=== PATIENT | male | born 1935 | race Caucasian/White ===

== ENCOUNTER → 2016-09-09 | Outpatient (CLI) | payer MEDICARE, BC ==
[~2016-09-09] MED LIST: ASPI325T PO; ATOR40TA16 PO; ATOR40TA49 PO; BICA50TA PO; BUTATAB6 PO; CALC500T21 PO; CALC500T43 PO; IPRA0.02 NEB; IRBE150T49 PO; LABE200T2 PO; METO25 PO; METO25TA3 PO; OMEG5CAP PO; PRED20 PO; SYMB160A INH; TAMS0.4C4 PO; VITA100064 PO; VITATAB25 PO; WALKER ROLLING
[2016-09-09 12:20] LABS: AUTOMATED NEUTROPHIL # 4.4 TH/MM3 (1.8-7.7); BASOPHIL # 0.1 TH/MM3 (0-0.2); EOSINOPHIL # 0.2 TH/MM3 (0-0.4); EOSINOPHIL % 3.3 % (0.0-4.0); HEMATOCRIT 41.4 % (39.0-51.0); HEMO FLAGS DIFF FINAL; LYMPH % 24.9 % (9.0-44.0); LYMPHOCYTE # 1.8 TH/MM3 (1.0-4.8); MEAN CELL VOLUME 88.3 FL (80.0-100.0); MEAN CORPUSCULAR HEMOGLOBIN 29.5 PG (27.0-34.0); MEAN CORPUSCULAR HGB CONC 33.4 % (32.0-36.0); MONO % 8.3 % (0.0-8.0); NEUT % 62.5 % (16.0-70.0); PLATELET COUNT 172 TH/MM3 (150-450); RED BLOOD COUNT 4.68 MIL/MM3 (4.50-5.90); RED CELL DISTRIBUTION WIDTH 13.6 % (11.6-17.2)
[2016-09-09 12:42] LABS: ALT (GPT) 22 U/L (12-78); ANION GAP 8 MEQ/L (5-15); AST (GOT) 11 U/L (15-37); BICARBONATE 29.6 MEQ/L (21.0-32.0); BLOOD UREA NITROGEN 21 MG/DL (7-18); CHLORIDE 110 MEQ/L (98-107); GLOMERULAR FILTRATION RATE 50 ML/MIN (>89); GLUCOSE,FASTING 130 MG/DL (74-99); SODIUM (NA) 148 MEQ/L (136-145)
[2016-09-09 12:47] LABS: MICRO ALBUMIN RANDOM URINE RAW 18.2 MG/L (0.0-30.0)
[2016-09-09 12:52] LABS: ALKALINE PHOSPHATASE 84 U/L (45-117); HDL CHOLESTEROL 68.4 MG/DL (40.0-60.0); LDL CHOLESTEROL 62 MG/DL (0-99); TOTAL BILIRUBIN ADULT 0.3 MG/DL (0.2-1.0)
[2016-09-09 15:54] LABS: HEMOGLOBIN A1a 0.8 %; HEMOGLOBIN Ao 83.9 %; HEMOGLOBIN LA1C 2.2 %; HEMOGLOBIN P3 4.2 %
== END ==
LOC: PLAB 08:30
PROVIDERS: ATTEND Family Medicine
DX: E78.5 Hyperlipidemia, unspecified (principal); E11.21 Type 2 diabetes mellitus with diabetic nephropathy; R53.83 Other fatigue
CPT/HCPCS: 36415; 80053; 80061; 82043; 83036; 84443; 85025

== ENCOUNTER 2016-11-21 02:05 | Inpatient (IN) | payer MEDICARE, BC ==
[2016-11-21] VITALS (10 sets, daily range): BP systolic 117–201; BP diastolic 80–116; PULSE 62–104; RESP 17–24; TEMP 97–100; O2SAT 97–100
[~2016-11-21] VITALS: Ht 182.9 cm; Wt 82.9 kg
[~2016-11-21 02:05] MED LIST changes: -ATOR40TA16 PO; -BICA50TA PO; -BUTATAB6 PO; -CALC500T43 PO; -LABE200T2 PO; -METO25TA3 PO; -PRED20 PO; -SYMB160A INH; -VITA100064 PO
[2016-11-21] MEDS ORDERED: SODIUM CHLOR 0.9% 1000 ML INJ 1,000 ML IV SCH (02:14)
[2016-11-21] MEDS ORDERED: RESP: ALBUTEROL 2.5 MG/IPRATROPIUM 0.5 MG NEB (SCH) NEB ONE ×2 (02:15→05:45)
[2016-11-21] MEDS ORDERED: LEVOFLOXACIN 750 MG PREMIX INJ 150 ML IV ONE (02:15)
[2016-11-21] MEDS ORDERED: SODIUM CHLORIDE 0.9% FLUSH 5 ML FLUSH IV FLUSH PRN (02:15)
[2016-11-21] MEDS ORDERED: TAMS0.4C4 PO (02:26)
[2016-11-21] MEDS ORDERED: CALC500T43 PO (02:26)
[2016-11-21] MEDS ORDERED: IRBE150T49 PO (02:26)
[2016-11-21] MEDS ORDERED: IPRA0.02 NEB (02:26)
[2016-11-21] MEDS ORDERED: METO25TA3 PO (02:26)
[2016-11-21] MEDS ORDERED: VITA100064 PO (02:26)
[2016-11-21] MEDS ORDERED: ATOR40TA16 PO (02:26)
[2016-11-21] MEDS ORDERED: ASPI325T PO (02:26)
--- NOTE | 2016-11-21 02:59 | RADHPO ---
EXAM DATE/TIME: 11/21/2016 02:39 [facility] COMPARISON: CT BRAIN W/O CONTRAST, January 05, 2016, 8:55. INDICATIONS : Altered mental status. RADIATION DOSE: 65.76 CTDIvol (mGy) MEDICAL HISTORY : Cerebrovascular disease. Hypertension. Carcinoma, prostate. SURGICAL HISTORY : None. ENCOUNTER: Initial ACUITY: 1 day PAIN SCALE: 0/10 LOCATION: cranial TECHNIQUE: Multiple contiguous axial images were obtained of the head. Using automated exposure control and adj ustment of the mA and/or kV according to patient size, radiation dose was kept as low as reasonably a chievable to obtain optimal diagnostic quality images. FINDINGS: There is marked central and cortical atrophy with dilatation of ventricular and sulcal spaces. There is no parenchymal hemorrhage, acute infarction or mass lesion identified. There are no extra-axial fluid collections appreciated. The posterior fossa is unremarkable with midline fourth ventricle. T he portion of the orbits and paranasal sinuses visualized are unremarkable. CONCLUSION: No acute disease. Jeremías Aguirre MD on November 21, 2016 at 2:57 Board Certified Radiologist. This report was verified electronically.
[2016-11-21 03:12] LABS: AUTOMATED NEUTROPHIL # 7.4 TH/MM3 (1.8-7.7); BASOPHIL # 0.1 TH/MM3 (0-0.2); BASOPHIL % 0.6 % (0.0-2.0); EOSINOPHIL # 0.1 TH/MM3 (0-0.4); EOSINOPHIL % 1.1 % (0.0-4.0); HEMO FLAGS DIFF FINAL; LYMPH % 12.7 % (9.0-44.0); LYMPHOCYTE # 1.2 TH/MM3 (1.0-4.8); MEAN CELL VOLUME 87.1 FL (80.0-100.0); MEAN CORPUSCULAR HEMOGLOBIN 28.9 PG (27.0-34.0); MEAN CORPUSCULAR HGB CONC 33.1 % (32.0-36.0); MONO % 4.9 % (0.0-8.0); NEUT % 80.7 % (16.0-70.0); PLATELET COUNT 181 TH/MM3 (150-450); RED BLOOD COUNT 4.83 MIL/MM3 (4.50-5.90); WHITE BLOOD COUNT 9.3 TH/MM3 (4.0-11.0)
--- NOTE | 2016-11-21 03:14 | RADHPO ---
EXAM DATE/TIME: 11/21/2016 03:02 [facility] COMPARISON: CHEST SINGLE AP, March 26, 2016, 11:12. INDICATIONS : Syncope. MEDICAL HISTORY : Chronic obstructive pulmonary disease. Cerebrovascular disease. Hypertension. Carcinoma, prosta te SURGICAL HISTORY : None. ENCOUNTER: Initial ACUITY: 1 day PAIN SCORE: 0/10 LOCATION: Bilateral chest FINDINGS: A single view of the chest demonstrates the lungs to be symmetrically aerated without evidence of mas s, infiltrate or effusion. The cardiomediastinal contours are unremarkable. Osseous structures are intact. CONCLUSION: Normal examination. Jeremías Aguirre MD on November 21, 2016 at 3:13 Board Certified Radiologist. This report was verified electronically.
[2016-11-21 03:20] LABS: CHLORIDE 104 MEQ/L (98-107); POTASSIUM 4.8 MEQ/L (3.5-5.1); SODIUM (NA) 140 MEQ/L (136-145)
[2016-11-21 03:23] LABS: ANION GAP 6 MEQ/L (5-15); BICARBONATE 29.8 MEQ/L (21.0-32.0); BLOOD UREA NITROGEN 23 MG/DL (7-18)
[2016-11-21 03:24] LABS: APTT (PATIENT) 24.9 SEC (24.3-30.1); PROTHROMBIN TIME - PATIENT 10.7 SEC (9.8-11.6)
[2016-11-21 03:27] LABS: GLOMERULAR FILTRATION RATE 39 ML/MIN (>89)
[2016-11-21 03:30] LABS: CREATINE KINASE 106 U/L (39-308)
[2016-11-21 04:23] LABS: GLUCOSE,URINE NEG (NEG); KETONE, URINE TRACE mg/dL (NEG); NITRITE,URINE NEG (NEG); PH, URINE 5.5 (5.0-8.5)
[2016-11-21 04:28] LABS: BLOOD, URINE MOD (NEG); URINE COLOR YELLOW (YELLW/STRAW)
[2016-11-21 04:29] LABS: COMMENT (UR) CATH-CULT NOT IND; CULTURE IF INDICATED CATH CULTURE NOT IND; SQUAMOUS EPITHELIAL CELL URINE 0-5 /hpf (0-5); WBC, URINE 0-2 /hpf (0-5)
--- NOTE | 2016-11-21 05:43 | PD ---
HPI Chief Complaint: Altered Mental Status Time Seen by Provider: 02:14 Travel History International Travel<30 days: No Contact w/Intl Traveler<30days: No Traveled to known affect area: No History of Present Illness HPI 81-year-old male presents to the emergency department by EMS transport after identified to have change in mentation while at home with his reportedly symptoms seem to have begun sometime around midnight. Patient had no obvious facial droop and slurred speech or unilateral weakness or ataxia of gait reportedly per EMS patient was identified by EMS to have a temperature 100.7F. According to EMS did not report recent febrile illness. Patient here denies having any pain or weakness. Patient does admit to cough. No report of shortness of breath. No report of vomiting or diarrhea or abdominal pain. does not present with the patient. According to EMS patient has had previous TIA or CVA without residua. Patient reportedly does have memory disturbance and history of hypertension dyslipidemia COPD per EMS report. However per EMS report no known history of atrial fibrillation. Also no report per EMS provided by of recent injury or fall. Patient denies any injury. [facility] Past Medical History Narrative Medical Kidney stones tonsillectomy CVA hypertension dyslipidemia COPD prostate cancer; daily alcohol use; nursing notes reviewed Hx Anticoagulant Therapy: Yes Asthma: Yes (COPD) Cancer: Yes (PROSTATE 2003) Cardiovascular Problems: Yes High Cholesterol: Yes COPD: Yes Cerebrovascular Accident: Yes Diminished Hearing: Yes (TINNITIS) Hypertension: Yes Kidney Stones: Yes Neurologic: Yes Respiratory: Yes Immunizations Current: Yes Tetanus Vaccination: < 5 Years Influenza Vaccination: Yes Past Surgical History Tonsillectomy: Yes ( A CHILD) Other Surgery: Yes (Tonsillectomy as child) Social History Alcohol Use: Yes (1 mixed drink daily ) Tobacco Use: No (Quit) Substance Use: No Allergies-Medications (Allergen,Severity, Reaction): Coded Allergies: No Known Allergies (Verified , 11/21/16) Reported Meds & Prescriptions Reported Meds & Active Scripts Active Reported Tamsulosin (Tamsulosin HCl) 0.4 Mg Cap 0.4 Mg PO HS Metoprolol Tartrate 25 Mg Tab 12.5 Mg PO DAILY Avapro (Irbesartan) 150 Mg Tab 150 Mg PO DAILY Ipratropium Neb (Ipratropium [place]) 0.5 Mg/2.5 Ml Amp 0.5 Mg NEB Q4HR NEB PRN Vitamin D (Cholecalciferol) 1,000 Unit Tab 1,000 Units PO DAILY Calcium/Vitamin D (Calcium Carbonate-Vitamin D) 500-200 Mg-Unit Tab 1 Tab PO BID Atorvastatin (Atorvastatin Calcium) 40 Mg Tab 40 Mg PO HS Aspirin 325 Mg Tab 325 Mg PO DAILY Review of Systems ROS Limitations: Poor Historian, Other: (EMS and ) Except as stated in HPI: all other systems reviewed are Neg Physical Exam Narrative GENERAL: Well-developed well-nourished male in no acute distress mild respiratory distress SKIN: Warm and dry. HEAD: Atraumatic. Normocephalic. EYES: Pupils equal and round. No scleral icterus. No injection or drainage. ENT: No nasal bleeding or discharge. Mucous membranes pink and moist. NECK: Trachea midline. No JVD. CARDIOVASCULAR: Intermittently increased Regular rate and rhythm. RESPIRATORY: No accessory muscle use. Clear to auscultation. Breath sounds equal bilaterally. GASTROINTESTINAL: Abdomen soft, non-tender, nondistended. Hepatic and splenic margins not palpable. MUSCULOSKELETAL: Extremities without clubbing, cyanosis, or edema. No obvious deformities. NEUROLOGICAL: Awake and alert. No obvious cranial nerve deficits. Motor grossly within normal limits. Five out of 5 muscle strength in the arms and legs. No pronator drift. No limb ataxia. Sensory exam intact. Normal speech. PSYCHIATRIC: Appropriate mood and affect; insight and judgment normal. Data Data Last Documented VS Vital Signs Date Time Temp Pulse Resp B/P Pulse Ox O2 Delivery O2 Flow Rate FiO2 11/21/16 04:45 99.9 101 18 167/99 99 Nasal Cannula 2 Orders Electrocardiogram (11/21/16 02:14) Ammonia (11/21/16 02:14) Basic Metabolic Panel (Bmp) (11/21/16 02:14) Complete Blood Count With Diff (11/21/16 02:14) Creatine Kinase (Cpk) (11/21/16 02:14) Prothrombin Time / Inr (Pt) (11/21/16 02:14) Act Partial Throm Time (Ptt) (11/21/16 02:14) Troponin I (11/21/16 02:14) Thyroid Stimulating Hormone (11/21/16 02:14) Urinalysis - C+S If Indicated (11/21/16 02:14) Lactic Acid Sepsis Protocol (11/21/16 02:14) Blood Culture (11/21/16 02:14) Chest, Single Ap (11/21/16 02:14) Ct Brain W/O Iv Contrast(Rout) (11/21/16 02:14) Blood Glucose (11/21/16 02:14) Ecg Monitoring (11/21/16 02:14) Iv Access Insert/Monitor (11/21/16 02:14) Oximetry (11/21/16 02:14) Levofloxacin 750 Mg Premix Inj (Levaquin (11/21/16 02:15) Sodium Chloride 0.9% Flush (Ns Flush) (11/21/16 02:15) Sodium Chlor 0.9% 1000 Ml Inj (Ns 1000 M (11/21/16 02:14) Albuterol-Ipratropium Neb (Duoneb Neb) (11/21/16 02:15) Diltiazem Inj (Cardizem Inj) (11/21/16 05:45) Acetaminophen (Tylenol) (11/21/16 05:45) Albuterol-Ipratropium Neb (Duoneb Neb) (11/21/16 05:45) Levofloxacin 750 Mg Premix Inj (Levaquin (11/22/16 06:00) Methylprednisolone So Succ Inj (Solumedr (11/21/16 06:00) Budeson-Formot 160-4.5 Mg Inh (Symbicort (11/21/16 09:00) Admit To Inpatient (11/21/16 ) Vital Signs (Adult) Q4H (11/21/16 05:48) Activity Oob With Assistance (11/21/16 05:48) Music Minister / Telemetry .CONTINUOUS (11/21/16 05:48) Intake + Output CECILY.QSHIFT (11/21/16 05:48) Diet Heart Healthy (11/21/16 Breakfast) Sodium Chlor 0.9% 1000 Ml Inj (Ns 1000 M (11/21/16 05:48) Sodium Chloride 0.9% Flush (Ns Flush) (11/21/16 06:00) Sodium Chloride 0.9% Flush (Ns Flush) (11/21/16 09:00) Ondansetron Inj (Zofran Inj) (11/21/16 06:00) Comprehensive Metabolic Panel (11/22/16 06:00) Complete Blood Count With Diff (11/22/16 06:00) Scd Bilateral/Knee High CECILY.BID (11/21/16 05:48) Yogesh Bilateral/Knee High CECILY.QSHIFT (11/21/16 05:48) Acetaminophen (Tylenol) (11/21/16 06:00) Acetamin-Hydrocod 325-5 Mg (Dameron 5-325 (11/21/16 06:00) Morphine Inj (Morphine Inj) (11/21/16 06:00) Docusate Sodium-Senna (Xiomara-Colace) (11/21/16 09:00) Magnesium Hydroxide Liq (Milk Of Magnesi (11/21/16 06:00) Sennosides (Senokot) (11/21/16 06:00) Bisacodyl Supp (Dulcolax Supp) (11/21/16 06:00) Lactulose Liq (Lactulose Liq) (11/21/16 06:00) Inpatient Certification (11/21/16 ) Echo 2d Comp With Doppler (11/21/16 ) Mri Brain W/O Contrast (11/21/16 ) Us Carotid Arteries Comp Bilat (11/21/16 ) Aspirin (Aspirin) (11/21/16 09:00) Atorvastatin (Lipitor) (11/21/16 21:00) Ipratropium Neb (Atrovent Neb) (11/21/16 06:00) Metoprolol Tartrate (Lopressor) (11/21/16 09:00) Tamsulosin (Flomax) (11/21/16 21:00) Admit Order (Ed Use Only) (11/21/16 ) ^ Saline Lock (11/21/16 05:53) Resp Oxygen Nikko C Titrat 1-4 L (11/21/16 ) Notify Dr: Other (11/21/16 05:53) Sodium Chloride 0.9% Flush (Ns Flush) (11/21/16 09:00) Sodium Chloride 0.9% Flush (Ns Flush) (11/21/16 06:00) Labs Laboratory Tests Test 11/21/16 11/21/16 02:55 04:15 White Blood Count 9.3 TH/MM3 Red Blood Count 4.83 MIL/MM3 Hemoglobin 13.9 GM/DL Hematocrit 42.0 % Mean Corpuscular Volume 87.1 FL Mean Corpuscular Hemoglobin 28.9 PG Mean Corpuscular Hemoglobin 33.1 % Concent Red Cell Distribution Width 13.0 % Platelet Count 181 TH/MM3 Mean Platelet Volume 6.8 FL Neutrophils (%) (Auto) 80.7 % Lymphocytes (%) (Auto) 12.7 % Monocytes (%) (Auto) 4.9 % Eosinophils (%) (Auto) 1.1 % Basophils (%) (Auto) 0.6 % Neutrophils # (Auto) 7.4 TH/MM3 Lymphocytes # (Auto) 1.2 TH/MM3 Monocytes # (Auto) 0.5 TH/MM3 Eosinophils # (Auto) 0.1 TH/MM3 Basophils # (Auto) 0.1 TH/MM3 CBC Comment DIFF FINAL Differential Comment Prothrombin Time 10.7 SEC Prothromb Time International 1.0 RATIO Ratio Activated Partial 24.9 SEC Thromboplast Time Sodium Level 140 MEQ/L Potassium Level 4.8 MEQ/L Chloride Level 104 MEQ/L Carbon Dioxide Level 29.8 MEQ/L Anion Gap 6 MEQ/L Blood Urea Nitrogen 23 MG/DL Creatinine 1.70 MG/DL Estimat Glomerular Filtration 39 ML/MIN Rate Random Glucose 197 MG/DL Lactic Acid Level 1.9 mmol/L Calcium Level 8.7 MG/DL Ammonia 13 MCMOL/L Total Creatine Kinase 106 U/L Troponin I LESS THAN 0.02 NG/ML Thyroid Stimulating Hormone 1.230 uIU/ML 3rd Gen Urine Color YELLOW Urine Turbidity CLEAR Urine pH 5.5 Urine Specific [place] 1.025 Urine Protein TRACE mg/dL Urine Glucose (UA) NEG mg/dL Urine Ketones TRACE mg/dL Urine Occult Blood MOD Urine Nitrite NEG Urine Bilirubin NEG Urine Leukocyte Esterase NEG Urine RBC 25-49 /hpf Urine WBC 0-2 /hpf Urine Squamous Epithelial 0-5 /hpf Cells Urine Bacteria NONE /hpf Microscopic Urinalysis Comment CATH-CULT NOT IND MDM Medical Decision Making Medical Screen Exam Complete: Yes Emergency Medical Condition: Yes Medical Record Reviewed: Yes Differential Diagnosis Altered mental status, febrile illness, sepsis, pneumonia, exacerbation COPD, TIA, CVA, ACS Narrative Course Patient placed on environmental monitoring technician IV access obtained patient intermittently with sinus tachycardia and then sinus rhythm occasional paroxysmal atrial tachycardia; specimens collected and sent for resulting; blood cultures obtained patient presumptively administered IV antibiotic per EMS temperature 100.7F and upon arrival 100F. CT brain noncontrast ordered EKG ordered Patient resting comfortably voicing no complaints DuoNeb updraft administered has arrived and reports that patient had been doing fairly well this evening and after finishing watching TV around midnight started noticing that he was having some confusion. Had not been talking to him during the evening while they were watching TV so as not exactly sure when the confusion began but feels that it may have been some time near that time. did not check his temperature as he had not recently been ill. No problems with his ambulation or no apparent weakness or facial droop or slurred speech just intermittent confusion. Patient improved at this time but still has some confusion. Patient here complains of shortness of breath. Additional DuoNeb updraft administered. Patient with intermittent episodes of atrial tachycardia possible intermittent paroxysmal atrial fibrillation. For rate control patient given one time dose of Cardizem 10 mg IV. Also administered DuoNeb updraft 1 and acetaminophen 650 mg times one dose. Labs resulted and found to be in normal range along with normal cardiac enzymes. CT brain noncontrast reveals no acute abnormality. Atrial fibrillation is improved at this time from time of presentation. Sepsis Criteria SIRS Criteria (2 or more): Heart rate over 90 Physician Communication Physician Communication call placed to [facility] Diagnosis Primary Impression: Febrile illness Additional Impressions: COPD (chronic obstructive pulmonary disease) Qualified Code: J44.9 - Chronic obstructive pulmonary disease, unspecified COPD type Paroxysmal atrial tachycardia TIA (transient ischemic attack) Qualified Code: G45.9 - Transient cerebral ischemia, unspecified type Admitting Information Admitting Physician Requests: Admit Chana Callahan MD November 21, 2016 05:43
[2016-11-21] MEDS ORDERED: DILTIAZEM HCL 25 MG/5 ML VIAL IV ONE (05:45)
[2016-11-21] MEDS ORDERED: ACETAMINOPHEN 325 MG TAB PO ONE (05:45)
[2016-11-21] MEDS ORDERED: BISACODYL 10 MG SUPP RECTAL PRN (06:00)
[2016-11-21] MEDS ORDERED: LACTULOSE SYRUP 20 GM/30 ML CUP PO PRN (06:00)
[2016-11-21] MEDS ORDERED: SODIUM CHLORIDE 0.9% FLUSH 10 ML FLUSH IVF PRN (06:00)
[2016-11-21] MEDS ORDERED: ONDANSETRON HCL 4 MG/2 ML VIAL IVP PRN (06:00)
[2016-11-21] MEDS ORDERED: methylPREDNISolone SOD SUCC 40 MG/1 ML VIAL IV PUSH SCH (06:00)
[2016-11-21] MEDS ORDERED: RESP: IPRATROPIUM 0.5 MG/2.5 ML NEB NEB PRN (06:00)
[2016-11-21] MEDS ORDERED: MAGNESIUM HYDROXIDE SUSP 30 ML CUP PO PRN (06:00)
[2016-11-21] MEDS ORDERED: MORPHINE SULFATE 4 MG/ML INJ IV PRN (06:00)
[2016-11-21] MEDS ORDERED: ACETAMINOPHEN/HYDROcodone 325 MG/5 MG TAB PO PRN (06:00)
[2016-11-21] MEDS ORDERED: SODIUM CHLORIDE 0.9% FLUSH 10 ML FLUSH IV FLUSH PRN (06:00)
[2016-11-21] MEDS ORDERED: SENNOSIDES 8.6 MG TAB PO PRN (06:00)
[2016-11-21] MEDS ORDERED: ACETAMINOPHEN 325 MG TAB PO PRN (06:00)
[2016-11-21] MEDS: SODIUM CHLOR 0.9% 1000 ML INJ 1,000 ML IV SCH ×2 (06:13→15:48)
[2016-11-21] MEDS: SODIUM CHLORIDE 0.9% FLUSH 10 ML FLUSH IV FLUSH SCH ×2 (09:00→21:06)
[2016-11-21] MEDS ORDERED: METOPROLOL TARTRATE 25 MG TAB PO SCH (09:00)
[2016-11-21] MEDS: DOCUSATE SODIUM 50 MG/SENNA 8.6 MG TAB PO SCH ×2 (09:00→21:05)
[2016-11-21] MEDS: BUDESONIDE-FORMOTEROL 160/4.5 MCG INHALER INH SCH ×2 (09:00→21:00)
[2016-11-21] MEDS ORDERED: IRBESARTAN 150 MG PO SCH (09:00)
[2016-11-21] MEDS ORDERED: SODIUM CHLORIDE 0.9% FLUSH 10 ML FLUSH IV FLUSH SCH (09:00)
[2016-11-21] MEDS: ASPIRIN 325 MG TAB PO SCH (09:42)
[2016-11-21] MEDS ORDERED: ACETAMIN 325 MG/BUTALBITAL 50 MG/CAFFEINE 40 MG TAB PO ONE (10:15)
--- NOTE | 2016-11-21 10:17 | HHI.HP ---
HPI Service [facility] Primary Care Physician Lorraine Saba MD Admission Diagnosis febrile illness/sirs; possible TIA; copd Diagnoses: Chief Complaint: Shortness of breath Travel History International Travel<30 Days: No Contact w/Intl Traveler <30 Da: No Traveled to Known Affected Are: No History of Present Illness The patient is an 81-year-old male with past medical history of COPD, TIA and hypertension who is presenting to the hospital with shortness of breath and confusion. The patient says that he has COPD and is not on home oxygen. He says his breathing is bothering him quite a bit. He says he feels like he struggles to breathe but whenever he's checked on the monitors he's always saturating well. He says that he does cough every once in a while. He does endorse a headache at the back of his head that seems to get worse with coughing. He says that yesterday his got worried about him because he was slurring his speech and acting a little confused. The patient said he had the same presentation last year when he was diagnosed with a TIA. He currently does not have any symptoms of slurring speech or confusion. He denies any weakness in his upper or lower extremities. He denies any sensation of numbness or tingling. He denies any fevers. He says he has been taking aspirin every day. He says generally his blood pressure is well controlled at home. He says he remains active and goes swimming regularly. He currently has a bit of a headache at the back of his head but it is not that bothersome. He says he is on a nebulizer at home for his COPD. He does follow with a prism inspector. Review of Systems Except as stated in HPI: all other systems reviewed are Neg Past Family Social History Past Medical History COPD TIA Prostate cancer status post radiation and now on injections Hypertension Hyperlipidemia Allergies: Coded Allergies: No Known Allergies (Verified , 11/21/16) Active Ordered Medications Current Medications Medications (Trade) Dose Ordered Sig/Arnulfo Route Start Time Stop Time Status Last Admin (Levaquin 750 Mg Premix Inj) 150 ml @ 100 mls/hr Q24H IV 11/22/16 06:00 (SoluMEDROL INJ) 40 mg Q6HR IV PUSH 11/21/16 06:00 11/21/16 06:17 Budesonide/ Formoterol Fumarate 2 puff 2 puff Q12HR INH 11/21/16 09:00 (NS 1000 ml Inj) 1,000 ml @ 100 mls/hr Q10H IV 11/21/16 05:48 11/21/16 06:13 (NS Flush) 2 ml UNSCH PRN IV FLUSH 11/21/16 06:00 (NS Flush) 2 ml BID IV FLUSH 11/21/16 09:00 11/21/16 09:00 (Zofran Inj) 4 mg Q6H PRN IVP 11/21/16 06:00 (Tylenol) 650 mg Q6H PRN PO 11/21/16 06:00 ([place] 5-325 Mg) 1 tab Q4H PRN PO 11/21/16 06:00 (Morphine Inj) 2 mg Q3H PRN IV 11/21/16 06:00 (Xiomara-Colace) 1 tab BID PO 11/21/16 09:00 (Milk Of Magnesia Liq) 30 ml Q12H PRN PO 11/21/16 06:00 (Senokot) 17.2 mg Q12H PRN PO 11/21/16 06:00 (Dulcolax Supp) 10 mg DAILY PRN RECTAL 11/21/16 06:00 (Lactulose Liq) 30 ml DAILY PRN PO 11/21/16 06:00 (Aspirin) 325 mg DAILY PO 11/21/16 09:00 11/21/16 09:42 (Lipitor) 40 mg HS PO 11/21/16 21:00 (Lopressor) 12.5 mg DAILY PO 11/21/16 09:00 11/21/16 09:41 (Flomax) 0.4 mg HS PO 11/21/16 21:00 Non-Formulary Medication 150 mg DAILY PO 11/21/16 09:00 UNV Family History Lung cancer Social History The patient quit smoking 20 years ago. He will drink one glass of wine or one cocktail every day or every other day. Physical Exam Vital Signs Vital Signs Date Time Temp Pulse Resp B/P Pulse Ox O2 Delivery O2 Flow Rate FiO2 11/21/16 08:30 97.0 89 24 156/84 99 11/21/16 07:58 100 17 161/92 97 Nasal Cannula 2 11/21/16 04:45 99.9 101 18 167/99 99 Nasal Cannula 2 11/21/16 04:05 95 18 196/94 100 Nasal Cannula 2 11/21/16 02:27 97 Nasal Cannula 2.00 11/21/16 02:10 104 18 100 Nasal Cannula 2 11/21/16 02:10 100.0 104 18 117/94 100 11/21/16 02:10 18 100 Nasal Cannula 2 Physical Exam GENERAL: This is a well-nourished, well-developed patient, in no apparent distress. SKIN: No rashes, ecchymoses or lesions. Cool and dry. HEAD: Atraumatic. Normocephalic. No temporal or scalp tenderness. EYES: Pupils equal round and reactive. Extraocular motions intact. No scleral icterus. No injection or drainage. ENT: Nose without bleeding, purulent drainage or septal hematoma. Throat without erythema, tonsillar hypertrophy or exudate. Uvula midline. Airway patent. NECK: Trachea midline. No JVD or lymphadenopathy. Supple, nontender, no meningeal signs. CARDIOVASCULAR: Regular rate and rhythm without murmurs, gallops, or rubs. RESPIRATORY: Clear to auscultation. Decreased air movement. GASTROINTESTINAL: Abdomen soft, non-tender, nondistended. No hepato-splenomegaly , or palpable masses. No guarding. MUSCULOSKELETAL: Extremities without clubbing, cyanosis, or edema. No joint tenderness, effusion, or edema noted. No calf tenderness. Negative Homans sign bilaterally. NEUROLOGICAL: Awake and alert. Cranial nerves II through XII intact. Motor and sensory grossly within normal limits. Five out of 5 muscle strength in all muscle groups. Normal speech. PSYCH: Slightly flattened affect. Laboratory Laboratory Tests Test 11/21/16 11/21/16 02:55 04:15 White Blood Count 9.3 Red Blood Count 4.83 Hemoglobin 13.9 Hematocrit 42.0 Mean Corpuscular Volume 87.1 Mean Corpuscular Hemoglobin 28.9 Mean Corpuscular Hemoglobin 33.1 Concent Red Cell Distribution Width 13.0 Platelet Count 181 Mean Platelet Volume 6.8 Neutrophils (%) (Auto) 80.7 Lymphocytes (%) (Auto) 12.7 Monocytes (%) (Auto) 4.9 Eosinophils (%) (Auto) 1.1 Basophils (%) (Auto) 0.6 Neutrophils # (Auto) 7.4 Lymphocytes # (Auto) 1.2 Monocytes # (Auto) 0.5 Eosinophils # (Auto) 0.1 Basophils # (Auto) 0.1 CBC Comment DIFF FINAL Differential Comment Prothrombin Time 10.7 Prothromb Time International 1.0 Ratio Activated Partial 24.9 Thromboplast Time Sodium Level 140 Potassium Level 4.8 Chloride Level 104 Carbon Dioxide Level 29.8 Anion Gap 6 Blood Urea Nitrogen 23 Creatinine 1.70 Estimat Glomerular Filtration 39 Rate Random Glucose 197 Lactic Acid Level 1.9 Calcium Level 8.7 Ammonia 13 Total Creatine Kinase 106 Troponin I LESS THAN 0.02 Thyroid Stimulating Hormone 1.230 3rd Gen Urine Color YELLOW Urine Turbidity CLEAR Urine pH 5.5 Urine Specific [place] 1.025 Urine Protein TRACE Urine Glucose (UA) NEG Urine Ketones TRACE Urine Occult Blood MOD Urine Nitrite NEG Urine Bilirubin NEG Urine Leukocyte Esterase NEG Urine RBC 25-49 Urine WBC 0-2 Urine Squamous Epithelial 0-5 Cells Urine Bacteria NONE Microscopic Urinalysis Comment CATH-CULT NOT IND Date/Time Procedure Status Source Growth 11/21/16 03:00 Aerobic Blood Culture Received Blood Peripheral Pending 11/21/16 03:00 Anaerobic Blood Culture Received Blood Peripheral Pending Result Diagram: 11/21/1625411/21/16254 Imaging Last Impressions Head CT 11/21/16213 Signed Impressions: Service Date/Time: Monday, November 21, 2016 02:39 - CONCLUSION: No acute disease. Jeremías Aguirre MD Chest X-Ray 11/21/16213 Signed Impressions: Service Date/Time: Monday, November 21, 2016 03:02 - CONCLUSION: Normal examination. Jeremías Aguirre MD Assessment and Plan Assessment and Plan Confusion/ Headache/ History of TIA The patient had an episode of confusion and slurred speech that has cleared up. He had a similar presentation in 2016 which was thought to be secondary to a TIA. He received a full neurologic workup at that time. His symptoms may be secondary to uncontrolled hypertension versus migraine as he still has a mild headache at this time. CT of the head was unremarkable. - Blood pressure control. - Fioricet as needed for headache. - Physical therapy evaluation. - Neuro checks. - Check a lipid profile. Continue statin. COPD The patient says his breathing has been poor lately. He is saturating well on 2 L of nasal cannula. Chest x-ray unremarkable. - Continue Solu-Medrol for now. - Standing and as needed duo nebs. - Oxygen as needed. - Incentive spirometry. - Encourage ambulation. Accelerated hypertension Blood pressure fluctuates. High blood pressure may be contributing to his confusion. - d/c valsartan and metoprolol. Labetalol 200 mg BID started. Add amlodipine if needed. - Vasotec as needed. Chronic renal failure Creatinine elevation similar to values from last year. Unsure of actual baseline. - Hold ARB. - IVFs. - follow BMP. Hyperglycemia Possibly secondary to steroids. No reported history of diabetes. - Check a hemoglobin A1c. Prostate cancer Followed by Dr. Madden. - Continue monthly injections as an outpatient. PPx: Lovenox Code Status Full Discussed Condition With Patient Physician Certification 2 Midnight Certification Type: Admission for Inpatient Services Order for Inpatient Services The services are ordered in accordance with Medicare regulations or non- Medicare payer requirements, as applicable. In the case of services not specified as inpatient-only, they are appropriately provided as inpatient services in accordance with the 2-midnight benchmark. Estimated LOS (days): 2 days is the estimated time the patient will need to remain in the hospital, assuming treatment plan goals are met and no additional complications. Post-Hospital Plan: Home Siva Strickland DO November 21, 2016 10:17
[2016-11-21] MEDS ORDERED: ENOXAPARIN SODIUM 30 MG/0.3 ML SYRINGE SQ SCH (10:30)
[2016-11-21] MEDS ORDERED: ENALAPRILAT 1.25 MG/ML VIAL IV PUSH PRN (11:00)
[2016-11-21] MEDS: LABETALOL HCL 200 MG TAB PO SCH ×2 (11:34→21:05)
[2016-11-21 11:47] LABS: HDL CHOLESTEROL 62.3 MG/DL (40.0-60.0); LDL CHOLESTEROL 129 MG/DL (0-99)
[2016-11-21] MEDS ORDERED: RESP: ALBUTEROL 2.5 MG/IPRATROPIUM 0.5 MG NEB (PRN) NEB (12:00)
[2016-11-21] MEDS: methylPREDNISolone SOD SUCC 40 MG/1 ML VIAL IV PUSH SCH ×2 (14:41→21:05)
[2016-11-21] MEDS: RESP: ALBUTEROL 2.5 MG/IPRATROPIUM 0.5 MG NEB (SCH) NEB ×2 (15:09→20:47)
--- NOTE | 2016-11-21 15:46 | EKG ---
Date Performed: 11/21/2016 Time Performed: 02:18:00 PTAGE: 81 years EKG: Patient has Sinus rhythm with a rate of around 90 with runs of supraventricular tachycardia. Generally six or seven beats wit h a rate of around 145, these self-terminate. Low limb lead voltage Since PREVIOUS TRACING 03/26/2016, the runs of supraventricular tachycardia are new. PREVIOUS TRACIN03/26/2016 10.26 DOCTOR: Edy Díaz Interpretating Date/Time 11/21/2016 15:45:41
--- NOTE | 2016-11-21 16:27 | EC ---
Study Study Date:11/21/2016 STUDY CONCLUSIONS SUMMARY - Left ventricle: The cavity size was normal. Wall thickness was normal. Systolic function was normal. The estimated ejection fraction was in the range of 50% to 55%. Regional wall motion abnormalities cannot be excluded. Doppler parameters are consistent with abnormal left ventricular relaxation (grade 1 diastolic dysfunction). - Mitral valve: Mildly calcified annulus. If LV function is below 40, please consider prescribing an ACEI or ARB or document rationale for non-use. PROCEDURE DATA STUDY STATUS: Elective. Procedure: Transthoracic echocardiography. Image quality was poor. Scanning was performed from the parasternal, apical, and subcostal acoustic windows. Study completion: The patient tolerated the procedure well. Transthoracic echocardiography. M-mode, complete 2D, complete spectral Doppler, and color Doppler. Patient status: Inpatient. CARDIAC ANATOMY LEFT VENTRICLE: Not well visualized. The cavity size was normal. Wall thickness was normal. Systolic function was normal. The estimated ejection fraction was in the range of 50% to 55%. Regional wall motion abnormalities cannot be excluded. Doppler parameters are consistent with abnormal left ventricular relaxation (grade 1 diastolic dysfunction). AORTIC VALVE: Poorly visualized. Mildly thickened, mildly calcified leaflets. Doppler: Transvalvular velocity was within the normal range. There was no stenosis. No regurgitation. AORTA: Aortic root: The aortic root was normal in size. MITRAL VALVE: Poorly visualized. Mildly calcified annulus. Doppler: Transvalvular velocity was within the normal range. There was no evidence for stenosis. No regurgitation. LEFT ATRIUM: The atrium was normal in size. RIGHT VENTRICLE: Not well visualized. The cavity size was normal. Wall thickness was normal. PULMONIC VALVE: Poorly visualized. TRICUSPID VALVE: Poorly visualized. Doppler: Transvalvular velocity was within the normal range. Trace regurgitation. PULMONARY ARTERY: The main pulmonary artery was normal-sized. Systolic pressure was within the normal range. RIGHT ATRIUM: Poorly visualized. The atrium was normal in size. PERICARDIUM: A prominent pericardial fat pad was present. There was no pericardial effusion. SYSTEMIC VEINS: Inferior vena cava: The vessel was normal in size. BASIC MEASUREMENTS ADULT Normal Left ventricle LV internal dimension, ED, chordal level, 43.7 mm 43-52 PLAX LV internal dimension, ES, chordal level, 34.2 mm 23-38 PLAX Fractional shortening, chordal level, PLAX *22 % >29 LV posterior wall thickness, ED 6.3 mm IVS/LVPW ratio, ED *1.31 <1.3 Ventricular septum Septal thickness, ED 8.26 mm Left atrium Anterior-posterior dimension 34 mm Right ventricle RV internal dimension, ED, PLAX 21.3 mm 19-38 DOPPLER MEASUREMENTS ADULT Normal Main pulmonary artery Pressure, S 29 mm Hg =30 Mitral valve Peak E-wave velocity 46.9 cm/s Peak A-wave velocity 53.6 cm/s Peak E/A ratio 0.9 Tricuspid valve Regurgitant peak velocity 247 cm/s Peak RV-RA gradient, S 24 mm Hg Maximal regurgitant velocity 247 cm/s Systemic veins Estimated CVP 5 mm Hg Right ventricle RV pressure, S 29 mm Hg <30 LEGEND: Mean values are shown as u=mean value. Asterisk (*) meyer values outside specified normal range. Prepared and signed by Juan José Parra [id number]
[2016-11-21] MEDS ORDERED: ACETAMIN 325 MG/BUTALBITAL 50 MG/CAFFEINE 40 MG TAB PO PRN (17:00)
--- NOTE | 2016-11-21 20:29 | RADHPO ---
EXAM DATE/TIME: 11/21/2016 19:46 [place] COMPARISON: US CAROTID ARTERIES, January 05, 2016, 22:23. INDICATIONS : Transischemic attack. MEDICAL HISTORY : Hypertension. Carcinoma, prostate. Hypercholesterolemia. Chronic obstructive pu lmonary disease. Cerebrovascular accident. Asthma. Tinnitis. Renal calculi. Anticoagulant therapy. SURGICAL HISTORY : Tonsillectomy. ENCOUNTER: Subsequent ACUITY: 1 day PAIN SCORE: 0/10 LOCATION: Bilateral neck PEAK SYSTOLIC VELOCITIES (cm/sec): ICA/CCA RATIO: Right: 0.5 Left: 0.9 ICA: Right: 58 Left: 64 CCA: Right: 118 Left: 68 ECA: Right: 83 Left: 75 VERTEBRAL: Right: 45 antegrade Left: 46 antegrade Elevated flow velocities and ICA/CCA ratios have been found to correlate with increased degrees of vessel stenosis, calculated as percentage of diameter relative to a normal segment of distal ICA/CCA FINDINGS: RIGHT CAROTID: There is no evidence for a hemodynamically significant carotid stenosis. Minimal int imal hyperplasia is present with scattered calcific plaque. LEFT CAROTID: There is no evidence for a hemodynamically significant carotid stenosis. Minimal inti mal hyperplasia is present with scattered calcific plaque. VERTEBRAL ARTERIES: Flow is antegrade in both vertebral arteries. MISCELLANEOUS: There are no ancillary masses or adenopathy. CONCLUSION: Negative examination for a hemodynamically significant carotid stenosis. Alonzo Hernández MD FACR Board Certified Radiologist. This report was verified electronically.
[2016-11-21] MEDS: ATORVASTATIN 40 MG TAB PO SCH (21:05)
[2016-11-21] MEDS: TAMSULOSIN HCL 0.4 MG CAP PO SCH (21:06)
[2016-11-22] VITALS (8 sets, daily range): BP systolic 130–143; BP diastolic 64–86; PULSE 64–83; RESP 18–22; TEMP 96.9–97.9; O2SAT 95–99
[2016-11-22] MEDS: SODIUM CHLOR 0.9% 1000 ML INJ 1,000 ML IV SCH ×2 (01:48→11:48)
[2016-11-22] MEDS: methylPREDNISolone SOD SUCC 40 MG/1 ML VIAL IV PUSH SCH ×2 (05:16→12:58)
[2016-11-22 07:39] LABS: CHLORIDE 105 MEQ/L (98-107); POTASSIUM 4.3 MEQ/L (3.5-5.1); SODIUM (NA) 141 MEQ/L (136-145)
[2016-11-22 07:45] LABS: AUTOMATED NEUTROPHIL # 7.8 TH/MM3 (1.8-7.7); BASOPHIL % 0.1 % (0.0-2.0); EOSINOPHIL % 0.2 % (0.0-4.0); HEMATOCRIT 41.5 % (39.0-51.0); HEMO FLAGS DIFF FINAL; LYMPH % 11.4 % (9.0-44.0); MEAN CELL VOLUME 88.1 FL (80.0-100.0); MEAN CORPUSCULAR HEMOGLOBIN 29.3 PG (27.0-34.0); MEAN CORPUSCULAR HGB CONC 33.3 % (32.0-36.0); MONO % 4.8 % (0.0-8.0); NEUT % 83.5 % (16.0-70.0); PLATELET COUNT 185 TH/MM3 (150-450); RED BLOOD COUNT 4.71 MIL/MM3 (4.50-5.90); RED CELL DISTRIBUTION WIDTH 13.4 % (11.6-17.2); WHITE BLOOD COUNT 9.2 TH/MM3 (4.0-11.0)
[2016-11-22 07:47] LABS: ANION GAP 11 MEQ/L (5-15); BICARBONATE 24.9 MEQ/L (21.0-32.0); BLOOD UREA NITROGEN 25 MG/DL (7-18)
[2016-11-22] MEDS: RESP: ALBUTEROL 2.5 MG/IPRATROPIUM 0.5 MG NEB (SCH) NEB ×3 (07:49→20:37)
[2016-11-22 07:50] LABS: ALT (GPT) 20 U/L (12-78); AST (GOT) 10 U/L (15-37); GLOMERULAR FILTRATION RATE 41 ML/MIN (>89)
[2016-11-22 07:51] LABS: TOTAL BILIRUBIN ADULT 0.8 MG/DL (0.2-1.0)
[2016-11-22 07:53] LABS: ALKALINE PHOSPHATASE 78 U/L (45-117)
[2016-11-22] MEDS: SODIUM CHLORIDE 0.9% FLUSH 10 ML FLUSH IV FLUSH SCH (08:18)
[2016-11-22] MEDS: DOCUSATE SODIUM 50 MG/SENNA 8.6 MG TAB PO SCH ×2 (08:20→20:56)
[2016-11-22] MEDS: BUDESONIDE-FORMOTEROL 160/4.5 MCG INHALER INH SCH ×2 (08:20→20:57)
[2016-11-22] MEDS: ASPIRIN 325 MG TAB PO SCH (08:20)
[2016-11-22] MEDS: LABETALOL HCL 200 MG TAB PO SCH ×2 (08:20→20:56)
[2016-11-22] MEDS ORDERED: Vancomycin Consult Pharmacy 1 EA OTHER SCH (12:00)
[2016-11-22] MEDS ORDERED: VANCOMYCIN INJ 1,500 MG in SODIUM CHLORID 0.9% 500 ML INJ 500 ML IV SCH (12:00)
[2016-11-22 13:00] LABS: HEMOGLOBIN A1a 0.9 %; HEMOGLOBIN Ao 83.5 %; HEMOGLOBIN LA1C 2.5 %; HEMOGLOBIN P3 4.1 %
--- NOTE | 2016-11-22 13:20 | HHI.PR ---
Subjective Remarks The patient was feeling better. He said he was walking with physical therapy. He says he does not have a headache any longer. He is tolerating a diet. He still has shortness of breath. Objective Vitals Vital Signs Date Time Temp Pulse Resp B/P Pulse Ox O2 Delivery O2 Flow Rate FiO2 11/22/16 08:00 97.7 64 22 134/81 99 11/22/16 07:55 98 Nasal Cannula 2.00 11/22/16 00:02 97.7 78 22 130/74 98 11/21/16 20:02 97.1 77 24 201/116 97 11/21/16 16:00 97.0 62 22 152/86 99 11/21/16 15:12 98 Nasal Cannula 2.00 I/O 11/21/16 11/21/16 11/21/16 11/22/16 11/22/16 11/22/16 07:00 15:00 23:00 07:00 15:00 23:00 Intake Total 425 ml Balance 425 ml Intake Oral 425 ml # Voids 2 1 3 # Bowel Movements 0 Result Diagram: 11/22/16 0608 11/22/16 0608 Imaging Last Impressions Head CT 11/21/16213 Signed Impressions: Service Date/Time: Monday, November 21, 2016 02:39 - CONCLUSION: No acute disease. Jeremías Aguirre MD Chest X-Ray 11/21/16213 Signed Impressions: Service Date/Time: Monday, November 21, 2016 03:02 - CONCLUSION: Normal examination. Jeremías Aguirre MD Carotid Artery Ultrasound 11/21/16 0000 Signed Impressions: Service Date/Time: Monday, November 21, 2016 19:46 - CONCLUSION: Negative examination for a hemodynamically significant carotid stenosis. Alonzo Hernández MD Objective Remarks GENERAL: This is a well-nourished, well-developed patient, in no apparent distress. SKIN: No rashes, ecchymoses or lesions. Cool and dry. HEAD: Atraumatic. Normocephalic. No temporal or scalp tenderness. EYES: Pupils equal round and reactive. Extraocular motions intact. No scleral icterus. No injection or drainage. ENT: Nose without bleeding, purulent drainage or septal hematoma. Throat without erythema, tonsillar hypertrophy or exudate. Uvula midline. Airway patent. NECK: Trachea midline. No JVD or lymphadenopathy. Supple, nontender, no meningeal signs. CARDIOVASCULAR: Regular rate and rhythm without murmurs, gallops, or rubs. RESPIRATORY: Clear to auscultation. GASTROINTESTINAL: Abdomen soft, non-tender, nondistended. No hepato-splenomegaly , or palpable masses. No guarding. MUSCULOSKELETAL: Extremities without clubbing, cyanosis. TR edema. NEUROLOGICAL: Awake and alert. Cranial nerves II through XII intact. Motor and sensory grossly within normal limits. Five out of 5 muscle strength in all muscle groups. Normal speech. PSYCH: Slightly flattened affect. Medications and IVs Current Medications Medications (Trade) Dose Ordered Sig/Arnulfo Route Start Time Stop Time Status Last Admin (Levaquin 750 Mg Premix Inj) 150 ml @ 100 mls/hr Q48H IV 11/23/16 06:00 Budesonide/ Formoterol Fumarate 2 puff 2 puff Q12HR INH 11/21/16 09:00 11/22/16 08:20 (NS 1000 ml Inj) 1,000 ml @ 100 mls/hr Q10H IV 11/21/16 05:48 11/22/16 01:48 (NS Flush) 2 ml UNSCH PRN IV FLUSH 11/21/16 06:00 (NS Flush) 2 ml BID IV FLUSH 11/21/16 09:00 11/22/16 08:18 (Zofran Inj) 4 mg Q6H PRN IVP 11/21/16 06:00 (Tylenol) 650 mg Q6H PRN PO 11/21/16 06:00 (Furman 5-325 Mg) 1 tab Q4H PRN PO 11/21/16 06:00 (Morphine Inj) 2 mg Q3H PRN IV 11/21/16 06:00 (Xiomara-Colace) 1 tab BID PO 11/21/16 09:00 11/22/16 08:20 (Milk Of Magnesia Liq) 30 ml Q12H PRN PO 11/21/16 06:00 (Senokot) 17.2 mg Q12H PRN PO 11/21/16 06:00 (Dulcolax Supp) 10 mg DAILY PRN RECTAL 11/21/16 06:00 (Lactulose Liq) 30 ml DAILY PRN PO 11/21/16 06:00 (Aspirin) 325 mg DAILY PO 11/21/16 09:00 11/22/16 08:20 (Lipitor) 40 mg HS PO 11/21/16 21:00 11/21/16 21:05 (Flomax) 0.4 mg HS PO 11/21/16 21:00 11/21/16 21:06 (SoluMEDROL INJ) 40 mg Q8H IV PUSH 11/21/16 14:00 11/22/16 12:58 (Fioricet 325-50-40) 1 tab Q6H PRN PO 11/21/16 17:00 (Vasotec Inj) 1.25 mg Q6H PRN IV PUSH 11/21/16 11:00 Labetalol HCl 200 mg 200 mg Q12HR PO 11/21/16 11:00 11/22/16 08:20 Pharmacy Profile Note 0 ml @ 0 mls/hr UNSCH OTHER 11/22/16 12:00 (Vancomycin Inj/ NS 500 ml Inj) 515 ml @ 257.5 mls/ hr Q24H IV 11/22/16 12:00 11/22/16 12:55 Miscellaneous Information SPECIFIC LAB TO BE DRAWN:VANCOMY... ONCE ONCE .XX 11/25/16 11:45 11/25/16 11:46 A/P Assessment and Plan Confusion/ Headache/ History of TIA The patient had an episode of confusion and slurred speech that has cleared up. He had a similar presentation in 2016 which was thought to be secondary to a TIA. He received a full neurologic workup at that time. His symptoms may be secondary to uncontrolled hypertension versus migraine as he still has a mild headache at this time. CT of the head was unremarkable. Symptoms have resolved. - Blood pressure control. - Fioricet as needed for headache. - Physical therapy evaluation. - Neuro checks. - Continue statin. Bacteremia 1 blood culture bottle positive for GPC. - repeat blood cultures. - started vancomycin. - ID consult requested. COPD The patient says his breathing has been poor lately. He is saturating well on 2 L of nasal cannula. Chest x-ray unremarkable. - D/c Solu-Medrol, wean to prednisone. - Standing and as needed duo nebs. - Oxygen as needed. - Incentive spirometry. - Encourage ambulation. - d/c Levaquin. Accelerated hypertension Blood pressure fluctuates. High blood pressure may be contributing to his confusion. Improved. - d/c valsartan and metoprolol. Labetalol 200 mg BID started. Adjust as needed. - Vasotec as needed. Chronic renal failure Creatinine elevation similar to values from last year. Unsure of actual baseline but pt does report elevated values. - d/c ARB. - IVFs. - follow BMP. Hyperglycemia/ DM2 Possibly exacerbated by steroids. No reported history of diabetes. A1c 6.8%. - clinical trial educator consult. - diabetic diet. - Insulin sliding scale and Accu-Cheks. - consider starting glipizide. Prostate cancer Followed by Dr. Madden. - Continue monthly injections as an outpatient. PPx: Lovenox Discharge Planning Awaiting ID Siva Davison DO November 22, 2016 13:20
--- NOTE | 2016-11-22 14:36 | PD.ID.CON ---
History of Present Illness Service ID Consult Requested By Dr Strickland Reason for Consult bacteremia Primary Care Physician Lorraine Saba MD Diagnoses: History of Present Illness The patient is an 81-year-old male with past medical history of COPD (not on home oxygen), TIA and hypertension admitted to hospital [facility] with shortness of breath and confusion, slurred speech His smx lasted about 1 hr prio to admision His altered MS totally resolved He denies cough, sputum production , but cont to have unresolving SOB His CXR was negative Placed on NC O2 and sterroids; started on levaquine for COPD exacerbation He denies fever chills, night sweats but has documented low grade fever upp to 100.2; no lerukocytosis His blood clx growing GPC / bottles. No h/o implaned pPORTs, vascular or cardiac devices Vancomycin added by primary team Review of Systems Except as stated in HPI: all other systems reviewed are Neg Past Family Social History Allergies: Coded Allergies: No Known Allergies (Verified , 11/21/16) Past Medical History COPD TIA Prostate cancer status post radiation and now on injections Hypertension Hyperlipidemia Past Surgical History denies Active Ordered Medications Medications where reviewed in EMR Antibiotics Include: levaquin vancomycin Family History Lung cancer Social History The patient quit smoking 20 years ago. He will drink one glass of wine or one cocktail every day or every other day. Physical Exam Vital Signs Vital Signs Date Time Temp Pulse Resp B/P Pulse Ox O2 Delivery O2 Flow Rate FiO2 11/22/16 12:00 97.4 73 22 134/83 99 11/22/16 08:00 97.7 64 22 134/81 99 11/22/16 07:55 98 Nasal Cannula 2.00 11/22/16 00:02 97.7 78 22 130/74 98 11/21/16 20:02 97.1 77 24 201/116 97 11/21/16 16:00 97.0 62 22 152/86 99 11/21/16 15:12 98 Nasal Cannula 2.00 Physical Exam CONSTITUTIONAL/GENERAL: This is an adequately nourished patient, in no apparent distress. TUBES/LINES/DRAINS: SKIN: No jaundice, rashes, or lesions. Ecchymoses on upper extremities. Skin temperature appropriate. Not diaphoretic. HEAD: Atraumatic. Normocephalic. EYES: Pupils equal and round and reactive. Extraocular motions intact. No scleral icterus. No injection or drainage. Fundi not examined. ENT: Hearing grossly normal. Nose without bleeding or purulent drainage. Throat without visible erythema, exudates, masses, or lesions. NECK: Trachea midline. Supple, nontender. No palpable thyroid enlargement or nodularity. CARDIOVASCULAR: Regular rate and rhythm without murmurs, gallops, or rubs. No JVD. Distant heart sounds RESPIRATORY/CHEST: Symmetric, unlabored respirations. Clear to auscultation. Breath markedly bilaterally. No wheezes, rales, or rhonchi. GASTROINTESTINAL: Abdomen soft, non-tender, nondistended. No hepato-splenomegaly , or palpable masses. No guarding. Bowel sounds present. GENITOURINARY: Without palpable bladder distension. Lopez catheter in place. MUSCULOSKELETAL: Extremities without clubbing, cyanosis, or edema. N No mottling or clubbing. LYMPHATICS: No palpable cervical or supraclavicular adenopathy. NEUROLOGICAL: Awake and alert. Motor and sensory grossly within normal limits. Follows commands. Clear speech Moves all extremities. PSYCHIATRIC: No obvious anxiety/depression. no apparent hallucinations or other psychotic thought process. Laboratory Laboratory Tests Test 11/22/16 06:08 White Blood Count 9.2 Red Blood Count 4.71 Hemoglobin 13.8 Hematocrit 41.5 Mean Corpuscular Volume 88.1 Mean Corpuscular Hemoglobin 29.3 Mean Corpuscular Hemoglobin 33.3 Concent Red Cell Distribution Width 13.4 Platelet Count 185 Mean Platelet Volume 7.4 Neutrophils (%) (Auto) 83.5 Lymphocytes (%) (Auto) 11.4 Monocytes (%) (Auto) 4.8 Eosinophils (%) (Auto) 0.2 Basophils (%) (Auto) 0.1 Neutrophils # (Auto) 7.8 Lymphocytes # (Auto) 1.0 Monocytes # (Auto) 0.4 Eosinophils # (Auto) 0.0 Basophils # (Auto) 0.0 CBC Comment DIFF FINAL Differential Comment Sodium Level 141 Potassium Level 4.3 Chloride Level 105 Carbon Dioxide Level 24.9 Anion Gap 11 Blood Urea Nitrogen 25 Creatinine 1.60 Estimat Glomerular Filtration 41 Rate Random Glucose 207 Calcium Level 8.5 Total Bilirubin 0.8 Aspartate Amino Transf 10 (AST/SGOT) Alanine Aminotransferase 20 (ALT/SGPT) Alkaline Phosphatase 78 Total Protein 6.8 Albumin 3.6 Date/Time Procedure Status Source Growth 11/22/16 11:35 Aerobic Blood Culture Received Blood Peripheral Pending 11/22/16 11:35 Anaerobic Blood Culture Received Blood Peripheral Pending 11/21/16 03:00 Aerobic Blood Culture - Preliminary Resulted Blood Peripheral Staph Sp Coagulase Negative 11/21/16 03:00 Anaerobic Blood Culture - Preliminary Resulted Blood Peripheral NO GROWTH IN 1 DAY Result Diagram: 11/22/16 0608 11/22/16 0608 Imaging Last Impressions Head CT 11/21/16213 Signed Impressions: Service Date/Time: Monday, November 21, 2016 02:39 - CONCLUSION: No acute disease. Jeremías Aguirre MD Chest X-Ray 11/21/16213 Signed Impressions: Service Date/Time: Monday, November 21, 2016 03:02 - CONCLUSION: Normal examination. Jeremías Aguirre MD Carotid Artery Ultrasound 11/21/16 0000 Signed Impressions: Service Date/Time: Monday, November 21, 2016 19:46 - CONCLUSION: Negative examination for a hemodynamically significant carotid stenosis. Alonzo Hernández MD Assessment and Plan Assessment and Plan COPD exacerbation MS change - resolved Bactermeia, coag-negative staph low grade 1/4 doubt clin significance no predisposing factors - dc vancomycin - fu BC untill final Discussed Condition With Wandy Dias MD November 22, 2016 14:36
[2016-11-22] MEDS ORDERED: PILL SPLITTER OTHER PRN (16:00)
[2016-11-22] MEDS: BICALUTAMIDE 50 MG TAB PO SCH (17:25)
[2016-11-22] MEDS: glipiZIDE 5 MG TAB PO SCH (17:35)
[2016-11-22] MEDS: INSULIN ASPART SUPPLEMENTAL SCALE SQ SCH ×2 (17:37→20:55)
[2016-11-22] MEDS: predniSONE 20 MG TAB PO SCH (20:55)
[2016-11-22] MEDS: TAMSULOSIN HCL 0.4 MG CAP PO SCH (20:56)
[2016-11-22] MEDS: ATORVASTATIN 40 MG TAB PO SCH (20:56)
[2016-11-23] VITALS: BP 148/79; PULSE 75; RESP 20; TEMP 96.5; O2SAT 98
[2016-11-23] MEDS: SODIUM CHLOR 0.9% 1000 ML INJ 1,000 ML IV SCH ×2 (01:11→07:48)
[2016-11-23] MEDS: SODIUM CHLORIDE 0.9% FLUSH 10 ML FLUSH IV FLUSH SCH ×2 (01:11→09:00)
[2016-11-23 04:00] VITALS: BP 134/69; PULSE 66; RESP 16; TEMP 96.8; O2SAT 100
[2016-11-23] MEDS ORDERED: LEVOFLOXACIN 750 MG PREMIX INJ 150 ML IV SCH (06:00)
[2016-11-23] MEDS: INSULIN ASPART SUPPLEMENTAL SCALE SQ SCH ×2 (07:00→11:00)
[2016-11-23 07:15] VITALS: O2SAT 98
[2016-11-23] MEDS: RESP: ALBUTEROL 2.5 MG/IPRATROPIUM 0.5 MG NEB (SCH) NEB (07:16)
[2016-11-23 08:00] VITALS: BP 128/74; PULSE 68; RESP 21; TEMP 97.3; O2SAT 99
[2016-11-23] MEDS: ASPIRIN 325 MG TAB PO SCH (09:00)
[2016-11-23] MEDS: BICALUTAMIDE 50 MG TAB PO SCH (09:00)
[2016-11-23] MEDS: BUDESONIDE-FORMOTEROL 160/4.5 MCG INHALER INH SCH (09:00)
[2016-11-23] MEDS: LABETALOL HCL 200 MG TAB PO SCH (09:00)
[2016-11-23] MEDS: predniSONE 20 MG TAB PO SCH (09:00)
[2016-11-23] MEDS: DOCUSATE SODIUM 50 MG/SENNA 8.6 MG TAB PO SCH (09:01)
[2016-11-23] MEDS: glipiZIDE 5 MG TAB PO SCH (09:01)
--- NOTE | 2016-11-23 10:40 | HHI.DCPOC ---
Discharge Care Plan Diagnosis: (1) COPD (chronic obstructive pulmonary disease) (2) Hypertension (3) Diabetes Goals to Promote Your Health * To prevent worsening of your condition and complications * To maintain your health at the optimal level Directions to Meet Your Goals Take your medications as prescribed Follow your dietary instruction Follow activity as directed Keep your appointments as scheduled Take your immunizations and boosters as scheduled If your symptoms worsen call your PCP, if no PCP go to Urgent Care Center or Emergency Room Smoking is Dangerous to Your Health. Avoid second hand smoke Call the 24-hour hour crisis hotline for domestic abuse at Siva Strickland DO November 23, 2016 10:40
--- NOTE | 2016-11-23 10:41 | HHI.FF ---
Face to Face Verification Diagnosis: (1) Hypertension (2) Diabetes (3) COPD (chronic obstructive pulmonary disease) Physical Therapy Order: Evaluate and Treat, Improve ambulation, Strength and gait training Home Health Nursing Order: Medical education Signs/symptoms of disease process Diabetic education Oxygen administration education Nursing assessment with vital signs I have seen patient Tanvir Ross on 11/23/16. My clinical findings support the need for the requested home health care services because: Ltd mobility - disease progression Patient has SOB Deconditioned w/ increased weakness I certify that my clinical findings support that this patient is homebound because: Hx COPD- exertion dyspnea/weakness Unsteady gait/balance Siva Strickland DO November 23, 2016 10:41
[2016-11-23] MEDS ORDERED: PRED20 PO ×2 (10:45)
[2016-11-23] MEDS ORDERED: SYMB160A INH (10:45)
[2016-11-23] MEDS ORDERED: BUTATAB6 PO (10:45)
[2016-11-23] MEDS ORDERED: BICA50TA PO (10:45)
[2016-11-23] MEDS ORDERED: LABE200T2 PO (10:45)
--- NOTE | 2016-11-23 10:59 | HHI.DS ---
Discharge Summary Admission Date November 21, 2016 at 05:55 Discharge Date: November 23, 2016 Admitting Diagnosis febrile illness/sirs; possible TIA; copd (1) Hypertension ICD Code: I10 Diagnosis: Principal (2) Diabetes ICD Code: E11.9 Diagnosis: Principal (3) COPD (chronic obstructive pulmonary disease) ICD Code: J44.9 Diagnosis: Principal Procedures None Brief History - From Admission The patient is an 81-year-old male with past medical history of COPD, TIA and hypertension who is presenting to the hospital with shortness of breath and confusion. The patient says that he has COPD and is not on home oxygen. He says his breathing is bothering him quite a bit. He says he feels like he struggles to breathe but whenever he's checked on the monitors he's always saturating well. He says that he does cough every once in a while. He does endorse a headache at the back of his head that seems to get worse with coughing. He says that yesterday his got worried about him because he was slurring his speech and acting a little confused. The patient said he had the same presentation last year when he was diagnosed with a TIA. He currently does not have any symptoms of slurring speech or confusion. He denies any weakness in his upper or lower extremities. He denies any sensation of numbness or tingling. He denies any fevers. He says he has been taking aspirin every day. He says generally his blood pressure is well controlled at home. He says he remains active and goes swimming regularly. He currently has a bit of a headache at the back of his head but it is not that bothersome. He says he is on a nebulizer at home for his COPD. He does follow with a fisheries inspector. CBC/BMP: 11/22/16 0608 11/22/16 0608 Significant Findings Laboratory Tests Test 11/21/16 11/21/16 11/21/16 11/22/16 02:55 04:15 10:24 06:08 Mean Platelet Volume 6.8 FL (7.0-11.0) Neutrophils (%) (Auto) 80.7 % 83.5 % (16.0-70.0) (16.0-70.0) Blood Urea Nitrogen 23 MG/DL (7-18) 25 MG/DL (7-18) Creatinine 1.70 MG/DL 1.60 MG/DL (0.60-1.30) (0.60-1.30) Estimat Glomerular Filtration 39 ML/MIN (>89) 41 ML/MIN (>89) Rate Random Glucose 197 MG/DL 207 MG/DL (74-106) (74-106) Troponin I LESS THAN 0.02 NG/ML (0.02-0.05) Urine Ketones TRACE mg/dL (NEG) Urine Occult Blood MOD (NEG) Urine RBC 25-49 /hpf (0-3) Hemoglobin A1c 6.8 % (4.3-6.0) Cholesterol Level 211 MG/DL (120-200) LDL Cholesterol 129 MG/DL (0-99) HDL Cholesterol 62.3 MG/DL (40.0-60.0) Neutrophils # (Auto) 7.8 TH/MM3 (1.8-7.7) Aspartate Amino Transf 10 U/L (15-37) (AST/SGOT) Imaging Last Impressions Head CT 11/21/16213 Signed Impressions: Service Date/Time: Monday, November 21, 2016 02:39 - CONCLUSION: No acute disease. Jeremías Aguirre MD Chest X-Ray 11/21/16213 Signed Impressions: Service Date/Time: Monday, November 21, 2016 03:02 - CONCLUSION: Normal examination. Jeremías Aguirre MD Carotid Artery Ultrasound 11/21/16 0000 Signed Impressions: Service Date/Time: Monday, November 21, 2016 19:46 - CONCLUSION: Negative examination for a hemodynamically significant carotid stenosis. Alonzo Hernández MD PE at Discharge GENERAL: This is a well-nourished, well-developed patient, in no apparent distress. SKIN: No rashes, ecchymoses or lesions. Cool and dry. HEAD: Atraumatic. Normocephalic. No temporal or scalp tenderness. EYES: Pupils equal round and reactive. Extraocular motions intact. No scleral icterus. No injection or drainage. ENT: Nose without bleeding, purulent drainage or septal hematoma. Throat without erythema, tonsillar hypertrophy or exudate. Uvula midline. Airway patent. NECK: Trachea midline. No JVD or lymphadenopathy. Supple, nontender, no meningeal signs. CARDIOVASCULAR: Regular rate and rhythm without murmurs, gallops, or rubs. RESPIRATORY: Clear to auscultation. GASTROINTESTINAL: Abdomen soft, non-tender, nondistended. No hepato-splenomegaly , or palpable masses. No guarding. MUSCULOSKELETAL: Extremities without clubbing, cyanosis. TR edema. NEUROLOGICAL: Awake and alert. Cranial nerves II through XII intact. Motor and sensory grossly within normal limits. Five out of 5 muscle strength in all muscle groups. Normal speech. PSYCH: Slightly flattened affect. Pt update on day of discharge The patient was feeling well and wanted to go home. He said that his headache was gone. He said he was aware he has a diagnosis of diabetes and is being followed for that. Hospital Course Confusion/ Headache/ History of TIA The patient had an episode of confusion and slurred speech that has cleared up. He had a similar presentation in 2016 which was thought to be secondary to a TIA. He received a full neurologic workup at that time. Blood pressure was markedly elevated. CT of the head was unremarkable. He was placed on neuro checks. Symptoms did not return. He received blood pressure control and Fioricet as needed for headache. He worked with physical therapy and HHC was recommended. He will continue a statin. Bacteremia 1 blood culture bottle positive for staph, coag negative. ID was consulted. Repeat blood cultures pending. Vancomycin was discontinued. He will follow up with his PCP. COPD The patient says his breathing has been poor lately. He is saturating well on 2 L of nasal cannula. Chest x-ray unremarkable. We d/c Solu-Medrol and switched to a prednisone taper. He received standing and as needed duo nebs as well as incentive spirometry. We discontinued Levaquin. He will have a home oxygen walk test prior to discharge. Accelerated hypertension Blood pressure fluctuated. We d/c valsartan and metoprolol and started labetalol 200 mg BID. Blood pressure markedly improved. He received Vasotec as needed. Chronic renal failure Creatinine elevation similar to values from last year. Unsure of actual baseline but pt does report elevated values. We d/c his ARB. He will resume upon discharge and will follow up with his PCP. Hyperglycemia/ DM2 A1c 6.8%. The pt says he is aware of the diagnosis. Diabetic diet and lifestyle modifications recommended. He was placed on an insulin sliding scale and Accu- Cheks. Prostate cancer Followed by Dr. Madden. He will continue monthly injections as an outpatient as well as his Casodex. Pt Condition on Discharge: Stable Discharge Disposition: Disch w/ Home Health Serv Discharge Time: > 30 minutes Discharge Instructions DIET: Follow Instructions for: Diabetic Diet Activities you can perform: Weight Bearing as Espinoza Follow up Referrals: PCP Follow-up - 1 Week New Medications: Prednisone (Prednisone) 20 Mg Tab 20 MG PO DAILY Start taking daily once twice daily course is completed. COPD #5 Ref 0 TAB Bicalutamide (Bicalutamide) 50 Mg Tab 50 MG PO DAILY Prostate cancer #30 TAB Budesonide-Formoterol Inh (Symbicort Inh) 160-4.5 Mcg/Act Aero 2 PUFF INH Q12HR COPD #1 INHALER Gwlvkfggqg-Adefiraflszbk-Prlgzhmp (Hrwjnvnvuv-Ufqjyrojcxeqq-Zdmmlxjv) 50-325-40 Mg Tab 1 TAB PO Q6H PRN Headache #12 TAB Labetalol (Labetalol) 200 Mg Tab 200 MG PO Q12HR Blood Pressure Management #60 TAB Prednisone (Prednisone) 20 Mg Tab 20 MG PO BID COPD #6 TAB Continued Medications: Aspirin (Aspirin) 325 Mg Tab 325 MG PO DAILY #30 Ref 0 TAB Atorvastatin (Atorvastatin) 40 Mg Tab 40 MG PO HS Cholesterol Management #30 Ref 0 TAB Calcium Carbonate-Vitamin D (Calcium/Vitamin D) 500-200 Mg-Unit Tab 1 TAB PO BID Calcium Supplement Ref 0 TAB Cholecalciferol (Vitamin D) 1,000 Unit Tab 1000 UNITS PO DAILY Nutritional Supplement #1 Ref 0 BOTTLE Ipratropium Neb (Ipratropium Neb) 0.5 Mg/2.5 Ml Amp 0.5 MG NEB Q4HR NEB PRN SHORTNESS OF BREATH #180 Ref 0 NEBULE Irbesartan (Avapro) 150 Mg Tab 150 MG PO DAILY Blood Pressure Management #30 Ref 0 TAB Tamsulosin (Tamsulosin) 0.4 Mg Cap 0.4 MG PO HS Manage Prostate Problems #30 Ref 0 CAP Discontinued Medications: Metoprolol Tartrate (Metoprolol Tartrate) 25 Mg Tab 12.5 MG PO DAILY #30 Ref 0 TAB Additional Information Discharge time greater than 30 minutes Siva Strickland DO November 23, 2016 10:59
[2016-11-25] MEDS ORDERED: VANCOMYCIN TROUGH ONE (11:45)
== END 2016-11-23 14:15 | disposition home health service (06) | DRG 683 ==
LOC: PHED 02:05 → PHEDA 05:55 → PH3A 08:22
PROVIDERS: ADMIT Hospitalist; ATTEND Hospitalist
DX: I12.9 Hypertensive chronic kidney disease with stage 1 through stage 4 chronic kidney disease, or unspecified chronic kidney disease (principal); N18.9 Chronic kidney disease, unspecified; R78.81 Bacteremia; E11.65 Type 2 diabetes mellitus with hyperglycemia; J44.9 Chronic obstructive pulmonary disease, unspecified; C61 Malignant neoplasm of prostate; G43.909 Migraine, unspecified, not intractable, without status migrainosus; R41.0 Disorientation, unspecified; Z86.73 Personal history of transient ischemic attack (TIA), and cerebral infarction without residual deficits; E78.5 Hyperlipidemia, unspecified; Z92.3 Personal history of irradiation; Z87.891 Personal history of nicotine dependence
CPT/HCPCS: 70450; 71010; 80048; 80053; 80061; 81001; 82140; 82550; 82948; 83036; 83605; 83880; 84443; 84484; 85025; 85610; 85730; 87040; 87070; 87149; 87186; 87205; 93005; 93306; 93880; 94150; 94620; 94640; 94664; 96365; J1815; J1956; J2920; J3370; J7030; J7040; J7512

== ENCOUNTER → 2017-01-19 | Outpatient (CLI) | payer MEDICARE, BC ==
[~2017-01-19] MED LIST changes: +ATOR40TA16 PO; -ATOR40TA49 PO; +BICA50TA PO; +BUTATAB6 PO; -CALC500T21 PO; +CALC500T43 PO; +LABE200T2 PO; -METO25 PO; -OMEG5CAP PO; +PRED20 PO; +SYMB160A INH; +VITA100064 PO; -VITATAB25 PO; -WALKER ROLLING
[2017-01-19 11:41] LABS: AUTOMATED NEUTROPHIL # 4.2 TH/MM3 (1.8-7.7); BASOPHIL # 0.1 TH/MM3 (0-0.2); BASOPHIL % 0.9 % (0.0-2.0); EOSINOPHIL # 0.2 TH/MM3 (0-0.4); EOSINOPHIL % 3.5 % (0.0-4.0); HEMATOCRIT 39.7 % (39.0-51.0); HEMO FLAGS DIFF FINAL; LYMPH % 21.9 % (9.0-44.0); LYMPHOCYTE # 1.4 TH/MM3 (1.0-4.8); MEAN CELL VOLUME 89.5 FL (80.0-100.0); MEAN CORPUSCULAR HEMOGLOBIN 30.2 PG (27.0-34.0); MEAN CORPUSCULAR HGB CONC 33.8 % (32.0-36.0); MONO % 8.5 % (0.0-8.0); NEUT % 65.2 % (16.0-70.0); PLATELET COUNT 163 TH/MM3 (150-450); RED BLOOD COUNT 4.43 MIL/MM3 (4.50-5.90); RED CELL DISTRIBUTION WIDTH 14.4 % (11.6-17.2); WHITE BLOOD COUNT 6.5 TH/MM3 (4.0-11.0)
[2017-01-19 12:14] LABS: ANION GAP 7 MEQ/L (5-15); AST (GOT) 13 U/L (15-37); BICARBONATE 28.8 MEQ/L (21.0-32.0); BLOOD UREA NITROGEN 19 MG/DL (7-18); CHLORIDE 105 MEQ/L (98-107); GLOMERULAR FILTRATION RATE 44 ML/MIN (>89); SODIUM (NA) 141 MEQ/L (136-145)
[2017-01-19 12:26] LABS: ALKALINE PHOSPHATASE 122 U/L (45-117); ALT (GPT) 21 U/L (12-78); GLUCOSE,FASTING 142 MG/DL (74-99); LDL CHOLESTEROL 139 MG/DL (0-99); TOTAL BILIRUBIN ADULT 0.4 MG/DL (0.2-1.0)
[2017-01-19 16:16] LABS: HEMOGLOBIN A1a 0.9 %; HEMOGLOBIN Ao 83.6 %; HEMOGLOBIN LA1C 2.2 %; HEMOGLOBIN P3 4.1 %
== END ==
LOC: PLAB 08:41
PROVIDERS: ATTEND Family Medicine
DX: E78.5 Hyperlipidemia, unspecified (principal); E11.21 Type 2 diabetes mellitus with diabetic nephropathy; R53.83 Other fatigue
CPT/HCPCS: 36415; 80053; 80061; 83036; 84443; 85025

== ENCOUNTER → 2017-05-26 | Outpatient (CLI) | payer MEDICARE, BC ==
[~2017-05-26] MED LIST changes: +ASPI-183 PO; -ASPI325T PO
[2017-05-26 13:14] LABS: AUTOMATED NEUTROPHIL # 3.6 TH/MM3 (1.8-7.7); BASOPHIL % 0.9 % (0.0-2.0); EOSINOPHIL # 0.2 TH/MM3 (0-0.4); EOSINOPHIL % 3.1 % (0.0-4.0); HEMATOCRIT 43.1 % (39.0-51.0); HEMO FLAGS DIFF FINAL; LYMPH % 23.1 % (9.0-44.0); LYMPHOCYTE # 1.3 TH/MM3 (1.0-4.8); MEAN CELL VOLUME 88.4 FL (80.0-100.0); MEAN CORPUSCULAR HGB CONC 32.8 % (32.0-36.0); NEUT % 63.9 % (16.0-70.0); PLATELET COUNT 165 TH/MM3 (150-450); RED BLOOD COUNT 4.88 MIL/MM3 (4.50-5.90); RED CELL DISTRIBUTION WIDTH 13.9 % (11.6-17.2); WHITE BLOOD COUNT 5.6 TH/MM3 (4.0-11.0)
[2017-05-26 13:47] LABS: ANION GAP 3 MEQ/L (5-15); AST (GOT) 12 U/L (15-37); BICARBONATE 29.6 MEQ/L (21.0-32.0); BLOOD UREA NITROGEN 15 MG/DL (7-18); CHLORIDE 104 MEQ/L (98-107); GLOMERULAR FILTRATION RATE 49 ML/MIN (>89); GLUCOSE,FASTING 166 MG/DL (74-99); POTASSIUM 4.2 MEQ/L (3.5-5.1); SODIUM (NA) 137 MEQ/L (136-145)
[2017-05-26 13:58] LABS: ALKALINE PHOSPHATASE 82 U/L (45-117); ALT (GPT) 18 U/L (12-78); HDL CHOLESTEROL 65.1 MG/DL (40.0-60.0); LDL CHOLESTEROL 132 MG/DL (0-99); TOTAL BILIRUBIN ADULT 0.6 MG/DL (0.2-1.0)
[2017-05-26 16:44] LABS: HEMOGLOBIN A1a 0.8 %; HEMOGLOBIN Ao 83.6 %; HEMOGLOBIN LA1C 2.5 %; HEMOGLOBIN P3 4.1 %
== END ==
LOC: PLAB 09:35
PROVIDERS: ATTEND Family Medicine
DX: E78.5 Hyperlipidemia, unspecified (principal); E11.21 Type 2 diabetes mellitus with diabetic nephropathy
CPT/HCPCS: 36415; 80053; 80061; 83036; 85025

== ENCOUNTER 2017-09-05 15:40 | Inpatient (IN) | payer MEDICARE, BC ==
[2017-09-05] VITALS (8 sets, daily range): BP systolic 116–178; BP diastolic 63–97; PULSE 83–106; RESP 18–26; TEMP 97.2–98.1; O2SAT 61–99
[~2017-09-05] VITALS: Ht 182.9 cm; Wt 72.4 kg
--- NOTE | 2017-09-05 15:59 | PD ---
HPI Chief Complaint: General Weakness Time Seen by Provider: 15:55 Travel History International Travel<30 days: No Contact w/Intl Traveler<30days: No Traveled to known affect area: No History of Present Illness HPI Patient presents with complaints of generalized weakness for approximately 3 weeks. Reports several episodes of falling which he has refused ER evaluation for. Denies any neck pain or head pain. Denies any head trauma. Reports a history of TIA currently taking Plavix. History of COPD with increasing dyspnea on exertion followed by pulmonology. Denies shortness of breath at rest. Reports a history of hypertension, compliant with Avapro, followed by cardiology/Dr. Reynoso. Reports a past medical history of BPH followed by urology. Denies any nausea vomiting diarrhea or fever. Denies any chest pain urinary or bowel symptoms. Patient states he normally uses a walker to ambulate. PFSH Past Medical History Hx Anticoagulant Therapy: Yes Asthma: Yes (COPD) Cancer: Yes (PROSTATE 2004) Cardiovascular Problems: Yes High Cholesterol: Yes COPD: Yes Cerebrovascular Accident: Yes Diminished Hearing: Yes (TINNITIS) Hypertension: Yes Kidney Stones: Yes Neurologic: Yes Respiratory: Yes Immunizations Current: Yes ?: Not Past Surgical History Tonsillectomy: Yes ( A CHILD) Other Surgery: Yes (Tonsillectomy as child) Social History Alcohol Use: Yes (1 mixed drink daily ) Tobacco Use: No (Quit) Substance Use: No Allergies-Medications (Allergen,Severity, Reaction): Coded Allergies: No Known Allergies (Verified , 11/21/16) Reported Meds & Prescriptions Reported Meds & Active Scripts Active Bicalutamide 50 Mg Tab 50 Mg PO DAILY Reported Tramadol (Tramadol HCl) 50 Mg Tab 50 Mg PO Q6H PRN Plavix (Clopidogrel Bisulfate) 75 Mg Tab 75 Mg PO DAILY Multiple Vitamin (Multivitamin with Minerals) 1 Each Tablet 1 Tab PO DAILY Fluticasone Nasal [place] 50 Mcg/Act Naspr 50 Mcg EACH NARE BID 50 mcg/spray Tamsulosin (Tamsulosin HCl) 0.4 Mg Cap 0.4 Mg PO HS Avapro (Irbesartan) 150 Mg Tab 150 Mg PO DAILY Ipratropium Neb (Ipratropium [place]) 0.5 Mg/2.5 Ml Amp 0.5 Mg NEB Q4HR NEB PRN Vitamin D3 (Cholecalciferol) 1,000 Unit Tab 1,000 Units PO DAILY Calcium/Vitamin D (Calcium Carbonate-Vitamin D) 500-200 Mg-Unit Tab 1 Tab PO BID Atorvastatin (Atorvastatin Calcium) 40 Mg Tab 40 Mg PO HS Aspirin 325 Mg Tab 325 Mg PO DAILY Review of Systems General / Constitutional: No: Fever Eyes: No: Visual changes HENT: No: Headaches Cardiovascular: No: Chest Pain or Discomfort Respiratory: Positive: Shortness of Breath Gastrointestinal: No: Abdominal Pain Genitourinary: No: Dysuria Musculoskeletal: No: Pain Skin: No Rash Neurologic: No: Weakness Psychiatric: No: Depression Endocrine: No: Polydipsia Hematologic/Lymphatic: No: Easy Bruising Physical Exam Narrative GENERAL: Well-nourished, well-developed patient. SKIN: Focused skin assessment warm/dry. HEAD: Normocephalic. EYES: No scleral icterus. No injection or drainage. NECK: Supple, trachea midline. No JVD or lymphadenopathy. Ecchymosis noted to his right anterior upper chest and lower neck CARDIOVASCULAR: Irregular rate and rhythm without murmurs, gallops, or rubs. Tachycardic RESPIRATORY: Breath sounds equal bilaterally. No accessory muscle use. GASTROINTESTINAL: Abdomen soft, non-tender, nondistended. MUSCULOSKELETAL: No cyanosis, or edema. BACK: Nontender without obvious deformity. No CVA tenderness. Data Data Last Documented VS Vital Signs Date Time Temp Pulse Resp B/P (MAP) Pulse Ox O2 Delivery O2 Flow Rate FiO2 09/05/17 17:18 84 20 158/79 (105) 98 Nasal Cannula 09/05/17 15:49 98.1 Orders Orders Chest, Single Ap (09/05/17 ) Ct Brain W/O Iv Contrast(Rout) (09/05/17 ) Ct Cerv Spine W/O Contrast (09/05/17 ) Labetalol Inj (Trandate Inj) (09/05/17 16:00) Complete Blood Count With Diff (09/05/17 16:04) Comprehensive Metabolic Panel (09/05/17 16:04) Urinalysis - C+S If Indicated (09/05/17 16:04) Admit Order (Ed Use Only) (09/05/17 ) Vital Signs (Adult) Q4H (09/05/17 18:53) Diet Heart Healthy (09/05/17 Dinner) Activity Oob With Assistance (09/05/17 18:53) Notify Dr: Other (09/05/17 18:53) Case Management Consult (09/05/17 ) Consult Pt Eval & Treat (09/05/17 18:53) Labs Laboratory Tests Test 09/05/17 16:15 09/05/17 17:00 White Blood Count 8.8 TH/MM3 Red Blood Count 4.54 MIL/MM3 Hemoglobin 13.2 GM/DL Hematocrit 39.5 % Mean Corpuscular Volume 87.1 FL Mean Corpuscular Hemoglobin 29.0 PG Mean Corpuscular Hemoglobin Concent 33.4 % Red Cell Distribution Width 12.2 % Platelet Count 186 TH/MM3 Mean Platelet Volume 7.1 FL Neutrophils (%) (Auto) 77.5 % Lymphocytes (%) (Auto) 11.4 % Monocytes (%) (Auto) 8.2 % Eosinophils (%) (Auto) 1.7 % Basophils (%) (Auto) 1.2 % Neutrophils # (Auto) 6.8 TH/MM3 Lymphocytes # (Auto) 1.0 TH/MM3 Monocytes # (Auto) 0.7 TH/MM3 Eosinophils # (Auto) 0.2 TH/MM3 Basophils # (Auto) 0.1 TH/MM3 CBC Comment AUTO DIFF Differential Comment AUTO DIFF CONFIRMED Blood Urea Nitrogen 15 MG/DL Creatinine 1.10 MG/DL Random Glucose 113 MG/DL Total Protein 6.5 GM/DL Albumin 3.3 GM/DL Calcium Level 8.5 MG/DL Alkaline Phosphatase 153 U/L Aspartate Amino Transf (AST/SGOT) 34 U/L Alanine Aminotransferase (ALT/SGPT) 21 U/L Total Bilirubin 0.7 MG/DL Sodium Level 135 MEQ/L Potassium Level 4.5 MEQ/L Chloride Level 99 MEQ/L Carbon Dioxide Level 28.6 MEQ/L Anion Gap 7 MEQ/L Estimat Glomerular Filtration Rate 64 ML/MIN Urine Collection Type CLEAN CATCH Urine Color YELLOW Urine Turbidity CLEAR Urine pH 6.5 Urine Specific [place] 1.015 Urine Protein NEG mg/dL Urine Glucose (UA) NEG mg/dL Urine Ketones 15 mg/dL Urine Occult Blood NEG Urine Nitrite NEG Urine Bilirubin NEG Urine Urobilinogen 0.2 MG/DL Urine Leukocyte Esterase NEG Urine RBC 0-3 /hpf Urine WBC 0-2 /hpf Microscopic Urinalysis Comment CULT NOT INDICATED MDM Medical Decision Making Medical Screen Exam Complete: Yes Emergency Medical Condition: Yes Differential Diagnosis New onset atrial fibrillation, fall risk, worsening COPD, uncontrolled hypertension Narrative Course Assessment and plan discussed with patient at bedside. Initial EKG reveals atrial fibrillation with RVR rate of 111. Rate controlled and blood pressure improved with labetalol dosing. Last [address] 09/05/17 0000 Signed Impressions: Service Date/Time: Tuesday, September 05, 2017 17:27 - CONCLUSION: 1. No acute findings. Orlando Bermudez MD Chest X-Ray 09/05/17 0000 Signed Impressions: Service Date/Time: Tuesday, September 05, 2017 16:15 - CONCLUSION: 1. Emphysema in the upper lungs. No acute findings. Orlando Bermudez MD Cervical Spine CT 09/05/17 0000 Signed Impressions: Service Date/Time: Tuesday, September 05, 2017 17:27 - CONCLUSION: 1. No acute fracture. Moderate degenerative disc disease and facet arthropathy. Slight reversal of normal cervical lordosis. Minimal degenerative anterolisthesis of C4 on C5and C5 on C6. Orlando Bermudez MD Physician Communication Physician Communication Spoke to Dr Reddy who is in agreement will admit for afib control, PT and case management Diagnosis Primary Impression: Failure to thrive in adult Additional Impressions: Generalized weakness Atrial fibrillation with rapid ventricular response Burt Henry MD Sep 05, 2017 15:59
[2017-09-05] MEDS ORDERED: LABETALOL HCL 100 MG/20 ML VIAL IV PUSH ONE (16:00)
[2017-09-05] MEDS ORDERED: PLAV75TA29 PO (16:11)
[2017-09-05] MEDS ORDERED: NO ITAB PO (16:11)
[2017-09-05] MEDS ORDERED: FLUT50SP EACH NARE (16:11)
[2017-09-05] MEDS ORDERED: TRAM50TA PO (16:11)
[2017-09-05 16:24] LABS: AUTOMATED NEUTROPHIL # 6.8 TH/MM3 (1.8-7.7); BASOPHIL # 0.1 TH/MM3 (0-0.2); BASOPHIL % 1.2 % (0.0-2.0); EOSINOPHIL # 0.2 TH/MM3 (0-0.4); EOSINOPHIL % 1.7 % (0.0-4.0); HEMATOCRIT 39.5 % (39.0-51.0); HEMOGLOBIN 13.2 GM/DL (13.0-17.0); LYMPH % 11.4 % (9.0-44.0); MEAN CELL VOLUME 87.1 FL (80.0-100.0); MEAN CORPUSCULAR HGB CONC 33.4 % (32.0-36.0); MEAN PLATELET VOLUME 7.1 FL (7.0-11.0); MONO % 8.2 % (0.0-8.0); MONOCYTE # 0.7 TH/MM3 (0-0.9); NEUT % 77.5 % (16.0-70.0); PLATELET COUNT 186 TH/MM3 (150-450); RED BLOOD COUNT 4.54 MIL/MM3 (4.50-5.90); RED CELL DISTRIBUTION WIDTH 12.2 % (11.6-17.2); WHITE BLOOD COUNT 8.8 TH/MM3 (4.0-11.0)
[2017-09-05 16:46] LABS: CHLORIDE 99 MEQ/L (98-107); SODIUM (NA) 135 MEQ/L (136-145)
[2017-09-05 16:49] LABS: CALCIUM 8.5 MG/DL (8.5-10.1)
[2017-09-05 16:50] LABS: ALBUMIN 3.3 GM/DL (3.4-5.0); BICARBONATE 28.6 MEQ/L (21.0-32.0); BLOOD UREA NITROGEN 15 MG/DL (7-18); GLUCOSE,RANDOM 113 MG/DL (74-106)
[2017-09-05 16:53] LABS: ALT (GPT) 21 U/L (12-78); AST (GOT) 34 U/L (15-37); GLOMERULAR FILTRATION RATE 64 ML/MIN (>89)
[2017-09-05 16:54] LABS: TOTAL BILIRUBIN ADULT 0.7 MG/DL (0.2-1.0); TOTAL PROTEIN 6.5 GM/DL (6.4-8.2)
[2017-09-05 16:56] LABS: ALKALINE PHOSPHATASE 153 U/L (45-117)
--- NOTE | 2017-09-05 16:58 | RADRPT ---
EXAM DATE/TIME: 09/05/2017 16:15 [facility] COMPARISON: No previous studies available for comparison. INDICATIONS : Short of breath, weak MEDICAL HISTORY : Chronic obstructive pulmonary disease. Emphysema. SURGICAL HISTORY : None. ENCOUNTER: Initial ACUITY: 2 days PAIN SCORE: 0/10 LOCATION: Bilateral chest FINDINGS: A single view of the chest demonstrates the lungs to be symmetrically aerated without evidence of mas s, infiltrate or effusion. Emphysema in the upper lungs. The cardiomediastinal contours are unremarka ble. Osseous structures are intact. CONCLUSION: 1. Emphysema in the upper lungs. No acute findings. Orlando Bermudez MD on September 05, 2017 at 16:56 Board Certified Radiologist. This report was verified electronically.
[2017-09-05 17:25] LABS: BILIRUBIN, URINE NEG (NEG); BLOOD, URINE NEG (NEG); GLUCOSE,URINE NEG (NEG); KETONE, URINE 15 mg/dL (NEG); NITRITE,URINE NEG (NEG); PH, URINE 6.5 (5.0-8.5); URINE COLOR YELLOW (YELLW/STRAW); URINE LEUKOCYTE ESTERASE NEG (NEG)
[2017-09-05 17:31] LABS: RBC, URINE 0-3 /hpf (0-3); WBC, URINE 0-2 /hpf (0-5)
--- NOTE | 2017-09-05 17:52 | RADRPT ---
EXAM DATE/TIME: 09/05/2017 17:27 [facility] COMPARISON: No previous studies available for comparison. INDICATIONS : Weakness. RADIATION DOSE: 56.48 CTDIvol (mGy) MEDICAL HISTORY : Cerebrovascular disease. Carcinoma, prostate. Chronic obstructive pulmonary disease.Hypertension. SURGICAL HISTORY : Tonsillectomy. ENCOUNTER: Initial ACUITY: 3 weeks PAIN SCALE: 0/10 LOCATION: cranial TECHNIQUE: Multiple contiguous axial images were obtained of the head. Using automated exposure control and adj ustment of the mA and/or kV according to patient size, radiation dose was kept as low as reasonably a chievable to obtain optimal diagnostic quality images. DICOM format image data is available electro nically for review and comparison. FINDINGS: CEREBRUM: The ventricles are normal for age. No evidence of midline shift, mass lesion, hemorrhage or acute in farction. No extra-axial fluid collections are seen. POSTERIOR FOSSA: The cerebellum and brainstem are intact. The 4th ventricle is midline. The cerebellopontine angle i s unremarkable. EXTRACRANIAL: The visualized portion of the orbits is intact. SKULL: The calvaria is intact. No evidence of skull fracture. CONCLUSION: 1. No acute findings. Orlando Bermudez MD on September 05, 2017 at 17:50 Board Certified Radiologist. This report was verified electronically.
--- NOTE | 2017-09-05 18:02 | RADRPT ---
EXAM DATE/TIME: 09/05/2017 17:27 [facility] COMPARISON: No previous studies available for comparison. INDICATIONS : Weakness. Fall. RADIATION DOSE: 26.64 CTDIvol (mGy) MEDICAL HISTORY : Cerebrovascular disease. Chronic obstructive pulmonary disease. Carcinoma, prostate.Hypertension. SURGICAL HISTORY : Tonsillectomy. ENCOUNTER: Initial ACUITY: 3 weeks PAIN SCALE: 0/10 LOCATION: neck TECHNIQUE: Volumetric scanning of the cervical spine was performed. Multiplanar reconstructions in the sagittal, coronal and oblique axial planes were performed. Using automated exposure control and adjustment o f the mA and/or kV according to patient size, radiation dose was kept as low as reasonably achievable to obtain optimal diagnostic quality images. DICOM format image data is available electronically f or review and comparison. FINDINGS: Bones are osteopenic. No acute fracture. Minimal degenerative anterolisthesis of C4 on C5 on C6. Mode rate facet arthropathy. No prevertebral soft tissue swelling. CONCLUSION: 1. No acute fracture. Moderate degenerative disc disease and facet arthropathy. Slight reversal of no rmal cervical lordosis. Minimal degenerative anterolisthesis of C4 on C5and C5 on C6. Orlando Bermudez MD on September 05, 2017 at 17:56 Board Certified Radiologist. This report was verified electronically.
[2017-09-05] MEDS ORDERED: SODIUM CHLORIDE 0.9% FLUSH 10 ML FLUSH IV FLUSH PRN (19:30)
[2017-09-05] MEDS ORDERED: MAGNESIUM HYDROXIDE SUSP 30 ML CUP PO PRN (19:30)
[2017-09-05] MEDS ORDERED: NALOXONE HCL 0.4 MG/ML AMP IV PUSH PRN (19:30)
[2017-09-05] MEDS ORDERED: ONDANSETRON HCL 4 MG/2 ML VIAL IVP PRN (19:30)
[2017-09-05] MEDS ORDERED: RESP: IPRATROPIUM 0.5 MG/2.5 ML NEB NEB PRN (19:30)
[2017-09-05] MEDS ORDERED: traMADol HCL 50 MG TAB PO PRN (19:30)
[2017-09-05] MEDS: SODIUM CHLORIDE 0.9% FLUSH 10 ML FLUSH IV FLUSH SCH (21:00)
[2017-09-05] MEDS: ATORVASTATIN 40 MG TAB PO SCH (21:09)
[2017-09-05] MEDS: TAMSULOSIN HCL 0.4 MG CAP PO SCH (21:10)
[2017-09-05] MEDS: CALCIUM/VITAMIN D 250 MG/125 U TAB PO SCH (21:10)
[2017-09-05] MEDS: FLUTICASONE PROPIONATE 50 MCG/ACT 16 GM NASAL SPRAY EACH NARE SCH (21:10)
[2017-09-05] MEDS: ENOXAPARIN SODIUM 40 MG/0.4 ML SYRINGE SQ SCH (21:10)
[2017-09-05] MEDS ORDERED: RESP: ALBUTEROL 2.5 MG/IPRATROPIUM 0.5 MG NEB (PRN) NEB (22:30)
[2017-09-05] MEDS: RESP: ALBUTEROL 2.5 MG/IPRATROPIUM 0.5 MG NEB (SCH) NEB (23:25)
[2017-09-06] VITALS (8 sets, daily range): BP systolic 137–162; BP diastolic 67–95; PULSE 86–110; RESP 18–24; TEMP 96.5–98.2; O2SAT 91–99
[2017-09-06] MEDS: RESP: ALBUTEROL 2.5 MG/IPRATROPIUM 0.5 MG NEB (SCH) NEB ×4 (04:03→21:07)
[2017-09-06 07:02] LABS: AUTOMATED NEUTROPHIL # 6.4 TH/MM3 (1.8-7.7); BASOPHIL % 0.5 % (0.0-2.0); EOSINOPHIL # 0.2 TH/MM3 (0-0.4); EOSINOPHIL % 2.5 % (0.0-4.0); HEMATOCRIT 37.3 % (39.0-51.0); HEMOGLOBIN 12.6 GM/DL (13.0-17.0); LYMPH % 16.7 % (9.0-44.0); LYMPHOCYTE # 1.4 TH/MM3 (1.0-4.8); MEAN CELL VOLUME 87.4 FL (80.0-100.0); MEAN CORPUSCULAR HEMOGLOBIN 29.5 PG (27.0-34.0); MEAN CORPUSCULAR HGB CONC 33.7 % (32.0-36.0); MEAN PLATELET VOLUME 6.9 FL (7.0-11.0); MONOCYTE # 0.7 TH/MM3 (0-0.9); NEUT % 72.3 % (16.0-70.0); PLATELET COUNT 185 TH/MM3 (150-450); RED BLOOD COUNT 4.27 MIL/MM3 (4.50-5.90); RED CELL DISTRIBUTION WIDTH 12.7 % (11.6-17.2); WHITE BLOOD COUNT 8.7 TH/MM3 (4.0-11.0)
[2017-09-06 07:05] LABS: CHLORIDE 100 MEQ/L (98-107); SODIUM (NA) 139 MEQ/L (136-145)
[2017-09-06 07:16] LABS: CALCIUM 8.6 MG/DL (8.5-10.1)
[2017-09-06 07:17] LABS: BICARBONATE 31.1 MEQ/L (21.0-32.0); BLOOD UREA NITROGEN 18 MG/DL (7-18); GLUCOSE,RANDOM 85 MG/DL (74-106)
[2017-09-06 07:18] LABS: ALT (GPT) 20 U/L (12-78); AST (GOT) 18 U/L (15-37)
[2017-09-06 07:20] LABS: GLOMERULAR FILTRATION RATE 64 ML/MIN (>89); TOTAL BILIRUBIN ADULT 0.8 MG/DL (0.2-1.0); TOTAL PROTEIN 6.2 GM/DL (6.4-8.2)
[2017-09-06 07:21] LABS: ALKALINE PHOSPHATASE 150 U/L (45-117)
[2017-09-06] MEDS: LOSARTAN 25 MG TAB PO SCH (07:49)
[2017-09-06] MEDS: CALCIUM/VITAMIN D 250 MG/125 U TAB PO SCH ×2 (07:49→22:55)
[2017-09-06] MEDS: CLOPIDOGREL 75 MG TAB PO SCH (07:49)
[2017-09-06] MEDS: CHOLECALCIFEROL (VIT D3) 1000 UNIT TAB PO SCH (07:50)
[2017-09-06] MEDS: MULTIVITAMINS/MINERALS THERAPEUTIC TAB PO SCH (07:50)
[2017-09-06] MEDS: FLUTICASONE PROPIONATE 50 MCG/ACT 16 GM NASAL SPRAY EACH NARE SCH ×2 (07:50→22:56)
[2017-09-06] MEDS: ASPIRIN 325 MG TAB PO SCH (07:50)
[2017-09-06] MEDS: SODIUM CHLORIDE 0.9% FLUSH 10 ML FLUSH IV FLUSH SCH ×2 (07:50→22:56)
[2017-09-06 08:40] LABS: TROPONIN I LESS THAN 0.02 NG/ML (0.02-0.05)
[2017-09-06] MEDS: BICALUTAMIDE 50 MG TAB PO SCH (09:00)
--- NOTE | 2017-09-06 12:23 | HHI.HP ---
[facility] Primary Care Physician Lorraine Saba MD Admission Diagnosis Generalized weakness, new onset A. fib, fall risk Diagnoses: (1) Atrial fibrillation with rapid ventricular response (2) Failure to thrive in adult (3) Generalized weakness Chief Complaint: Generalized weakness Multiple falls at home Travel History International Travel<30 Days: No Contact w/Intl Traveler <30 Da: No Traveled to Known Affected Are: No History of Present Illness This is a pleasant 82-year-old male patient with a known medical history of asthma, COPD, hyperlipidemia, hypertension and history of CVA who presented to the ED with complaints of generalized weakness and multiple falls at home. Patient states that he started to become weak back in May with multiple falls at home since that time. He states that these falls usually occur randomly and make him feel like his legs give out. The last fall was on Wednesday , patient states that his legs felt like rubber and he fell to the ground. He denies any headache, or vision or dizziness. Denies any loss of consciousness or hitting his head. Patient states he is progressively become more weak since May. Patient does have a history of CVA currently on Plavix and aspirin. Follows with Dr. Reynoso, cardiology. Patient did present with atrial fibrillation RVR, states that atrial fibrillation is new to him. He denies any chest pain. Patient does have COPD, patient does have nebulizer at home but does not use home O2. But does complain of increasing dyspnea on exertion requiring rest in between activities of daily living. Patient lives at home with his , who assists with his activities of daily living. He does use a walker at home. Per , patient has lost 15 pounds since Ronnie. It should be noted that patient does have history of BPH and prostate cancer, followed by urology. Patient denies any recent illness including fever, chills , abdominal pain, nausea, vomiting or diarrhea. PCP is Dr. Saba. Review of Systems Constitutional: DENIES: Diaphoretic episodes, Fatigue, Fever, Chills Eyes: DENIES: Blurred vision, Diplopia Respiratory: COMPLAINS OF: Cough, Shortness of breath, DENIES: Sputum production Cardiovascular: DENIES: Chest pain, Palpitations, Lower Extremity Edema Gastrointestinal: DENIES: Abdominal pain, Black stools, Bloody stools, Constipation, Diarrhea, Nausea, Vomiting Neurologic: COMPLAINS OF: Localized weakness, Poor Balance, DENIES: Abnormal gait Psychiatric: DENIES: Anxiety Except as stated in HPI: all other systems reviewed are Neg Past Family Social History Past Medical History Asthma COPD Prostate cancer Hyperlipidemia COPD History of TIA Hypertension Tendinitis Past Surgical History Tonsillectomy Reported Medications Active Bicalutamide 50 Mg Tab 50 Mg PO DAILY Reported Tramadol (Tramadol HCl) 50 Mg Tab 50 Mg PO Q6H PRN Plavix (Clopidogrel Bisulfate) 75 Mg Tab 75 Mg PO DAILY Multiple Vitamin (Multivitamin with Minerals) 1 Each Tablet 1 Tab PO DAILY Fluticasone Nasal [place] 50 Mcg/Act Naspr 50 Mcg EACH NARE BID 50 mcg/spray Tamsulosin (Tamsulosin HCl) 0.4 Mg Cap 0.4 Mg PO HS Avapro (Irbesartan) 150 Mg Tab 150 Mg PO DAILY Ipratropium Neb (Ipratropium Teller) 0.5 Mg/2.5 Ml Amp 0.5 Mg NEB Q4HR NEB PRN Vitamin D3 (Cholecalciferol) 1,000 Unit Tab 1,000 Units PO DAILY Calcium/Vitamin D (Calcium Carbonate-Vitamin D) 500-200 Mg-Unit Tab 1 Tab PO BID Atorvastatin (Atorvastatin Calcium) 40 Mg Tab 40 Mg PO HS Aspirin 325 Mg Tab 325 Mg PO DAILY Allergies: Coded Allergies: No Known Allergies (Verified , 11/21/16) Active Ordered Medications Current Medications Medications (Trade) Dose Ordered Sig/Arnulfo Route Start Time Stop Time Status Last Admin (NS Flush) 2 ml UNSCH PRN IV FLUSH 09/05/17 19:30 (NS Flush) 2 ml BID IV FLUSH 09/05/17 21:00 09/06/17 07:50 (Zofran Inj) 4 mg Q6H PRN IVP 09/05/17 19:30 (Lovenox Inj) 40 mg Q24H SQ 09/05/17 20:00 09/05/17 21:10 (Narcan Inj) 0.4 mg UNSCH PRN IV PUSH 09/05/17 19:30 (Milk Of Magnesia Liq) 30 ml Q12H PRN PO 09/05/17 19:30 (Aspirin) 325 mg DAILY PO 09/06/17 09:00 09/06/17 07:50 (Lipitor) 40 mg HS PO 09/05/17 21:00 09/05/17 21:09 (Casodex) 50 mg DAILY PO 09/06/17 09:00 09/06/17 09:00 (Oscal-D 250-125) 250 mg BID PO 09/05/17 21:00 09/06/17 07:49 (Vitamin D3) 1,000 units DAILY PO 09/06/17 09:00 09/06/17 07:50 (Plavix) 75 mg DAILY PO 09/06/17 09:00 09/06/17 07:49 (Flonase Nikko Spr) 1 spray BID EACH NARE 09/05/17 21:00 09/06/17 07:50 (Flomax) 0.4 mg HS PO 09/05/17 21:00 09/05/17 21:10 (Ultram) 50 mg Q6H PRN PO 09/05/17 19:30 09/05/17 21:14 (Cozaar) 50 mg DAILY PO 09/06/17 09:00 09/06/17 07:49 (Theragran M Tab) 1 tab DAILY PO 09/06/17 09:00 09/06/17 07:50 (Duoneb Neb) 1 ampule Q2HR NEB PRN NEB 09/05/17 22:30 (Duoneb Neb) 1 ampule Q6HR WHILE AWAKE NEB NEB 09/06/17 14:00 09/06/17 14:30 (SoluMEDROL INJ) 40 mg Q6HR IV PUSH 09/06/17 13:00 09/06/17 15:30 Family History Denies any significant family medical history Social History Patient denies any recent tobacco use, quit smoking 25 years ago. Does admit to drinking 1 mixed drink daily. Denies any illicit drug use. Physical Exam Vital Signs Vital Signs Date Time Temp Pulse Resp B/P (MAP) Pulse Ox O2 Delivery O2 Flow Rate FiO2 09/06/17 07:50 97.8 110 24 142/95 (111) 91 09/06/17 07:43 98 Nasal Cannula 2.00 09/06/17 04:00 97.1 86 18 138/77 (97) 96 09/06/17 00:00 97.8 93 18 137/84 (101) 95 09/05/17 21:21 97 Nasal Cannula 2.00 09/05/17 20:40 90 22 176/85 (115) 99 Nasal Cannula 2.00 09/05/17 20:00 97.2 103 18 134/63 (86) 92 09/05/17 19:00 89 22 98 Nasal Cannula 2.00 09/05/17 19:00 83 20 162/86 (111) 99 Nasal Cannula 2.00 09/05/17 17:18 84 20 158/79 (105) 98 Nasal Cannula 09/05/17 16:55 90 26 144/81 (102) 91 09/05/17 16:34 90 22 116/79 (91) 92 Room Air 09/05/17 15:49 98.1 106 18 178/97 (124) 96 Physical Exam GENERAL: Well-developed, thin elderly frail male patient in [facility]. On supplemental O2 SKIN: Warm and dry. No rash. Chest with ecchymosis. Bilateral arm scattered ecchymosis. HEAD: Normocephalic. Atraumatic. EYES: Pupils equal and round. No scleral icterus. No injection or drainage. ENT: No nasal bleeding or discharge. Mucous membranes pink and moist. NECK: Supple. Trachea midline. CARDIOVASCULAR: Regular rate and rhythm. S1, S2 noted. No murmur appreciated. RESPIRATORY: No accessory muscle use. Scattered expiratory wheezes and posterior lung nichols. Breath sounds equal bilaterally. GASTROINTESTINAL: Abdomen soft, non-tender, nondistended. Normoactive bowel sounds x4. MUSCULOSKELETAL: No obvious deformities. Extremities without clubbing, cyanosis , or edema. NEUROLOGICAL: Awake and alert. No obvious cranial nerve deficits. Motor grossly within normal limits. 4/5 muscle strength in bilateral upper and lower extremities. Normal speech. PSYCHIATRIC: Appropriate mood and affect; insight and judgment normal. Laboratory Laboratory Tests Test 09/05/17 16:15 09/05/17 17:00 09/05/17 19:40 09/06/17 02:30 White Blood Count 8.8 Red Blood Count 4.54 Hemoglobin 13.2 Hematocrit 39.5 Mean Corpuscular Volume 87.1 Mean Corpuscular Hemoglobin 29.0 Mean Corpuscular Hemoglobin Concent 33.4 Red Cell Distribution Width 12.2 Platelet Count 186 Mean Platelet Volume 7.1 Neutrophils (%) (Auto) 77.5 Lymphocytes (%) (Auto) 11.4 Monocytes (%) (Auto) 8.2 Eosinophils (%) (Auto) 1.7 Basophils (%) (Auto) 1.2 Neutrophils # (Auto) 6.8 Lymphocytes # (Auto) 1.0 Monocytes # (Auto) 0.7 Eosinophils # (Auto) 0.2 Basophils # (Auto) 0.1 CBC Comment AUTO DIFF Differential Comment AUTO DIFF CONFIRMED Blood Urea Nitrogen 15 Creatinine 1.10 Random Glucose 113 Total Protein 6.5 Albumin 3.3 Calcium Level 8.5 Alkaline Phosphatase 153 Aspartate Amino Transf (AST/SGOT) 34 Alanine Aminotransferase (ALT/SGPT) 21 Total Bilirubin 0.7 Sodium Level 135 Potassium Level 4.5 Chloride Level 99 Carbon Dioxide Level 28.6 Anion Gap 7 Estimat Glomerular Filtration Rate 64 Urine Collection Type CLEAN CATCH Urine Color YELLOW Urine Turbidity CLEAR Urine pH 6.5 Urine Specific [place] 1.015 Urine Protein NEG Urine Glucose (UA) NEG Urine Ketones 15 Urine Occult Blood NEG Urine Nitrite NEG Urine Bilirubin NEG Urine Urobilinogen 0.2 Urine Leukocyte Esterase NEG Urine RBC 0-3 Urine WBC 0-2 Microscopic Urinalysis Comment CULT NOT INDICATED Troponin I LESS THAN 0.02 LESS THAN 0.02 Test 09/06/17 06:05 White Blood Count 8.7 Red Blood Count 4.27 Hemoglobin 12.6 Hematocrit 37.3 Mean Corpuscular Volume 87.4 Mean Corpuscular Hemoglobin 29.5 Mean Corpuscular Hemoglobin Concent 33.7 Red Cell Distribution Width 12.7 Platelet Count 185 Mean Platelet Volume 6.9 Neutrophils (%) (Auto) 72.3 Lymphocytes (%) (Auto) 16.7 Monocytes (%) (Auto) 8.0 Eosinophils (%) (Auto) 2.5 Basophils (%) (Auto) 0.5 Neutrophils # (Auto) 6.4 Lymphocytes # (Auto) 1.4 Monocytes # (Auto) 0.7 Eosinophils # (Auto) 0.2 Basophils # (Auto) 0.0 CBC Comment DIFF FINAL Differential Comment Blood Urea Nitrogen 18 Creatinine 1.10 Random Glucose 85 Total Protein 6.2 Albumin 3.0 Calcium Level 8.6 Alkaline Phosphatase 150 Aspartate Amino Transf (AST/SGOT) 18 Alanine Aminotransferase (ALT/SGPT) 20 Total Bilirubin 0.8 Sodium Level 139 Potassium Level 4.6 Chloride Level 100 Carbon Dioxide Level 31.1 Anion Gap 8 Estimat Glomerular Filtration Rate 64 Troponin I LESS THAN 0.02 Result Diagram: 09/06/1760409/06/17 0605 Imaging Last Impressions Head CT 09/05/17 0000 Signed Impressions: Service Date/Time: Tuesday, September 05, 2017 17:27 - CONCLUSION: 1. No acute findings. Orlando Bermudez MD Chest X-Ray 09/05/17 0000 Signed Impressions: Service Date/Time: Tuesday, September 05, 2017 16:15 - CONCLUSION: 1. Emphysema in the upper lungs. No acute findings. Orlando Bermudez MD Cervical Spine CT 09/05/17 0000 Signed Impressions: Service Date/Time: Tuesday, September 05, 2017 17:27 - CONCLUSION: 1. No acute fracture. Moderate degenerative disc disease and facet arthropathy. Slight reversal of normal cervical lordosis. Minimal degenerative anterolisthesis of C4 on C5and C5 on C6. Orlando Bermudez MD Septic Shock Reassessment Septic shock perfusion: reassessment completed Caprini VTE Risk Assessment Caprini VTE Risk Assessment: Mod/High Risk (score >= 2) Caprini Risk Assessment Model Point Value = 1 Point Value = 2 Point Value = 3 Point Value = 5 Age 41-60 Minor surgery BMI > 25 kg/m2 Swollen legs Varicose veins or History of unexplained or recurrent spontaneous Oral contraceptives or hormone replacement Sepsis (< 1 month) Serious lung disease, including pneumonia (< 1 month) Abnormal pulmonary function Acute myocardial infarction Congestive heart failure (< 1 month) History of inflammatory bowel disease Medical patient at bed rest Age 61-74 Arthroscopic surgery Major open surgery (> 45 min) Laparoscopic surgery (> 45 min) Malignancy Confined to bed (> 72 hours) Immobilizing plaster cast Central venous access Age >= 75 History of VTE Family history of VTE Factor V Leiden Prothrombin [id number] Lupus anticoagulant Anticardiolipin antibodies Elevated serum homocysteine Heparin-induced thrombocytopenia Other congenital or acquired thrombophilia Stroke (< 1 month) Elective arthroplasty Hip, pelvis, or leg fracture Acute spinal cord injury (< 1 month) Prophylaxis Regimen Total Risk Factor Score Risk Level Prophylaxis Regimen 0-1 Low Early ambulation 2 Moderate Order ONE of the following: *Sequential Compression Device (SCD) *Heparin 5000 units SQ BID 3-4 Higher Order ONE of the following medications: *Heparin 5000 units SQ TID *Enoxaparin/Lovenox 40 mg SQ daily (WT < 150 kg, CrCl > 30 mL/min) *Enoxaparin/Lovenox 30 mg SQ daily (WT < 150 kg, CrCl > 10-29 mL/min) *Enoxaparin/Lovenox 30 mg SQ BID (WT < 150 kg, CrCl > 30 mL/min) AND/OR *Sequential Compression Device (SCD) 5 or more Highest Order ONE of the following medications: *Heparin 5000 units SQ TID (Preferred with Epidurals) *Enoxaparin/Lovenox 40 mg SQ daily (WT < 150 kg, CrCl > 30 mL/min) *Enoxaparin/Lovenox 30 mg SQ daily (WT < 150 kg, CrCl > 10-29 mL/min) *Enoxaparin/Lovenox 30 mg SQ BID (WT < 150 kg, CrCl > 30 mL/min) AND *Sequential Compression Device (SCD) Assessment and Plan Assessment and Plan This is a pleasant 82-year-old male patient with a known medical history of asthma, COPD, hyperlipidemia, hypertension and history of CVA who presented to the ED with complaints of generalized weakness and multiple falls at home. Generalized weakness with multiple falls at home Failure to thrive with mild malnutrition and dehydration Patient with reports of multiple falls at home. Head CT performed in ED, reviewed showing no acute findings. PT consulted for evaluation and treatment, appreciate input recommendations. OT added. [place] re[facility] referral has been placed. Continue to follow. Patient appears to be dehydrated. Continued on IV fluids. Encourage p.o. intake. CBC and BMP essentially unremarkable. UA unremarkable. Orthostatic blood pressures negative. COPD with exacerbation Chest x-ray reviewed showing emphysema in the upper lungs. No acute findings. Cervical spine CT reviewed showing no acute fracture. supplemental O2 as needed. Keep sats greater than 90%. Requiring 2 L nasal cannula at this time. Patient given IV steroids for wheezing. DuoNeb scheduled and as needed. Supportive care. New onset A. fib, presenting with atrial fibrillation RVR: EKG reviewed showing atrial fibrillation with RVR. Heart rate 111. Troponin trend flat. At the time of assessment patient's rate is controlled. Continue on cardiac telemetry , monitor for any arrhythmias. Consult placed to cardiology for new onset A. fib, patient follows with Dr. Reynoso. Appreciate input and recommendations. History of CVA: Continue home Plavix and aspirin. Hyperlipidemia, chronic: Continue home statin. BPH with history of prostate cancer: Continue home Flomax. DVT prophylaxis: SCDs. Lovenox. Oxana Powell Sep 06, 2017 12:23
[2017-09-06] MEDS: methylPREDNISolone SOD SUCC 40 MG/1 ML VIAL IV PUSH SCH ×3 (15:30→22:56)
--- NOTE | 2017-09-06 18:52 | EKG ---
Date Performed: 09/05/2017 Time Performed: 15:41:20 PTAGE: 82 years EKG: SINUS TACHYCARDIA WITH PREMATURE ATRIAL CONTRACTIONS BORDERLINE RIGHT AXIS DEVIATION Compar ed to previous tracing, there's been a slowing of the Supraventricular tachycardia. Probably no other significant serial change ABNORMAL RHYTHM ECG PREVIOUS TRACING : 11/21/2016 02.18 DOCTOR: Rosa Euceda Interpretating Date/Time 09/06/2017 18:51:42
[2017-09-06] MEDS: ATORVASTATIN 40 MG TAB PO SCH (22:55)
[2017-09-06] MEDS: TAMSULOSIN HCL 0.4 MG CAP PO SCH (22:55)
[2017-09-06] MEDS: ENOXAPARIN SODIUM 40 MG/0.4 ML SYRINGE SQ SCH (23:00)
[2017-09-07] VITALS (9 sets, daily range): BP systolic 133–158; BP diastolic 68–95; PULSE 78–112; RESP 18–20; TEMP 88.7–98.5; O2SAT 93–98
[2017-09-07] MEDS: methylPREDNISolone SOD SUCC 40 MG/1 ML VIAL IV PUSH SCH ×4 (06:10→23:06)
[2017-09-07] MEDS: RESP: ALBUTEROL 2.5 MG/IPRATROPIUM 0.5 MG NEB (SCH) NEB ×3 (07:44→20:32)
[2017-09-07] MEDS: SODIUM CHLORIDE 0.9% FLUSH 10 ML FLUSH IV FLUSH SCH ×2 (09:17→21:22)
[2017-09-07] MEDS: FLUTICASONE PROPIONATE 50 MCG/ACT 16 GM NASAL SPRAY EACH NARE SCH ×2 (09:18→21:22)
[2017-09-07] MEDS: CHOLECALCIFEROL (VIT D3) 1000 UNIT TAB PO SCH (09:18)
[2017-09-07] MEDS: ASPIRIN 325 MG TAB PO SCH (09:18)
[2017-09-07] MEDS: MULTIVITAMINS/MINERALS THERAPEUTIC TAB PO SCH (09:18)
[2017-09-07] MEDS: CALCIUM/VITAMIN D 250 MG/125 U TAB PO SCH ×2 (09:19→21:22)
[2017-09-07] MEDS: BICALUTAMIDE 50 MG TAB PO SCH (09:19)
[2017-09-07] MEDS: LOSARTAN 25 MG TAB PO SCH (09:20)
[2017-09-07] MEDS: CLOPIDOGREL 75 MG TAB PO SCH (09:20)
--- NOTE | 2017-09-07 11:23 | HHI.PR ---
Subjective Remarks 82 year-old male who is seen today in follow-up for chronic obstructive pulmonary disease exacerbation, atrial tachycardia. Patient states that he still having significant shortness of breath and weakness. Before meals cannot get up and ambulate without using a walker. Indicating that he is had recurrent falls over the last 4-5 months. Patient still requiring increased O2 supplementation maintain O2 saturation's. Objective Vitals Vital Signs Date Time Temp Pulse Resp B/P (MAP) Pulse Ox O2 Delivery O2 Flow Rate FiO2 09/07/17 08:00 98.5 110 20 148/71 (96) 98 09/07/17 08:00 98.5 110 20 148/71 (96) 98 09/07/17 07:46 98 Nasal Cannula 2.00 09/07/17 04:00 97.1 88 20 137/95 (109) 93 09/07/17 00:00 96.3 112 18 157/94 (115) 93 09/06/17 21:05 98 Nasal Cannula 2.00 09/06/17 20:00 97.8 102 18 144/80 (101) 98 09/06/17 15:50 96.5 94 20 162/80 (107) 98 143/75 (97) 145/67 (93) 09/06/17 11:50 98.2 86 20 147/80 (102) 99 I/O 09/06/17 09/06/17 09/06/17 09/07/17 09/07/17 09/07/17 07:00 15:00 23:00 07:00 15:00 23:00 Intake Total 420 ml 480 ml Output Total 350 ml 650 ml Balance 70 ml -170 ml Intake Oral 420 ml 480 ml Output Urine Total 350 ml 650 ml # Voids 3 # Bowel Movements 0 0 Result Diagram: 09/06/1760409/06/17 06 Objective Remarks GENERAL: Well-developed, well-nourished, in no acute distress. alert and orientated HEENT: Head is normocephalic without any lesions or masses noted. Facial features are symmetric. Eyes: Extraocular muscles are intact. Conjunctivae were clear. NECK: Supple without any masses. Trachea midline no deviation. No JVD, CARDIAC: Regular rhythm, regular rate. S1/S2 are heard. No murmurs gallops or rubs. LUNGS: Diminished air movement noted bilaterally. Mild expiratory wheeze, no rhonchi or rales. No use of accessory muscles on inspiration or expiration. ABDOMEN: Soft, nontender. Nondistended. Bowel sounds heard in all 4 quadrants. No organomegaly or masses. Negative rebound, negative guarding EXTREMITIES: No edema, pulses are equal bilaterally. No cyanosis or clubbing NEUROLOGY: Mood and affect appear appropriate. Cranial nerves II through XII grossly intact. Moving all extremities, speech is clear Urinary Catheter: No Vascular Central Line Catheter: No A/P Assessment and Plan Chronic obstructive pulmonary disease with acute exacerbation Chest x-ray does indicate emphysema in the upper lungs, no acute findings Continue O2 subluxation maintain O2 sats greater than 92% Continue Solu-Medrol 40 mg IV every 6 hours Continue duo nebs every 6 hours while awake and every 2 hours as needed Will need to try to wean oxygen in the next 24 hours, if not will need home oxygen walk study Recurrent fall at home with increased generalized weakness Could be secondary to deconditioning or possible hypoxia Physical therapy evaluated the patient and recommending rehabilitation placement Occupational therapy evaluated the patient and recommending occupational therapy rehabilitation Case management consulted for inpatient rehabilitation versus residential facility Sinus tachycardia with premature atrial contractions EKGs and telemetry were reviewed which show sinus tachycardia with premature atrial contractions Cardiology was consulted, I did speak with Dr. Reynoso personally. We discussed the patient's case and and recommendations Dr. Reynoso and myself did agree to add Lopressor 25 mg every 12 hours for improved rate control Dr. Reynoso and myself also agree, patient is not a candidate for any anticoagulation due to his recurrent and multiple falls. He is at high risk Dr. Reynoso indicated that he'll follow-up with the patient in outpatient setting upon discharge History CVA, hyperlipidemia, benign prostatic hypertrophy Home medications were continued DVT prevention sequential compression devices Subcutaneous Lovenox Discharge Planning Case management consulted for discharge planning. Patient may discharged to inpatient rehabilitation once accepted and consultation was also placed for outpatient rehabilitation Madhu Maza Sep 07, 2017 11:23
[2017-09-07] MEDS: METOPROLOL TARTRATE 25 MG TAB PO SCH ×2 (12:36→21:22)
[2017-09-07] MEDS: ENOXAPARIN SODIUM 40 MG/0.4 ML SYRINGE SQ SCH (21:21)
[2017-09-07] MEDS: TAMSULOSIN HCL 0.4 MG CAP PO SCH (21:22)
[2017-09-07] MEDS: ATORVASTATIN 40 MG TAB PO SCH (21:22)
[2017-09-08] VITALS: BP 144/84; PULSE 78; RESP 18; TEMP 98.6; O2SAT 98
[2017-09-08 04:00] VITALS: BP 138/74; PULSE 94; RESP 18; TEMP 98.2; O2SAT 95
[2017-09-08] MEDS: methylPREDNISolone SOD SUCC 40 MG/1 ML VIAL IV PUSH SCH ×2 (05:48→11:29)
[2017-09-08 08:00] VITALS: BP 166/78; PULSE 90; RESP 16; TEMP 98.3; O2SAT 96
[2017-09-08 08:04] VITALS: O2SAT 98
[2017-09-08] MEDS: RESP: ALBUTEROL 2.5 MG/IPRATROPIUM 0.5 MG NEB (SCH) NEB ×2 (08:04→14:23)
[2017-09-08] MEDS ORDERED: guaiFENesin/DEXTROMETHORPHAN 200 MG/20 MG/10 ML CUP PO PRN (08:30)
--- NOTE | 2017-09-08 08:31 | HHI.PR ---
Subjective Remarks Patient seen and examined today for follow-up on generalized weakness. Patient states that he had a bad night last night. Cannot sleep. Started with sore throat, cough, congestion, sputum production. Patient states that he feels as if he had the chills last night. Vital signs are stable, patient remains afebrile. Objective Vitals Vital Signs Date Time Temp Pulse Resp B/P (MAP) Pulse Ox O2 Delivery O2 Flow Rate FiO2 09/08/17 08:04 98 Nasal Cannula 1.00 09/08/17 04:00 98.2 94 18 138/74 (95) 95 09/08/17 00:00 98.6 78 18 144/84 (104) 98 09/07/17 21:00 91 09/07/17 20:32 98 Nasal Cannula 2.00 09/07/17 20:00 97.8 80 18 146/90 (108) 93 09/07/17 16:00 98.2 78 18 158/68 (98) 98 09/07/17 12:00 88.7 103 20 133/93 (106) 98 I/O 09/07/17 09/07/17 09/07/17 09/08/17 09/08/17 09/08/17 07:00 15:00 23:00 07:00 15:00 23:00 Intake Total 600 ml Balance 600 ml Intake Oral 600 ml # Voids 4 1 Result Diagram: 09/06/1760409/06/17604 Objective Remarks GENERAL: Well-developed, well-nourished, in no acute distress. alert and orientated HEENT: Head is normocephalic without any lesions or masses noted. Facial features are symmetric. Eyes: Extraocular muscles are intact. Conjunctivae were clear. NECK: Supple without any masses. Trachea midline no deviation. No JVD, CARDIAC: Regular rhythm, regular rate. S1/S2 are heard. No murmurs gallops or rubs. LUNGS: Diminished air movement noted bilaterally. Mild expiratory wheeze, no rhonchi or rales. No use of accessory muscles on inspiration or expiration. ABDOMEN: Soft, nontender. Nondistended. Bowel sounds heard in all 4 quadrants. No organomegaly or masses. Negative rebound, negative guarding EXTREMITIES: No edema, pulses are equal bilaterally. No cyanosis or clubbing NEUROLOGY: Mood and affect appear appropriate. Cranial nerves II through XII grossly intact. Moving all extremities, speech is clear Urinary Catheter: No Vascular Central Line Catheter: No A/P Assessment and Plan Chronic obstructive pulmonary disease with acute exacerbation Chest x-ray does indicate emphysema in the upper lungs, no acute findings Continue O2 supplementation to maintain O2 sats greater than 92% Continue Solu-Medrol 40 mg IV every 6 hours Continue duo nebs every 6 hours while awake and every 2 hours as needed Obtain influenza testing Start Robitussin-DM Recurrent fall at home with increased generalized weakness Could be secondary to deconditioning or possible hypoxia Physical therapy evaluated the patient and recommending rehabilitation placement Occupational therapy evaluated the patient and recommending occupational therapy rehabilitation Case management consulted for inpatient rehabilitation versus group home facility Sinus tachycardia with premature atrial contractions EKGs and telemetry were reviewed which show sinus tachycardia with premature atrial contractions Cardiology was consulted, I did speak with Dr. Reynoso personally. We discussed the patient's case and and recommendations Dr. Reynoso and myself did agree to add Lopressor 25 mg every 12 hours for improved rate control Dr. Reynoso and myself also agree, patient is not a candidate for any anticoagulation due to his recurrent and multiple falls. He is at high risk Dr. Reynoso indicated that he'll follow-up with the patient in outpatient setting upon discharge History CVA, hyperlipidemia, benign prostatic hypertrophy Home medications were continued DVT prevention sequential compression devices Subcutaneous Lovenox Discharge Planning Case management consulted for discharge planning. Patient may discharged to inpatient rehabilitation once accepted and consultation was also placed for outpatient rehabilitation Madhu Maza Sep 08, 2017 08:31
[2017-09-08] MEDS: FLUTICASONE PROPIONATE 50 MCG/ACT 16 GM NASAL SPRAY EACH NARE SCH (08:58)
[2017-09-08] MEDS: BICALUTAMIDE 50 MG TAB PO SCH (09:00)
[2017-09-08] MEDS: CLOPIDOGREL 75 MG TAB PO SCH (09:02)
[2017-09-08] MEDS: CALCIUM/VITAMIN D 250 MG/125 U TAB PO SCH (09:02)
[2017-09-08] MEDS: MULTIVITAMINS/MINERALS THERAPEUTIC TAB PO SCH (09:02)
[2017-09-08] MEDS: LOSARTAN 25 MG TAB PO SCH (09:02)
[2017-09-08] MEDS: METOPROLOL TARTRATE 25 MG TAB PO SCH (09:02)
[2017-09-08] MEDS: ASPIRIN 325 MG TAB PO SCH (09:02)
[2017-09-08] MEDS: CHOLECALCIFEROL (VIT D3) 1000 UNIT TAB PO SCH (09:02)
[2017-09-08] MEDS: SODIUM CHLORIDE 0.9% FLUSH 10 ML FLUSH IV FLUSH SCH (09:03)
[2017-09-08 12:00] VITALS: BP 131/90; PULSE 87; RESP 14; TEMP 97.2; O2SAT 99
[2017-09-08] MEDS ORDERED: DOCUSATE SODIUM 100 MG CAP PO SCH (13:45)
[2017-09-08] MEDS ORDERED: MAGNESIUM HYDROXIDE SUSP 30 ML CUP PO PRN (13:45)
[2017-09-08] MEDS ORDERED: MEDR4PAK PO (14:33)
[2017-09-08] MEDS ORDERED: METO25TA3 PO (14:33)
[2017-09-08] MEDS ORDERED: DEXT10SY2 PO (14:33)
--- NOTE | 2017-09-08 14:34 | HHI.DCPOC ---
Discharge Care Plan Diagnosis: (1) Generalized weakness (2) COPD (chronic obstructive pulmonary disease) (3) Paroxysmal atrial tachycardia Goals to Promote Your Health * To prevent worsening of your condition and complications * To maintain your health at the optimal level Directions to Meet Your Goals Take your medications as prescribed Follow your dietary instruction Follow activity as directed Keep your appointments as scheduled Take your immunizations and boosters as scheduled If your symptoms worsen call your PCP, if no PCP go to Urgent Care Center or Emergency Room Smoking is Dangerous to Your Health. Avoid second hand smoke Call the 24-hour hour crisis hotline for domestic abuse at Madhu Maza Sep 08, 2017 14:34
--- NOTE | 2017-09-08 14:38 | HHI.DS ---
Discharge Summary Admission Date Sep 06, 2017 at 11:22 Discharge Date: Sep 08, 2017 Admitting Diagnosis Generalized weakness, new onset A. fib, fall risk (1) Atrial fibrillation with rapid ventricular response ICD Code: I48.91 - Unspecified atrial fibrillation Status: Acute (2) Failure to thrive in adult ICD Code: R62.7 - Adult failure to thrive Status: Acute (3) Generalized weakness ICD Code: R53.1 - Weakness Status: Acute Procedures None Brief History - From Admission This is a pleasant 82-year-old male patient with a known medical history of asthma, COPD, hyperlipidemia, hypertension and history of CVA who presented to the ED with complaints of generalized weakness and multiple falls at home. Patient states that he started to become weak back in May with multiple falls at home since that time. He states that these falls usually occur randomly and make him feel like his legs give out. The last fall was on Wednesday , patient states that his legs felt like rubber and he fell to the ground. He denies any headache, or vision or dizziness. Denies any loss of consciousness or hitting his head. Patient states he is progressively become more weak since May. Patient does have a history of CVA currently on Plavix and aspirin. Follows with Dr. Reynoso, cardiology. Patient did present with atrial fibrillation RVR, states that atrial fibrillation is new to him. He denies any chest pain. Patient does have COPD, patient does have nebulizer at home but does not use home O2. But does complain of increasing dyspnea on exertion requiring rest in between activities of daily living. Patient lives at home with his , who assists with his activities of daily living. He does use a walker at home. Per , patient has lost 15 pounds since [place]. It should be noted that patient does have history of BPH and prostate cancer, followed by urology. Patient denies any recent illness including fever, chills , abdominal pain, nausea, vomiting or diarrhea. PCP is Dr. Saba. CBC/BMP: 09/06/17 0605 09/06/17 0605 Significant Findings Laboratory Tests Test 09/05/17 16:15 09/05/17 17:00 09/05/17 19:40 09/06/17 02:30 Neutrophils (%) (Auto) 77.5 % (16.0-70.0) Monocytes (%) (Auto) 8.2 % (0.0-8.0) Random Glucose 113 MG/DL (74-106) Albumin 3.3 GM/DL (3.4-5.0) Alkaline Phosphatase 153 U/L (45-117) Sodium Level 135 MEQ/L (136-145) Estimat Glomerular Filtration Rate 64 ML/MIN (>89) Urine Ketones 15 mg/dL (NEG) Troponin I LESS THAN 0.02 NG/ML LESS THAN 0.02 NG/ML Test 09/06/17 06:05 Red Blood Count 4.27 MIL/MM3 (4.50-5.90) Hemoglobin 12.6 GM/DL (13.0-17.0) Hematocrit 37.3 % (39.0-51.0) Mean Platelet Volume 6.9 FL (7.0-11.0) Neutrophils (%) (Auto) 72.3 % (16.0-70.0) Total Protein 6.2 GM/DL (6.4-8.2) Albumin 3.0 GM/DL (3.4-5.0) Alkaline Phosphatase 150 U/L (45-117) Estimat Glomerular Filtration Rate 64 ML/MIN (>89) Troponin I LESS THAN 0.02 NG/ML Imaging Last Impressions Head CT 09/05/17 0000 Signed Impressions: Service Date/Time: Tuesday, September 05, 2017 17:27 - CONCLUSION: 1. No acute findings. Orlando Bermudez MD Chest X-Ray 09/05/17 0000 Signed Impressions: Service Date/Time: Tuesday, September 05, 2017 16:15 - CONCLUSION: 1. Emphysema in the upper lungs. No acute findings. Orlando Bermudez MD Cervical Spine CT 09/05/17 0000 Signed Impressions: Service Date/Time: Tuesday, September 05, 2017 17:27 - CONCLUSION: 1. No acute fracture. Moderate degenerative disc disease and facet arthropathy. Slight reversal of normal cervical lordosis. Minimal degenerative anterolisthesis of C4 on C5and C5 on C6. Orlando Bermudez MD PE at Discharge GENERAL: Well-developed, well-nourished, in no acute distress. alert and orientated HEENT: Head is normocephalic without any lesions or masses noted. Facial features are symmetric. Eyes: Extraocular muscles are intact. Conjunctivae were clear. NECK: Supple without any masses. Trachea midline no deviation. No JVD, CARDIAC: Regular rhythm, regular rate. S1/S2 are heard. No murmurs gallops or rubs. LUNGS: Diminished air movement noted bilaterally. Mild expiratory wheeze, no rhonchi or rales. No use of accessory muscles on inspiration or expiration. ABDOMEN: Soft, nontender. Nondistended. Bowel sounds heard in all 4 quadrants. No organomegaly or masses. Negative rebound, negative guarding EXTREMITIES: No edema, pulses are equal bilaterally. No cyanosis or clubbing NEUROLOGY: Mood and affect appear appropriate. Cranial nerves II through XII grossly intact. Moving all extremities, speech is clear Hospital Course 82-year-old male with known history of asthma, COPD, hyperlipidemia, hypertension, history CVA who presented to the emergency department because of generalized weakness, multiple falls at home. Patient had workup done emergency department found to have chronic obstructive pulmonary disease exacerbation with mild hypoxia, wheeze. Patient was started on Solu-Medrol, nebulizer treatments, with improvement of his respiratory status. Patient did have episode of paroxysmal atrial tachycardia. Telemetry was reviewed as well as EKGs reviewed which did show supraventricular tachycardia with PACs. Cardiology was consulted. I discussed with Dr. Reynoso directly about patient 's care. The recommended addition of metoprolol 25 mg twice daily. Would not recommend any anticoagulation at this time secondary to he is a high risk from recurrent and frequent falls. He recommended outpatient follow-up upon discharge. Patient did have physical therapy evaluation which indicated the patient would benefit from rehabilitation facility. Patient did have inpatient rehabilitation evaluation performed and has been accepted for care. We'll plan transfer to inpatient rehabilitation once arrangements made. Patient is clinically stable for inpatient management. Pt Condition on Discharge: Stable Discharge Disposition: Rehab Inpatient Discharge Time: > 30 minutes Discharge Instructions DIET: Follow Instructions for: Heart Healthy Diet Activities you can perform: Regular-No Restrictions Follow up Referrals: PCP Follow-up - 1 Week New Medications: Methylprednisolone Dosepak (Medrol Dosepak) 4 Mg Dspk 4 MG PO DIRECTED, #1 DSPK 0 Refills Per Pharmacist direction Dextromethorphan-Guaifenesin (Dextromethorphan/Guaifene 10-100 mg/5Ml) 100 Mg- 10 Mg/5 Ml Syp 10 ML PO Q4H PRN for COUGH, #1 BOTTLE Metoprolol Tartrate (Metoprolol Tartrate) 25 Mg Tab 25 MG PO Q12HR for Blood Pressure Management for 30 Days, TAB Continued Medications: Aspirin (Aspirin) 325 Mg Tab 325 MG PO DAILY, #30 TAB 0 Refills Atorvastatin (Atorvastatin) 40 Mg Tab 40 MG PO HS for Cholesterol Management, #30 TAB 0 Refills Bicalutamide (Bicalutamide) 50 Mg Tab 50 MG PO DAILY for Prostate cancer, #30 TAB Calcium Carbonate-Vitamin D (Calcium/Vitamin D) 500-200 Mg-Unit Tab 1 TAB PO BID for Calcium Supplement, TAB 0 Refills Cholecalciferol (Vitamin D3) 1,000 Unit Tab 1000 UNITS PO DAILY for Nutritional Supplement, #1 BOTTLE 0 Refills Clopidogrel (Plavix) 75 Mg Tab 75 MG PO DAILY for Blood Clot Prevention, #30 TAB 0 Refills Fluticasone Nasal [place] (Fluticasone Nasal [place]) 50 Mcg/Act Naspr 50 MCG EACH NARE BID for Allergy Management, #1 BOTTLE 0 Refills 50 mcg/spray Ipratropium Neb (Ipratropium Neb) 0.5 Mg/2.5 Ml Amp 0.5 MG NEB Q4HR NEB PRN for SHORTNESS OF BREATH, #180 NEBULE 0 Refills Irbesartan (Avapro) 150 Mg Tab 150 MG PO DAILY for Blood Pressure Management, #30 TAB 0 Refills Multivitamin with Minerals (Multiple Vitamin) 1 Each Tablet 1 TAB PO DAILY Tamsulosin (Tamsulosin) 0.4 Mg Cap 0.4 MG PO HS for Manage Prostate Problems, #30 CAP 0 Refills Tramadol (Tramadol) 50 Mg Tab 50 MG PO Q6H PRN for PAIN, TAB 0 Refills Madhu Maza Sep 08, 2017 14:38
== END 2017-09-08 15:33 | DRG 191 ==
LOC: PHED 15:40 → INTOOBSV 18:56 → PHEDA 18:56 → PH3B 20:43 → OBSVTOIN 09-06 11:22
PROVIDERS: ADMIT Hospitalist; ATTEND Hospitalist
DX: J43.9 Emphysema, unspecified (principal); E44.1 Mild protein-calorie malnutrition; I48.91 Unspecified atrial fibrillation; E86.0 Dehydration; I47.1 Supraventricular tachycardia; I10 Essential (primary) hypertension; R62.7 Adult failure to thrive; E78.5 Hyperlipidemia, unspecified; N40.0 Benign prostatic hyperplasia without lower urinary tract symptoms; R29.6 Repeated falls; I49.1 Atrial premature depolarization; R09.02 Hypoxemia; Z68.21 Body mass index [BMI] 21.0-21.9, adult; Z85.46 Personal history of malignant neoplasm of prostate; Z86.73 Personal history of transient ischemic attack (TIA), and cerebral infarction without residual deficits; Z87.891 Personal history of nicotine dependence
CPT/HCPCS: 70450; 71045; 72125; 80053; 81001; 84484; 85025; 87804; 93005; 94640; 94664; 96372; 96374; 96375; 96376; G0378; G8987-GO; G8987-GP; G8988-GO; G8988-GP; J1650; J2920; J7644

== ENCOUNTER → 2017-11-09 | Outpatient (CLI) | payer MEDICARE, BC ==
[~2017-11-09] MED LIST changes: +AMLO5 PO; +ASA325 PO; +Albuterol-Ipratropium Neb NEB; -BUTATAB6 PO; +Budeson-Formot 160-4.5 Mcg Inh INH; +CALC250 PO; +CHOL1000 PO; +COMMODE 3-IN-11 MIS; +COZA50TA PO; +DEXT10SY2 PO; +FAMO20TA2 PO; +FLUT50SP EACH NARE; -LABE200T2 PO; +LIDO1ADH4 T-DERMAL; +MEDR4PAK PO; +METF500 PO; +METO25TA3 PO; +NO ITAB PO; +OXYGENDME NAS.CANULA; +PERI PO; +PLAV75TA29 PO; -PRED20 PO; +REST15CA PO; -SYMB160A INH; +TAMS5CAP PO; +THERTAB15 PO; +TRAM50TA PO
[2017-11-09 13:44] LABS: BASOPHIL # 0.1 TH/MM3 (0-0.2); BASOPHIL % 0.7 % (0.0-2.0); EOSINOPHIL # 0.3 TH/MM3 (0-0.4); EOSINOPHIL % 3.9 % (0.0-4.0); HEMATOCRIT 38.2 % (39.0-51.0); HEMOGLOBIN 12.7 GM/DL (13.0-17.0); LYMPHOCYTE # 1.6 TH/MM3 (1.0-4.8); MEAN CELL VOLUME 90.4 FL (80.0-100.0); MEAN CORPUSCULAR HEMOGLOBIN 30.2 PG (27.0-34.0); MEAN CORPUSCULAR HGB CONC 33.4 % (32.0-36.0); MEAN PLATELET VOLUME 6.9 FL (7.0-11.0); MONO % 8.8 % (0.0-8.0); MONOCYTE # 0.7 TH/MM3 (0-0.9); NEUT % 65.6 % (16.0-70.0); PLATELET COUNT 171 TH/MM3 (150-450); RED BLOOD COUNT 4.22 MIL/MM3 (4.50-5.90); WHITE BLOOD COUNT 7.6 TH/MM3 (4.0-11.0)
[2017-11-09 13:59] LABS: ALBUMIN 3.6 GM/DL (3.4-5.0); ALT (GPT) 22 U/L (12-78); AST (GOT) 15 U/L (15-37); BICARBONATE 30.7 MEQ/L (21.0-32.0); BLOOD UREA NITROGEN 17 MG/DL (7-18); CALCIUM 9.1 MG/DL (8.5-10.1); CHLORIDE 109 MEQ/L (98-107); CHOLESTEROL 134 MG/DL (120-200); CREATININE 1.22 MG/DL (0.60-1.30); GLOMERULAR FILTRATION RATE 57 ML/MIN (>89); GLUCOSE,FASTING 117 MG/DL (74-99); SODIUM (NA) 145 MEQ/L (136-145); TRIGLYCERIDES 131 MG/DL (42-150)
[2017-11-09 14:14] LABS: ALKALINE PHOSPHATASE 104 U/L (45-117); CHOLESTEROL/ HDL RATIO 2.28 RATIO; HDL CHOLESTEROL 58.6 MG/DL (40.0-60.0); LDL CHOLESTEROL 49 MG/DL (0-99); TOTAL BILIRUBIN ADULT 0.6 MG/DL (0.2-1.0); TOTAL PROTEIN 6.5 GM/DL (6.4-8.2)
[2017-11-09 16:33] LABS: HEMOGLOBIN A1C 5.8 % (4.3-6.0)
== END ==
LOC: PLAB 09:47
PROVIDERS: ATTEND Family Medicine
DX: E78.5 Hyperlipidemia, unspecified (principal); E11.21 Type 2 diabetes mellitus with diabetic nephropathy
CPT/HCPCS: 36415; 80053; 80061; 83036; 85025

== ENCOUNTER 2018-04-22 10:46 | Inpatient (IN) ==
[2018-04-22] MEDS ORDERED: Vancomycin Inj 1,000 MG in Sodium Chlor 0.9% Inj 250 ML IV.SIG STA (11:20)
--- NOTE | 2018-04-22 11:31 | ED ---
HPI General Chief complaint: Fever Stated complaint: Return for positiv Gram Time Seen by Provider: 04/22/18 11:04 Source: patient, family and RN notes reviewed Mode of arrival: ambulatory Limitations: no limitations History of Present Illness HPI narrative: Patient is an 82-year-old male who was called back to the hospital as he was seen yesterday in the emergency room for fever and chills as well as shortness of breath; he had 4 bottles of blood cultures which were positive for gram-negative rods. Patient is a 89-year-old male with history of COPD currently on 3 L of oxygen at all times, history of prostate cancer currently undergoing chemotherapy daily , presented to the emergency room with complaints of fevers, chills, shortness of breath and congestion yesterday. Patient had a workup which included an x- ray of the chest and blood work and blood cultures. He was ultimately diagnosed with COPD with exacerbation as well as bronchitis and was discharged to home. Patient reports that he is not feeling any better, he feels weak and did have difficultly with even getting out of the car last night. Patient is here for further workup for positive blood cultures. Related Data Home Medications Medication Instructions Recorded Confirmed atorvastatin [Lipitor] 20 mg PO DAILY 04/21/18 04/22/18 bicalutamide 50 mg PO DAILY 04/21/18 04/22/18 bicalutamide 50 mg PO DAILY 04/21/18 04/22/18 cholecalciferol (vitamin D3) 1,000 unit PO DAILY 04/21/18 04/22/18 [Vitamin D3] irbesartan [Avapro] 150 mg PO DAILY 04/21/18 04/22/18 labetalol 200 mg PO DAILY 04/21/18 04/22/18 metoprolol watson-hydrochlorothiaz 1 tab PO DAILY 04/21/18 04/22/18 naproxen sodium [Aleve] 220 mg PO BID PRN 04/21/18 04/22/18 tizanidine 2 mg PO DAILY 04/21/18 04/22/18 tramadol 50 mg PO DAILY 04/21/18 04/22/18 Previous Rx's Medication Instructions Recorded azithromycin [Zithromax Z-Abimael] See Label Instructions .ROUTE 04/21/18 .COMPLEX #6 tab Allergies Allergy/AdvReac Type Severity Reaction Status Date / Time No Known Allergies Allergy Verified 04/22/18 11:13 Review of Systems ROS: all other systems reviewed are negative [facility] Medical History Medical History Bone cancer (Acute) Prostate cancer (Acute) COPD (chronic obstructive pulmonary disease) (Acute) Emphysema of lung (Acute) Surgical History Surgical History Hx of tonsillectomy (Acute) Social History Social History Substance History: No History of Abuse Second Hand Smoke Exposure: No Smoking Status: Former smoker Tobacco Type: Cigarettes How Often Do You Have a Drink Containing Alcohol: Monthly or less Recent Travel in [facility] within the Last 8 Weeks: No Recent Out of Country Travel within the Last 8 Weeks: No Immunization History Tetanus Immunization: Unsure Exam Narrative Exam Narrative: GENERAL: Moderate distress SKIN: Focused skin assessment warm/dry. HEAD: Atraumatic. Normocephalic. EYES: Pupils equal and round. No scleral icterus. No injection or drainage. ENT: No nasal bleeding or discharge. Mucous membranes pink and moist. NECK: Trachea midline. No JVD. CARDIOVASCULAR: Regular rate and rhythm. No murmur appreciated. RESPIRATORY: No accessory muscle use. Clear to auscultation. Breath sounds equal bilaterally. GASTROINTESTINAL: Abdomen soft, non-tender, nondistended. Hepatic and splenic margins not palpable. MUSCULOSKELETAL: No obvious deformities. No clubbing. No cyanosis. No edema. NEUROLOGICAL: Awake and alert. No obvious cranial nerve deficits. Motor grossly within normal limits. Normal speech. PSYCHIATRIC: Appropriate mood and affect; insight and judgment normal. Course Initial Documented Vital Signs Pulse Oximetry 100 04/22/18 11:20 Last Documented Vital Signs Temperature 98.7 F 04/22/18 11:30 Pulse Rate 102 H 04/22/18 12:34 Respiratory Rate 22 04/22/18 12:34 Blood Pressure 85/52 L 04/22/18 12:34 Pulse Oximetry 98 04/22/18 12:34 Critical Care Time Critical Care Time: Yes Total Critical Care Time: 30 Attestation: Aggregate critical care time was 30 minutes. Time to perform other separately billable procedures was not included in the critical care time. My time did not include minutes spent treating any other patients simultaneously or on activities that did not directly contribute to the patient's treatment. The services I provided to this patient were to treat and/or prevent clinically significant deterioration that could result in: , decompensation, deterioration I provided critical care services requiring my management, as noted below: Chart data review, documentation time, medication orders and management, vital sign assessments/reviewing monitor data, ordering and reviewing lab tests, ordering and interpreting/reviewing x-rays and diagnostic studies, care of the patient and discussion of the patient with the admitting physicians. Medical Decision Making MDM Narrative Medical decision making narrative: During the course of the patients emergency department visit, the patients history, examination, and differential diagnosis were reviewed with the patient. The patient was placed on a hand plug shaper with oximetry and frequent blood pressure monitoring. The patient had an IV access obtained and blood work sent for analysis. The patient was initially provided 2 g of IV cefepime as well as IV vancomycin. He has been pancultured and a lactic acid was ordered. Patient will require admission to the hospital for workup of gram-negative bacteremia. The patients laboratory studies were reviewed and remarkable for WBC 8.7, hemoglobin 11.7, hematocrit 35.9, platelets 146 Sodium 140, chloride 104, potassium 4.3, BUN 29, creatinine 1.30, glucose 121 Lactic acid is 2.0 Patient has been pancultured, he has been given antibiotics. Patient's blood pressure was labile throughout ER visit, his initial bp was 170/71, it is now 85 /92, after 1 liter of IVF it is 105/54. I have asked nursing to place a weight for the patient. He does think that he weighs around 150 pounds - he is not sure. I have ordered 2 liters of ivf Plan to admit to the ICU given his labile BP and bacteremia Radiology studies were reviewed and remarkable for [-] Medical Screen Exam Complete: Yes Emergency Medical Condition: Yes Differential Diagnosis Differential Diagnosis: Bacteremia, COPD exacerbation, bronchitis Medical Records Medical records reviewed: Yes I reviewed the patient's medical records. Lab Data Result diagrams: 04/22/18 11:30 04/22/18 11:30 Lab Results 04/22/18 04/22/18 04/22/18 Range/Units 11:30 11:30 11:30 CBC w Diff Slide review pending WBC 8.7 (4.0-11.0) th/mm3 RBC 4.13 L (4.50-5.90) mil/mm3 Hgb 11.7 L (13.0-17.0) gm/dL Hct 35.9 L (39.0-51.0) % MCV 86.9 (80.0-100.0) fL MCH 28.4 (27.0-34.0) pg MCHC 32.6 (32.0-36.0) % RDW 13.0 (11.6-17.2) % Plt Count 146 L (150-450) th/mm3 MPV 6.5 L (7.0-11.0) fL Neut % (Auto) 95.2 H (16.0-70.0) % Lymph % (Auto) 2.7 L (9.0-44.0) % Tate % (Auto) 0.7 (0.0-8.0) % Eos % (Auto) 0.0 (0.0-4.0) % Baso % (Auto) 1.4 (0.0-2.0) % Neut # (Auto) 8.3 H (1.8-7.7) th/mm3 Lymph # (Auto) 0.2 L (1.0-4.8) th/mm3 Tate # (Auto) 0.1 (0.0-0.9) th/mm3 Eos # (Auto) 0.0 (0.0-0.4) th/mm3 Baso # (Auto) 0.1 (0.0-0.2) th/mm3 WBC Differential Manual diff final Seg Neuts % (Manual) 91 H (16-70) % Band Neuts % (Manual) 1 (0-6) % Lymphocytes % (Manual) 6 L (9-44) % Monocytes % (Manual) 2 (0-8) % Abs Neuts (Manual) 8.0 H (1.8-7.7) th/mm3 Differential Comment . Platelet Estimate Normal (Normal) Platelet Morphology Normal (Normal) RBC Morphology Normal (Normal) PT 11.4 (9.8-11.6) sec INR 1.1 Ratio APTT 27.1 (24.3-30.1) sec Sodium 140 (136-145) meq/L Potassium 4.3 (3.5-5.1) meq/L Chloride 104 (98-107) meq/L Carbon Dioxide 28.0 (21.0-32.0) meq/L Anion Gap 8 (5-15) meq/L BUN 29 H (7-18) mg/dL Creatinine 1.30 (0.60-1.30) mg/dL Estimated GFR 53 L (>89) mL/min POC Glucose (68-110) mg/dl Random Glucose 121 H (74-106) mg/dL Lactic Acid (0.4-2.0) mmol/L Calcium 8.4 L (8.5-10.1) mg/dL Magnesium 1.9 (1.5-2.5) mg/dL Total Bilirubin 0.5 (0.2-1.0) mg/dL AST 25 (15-37) U/L ALT 19 (12-78) U/L Alkaline Phosphatase 116 (45-117) U/L Total Protein 6.3 L (6.4-8.2) g/dL Albumin 3.0 L (3.4-5.0) g/dL 04/22/18 04/22/18 Range/Units 11:30 11:53 CBC w Diff WBC (4.0-11.0) th/mm3 RBC (4.50-5.90) mil/mm3 Hgb (13.0-17.0) gm/dL Hct (39.0-51.0) % MCV (80.0-100.0) fL MCH (27.0-34.0) pg MCHC (32.0-36.0) % RDW (11.6-17.2) % Plt Count (150-450) th/mm3 MPV (7.0-11.0) fL Neut % (Auto) (16.0-70.0) % Lymph % (Auto) (9.0-44.0) % Tate % (Auto) (0.0-8.0) % Eos % (Auto) (0.0-4.0) % Baso % (Auto) (0.0-2.0) % Neut # (Auto) (1.8-7.7) th/mm3 Lymph # (Auto) (1.0-4.8) th/mm3 Tate # (Auto) (0.0-0.9) th/mm3 Eos # (Auto) (0.0-0.4) th/mm3 Baso # (Auto) (0.0-0.2) th/mm3 WBC Differential Seg Neuts % (Manual) (16-70) % Band Neuts % (Manual) (0-6) % Lymphocytes % (Manual) (9-44) % Monocytes % (Manual) (0-8) % Abs Neuts (Manual) (1.8-7.7) th/mm3 Differential Comment Platelet Estimate (Normal) Platelet Morphology (Normal) RBC Morphology (Normal) PT (9.8-11.6) sec INR Ratio APTT (24.3-30.1) sec Sodium (136-145) meq/L Potassium (3.5-5.1) meq/L Chloride (98-107) meq/L Carbon Dioxide (21.0-32.0) meq/L Anion Gap (5-15) meq/L BUN (7-18) mg/dL Creatinine (0.60-1.30) mg/dL Estimated GFR (>89) mL/min POC Glucose 116 H (68-110) mg/dl Random Glucose (74-106) mg/dL Lactic Acid 2.0 (0.4-2.0) mmol/L Calcium (8.5-10.1) mg/dL Magnesium (1.5-2.5) mg/dL Total Bilirubin (0.2-1.0) mg/dL AST (15-37) U/L ALT (12-78) U/L Alkaline Phosphatase (45-117) U/L Total Protein (6.4-8.2) g/dL Albumin (3.4-5.0) g/dL Discharge Plan Discharge Disposition Patient Disposition: 30 Still Patient Discharge Condition Condition: Fair Discharge Details Diagnosis: Bacteremia, Sepsis Physicians Team ED Provider: Abril Reyes Primary Care Provider: Lorraine Saba Rxs /Orders / Referrals /Forms Prescriptions: No Action atorvastatin [Lipitor] 20 mg Tablet 20 mg PO DAILY RF: 0 labetalol 200 mg Tablet 200 mg PO DAILY RF: 0 irbesartan [Avapro] 150 mg Tablet 150 mg PO DAILY RF: 0 bicalutamide 50 mg Tablet 50 mg PO DAILY RF: 0 bicalutamide 50 mg Tablet 50 mg PO DAILY RF: 0 tramadol 50 mg Tablet 50 mg PO DAILY RF: 0 naproxen sodium [Aleve] 220 mg Tablet 220 mg PO BID PRN (Reason: Acute Pain) RF: 0 cholecalciferol (vitamin D3) [Vitamin D3] 1,000 unit Capsule 1,000 unit PO DAILY RF: 0 tizanidine 2 mg Capsule 2 mg PO DAILY RF: 0 metoprolol watson-hydrochlorothiaz 25-12.5 mg Tablet Extended Release 24 Hr 1 tab PO DAILY RF: 0 azithromycin [Zithromax Z-Abimael] 250 mg tablet See Label Instructions .ROUTE .COMPLEX Qty: 6 RF: 0 Status ED Status: With Doctor
[2018-04-22 11:45] LABS: Baso # (Auto) 0.1 th/mm3 (0.0-0.2); Baso % (Auto) 1.4 % (0.0-2.0); Hematocrit 35.9 % (39.0-51.0); Hemoglobin 11.7 gm/dL (13.0-17.0); Lymph # (Auto) 0.2 th/mm3 (1.0-4.8); Lymph % (Auto) 2.7 % (9.0-44.0); Mean Corpuscular HGB Conc 32.6 % (32.0-36.0); Mean Corpuscular Hemoglobin 28.4 pg (27.0-34.0); Mean Corpuscular Volume 86.9 fL (80.0-100.0); Mean Platelet Volume 6.5 fL (7.0-11.0); Mono # (Auto) 0.1 th/mm3 (0.0-0.9); Mono % (Auto) 0.7 % (0.0-8.0); Neut # (Auto) 8.3 th/mm3 (1.8-7.7); Neut % (Auto) 95.2 % (16.0-70.0); Platelet Count 146 th/mm3 (150-450); Red Blood Count 4.13 mil/mm3 (4.50-5.90); White Blood Count 8.7 th/mm3 (4.0-11.0)
[2018-04-22 11:53] LABS: Chloride 104 meq/L (98-107); Potassium 4.3 meq/L (3.5-5.1); Sodium 140 meq/L (136-145)
[2018-04-22 11:56] LABS: Calcium 8.4 mg/dL (8.5-10.1)
[2018-04-22 11:57] LABS: Activated Partial Thrombo Time 27.1 sec (24.3-30.1); Anion Gap 8 meq/L (5-15); Blood Urea Nitrogen 29 mg/dL (7-18); Glucose,Random 121 mg/dL (74-106); INR 1.1 Ratio; Magnesium 1.9 mg/dL (1.5-2.5); Prothrombin Time 11.4 sec (9.8-11.6)
[2018-04-22 12:00] LABS: Alanine Aminotransferase 19 U/L (12-78)
[2018-04-22 12:21] LABS: Alkaline Phosphatase 116 U/L (45-117); Glomerular Filtration Rate 53 mL/min (>89); Total Protein 6.3 g/dL (6.4-8.2)
[2018-04-22 12:29] LABS: Lymphocytes 6 % (9-44); Monocytes 2 % (0-8); RBC Morphology Normal (Normal)
[2018-04-22 12:30] LABS: Platelet Estimate Normal (Normal); Platelet Morphology Normal (Normal)
[2018-04-22] MEDS: Sod Chloride 0.9% Inj 1,000 ML IV.SIG SCH ×2 (12:30→14:13)
[2018-04-22 13:04] LABS: Aspartate Aminotransferase 25 U/L (15-37)
[2018-04-22] MEDS ORDERED: Oseltamivir Phosphate 75 MG Capsule PO ONE (13:22)
[2018-04-22] MEDS ORDERED: Vancomycin Consult Pharmacy OTHER PRN (13:25)
[2018-04-22] MEDS ORDERED: Sod Chloride 0.9% Inj 1,000 ML IV.SIG SCH (13:30)
[2018-04-22] MEDS ORDERED: Potassium Phosphate 500 MG Soluble Tablet PO PRN ×2 (13:32)
[2018-04-22] MEDS ORDERED: Potassium Chlor 20 mEq Premix 20 MEQ/100 ML PIGGYBACK IV.SIG PRN ×2 (13:32)
[2018-04-22] MEDS ORDERED: Magnesium Sulfate Inj 4 GM in Sodium Chlor 0.9% Inj 92 ML IV.SIG PRN (13:32)
[2018-04-22] MEDS ORDERED: Magnesium Oxide 400 MG Tablet PO PRN (13:32)
[2018-04-22] MEDS ORDERED: Potassium Phosphate Inj 30 MMOL in Sodium Chlor 0.9% Inj 250 ML IV.SIG PRN (13:32)
[2018-04-22] MEDS ORDERED: Magnesium Sulfate Inj 2 GM in Sodium Chlor 0.9% Inj 96 ML IV.SIG PRN (13:32)
[2018-04-22] MEDS ORDERED: Sodium Phosphate Inj 30 MMOL in Sodium Chlor 0.9% Inj 250 ML IV.SIG PRN (13:32)
[2018-04-22] MEDS ORDERED: Potassium Chloride 25 MEQ Effervescent Tablet PO PRN (13:32)
[2018-04-22] MEDS ORDERED: Potassium Chlor 40 mEq Premix 40 MEQ/100 ML PIGGYBACK IV.SIG PRN ×2 (13:32)
[2018-04-22] MEDS ORDERED: Acetaminophen 325 MG Tablet PO PRN (13:32)
--- NOTE | 2018-04-22 15:34 | CT ---
EXAM DATE: 04/22/2018 3:22 PM EDT AGE/SEX: 82 years / Male INDICATIONS: Fever. Short of breath. CLINICAL DATA: This is the patient's initial encounter. Patient reports that signs and symptoms have been present for 3 days and indicates a pain score of 0/10. MEDICAL/SURGICAL HISTORY: Carcinoma, bone. Carcinoma, prostatic. Chronic obstructive pulmonary di sease. None. RADIATION DOSE: 15.28 CTDI (mGy) ; Combined studies COMPARISON: [facility] [place] THORAX W/O CONTRAST, 09/09/2017. . TECHNIQUE: Multiple contiguous axial images were obtained through the chest during bolus infusion of 90 ml Omnipaque 350 (iohexol) nonionic water-soluble contrast as a cumulative dose for multiple exa ms. Images were obtained in suspended respiration using multiple row detector helical technique. U sing automated exposure control and adjustment of the mA and/or kV according to patient size, radiati on dose was kept as low as reasonably achievable to obtain optimal diagnostic quality images. DICOM format image data is available electronically for review and comparison. FINDINGS: There is interval development of adenopathy in the anterosuperior mediastinum conglomerate rasheeda mass measuring up to 2.3 x 1.7 cm anterior to the left brachiocephalic vein. Additional 1.9 cm preaortic lymph node is present and 1.8 cm AP window lymph node in addition to other enlarged lymph nodes in th e anterior mediastinum. 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 There is severe centrilobular and panlobular emphysema. There is irregular parenchymal scarring in harrison th lungs especially near the apices. No new lung consolidation. There is no pleural or pericardial effusion. See abdomen CT for findings below the diaphragm. CONCLUSION: 1. Development of adenopathy in the anterosuperior mediastinum with lymph nodes measuring up to 2.3 cm in diameter. 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 2. Severe emphysema. No new consolidation or effusion. 3. Multiple remote lower right rib fractures. Electronically signed by: Orlando Bermudez MD 04/22/2018 3:33 PM EDT
--- NOTE | 2018-04-22 15:35 | CT ---
EXAM DATE: 04/22/2018 3:26 PM EDT AGE/SEX: 82 years / Male INDICATIONS: Abdominal pain. Evaluate for typhlitis. CLINICAL DATA: This is the patient's initial encounter. Patient reports that signs and symptoms have been present for 3 days and indicates a pain score of 2/10. MEDICAL/SURGICAL HISTORY: Carcinoma, bone. Carcinoma, prostatic. Chronic obstructive pulmonar y disease. None. ORAL CONTRAST: No oral contrast ingested. RADIATION DOSE: 15.28 CTDI (mGy) ; Combined studies COMPARISON: [facility], HIP RIGHT (AP&LAT 2/3VWS) W AP PELVIS, 09/16/2017. . TECHNIQUE: Multiple contiguous axial images were obtained through the abdomen and pelvis following b olus infusion of 90 ml Omnipaque 350 (iohexol) nonionic water-soluble contrast as a cumulative dose for multiple exams. No oral contrast ingested. Using automated exposure control and adjustment of t he mA and/or kV according to patient size, radiation dose was kept as low as reasonably achievable to obtain optimal diagnostic quality images. DICOM format image data is available electronically for r eview and comparison. FINDINGS: The lung bases are clear. There are degenerative changes of the spine noted. Liver, gallbladder, sple en, pancreas, adrenal glands are unremarkable. There is cortical thinning of the right kidney. There is a left upper pole renal cyst anteriorly measuring 1.4 cm. Diffuse episodic calcification of the ao rta and iliac vessels are noted. There is body wall edema noted. Trace free fluid in the pelvis. Ther e is moderate to severe diverticulosis of the sigmoid colon and descending colon without evidence for diverticulitis. The appendix is normal. Small bowel loops are unremarkable. There are bilateral fat- containing inguinal hernias (left greater than right) identified. At the level of the rectum on axial image 68 there is eccentric soft tissue density measuring 3.7 x 2 cm in AP and transverse dimension extending from the approximate 1:00 to 6:00 position of the colonic wall on the left. This does not h ave the typical appearance of adherent stool, and a colonic neoplasm should be excluded. There is dif fuse atherosclerotic plaquing of the aorta and iliac vessels without aneurysm. Review of bone windows demonstrate moderate to severe degenerative changes with mild wedge compression deformity of L4, non acute in appearance. CONCLUSION: 1. Fat-containing inguinal hernias left greater than right. 2. Diverticulosis without diverticulitis. 3. Trace amount of free fluid in the pelvis. 4. Atherosclerosis. 5. Right renal cortical thinning and left renal cyst. 6. There is abnormal eccentric soft tissue density seen along the rectal wall from 1:00 to 6:00 posi tion concerning for malignancy until proven otherwise. Electronically signed by: Aaron Shaffer MD 04/22/2018 3:34 PM EDT
--- NOTE | 2018-04-22 15:43 | CT ---
EXAM DATE: 04/22/2018 3:29 PM EDT AGE/SEX: 82 years / Male INDICATIONS: Sinus congestion. CLINICAL DATA: This is the patient's initial encounter. Patient reports that signs and symptoms have been present for 3 days and indicates a pain score of 4/10. MEDICAL/SURGICAL HISTORY: Carcinoma, bone. Carcinoma, prostatic. Chronic obstructive pulmonary di sease. None. RADIATION DOSE: 25.58 CTDI (mGy) COMPARISON: [facility], CT BRAIN W/O CONTRAST, 09/05/2017. . TECHNIQUE: Contiguous axial thin-section CT images of the paranasal sinuses were performed. Using au tomated exposure control and adjustment of the mA and/or kV according to patient size, radiation dose was kept as low as reasonably achievable to obtain optimal diagnostic quality images. DICOM format image data is available electronically for review and comparison. FINDINGS: FINDINGS: Frontal Sinuses: Minimal left frontal mucosal thickening. Nasal Cavity: The septum is midline. Bilateral middle turbinate harshal bullosa.. Olfactory Recesses: Symmetric and normal depth. Maxillary Sinuses: No evidence of mucoperiosteal thickening or air-fluid level. Outflow Tract: The ostiomeatal outflow tracts are symmetric and patent. Ethmoid Sinuses: No evidence of mucoperiosteal thickening or air-fluid level. Sphenoid Sinuses: No evidence of mucoperiosteal thickening or air-fluid level. Other: The nasofrontal ducts are patent. The sphenoethmoidal recesses are patent. CONCLUSION: 1. There is minimal left frontal sinus mucosal thickening. 2. Otherwise normal aeration of the paranasal sinuses. Electronically signed by: Aaron Shaffer MD 04/22/2018 3:42 PM EDT
[2018-04-22] MEDS: Heparin - SQ 10,000 UNITS/ML Vial SQ SCH ×2 (15:45→21:06)
--- NOTE | 2018-04-22 19:27 | P.HPCC ---
History of Present Illness Service: Critical care medicine Primary Care Physician: Lorraine Saba MD Chief Complaint: Fever, shortness of breath History of Present Illness: 82-year-old male with past medical history of COPD on 3 L home oxygen , emphysema, hypertension, hyperlipidemia, prostate cancer diagnosed in 1999 with remote history of radiation, prior tobacco abuse who presented to [facility] emergency department via [facility] on 04/21 with 2-day history of generalized weakness, poor appetite, chills, and subjective fevers. His temperature in the ED was 101. He was given nebs and Rocephin 1 g IV. Chest x-ray was negative for pneumonia. Blood cultures were obtained. He was discharged home with a prescription for azithromycin. He was called to return to the emergency department today when blood cultures were 4/4 positive for gram -negative rods. He is afebrile today but with tachycardia with heart rate 90s- 108. Blood pressure philip was 85/52. He has a normal white blood cell count with left shift. He denies cough or significant sputum production but he is short of breath. He has had some rhinorrhea. Denies nausea, vomiting, abdominal pain, urinary symptoms. He states he has chronic intermittent diarrhea for about a year, without acute change. He has low back pain which she says has been chronic for over a year. Workup in the ED included a repeat set of blood cultures which are pending. Influenza screen is positive for influenza B. CT sinuses is relatively unremarkable except for mild mucosal thickening of the left frontal sinus. CT chest demonstrates interval development of anterior superior mediastinal lymphadenopathy characteristic of metastatic disease (prior CT for comparison in August 2017). CT abdomen and pelvis demonstrates soft tissue density along the rectal wall concerning for malignancy. He has received cefepime, vancomycin, Tamiflu. 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 His urologist is Dr. Davis. His oncologist is Dr. Madden. He reportedly underwent radiation therapy in 1999. He is on anti androgen therapy with bicalutamide. - Diagnosis (1) Gram-negative bacteremia (2) Sepsis (3) Mass in rectum (4) Prostate cancer (5) Influenza B (6) COPD exacerbation (7) COPD (chronic obstructive pulmonary disease) (8) H/O tobacco use, presenting hazards to health (9) Chronic respiratory failure with hypoxia (10) HLD (hyperlipidemia) (11) HTN (hypertension) (12) History of stroke (13) Dehydration Inpatient Certification: I certify that the inpatient services were ordered in accordance with Medicare regulations governing the order. This includes certification that hospital inpatient services are reasonable and necessary and in the case of services not specified as inpatient-only under 42 CFR 419.22(n), that they are appropriately provided as inpatient services in accordance to with the 2-midnight benchmark under 43 CFR 412.3(e) Estimated Total Length of Stay (Days): 7 Plans for Post Hospital Care: Not yet determined Review of Systems All other systems reviewed negative except as stated in HPI PMFSH - History History Provided By: Patient - Medical History Medical History: Medical History (Last Updated 04/23/18 @ 04:03 by Fátima Ortiz MD) HLD (hyperlipidemia) HTN (hypertension) Prostate cancer Stroke COPD (chronic obstructive pulmonary disease) Emphysema of lung - Surgical History Surgical History: Surgical History (Last Reviewed 05/03/18 @ 15:42 by Ness Rouse) Hx of tonsillectomy - Family History Family History: Family History (Last Updated 04/23/18 @ 04:04 by Fátima Ortzi MD) Father No significant medical problems Mother Lung cancer - Tobacco History Second Hand Smoke Exposure: No Tobacco Use In Past 30 Days: No Smoking Status: Former smoker Tobacco Type: Cigarettes Years Smoked: 40 Smoking End Date: 25 years ago - Alcohol History How Often Do You Have a Drink Containing Alcohol: 2 to 3 times a week - Substance Use History Substance History: No History of Abuse - Travel History Recent Travel in the [place] Within the Last 8 Weeks: No Recent Travel Out of the Country Within the Last 8 Weeks: No - Immunization History Tetanus Immunization: Unsure Medications and Allergies Active Medications: Active Medications Acetaminophen (Tylenol) 650 mg PO Q6H PRN PRN Reason: TEMPERATURE > 101 F Albuterol (Duoneb Neb (Prn)) 1 ampul NEB Q2HR NEB PRN PRN Reason: WHEEZING Chlorhexidine Gluconate (Chlorhexidine 2% Cloth) 3 pack TOPICAL DAILY@0400 PRN PRN Reason: Extra cloth needed Stop: 04/28/18 03:59 Chlorhexidine Gluconate (Chlorhexidine 2% Cloth) 3 pack TOPICAL DAILY@0400 [place] Stop: 04/28/18 03:59 Famotidine (Pepcid) 10 mg PO BID [place] Heparin Sodium (Porcine) (Heparin Inj) 5,000 units SQ Q8HR [place] Last Admin: 04/22/18 15:45 Dose: 5,000 units Hydralazine HCl (Apresoline Inj) 10 mg IV.PUSH Q30M PRN PRN Reason: sbp > 180. Sodium Chloride (Ns Inj) 1,000 mls @ 0 mls/hr IV.SIG BOLUS [place] Stop: 04/23/18 12:31 Last Infusion: 04/22/18 14:52 Dose: 0 mls/hr Sodium Chloride (Ns Inj) 1,000 mls @ 0 mls/hr IV.SIG BOLUS [place] Last Infusion: 04/22/18 13:50 Dose: Infused Cefepime HCl 2,000 mg/ Sodium (Chloride) 100 mls @ 200 mls/hr IV.SIG Q8H [place] Lactated Ringer's (Lr 1000 Ml Inj) 1,000 mls @ 120 mls/hr IV.CONT .Q8H20M [place] Last Admin: 04/22/18 15:45 Dose: 120 mls/hr Magnesium Sulfate 4 gm/ Sodium (Chloride) 100 mls @ 50 mls/hr IV.SIG UNSCH PRN PRN Reason: For Magnesium 0.9 - 1.1 mg/dL Magnesium Sulfate 2 gm/ Sodium (Chloride) 100 mls @ 50 mls/hr IV.SIG UNSCH PRN PRN Reason: For Magnesium 1.2 - 1.6 mg/dL Potassium Chloride (Kcl 40 Meq Premix Inj) 40 meq in 100 mls @ 25 mls/hr IV.SIG Q2H PRN PRN Reason: For Potassium 2.8 - 3.2 mEq/L Potassium Chloride (Kcl 20 Meq Premix Inj) 20 meq in 100 mls @ 50 mls/hr IV.SIG Q2H PRN PRN Reason: For Potassium 3.3 - 3.5 mEq/L Potassium Chloride (Kcl 40 Meq Premix Inj) 40 meq in 100 mls @ 25 mls/hr IV.SIG UNSCH PRN PRN Reason: For Potassium 3.3 - 3.5 mEq/L Potassium Chloride (Kcl 20 Meq Premix Inj) 20 meq in 100 mls @ 50 mls/hr IV.SIG Q2H PRN PRN Reason: For Potassium 2.8 - 3.2 mEq/L Potassium Phosphate 30 mmol/ (Sodium Chloride) 260 mls @ 42 mls/hr IV.SIG UNSCH PRN PRN Reason: SEE LABEL COMMENTS Sodium Phosphate 30 mmol/ (Sodium Chloride) 260 mls @ 42 mls/hr IV.SIG UNSCH PRN PRN Reason: For Phosphorus < 2.5 mg/dL Vancomycin HCl 1,250 mg/ (Sodium Chloride) 262.5 mls @ 250 mls/hr IV.SIG Q18H [place] Metronidazole/Sodium Chloride (Flagyl 500 Mg Inj) 100 mls @ 100 mls/hr IV.SIG Q6H [place] Magnesium Oxide (Mag-Ox) 800 mg PO UNSCH PRN PRN Reason: For Magnesium 1.2 - 1.6 mg/dL Miscellaneous Information ([facility] [place]dered [facility] Info) 1 each OTHER ONCE ONE Stop: 04/25/18 07:46 Ondansetron HCl (Zofran Inj) 4 mg IV.PUSH Q6H PRN PRN Reason: NAUSEA OR VOMITING Oseltamivir Phosphate (Tamiflu) 75 mg PO BID [facility] Pharmacy Profile Note (Vancomycin Consult Pharmacy) 1 each OTHER UNSCH PRN PRN Reason: Pharmacy to dose Potassium Bicarb/Potassium Chloride (K-Lyte Cl Eff) 50 meq PO UNSCH PRN PRN Reason: For Potassium 3.3 - 3.5 mEq/L Potassium Phosphate (K-Phos Original) 2,000 mg PO Q4H PRN PRN Reason: Phosphorus Less Than 2.5 mg/dL Potassium Phosphate (K-Phos Original) 2,000 mg PO UNSCH PRN PRN Reason: SEE LABEL COMMENTS Sodium Chloride (Ns Flush) 2 ml IV.FLUSH UNSCH PRN PRN Reason: FLUSH AFTER USING IV ACCESS Allergies Allergy/AdvReac Type Severity Reaction Status Date / Time No Known Allergies Allergy Verified 05/03/18 17:51 Home Medications Medication Instructions Recorded Confirmed Type atorvastatin [Lipitor] 20 mg PO DAILY 04/21/18 05/03/18 History bicalutamide 50 mg PO DAILY 04/21/18 05/03/18 History bicalutamide 50 mg PO DAILY 04/21/18 05/03/18 History cholecalciferol (vitamin D3) 1,000 unit PO DAILY 04/21/18 05/03/18 History [Vitamin D3] irbesartan [Avapro] 150 mg PO DAILY 04/21/18 05/03/18 History tizanidine 2 mg PO DAILY 04/21/18 05/03/18 History tramadol 50 mg PO DAILY 04/21/18 05/03/18 History Results - Labs CBC & Chem 7: 04/29/18 07:35 05/02/18 05:37 Labs: Short CBC 04/22/18 Range/Units 11:30 WBC 8.7 (4.0-11.0) th/mm3 Hgb 11.7 L (13.0-17.0) gm/dL Hct 35.9 L (39.0-51.0) % Plt Count 146 L (150-450) th/mm3 BMP 04/22/18 11:30 Sodium 140 Potassium 4.3 Chloride 104 Carbon Dioxide 28.0 BUN 29 H Creatinine 1.30 Calcium 8.4 L Liver Function 04/22/18 Range/Units 11:30 Total Bilirubin 0.5 (0.2-1.0) mg/dL AST 25 (15-37) U/L ALT 19 (12-78) U/L Alkaline Phosphatase 116 (45-117) U/L Albumin 3.0 L (3.4-5.0) g/dL - Imaging Impressions Sinuses CT 04/22/18 00:00 CONCLUSION: 1. There is minimal left frontal sinus mucosal thickening. 2. Otherwise normal aeration of the paranasal sinuses. Abdomen/Pelvis CT 04/22/18 13:29 CONCLUSION: 1. Fat-containing inguinal hernias left greater than right. 2. Diverticulosis without diverticulitis. 3. Trace amount of free fluid in the pelvis. 4. Atherosclerosis. 5. Right renal cortical thinning and left renal cyst. 6. There is abnormal eccentric soft tissue density seen along the rectal wall from 1:00 to 6:00 position concerning for malignancy until proven otherwise. Chest CT 04/22/18 13:29 CONCLUSION: 1. Development of adenopathy in the anterosuperior mediastinum with lymph nodes measuring up to 2.3 cm in diameter. 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 2. Severe emphysema. No new consolidation or effusion. 3. Multiple remote lower right rib fractures. Exam Vital signs: Vital Signs 04/22/18 11:08 04/22/18 11:20 04/22/18 11:30 Temperature 98.7 F Pulse Rate 108 H 105 H Respiratory Rate 20 20 Blood Pressure 111/64 105/65 Pulse Oximetry 98 100 100 04/22/18 12:06 04/22/18 12:34 04/22/18 13:05 Temperature Pulse Rate 98 H 102 H 97 H Respiratory Rate 22 22 22 Blood Pressure 105/59 L 85/52 L 107/58 L Pulse Oximetry 100 98 04/22/18 13:30 04/22/18 14:00 04/22/18 15:00 Temperature 98.0 F Pulse Rate 102 H 100 H 100 H Respiratory Rate 20 18 20 Blood Pressure 113/68 107/58 L 104/68 Pulse Oximetry 99 04/22/18 17:05 Temperature 98.6 F Pulse Rate 102 H Respiratory Rate 16 Blood Pressure 104/62 Pulse Oximetry Intake & Output 04/22/18 04/22/18 04/23/18 06:59 18:59 06:59 Intake Total 2850 / 2850 Balance 2850 / 2850 Weight 77 kg Intake: IV 2850 / 2850 Maxipime Inj 2,000 MG In NS Inj 100 / 100 100 ML @ 200 mls/hr IV.SIG STAT STA Rx#:[id number] NS Inj 1,000 ML @ Wide Open IV. 2500 / 2500 SIG BOLUS [place] Rx#:[id number] Vancomycin Inj 1,000 MG In NS 250 / 250 Inj 250 ML @ 250 mls/hr IV.SIG STAT STA Rx#:[id number] Narrative: GENERAL: Elderly ill-appearing male who is sitting up in bed, tachypneic, hard of hearing. SKIN: Warm and dry. HEAD: Atraumatic. Normocephalic. EYES: Pupils equal and round. No scleral icterus. No injection or drainage. ENT: No nasal bleeding or discharge. Mucous membranes pink and moist. NECK: Trachea midline. No JVD. CARDIOVASCULAR: Regular rate and rhythm. No murmurs rubs or gallops. RESPIRATORY: Tachypneic, diminished bilaterally with bilateral expiratory wheeze. No rales or rhonchi. GASTROINTESTINAL: Abdomen soft, non-tender, nondistended. Bowel sounds present. MUSCULOSKELETAL: Extremities without clubbing, cyanosis, or edema. No obvious deformities. NEUROLOGICAL: Awake and alert. No obvious cranial nerve deficits except hard of hearing. Moves all extremities spontaneously and equally without focal deficit. Caprini VTE Risk Assessment Caprini VTE Risk Assessment: Moderate/High Risk (score >= 2) Caprini Risk Assessment Model: Point Value = 1 Point Value = 2 Point Value = 3 Point Value = 5 Age 41-60 Minor surgery BMI > 25 kg/m2 Swollen legs Varicose veins or History of unexplained or recurrent spontaneous Oral contraceptives or hormone replacement Sepsis (< 1 month) Serious lung disease, including pneumonia (< 1 month) Abnormal pulmonary function Acute myocardial infarction Congestive heart failure (< 1 month) History of inflammatory bowel disease Medical patient at bed rest Age 61-74 Arthroscopic surgery Major open surgery (> 45 min) Laparoscopic surgery (> 45 min) Malignancy Confined to bed (> 72 hours) Immobilizing plaster cast Central venous access Age >= 75 History of VTE Family history of VTE Factor V Leiden Prothrombin 52480C Lupus anticoagulant Anticardiolipin antibodies Elevated serum homocysteine Heparin-induced thrombocytopenia Other congenital or acquired thrombophilia Stroke (< 1 month) Elective arthroplasty Hip, pelvis, or leg fracture Acute spinal cord injury (< 1 month) Prophylaxis Regimen: Total Risk Factor Score Risk Level Prophylaxis Regimen 0-1 Low Early ambulation 2 Moderate Order ONE of the following: *Sequential Compression Device (SCD) *Heparin 5000 units SQ BID 3-4 Higher Order ONE of the following medications: *Heparin 5000 units SQ TID *Enoxaparin/Lovenox 40 mg SQ daily (WT < 150 kg, CrCl > 30 mL/min) *Enoxaparin/Lovenox 30 mg SQ daily (WT < 150 kg, CrCl > 10-29 mL/min) *Enoxaparin/Lovenox 30 mg SQ BID (WT < 150 kg, CrCl > 30 mL/min) AND/OR *Sequential Compression Device (SCD) 5 or more Highest Order ONE of the following medications: *Heparin 5000 units SQ TID (Preferred with Epidurals) *Enoxaparin/Lovenox 40 mg SQ daily (WT < 150 kg, CrCl > 30 mL/min) *Enoxaparin/Lovenox 30 mg SQ daily (WT < 150 kg, CrCl > 10-29 mL/min) *Enoxaparin/Lovenox 30 mg SQ BID (WT < 150 kg, CrCl > 30 mL/min) AND *Sequential Compression Device (SCD) Assessment and Plan - Problem List (1) Gram-negative bacteremia Code(s): R78.81 - Bacteremia Status: Acute (2) Sepsis Code(s): A41.9 - Sepsis, unspecified organism Status: Acute (3) Mass in rectum Code(s): K62.9 - Disease of anus and rectum, unspecified Status: Acute (4) Prostate cancer Code(s): C61 - Malignant neoplasm of prostate Status: Acute (5) Influenza B Code(s): J10.1 - Influenza due to other identified influenza virus with other respiratory manifestations Status: Acute (6) COPD exacerbation Code(s): J44.1 - Chronic obstructive pulmonary disease with (acute) exacerbation Status: Acute (7) COPD (chronic obstructive pulmonary disease) Code(s): J44.9 - Chronic obstructive pulmonary disease, unspecified Status: Chronic (8) H/O tobacco use, presenting hazards to health Code(s): Z87.891 - Personal history of nicotine dependence Status: Chronic (9) Chronic respiratory failure with hypoxia Code(s): J96.11 - Chronic respiratory failure with hypoxia Status: Chronic (10) HLD (hyperlipidemia) Code(s): E78.5 - Hyperlipidemia, unspecified Status: Chronic (11) HTN (hypertension) Code(s): I10 - Essential (primary) hypertension Status: Chronic (12) History of stroke Code(s): Z86.73 - Personal history of transient ischemic attack (TIA), and cerebral infarction without residual deficits Status: Chronic (13) Dehydration Code(s): E86.0 - Dehydration Status: Acute - Assessment and Plan Plan: NEURO: h/o Stroke Chronic back pain Mild L4 chronic wedge compression deformity noted on Ct abd/pelvis Tramadol/tizanidine daily prn pain RESP: COPD with chronic hypoxemic respiratory failure (3 L home O2) Acute COPD exacerbation Prior tobacco abuse NC titrate for sat >92%. DuoNeb every 4 hours. Albuterol every 2 hours as needed. Solu-Medrol 40 mg IV every 6 hours. CV: Hypertension History of sinus tachycardia with PACs (no definite history of A fib, seen by preventive medicine specialist Dr. Reynoso 08/2017 and not candidate for anticoagulation due to multiple falls) Hyperlipidemia Continue metoprolol succinate 25 mg p.o. daily and labetalol 200 mg p.o. daily Hold HCTZ 12.5 mg p.o. daily, irbesartan 150 mg p.o. daily. Continue atorvastatin 20 mg p.o. daily GI: Possible Rectal mass CT abd/men - soft tissue density 2.7 x 2 cm wall of rectum on the left, concerning for malignancy. He also has interval development of mediastinal lymphadenopathy concerning for metastatis disease. GI consult for flex sig/colonoscopy which can be done when respiratory status stabilized. Regular diet FEN/RENAL: Dehydration Left upper pole renal cyst LR 125 mL/h. Monitor intake and output. Monitor electrolytes and replace per ICU electrolyte replacement protocol. Continue vitamin D3 1000 units po daily ID: Influenza B Gram-negative marisa bacteremia Sepsis Source of gram-negative marisa bacteremia and sepsis is not entirely clear. It is not urinary. Could be pulmonary versus translocation from rectal mass. Continue cefepime 2 g IV every 8 hours. Aminoglycoside will be added if he deteriorates. In view of the fact that he has influenza and is at risk for secondary MRSA bacterial pneumonia, we will continue vancomycin for now. Though CT chest is not remarkable for consolidation and thus plan to deescalate based on repeat blood culture data. In view of concern for GI translocation and diarrhea, will check C diff and continue flagyl. Continue Tamiflu 75 mg po bid. Infectious disease has been consulted HEME: H/o prostate cancer with remote history of radiation Holding bicalutamide Noted interval development of mediastinal lymphadenopathy on CT chest. He may have new primary colorectal cancer, pursuing GI workup at this time. Medical Oncologist is Dr. Madden. Urologist is Dr. Davis. ENDO: Monitor bedside glucose every 6 hours while on steroids and administer low-dose insulin sliding scale as indicated. PROPH: SCDs/heparin 5000 units subcu every 8 hours for DVT prophylaxis. Famotidine po for stress ulcer prophylaxis. ACCESS: PIV providing adequate access at this time. FULL CODE Level 3 H and P
--- NOTE | 2018-04-22 19:38 | MB ---
cc: Volodymyr Sheldon MD DATE: 04/21/2018 DATE OF CONSULTATION: 04/22/2018 REQUESTING PHYSICIAN: Alexander Tiwari MD REASON FOR VISIT: Influenza B and sepsis. HISTORY OF PRESENT ILLNESS: This is an 82-year-old white male who presented to the emergency department on 04/21/2018 with profound weakness on 04/21/2018. The patient also reportedly had fevers. His symptoms began 3 days ago. His notes that he stopped eating and was very weak, to the point where it was difficult to get him into a car because he could not support his weight from being weak. He had a temperature of 101. His white count was normal when he presented to the Emergency Department. He has history of severe COPD. The patient was felt to have changes of COPD with acute exacerbation and he was given Zithromax and blood cultures were taken. The blood cultures came back showing gram-negative marisa in 4 bottles and the patient was brought back to the Emergency Department for further evaluation. He continued to feel very weak. He has been started on IV antibiotics. His temperature today was 98.7 and the white blood cell count is 8.7. Nasal wash is positive for influenza for influenza B antigen. His temperature earlier today was 101. The patient's blood pressure was also low earlier today. It was 85/52. Blood pressure has improved with IV fluids. He denies nausea, vomiting, abdominal pain, diarrhea, or dysuria. His notes that he has problems with urinary incontinence, which is not nil. Urinalysis was performed on 04/21/2018 and was unremarkable. Chest x-ray was performed yesterday and the report states emphysematous changes, most prominent in the right apex. The patient reports that he had influenza vaccine 1-1/2 months ago. He denies exposure to any persons with a cough. He has had no coughing himself. PAST MEDICAL HISTORY: COPD, emphysema of the lungs, prostate cancer. PAST SURGICAL HISTORY: History of tonsillectomy. ALLERGIES: NO KNOWN DRUG ALLERGIES. MEDICATIONS: 1. Cefepime. 2. Tamiflu. 3. Magnesium sulfate. 4. Pepcid. 5. Albuterol. SOCIAL HISTORY: No tobacco. The patient quit using tobacco 20 years ago. Positive alcohol use, approximately once a month. No illicit drugs. FAMILY HISTORY: Noncontributory. REVIEW OF SYSTEMS: All systems have been reviewed and are negative except for that mentioned in the history of present illness, namely shortness of breath, fever, chills, generalized weakness, and decreased appetite. PHYSICAL EXAMINATION: GENERAL: Slender, frail-appearing male, in no acute distress. He is awake and alert. He is breathing through pursed lips. VITAL SIGNS: Temperature 98.7, BP 107/58, respirations 18, heart rate 100. HEENT: The head is atraumatic. Extraocular movements are grossly intact. Pupils reactive to light. No icterus. No conjunctival erythema. Oropharynx moist mucosa without lesions. NECK: Supple without adenopathy. LUNGS: Bilateral wheezing and coarse breath sounds. HEART: Regular rate and rhythm with a 1/6 systolic murmur at the left sternal border. ABDOMEN: Bowel sounds present. Soft, no tenderness appreciated. RECTAL: Not performed. EXTREMITIES: No clubbing, cyanosis, or edema. SKIN: No diffuse rash. NEUROLOGIC: No gross focal finding. PSYCHIATRIC: The patient is calm and cooperative. LABORATORY DATA: WBC 8.7, platelets 146, hemoglobin 11.7, 95% neutrophils, creatinine 1.30. Estimated GFR 53. Sodium 140. Liver function test normal. Repeated blood culture is pending. IMPRESSION: 1. Gram-negative sepsis. Questionable etiology. 2. Severe chronic obstructive pulmonary disease. 3. Influenza B. 4. Currently the source of the gram-negative bacteria is not apparent in this patient. RECOMMENDATIONS: 1. Continue cefepime. 2. Continue Tamiflu. 3. Monitor the identity and sensitivity of gram-negative bacteria in the blood. 4. Monitor temperature and monitor clinical status. 5. Monitor CT scan of the abdomen and pelvis. Thank you for this consultation. The patient's progress will be followed and further recommendations will be given upon followup. The urinalysis performed earlier was unremarkable and therefore, I would also repeat a UA and have a culture performed if it is remarkable. MD OMA Pandey/ , 03:16 PM , 03:32 PM
[2018-04-22] MEDS: hydrALAZINE HCl Inj 20 MG/ML Vial IV.PUSH PRN (19:53)
[2018-04-22] MEDS: MethylPREDNISolone Sod Succinate Inj 40 MG/ML Vial IV.PUSH SCH (20:31)
[2018-04-22] MEDS: Famotidine 20 MG Tablet PO SCH (20:32)
[2018-04-22] MEDS: Oseltamivir Phosphate 75 MG Capsule PO SCH (21:31)
[2018-04-22 21:44] LABS: Bilirubin,Urine Negative (Negative); Clarity,Urine Clear (Clear); Color,Urine Yellow (Yellw/Straw); Glucose,Urine (UA) Negative (Negative); Hyaline Casts,Urine 12 /lpf (0-3); Leukocyte Esterase,Urine Negative (Negative); Mucus,Urine Few /lpf (Occasional); Nitrite,Urine Negative (Negative); Specific Gravity,Urine 1.051 (1.002-1.035)
[2018-04-23] MEDS: hydrALAZINE HCl Inj 20 MG/ML Vial IV.PUSH PRN ×2 (00:06→18:13)
[2018-04-23] MEDS ORDERED: Vancomycin Inj 1,250 MG in Sodium Chlor 0.9% Inj 250 ML IV.SIG SCH (02:00)
[2018-04-23] MEDS: MethylPREDNISolone Sod Succinate Inj 40 MG/ML Vial IV.PUSH SCH ×3 (02:20→16:00)
[2018-04-23] MEDS: Chlorhexidine Gluconate 2% 1 Pack (2 Cloths) TOPICAL SCH (03:43)
[2018-04-23] MEDS ORDERED: Chlorhexidine Gluconate 2% 1 Pack (2 Cloths) TOPICAL PRN (04:00)
[2018-04-23] MEDS: Heparin - SQ 10,000 UNITS/ML Vial SQ SCH ×3 (05:21→21:44)
[2018-04-23 05:25] LABS: Baso % (Auto) 0.1 % (0.0-2.0); Eos % (Auto) 0.2 % (0.0-4.0); Hematocrit 35.7 % (39.0-51.0); Hemoglobin 11.5 gm/dL (13.0-17.0); Lymph # (Auto) 0.6 th/mm3 (1.0-4.8); Lymph % (Auto) 4.1 % (9.0-44.0); Mean Corpuscular HGB Conc 32.4 % (32.0-36.0); Mean Corpuscular Hemoglobin 28.8 pg (27.0-34.0); Mean Corpuscular Volume 88.9 fL (80.0-100.0); Mean Platelet Volume 7.3 fL (7.0-11.0); Mono # (Auto) 0.4 th/mm3 (0.0-0.9); Mono % (Auto) 2.7 % (0.0-8.0); Neut # (Auto) 12.8 th/mm3 (1.8-7.7); Neut % (Auto) 92.9 % (16.0-70.0); Platelet Count 112 th/mm3 (150-450); Red Blood Count 4.02 mil/mm3 (4.50-5.90); White Blood Count 13.8 th/mm3 (4.0-11.0)
[2018-04-23 05:48] LABS: Albumin 2.8 g/dL (3.4-5.0); Anion Gap 12 meq/L (5-15); Aspartate Aminotransferase 31 U/L (15-37); Blood Urea Nitrogen 30 mg/dL (7-18); Calcium 8.4 mg/dL (8.5-10.1); Carbon Dioxide 22.5 meq/L (21.0-32.0); Chloride 106 meq/L (98-107); Glomerular Filtration Rate 55 mL/min (>89); Glucose,Random 163 mg/dL (74-106); Potassium 4.7 meq/L (3.5-5.1); Sodium 140 meq/L (136-145)
[2018-04-23 05:53] LABS: Alanine Aminotransferase 25 U/L (12-78); Alkaline Phosphatase 73 U/L (45-117); Phosphorus 2.8 mg/dL (2.5-4.9); Total Protein 6.3 g/dL (6.4-8.2)
[2018-04-23] MEDS: Famotidine 20 MG Tablet PO SCH ×2 (08:30→20:57)
[2018-04-23] MEDS: Oseltamivir Phosphate 75 MG Capsule PO SCH ×2 (08:30→20:57)
[2018-04-23] MEDS ORDERED: Labetalol 200 MG Tablet PO SCH (09:00)
--- NOTE | 2018-04-23 11:19 | P.PNID ---
Subjective Remarks: 82-year-old white male who presented to the emergency department on 04/21/2018 with profound weakness on 04/21/2018. The patient also reportedly had fevers. His symptoms began 3 days ago. His notes that he stopped eating and was very weak, to the point where it was difficult to get him into a car because he could not support his weight. Nasal wash is positive for influenza B antigen. Patient says he feels better. He complains of not being able to sleep. No fever. States that he has not had any chills since yesterday. Afebrile. Denies shortness of breath, nausea, vomiting, headache. notes that he is passing a lot of gas. Denies abdominal pain. Past Medical History: PAST MEDICAL HISTORY: COPD, emphysema of the lungs, prostate cancer. PAST SURGICAL HISTORY: History of tonsillectomy. Allergies/Adverse Reactions: Allergies No Known Allergies Allergy (Verified 04/22/18 11:13) Objective Vital Signs 04/22/18 11:20 04/22/18 11:30 04/22/18 12:06 Temperature 98.7 F Pulse Rate 105 H 98 H Respiratory Rate 20 22 Blood Pressure 105/65 105/59 L Pulse Oximetry 100 100 100 04/22/18 12:34 04/22/18 13:05 04/22/18 13:30 Temperature Pulse Rate 102 H 97 H 102 H Respiratory Rate 22 22 20 Blood Pressure 85/52 L 107/58 L 113/68 Pulse Oximetry 98 04/22/18 14:00 04/22/18 15:00 04/22/18 17:05 Temperature 98.0 F 98.6 F Pulse Rate 100 H 100 H 102 H Respiratory Rate 18 20 16 Blood Pressure 107/58 L 104/68 104/62 Pulse Oximetry 99 04/22/18 19:26 04/22/18 19:30 04/22/18 19:46 Temperature Pulse Rate 99 H 99 H 100 H Respiratory Rate 45 H 44 H 34 H Blood Pressure 191/87 H 202/84 H Pulse Oximetry 99 100 82 L 04/22/18 20:00 04/22/18 20:08 04/22/18 20:16 Temperature 98.2 F Pulse Rate 98 H 117 H 107 H Respiratory Rate 39 H 19 30 H Blood Pressure 188/78 H 225/93 H Pulse Oximetry 99 100 99 04/22/18 20:31 10/26/18 20:41 04/22/18 21:00 Temperature Pulse Rate 108 H 103 H 95 H Respiratory Rate 26 H 23 18 Blood Pressure 180/74 H 140/70 131/67 Pulse Oximetry 99 100 93 L 04/22/18 21:30 04/22/18 22:00 04/22/18 22:30 Temperature Pulse Rate 96 H 95 H 97 H Respiratory Rate 21 18 20 Blood Pressure 150/72 H 146/70 H 170/80 H Pulse Oximetry 82 L 94 L 98 04/22/18 23:00 04/22/18 23:29 04/22/18 23:31 Temperature Pulse Rate 95 H 98 H 99 H Respiratory Rate 15 20 29 H Blood Pressure 164/76 H 184/81 H Pulse Oximetry 96 99 04/23/18 00:00 04/23/18 00:13 04/23/18 00:34 Temperature Pulse Rate 104 H 101 H 109 H Respiratory Rate 16 33 H 24 Blood Pressure 181/86 H 139/72 154/74 H Pulse Oximetry 99 98 100 04/23/18 01:00 04/23/18 01:31 04/23/18 02:00 Temperature Pulse Rate 101 H 104 H 100 H Respiratory Rate 19 13 13 Blood Pressure 152/72 H 171/72 H 178/79 H Pulse Oximetry 100 100 98 04/23/18 02:30 04/23/18 03:00 04/23/18 03:30 Temperature Pulse Rate 101 H 96 H 94 H Respiratory Rate 14 18 14 Blood Pressure 169/89 H 177/75 H 163/83 H Pulse Oximetry 98 99 99 04/23/18 03:38 04/23/18 04:00 04/23/18 04:30 Temperature Pulse Rate 102 H 104 H 101 H Respiratory Rate 18 23 21 Blood Pressure 168/112 H 183/93 H Pulse Oximetry 99 97 04/23/18 04:40 04/23/18 05:00 04/23/18 05:31 Temperature Pulse Rate 108 H 102 H 122 H Respiratory Rate 27 H 24 28 H Blood Pressure 160/96 H 170/79 H Pulse Oximetry 97 98 97 04/23/18 06:00 04/23/18 06:03 04/23/18 06:30 Temperature Pulse Rate 108 H 108 H 109 H Respiratory Rate 35 H 20 21 Blood Pressure 167/80 H 157/87 H Pulse Oximetry 98 99 04/23/18 07:00 04/23/18 08:00 Temperature Pulse Rate 104 H Respiratory Rate 18 Blood Pressure Pulse Oximetry 100 Intake & Output 04/22/18 04/23/18 04/23/18 18:59 06:59 18:59 Intake Total 2850 / 2850 1862.5 / 1862.5 Balance 2850 / 2850 1862.5 / 1862.5 Weight 77 kg 77.2 kg Intake: IV 2850 / 2850 1662.5 / 1662.5 LR 1000 mL Inj 1,000 ML @ 120 1000 / 1000 mls/hr IV.CONT .Q8H20M [facility] Rx#: [id number] Maxipime Inj 2,000 MG In NS Inj 100 / 100 200 / 200 100 ML @ 200 mls/hr IV.SIG Q8H [facility] Rx#:[id number] NS Inj 1,000 ML @ Wide Open IV. 2500 / 2500 SIG BOLUS [facility]Y Rx#:[id number] Vancomycin Inj 1,000 MG In NS 250 / 250 Inj 250 ML @ 250 mls/hr IV.SIG STAT STA Rx#:[id number] Vancomycin Inj 1,250 MG In NS 262.5 / 262.5 Inj 250 ML @ 250 mls/hr IV.SIG Q18H [facility] Rx#:[id number] Flagyl 500 MG Inj 100 ML @ 100 200 / 200 mls/hr IV.SIG Q6H [facility] Rx#: [id number] Oral 200 / 200 Other: # Voids 0 # Incontinent Voids 5 Date of Last Bowel Movement 04/23/18 # Bowel Movements 1 # Incontinent Bowel Movements 1 04/22/18 11:45 Blood - Peripheral Aerobic Blood Culture - Preliminary No growth in 1 day 04/22/18 11:45 Blood - Peripheral Anaerobic Blood Culture - Preliminary No growth in 1 day 04/22/18 11:30 Blood - Peripheral Aerobic Blood Culture - Preliminary No growth in 1 day 04/22/18 11:30 Blood - Peripheral Anaerobic Blood Culture - Preliminary No growth in 1 day 04/22/18 12:05 Nasal Wash Influenza Types A,B Antigen - Final Positive for Flu B Antigen Lab - Hematology Results 04/22/18 04/23/18 11:30 05:10 CBC w Diff Slide review pending WBC 8.7 13.8 H D RBC 4.13 L 4.02 L Hgb 11.7 L 11.5 L Hct 35.9 L 35.7 L MCV 86.9 88.9 MCH 28.4 28.8 MCHC 32.6 32.4 RDW 13.0 14.0 Plt Count 146 L 112 L MPV 6.5 L 7.3 Neut % (Auto) 95.2 H 92.9 H Lymph % (Auto) 2.7 L 4.1 L [place] % (Auto) 0.7 2.7 Eos % (Auto) 0.0 0.2 Baso % (Auto) 1.4 0.1 Neut # (Auto) 8.3 H 12.8 H Lymph # (Auto) 0.2 L 0.6 L [place] # (Auto) 0.1 0.4 Eos # (Auto) 0.0 0.0 Baso # (Auto) 0.1 0.0 WBC Differential Manual diff final . Seg Neuts % (Manual) 91 H Band Neuts % (Manual) 1 Lymphocytes % (Manual) 6 L Monocytes % (Manual) 2 Abs Neuts (Manual) 8.0 H Differential Comment . Auto diff final Platelet Estimate Normal Platelet Morphology Normal RBC Morphology Normal Lab - Chemistry Results 04/22/18 04/22/18 04/22/18 11:30 11:30 11:53 Sodium 140 Potassium 4.3 Chloride 104 Carbon Dioxide 28.0 Anion Gap 8 BUN 29 H Creatinine 1.30 Estimated GFR 53 L POC Glucose 116 H Random Glucose 121 H Lactic Acid 2.0 Calcium 8.4 L Phosphorus Magnesium 1.9 Total Bilirubin 0.5 AST 25 ALT 19 Alkaline Phosphatase 116 Total Protein 6.3 L Albumin 3.0 L 04/23/18 05:10 Sodium 140 Potassium 4.7 Chloride 106 Carbon Dioxide 22.5 Anion Gap 12 BUN 30 H Creatinine 1.26 Estimated GFR 55 L POC Glucose Random Glucose 163 H Lactic Acid Calcium 8.4 L Phosphorus 2.8 Magnesium 2.0 Total Bilirubin 0.4 AST 31 ALT 25 Alkaline Phosphatase 73 Total Protein 6.3 L Albumin 2.8 L Imaging: ITS Impressions Sinuses CT 04/22/18 00:00 CONCLUSION: 1. There is minimal left frontal sinus mucosal thickening. 2. Otherwise normal aeration of the paranasal sinuses. Abdomen/Pelvis CT 04/22/18 13:29 CONCLUSION: 1. Fat-containing inguinal hernias left greater than right. 2. Diverticulosis without diverticulitis. 3. Trace amount of free fluid in the pelvis. 4. Atherosclerosis. 5. Right renal cortical thinning and left renal cyst. 6. There is abnormal eccentric soft tissue density seen along the rectal wall from 1:00 to 6:00 position concerning for malignancy until proven otherwise. Chest CT 04/22/18 13:29 CONCLUSION: 1. Development of adenopathy in the anterosuperior mediastinum with lymph nodes measuring up to 2.3 cm in diameter. 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 2. Severe emphysema. No new consolidation or effusion. 3. Multiple remote lower right rib fractures. Physical Exam: PHYSICAL EXAMINATION: GENERAL: No acute distress. Awake and alert and oriented. HEENT: The head is atraumatic. Extraocular movements are grossly intact. Pupils reactive to light. No icterus. No conjunctival erythema. Oropharynx moist mucosa without lesions. NECK: Supple without adenopathy. LUNGS: Decreased breath sounds throughout with slight rhonchi at the bases. HEART: Regular rate and rhythm with a 1/6 systolic murmur at the left sternal border. ABDOMEN: Bowel sounds present. Soft, no tenderness appreciated. EXTREMITIES: No clubbing, cyanosis, or edema. SKIN: No diffuse rash. NEUROLOGIC: No gross focal finding. PSYCHIATRIC: Calm. Cooperative. Assessment and Plan - Plan IMPRESSION: 1. Gram-negative sepsis. Identity and sensitivity of the bacteria is pending. Repeat blood culture has no growth in 24 hours. Source not entirely clear. Possibly from rectal mass noted on CT scan. 2. Severe chronic obstructive pulmonary disease. 3. Influenza B. RECOMMENDATIONS: 1. Continue cefepime. 2. Continue Tamiflu. 3. Discontinue vancomycin. 4. Discontinue Flagyl. 5. Monitor identity and sensitivity of the bacteria in the bloodstream. 6. Monitor temperature and monitor clinical status. Discussed with patient and his at bedside.
--- NOTE | 2018-04-23 12:57 | P.PNCC ---
Subjective Subjective Remarks/Hospital Course: 82-year-old male with past medical history of COPD on 3 L home oxygen , emphysema, hypertension, hyperlipidemia, prostate cancer diagnosed in 1999 with remote history of radiation, prior tobacco abuse who presented to [facility] emergency department via [facility] on 04/21 with 2-day history of generalized weakness, poor appetite, chills, and subjective fevers. His temperature in the ED was 101. He was given nebs and Rocephin 1 g IV. Chest x-ray was negative for pneumonia. Blood cultures were obtained. He was discharged home with a prescription for azithromycin. He was called to return to the emergency department today when blood cultures were 4/4 positive for gram -negative rods. He is afebrile today but with tachycardia with heart rate 90s- 108. Blood pressure philip was 85/52. He has a normal white blood cell count with left shift. He denies cough or significant sputum production but he is short of breath. He has had some rhinorrhea. Denies nausea, vomiting, abdominal pain, urinary symptoms. He states he has chronic intermittent diarrhea for about a year, without acute change. He has low back pain which she says has been chronic for over a year. Workup in the ED included a repeat set of blood cultures which are pending. Influenza screen is positive for influenza B. CT sinuses is relatively unremarkable except for mild mucosal thickening of the left frontal sinus. CT chest demonstrates interval development of anterior superior mediastinal lymphadenopathy characteristic of metastatic disease (prior CT for comparison in August 2017). CT abdomen and pelvis demonstrates soft tissue density along the rectal wall concerning for malignancy. He has received cefepime, vancomycin, Tamiflu. He is being admitted to [facility]. His urologist is Dr. Davis. His oncologist is Dr. Madden. He reportedly underwent radiation therapy in 1999. He is on anti androgen therapy with bicalutamide. SUBJECTIVE: 04/23: Currently resting in bed on nasal cannula no acute distress. Vancomycin and metronidazole been discontinued by infectious disease. Currently being evaluated by gastroenterology. Appears comfortable. Objective Vital Signs / I&O: Vital Signs 04/22/18 13:05 04/22/18 13:30 04/22/18 14:00 Temperature Pulse Rate 97 H 102 H 100 H Respiratory Rate 22 20 18 Blood Pressure 107/58 L 113/68 107/58 L Pulse Oximetry 04/22/18 15:00 04/22/18 17:05 04/22/18 19:26 Temperature 98.0 F 98.6 F Pulse Rate 100 H 102 H 99 H Respiratory Rate 20 16 45 H Blood Pressure 104/68 104/62 Pulse Oximetry 99 99 04/22/18 19:30 04/22/18 19:46 04/22/18 20:00 Temperature 98.2 F Pulse Rate 99 H 100 H 98 H Respiratory Rate 44 H 34 H 39 H Blood Pressure 191/87 H 202/84 H 188/78 H Pulse Oximetry 100 82 L 99 04/22/18 20:08 04/22/18 20:16 04/22/18 20:31 Temperature Pulse Rate 117 H 107 H 108 H Respiratory Rate 19 30 H 26 H Blood Pressure 225/93 H 180/74 H Pulse Oximetry 100 99 99 04/22/18 20:41 04/22/18 21:00 04/22/18 21:30 Temperature Pulse Rate 103 H 95 H 96 H Respiratory Rate 23 18 21 Blood Pressure 140/70 131/67 150/72 H Pulse Oximetry 100 93 L 82 L 04/22/18 22:00 04/22/18 22:30 04/22/18 23:00 Temperature Pulse Rate 95 H 97 H 95 H Respiratory Rate 18 20 15 Blood Pressure 146/70 H 170/80 H 164/76 H Pulse Oximetry 94 L 98 96 04/22/18 23:29 04/22/18 23:31 04/23/18 00:00 Temperature Pulse Rate 98 H 99 H 104 H Respiratory Rate 20 29 H 16 Blood Pressure 184/81 H 181/86 H Pulse Oximetry 99 99 04/23/18 00:13 04/23/18 00:34 04/23/18 01:00 Temperature Pulse Rate 101 H 109 H 101 H Respiratory Rate 33 H 24 19 Blood Pressure 139/72 154/74 H 152/72 H Pulse Oximetry 98 100 100 04/23/18 01:31 04/23/18 02:00 04/23/18 02:30 Temperature Pulse Rate 104 H 100 H 101 H Respiratory Rate 13 13 14 Blood Pressure 171/72 H 178/79 H 169/89 H Pulse Oximetry 100 98 98 04/23/18 03:00 04/23/18 03:30 04/23/18 03:38 Temperature Pulse Rate 96 H 94 H 102 H Respiratory Rate 18 14 18 Blood Pressure 177/75 H 163/83 H Pulse Oximetry 99 99 04/23/18 04:00 04/23/18 04:30 04/23/18 04:40 Temperature Pulse Rate 104 H 101 H 108 H Respiratory Rate 23 21 27 H Blood Pressure 168/112 H 183/93 H 160/96 H Pulse Oximetry 99 97 97 04/23/18 05:00 04/23/18 05:31 04/23/18 06:00 Temperature Pulse Rate 102 H 122 H 108 H Respiratory Rate 24 28 H 35 H Blood Pressure 170/79 H 167/80 H Pulse Oximetry 98 97 98 04/23/18 06:03 04/23/18 06:30 04/23/18 07:00 Temperature Pulse Rate 108 H 109 H 104 H Respiratory Rate 20 21 18 Blood Pressure 157/87 H Pulse Oximetry 99 04/23/18 08:00 Temperature Pulse Rate Respiratory Rate Blood Pressure Pulse Oximetry 100 Intake & Output 04/22/18 04/23/18 04/23/18 18:59 06:59 18:59 Intake Total 2850 / 2850 1862.5 / 1862.5 Balance 2850 / 2850 1862.5 / 1862.5 Weight 77 kg 77.2 kg Intake: IV 2850 / 2850 1662.5 / 1662.5 LR 1000 mL Inj 1,000 ML @ 120 1000 / 1000 mls/hr IV.CONT .Q8H20M [facility] Rx#: [id number] Maxipime Inj 2,000 MG In NS Inj 100 / 100 200 / 200 100 ML @ 200 mls/hr IV.SIG Q8H [facility] Rx#:[id number] NS Inj 1,000 ML @ Wide Open IV. 2500 / 2500 SIG BOLUS [facility]Y Rx#:[id number] Vancomycin Inj 1,000 MG In NS 250 / 250 Inj 250 ML @ 250 mls/hr IV.SIG STAT STA Rx#:[id number] Vancomycin Inj 1,250 MG In NS 262.5 / 262.5 Inj 250 ML @ 250 mls/hr IV.SIG Q18H [facility] Rx#:[id number] Flagyl 500 MG Inj 100 ML @ 100 200 / 200 mls/hr IV.SIG Q6H [facility] Rx#: [id number] Oral 200 / 200 Other: # Voids 0 # Incontinent Voids 5 Date of Last Bowel Movement 04/23/18 # Bowel Movements 1 # Incontinent Bowel Movements 1 Result Diagrams: 04/23/18 05:10 04/23/18 05:10 Other Results: Microbiology 04/22/18 11:45 Blood - Peripheral Aerobic Blood Culture - Preliminary No growth in 1 day 04/22/18 11:45 Blood - Peripheral Anaerobic Blood Culture - Preliminary No growth in 1 day 04/22/18 11:30 Blood - Peripheral Aerobic Blood Culture - Preliminary No growth in 1 day 04/22/18 11:30 Blood - Peripheral Anaerobic Blood Culture - Preliminary No growth in 1 day 04/22/18 12:05 Nasal Wash Influenza Types A,B Antigen - Final Positive for Flu B Antigen Imaging: Sinuses CT 04/22/18 00:00 CONCLUSION: 1. There is minimal left frontal sinus mucosal thickening. 2. Otherwise normal aeration of the paranasal sinuses. Abdomen/Pelvis CT 04/22/18 13:29 CONCLUSION: 1. Fat-containing inguinal hernias left greater than right. 2. Diverticulosis without diverticulitis. 3. Trace amount of free fluid in the pelvis. 4. Atherosclerosis. 5. Right renal cortical thinning and left renal cyst. 6. There is abnormal eccentric soft tissue density seen along the rectal wall from 1:00 to 6:00 position concerning for malignancy until proven otherwise. Chest CT 04/22/18 13:29 CONCLUSION: 1. Development of adenopathy in the anterosuperior mediastinum with lymph nodes measuring up to 2.3 cm in diameter. 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 2. Severe emphysema. No new consolidation or effusion. 3. Multiple remote lower right rib fractures. Objective Remarks: GENERAL: This is an 82-year-old male currently resting in bed with mask on in no acute distress SKIN: Warm and dry. Scattered ecchymoses bilateral upper and lower extremities HEAD: Atraumatic. Normocephalic. EYES: Pupils equal and round. No scleral icterus. No injection or drainage. ENT: No nasal bleeding or discharge. Mucous membranes pink and moist. NECK: Trachea midline. No JVD. CARDIOVASCULAR: Regular rate and rhythm. S1, S2 predose for without murmur RESPIRATORY: No accessory muscle use. Clear to auscultation. Breath sounds equal bilaterally. GASTROINTESTINAL: Abdomen soft, non-tender, nondistended. Hepatic and splenic margins not palpable. MUSCULOSKELETAL: Extremities with trace bilateral lower extremity edema. No obvious deformities. NEUROLOGICAL: Awake and alert. No obvious cranial nerve deficits. Motor grossly within normal limits. Five out of 5 muscle strength in the arms and legs. Normal speech. 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 every 6 hours as needed fever Tramadol 50 mg daily scheduled Tizanidine 2 mg daily/schedule Holding naproxen for pain management RESP: COPD with chronic hypoxemic respiratory failure (3 L home O2) Acute COPD exacerbation Prior tobacco abuse NC titrate for sat >92%. Incentive spirometry while awake Albuterol/ipratropium aerosols every 4 hours with albuterol aerosols every 2 hours as needed dyspnea Budesonide 0.5/2 1 inhalation twice daily Methylprednisolone succinate 40 mg IV every 8 hours A.m. chest x-ray ordered CT thorax revealed central lobular and portal lobular emphysematous changes. Anterior superior mediastinal lymphadenopathy 2.3 cm. Multiple right rib fractures CV: Essential hypertension History of sinus tachycardia with PACs Atherosclerotic vascular disease Hyperlipidemia Continue metoprolol succinate 25 mg p.o. daily for hypertension Hold HCTZ 12.5 mg p.o. daily, irbesartan 150 mg p.o. daily and labetalol 200 mg daily for hypertension. Continue atorvastatin 20 mg p.o. daily for hyperlipidemia GI: Possible Rectal mass on CT/abdomen/pelvis Sigmoid diverticulosis Bilateral fat-containing left greater than right inguinal hernia CT abd/men - soft tissue density 2.7 x 2 cm wall of rectum on the left, concerning for malignancy. He also has interval development of mediastinal lymphadenopathy concerning for metastatis disease. GI consult Cardiac diet Femoral to pain for GI prophylaxis Docusate sodium/senna 1 tablet twice daily for bowel regimen cardiac diet. FEN/RENAL: Dehydration Left upper pole renal cyst Right renal cortical thickening Currently on LR 125 mL/h. Will wean Monitor intake and output. Monitor electrolytes and replace per ICU electrolyte replacement protocol. Continue cholecalciferol 1000 units po daily ID: Influenza B Gram-negative marisa bacteremia Sepsis Source of gram-negative marisa bacteremia and sepsis is not entirely clear. It is not urinary. Could be pulmonary versus translocation from rectal mass. Continue cefepime 2 g IV every 8 hours. Continue oseltamivir 75 mg po bid. Infectious disease has been consulted HEME: Leukocytosis/acute Normocytic anemia/acute Acute thrombocytopenia H/o prostate cancer with remote history of radiation Holding bicalutamide Noted interval development of mediastinal lymphadenopathy on CT chest. Medical Oncologist is Dr. Madden. Urologist is Dr. Davis. ENDO: Monitor bedside glucose every 6 hours while on steroids and administer low-dose insulin aspart sliding scale as indicated. MSK: Multiple right-sided rib fractures Pain control noted. PROPH: SCDs/heparin 5000 units subcu every 8 hours for DVT prophylaxis. Famotidine po for stress ulcer prophylaxis. ACCESS: PIV providing adequate access at this time. FULL CODE Level 2 follow-up. Stable from critical care medicine standpoint. Assign care to hospitalist in a.m. 04/24. Code Status: Full code Discussed Condition With: Patient and family at bedside. Care plan discussed and all questions answered.
[2018-04-23] MEDS ORDERED: Labetalol HCl Inj 100 MG/20 ML Vial IV.PUSH PRN (13:01)
--- NOTE | 2018-04-23 13:28 | P.CONGI ---
History of Present Illness Consult date: 04/23/18 Consult reason: Rectal mass Chief complaint: Severe sepsis, Bacteremia, Influenza History of Present Illness: This is a frail 82-year-old male who came in the hospital on 04/22/2018 here to [place] with initial symptoms of shortness of breath, generalized weakness and malaise, poor appetite and was diagnosed with flu B. Patient does have a significant history of COPD with home O2 at 3 L and was placed in the intensive care setting for close observation. Patient also notes symptoms of weight loss of 30 pounds for approximately 1 year. Patient denies any current abdominal pain, no nausea no vomiting no dyspepsia no diarrhea no constipation. Patient does note history of occasional loose stools but states that 98% of them are solid and formed. Current labs evaluated noting hemoglobin 11.5 initial WBC count 8.7 but now elevated to 13.8, platelets 112, PT/INR 1.1, and bilirubin LFTs are normal. 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 CT of the abdomen showed diverticulosis, and a small tissue density on the rectal wall between 1:00 and 6 o'clock position. Gastroenterology was consulted to assist in evaluation of this rectal wall mass and plan of care. Patient denies any history of EGD or colonoscopy or family history of colon cancer. She did have history of prostate cancer back in 2000 was treated and has not had any issues until this past year he notes elevated SURFACE BOSS level again. Review of Systems All other systems reviewed negative except as stated in HPI PMFSH - History History Provided By: Patient - Medical History Medical History: Medical History (Last Reviewed 04/23/18 @ 12:50 by Reji Beard MD) HLD (hyperlipidemia) HTN (hypertension) Prostate cancer Stroke COPD (chronic obstructive pulmonary disease) Emphysema of lung - Surgical History Surgical History: Surgical History (Last Reviewed 04/23/18 @ 12:50 by Reji Beard MD) Hx of tonsillectomy - Family History Family History: Family History (Last Reviewed 04/23/18 @ 12:50 by Reji Beard MD) Father No significant medical problems Mother Lung cancer - Tobacco History Second Hand Smoke Exposure: No Tobacco Use In Past 30 Days: No Smoking Status: Former smoker Tobacco Type: Cigarettes Years Smoked: 40 Smoking End Date: 25 years ago - Alcohol History How Often Do You Have a Drink Containing Alcohol: 2 to 3 times a week - Substance Use History Substance History: No History of Abuse - Travel History Recent Travel in the [place] Within the Last 8 Weeks: No Recent Travel Out of the Country Within the Last 8 Weeks: No - Immunization History Tetanus Immunization: Unsure Medications and Allergies Active Medications: Active Medications Acetaminophen (Tylenol) 650 mg PO Q6H PRN PRN Reason: TEMPERATURE > 101 F Albuterol (Duoneb Neb (Arnulfo)) 1 ampul NEB Q4HR NEB [facility] Last Admin: 04/23/18 08:33 Dose: 1 ampul Albuterol (Albuterol Neb (Prn)) 2.5 mg NEB Q2HR NEB PRN PRN Reason: wheezing Atorvastatin Calcium (Lipitor) 20 mg PO DAILY [facility] Last Admin: 04/23/18 08:29 Dose: 20 mg Budesonide (Pulmocort Respule Neb) 0.5 mg NEB Q12HR [facility] Chlorhexidine Gluconate (Chlorhexidine 2% Cloth) 3 pack TOPICAL DAILY@0400 PRN PRN Reason: Extra cloth needed Stop: 04/28/18 03:59 Chlorhexidine Gluconate (Chlorhexidine 2% Cloth) 3 pack TOPICAL DAILY@0400 [facility] Stop: 04/28/18 03:59 Last Admin: 04/23/18 03:43 Dose: 3 pack Famotidine (Pepcid) 10 mg PO BID [facility] Last Admin: 04/23/18 08:30 Dose: 10 mg Heparin Sodium (Porcine) (Heparin Inj) 5,000 units SQ Q8HR [facility] Last Admin: 04/23/18 05:21 Dose: 5,000 units Hydralazine HCl (Apresoline Inj) 10 mg IV.PUSH Q1H PRN PRN Reason: sbp > 165. Sodium Chloride (Ns Inj) 1,000 mls @ 0 mls/hr IV.SIG BOLUS [facility] Last Infusion: 04/22/18 13:50 Dose: Infused Cefepime HCl 2,000 mg/ Sodium (Chloride) 100 mls @ 200 mls/hr IV.SIG Q8H [facility] Last Infusion: 04/23/18 06:52 Dose: Infused Lactated Ringer's (Lr 1000 Ml Inj) 1,000 mls @ 120 mls/hr IV.CONT .Q8H20M [facility] Stop: 04/23/18 14:44 Last Admin: 04/23/18 02:19 Dose: 120 mls/hr Magnesium Sulfate 4 gm/ Sodium (Chloride) 100 mls @ 50 mls/hr IV.SIG UNSCH PRN PRN Reason: For Magnesium 0.9 - 1.1 mg/dL Magnesium Sulfate 2 gm/ Sodium (Chloride) 100 mls @ 50 mls/hr IV.SIG UNSCH PRN PRN Reason: For Magnesium 1.2 - 1.6 mg/dL Potassium Chloride (Kcl 40 Meq Premix Inj) 40 meq in 100 mls @ 25 mls/hr IV.SIG Q2H PRN PRN Reason: For Potassium 2.8 - 3.2 mEq/L Potassium Chloride (Kcl 20 Meq Premix Inj) 20 meq in 100 mls @ 50 mls/hr IV.SIG Q2H PRN PRN Reason: For Potassium 3.3 - 3.5 mEq/L Potassium Chloride (Kcl 40 Meq Premix Inj) 40 meq in 100 mls @ 25 mls/hr IV.SIG UNSCH PRN PRN Reason: For Potassium 3.3 - 3.5 mEq/L Potassium Chloride (Kcl 20 Meq Premix Inj) 20 meq in 100 mls @ 50 mls/hr IV.SIG Q2H PRN PRN Reason: For Potassium 2.8 - 3.2 mEq/L Potassium Phosphate 30 mmol/ (Sodium Chloride) 260 mls @ 42 mls/hr IV.SIG UNSCH PRN PRN Reason: SEE LABEL COMMENTS Sodium Phosphate 30 mmol/ (Sodium Chloride) 260 mls @ 42 mls/hr IV.SIG UNSCH PRN PRN Reason: For Phosphorus < 2.5 mg/dL Labetalol HCl (Trandate Inj) 10 mg IV.PUSH Q1H PRN PRN Reason: Sbp>165, Dbp>90, Hr>65 Magnesium Oxide (Mag-Ox) 800 mg PO UNSCH PRN PRN Reason: For Magnesium 1.2 - 1.6 mg/dL Methylprednisolone Sodium Succinate (Solumedrol Inj) 40 mg IV.PUSH Q8H [facility] Metoprolol Succinate (Toprol Xl) 25 mg PO DAILY [facility] Last Admin: 04/23/18 08:30 Dose: 25 mg Miscellaneous Information ([facility] Ordered Lab Info) 1 each OTHER ONCE ONE Stop: 04/25/18 07:46 Nitroglycerin (Nitro-Bid 2% Oint) 2 inch TOPICAL Q6HR PRN PRN Reason: Sbp>165, Dbp>90 Ondansetron HCl (Zofran Inj) 4 mg IV.PUSH Q6H PRN PRN Reason: NAUSEA OR VOMITING Oseltamivir Phosphate (Tamiflu) 75 mg PO BID [facility] Last Admin: 04/23/18 08:30 Dose: 75 mg Potassium Bicarb/Potassium Chloride (K-Lyte Cl Eff) 50 meq PO UNSCH PRN PRN Reason: For Potassium 3.3 - 3.5 mEq/L Potassium Phosphate (K-Phos Original) 2,000 mg PO Q4H PRN PRN Reason: Phosphorus Less Than 2.5 mg/dL Potassium Phosphate (K-Phos Original) 2,000 mg PO UNSCH PRN PRN Reason: SEE LABEL COMMENTS Sodium Chloride (Ns Flush) 2 ml IV.FLUSH UNSCH PRN PRN Reason: FLUSH AFTER USING IV ACCESS Tizanidine HCl (Zanaflex) 2 mg PO DAILY [facility] Last Admin: 04/23/18 08:31 Dose: 2 mg Tramadol HCl (Ultram) 50 mg PO DAILY [facility] Last Admin: 04/23/18 08:30 Dose: 50 mg Vitamin D (Vitamin D3) 1,000 unit PO DAILY [facility] Last Admin: 04/23/18 08:31 Dose: 1,000 unit Allergies Allergy/AdvReac Type Severity Reaction Status Date / Time No Known Allergies Allergy Verified 04/22/18 11:13 Home Medications Medication Instructions Recorded Confirmed Type atorvastatin [Lipitor] 20 mg PO DAILY 04/21/18 04/22/18 History bicalutamide 50 mg PO DAILY 04/21/18 04/22/18 History bicalutamide 50 mg PO DAILY 04/21/18 04/22/18 History cholecalciferol (vitamin D3) 1,000 unit PO DAILY 04/21/18 04/22/18 History [Vitamin D3] irbesartan [Avapro] 150 mg PO DAILY 04/21/18 04/22/18 History labetalol 200 mg PO DAILY 04/21/18 04/22/18 History metoprolol watson-hydrochlorothiaz 1 tab PO DAILY 04/21/18 04/22/18 History naproxen sodium [Aleve] 220 mg PO BID PRN 04/21/18 04/22/18 History tizanidine 2 mg PO DAILY 04/21/18 04/22/18 History tramadol 50 mg PO DAILY 04/21/18 04/22/18 History Exam Vital signs: Vital Signs 04/22/18 13:30 04/22/18 14:00 04/22/18 15:00 Temperature 98.0 F Pulse Rate 102 H 100 H 100 H Respiratory Rate 20 18 20 Blood Pressure 113/68 107/58 L 104/68 Pulse Oximetry 99 04/22/18 17:05 04/22/18 19:26 04/22/18 19:30 Temperature 98.6 F Pulse Rate 102 H 99 H 99 H Respiratory Rate 16 45 H 44 H Blood Pressure 104/62 191/87 H Pulse Oximetry 99 100 04/22/18 19:46 04/22/18 20:00 04/22/18 20:08 Temperature 98.2 F Pulse Rate 100 H 98 H 117 H Respiratory Rate 34 H 39 H 19 Blood Pressure 202/84 H 188/78 H 225/93 H Pulse Oximetry 82 L 99 100 04/22/18 20:16 04/22/18 20:31 04/22/18 20:41 Temperature Pulse Rate 107 H 108 H 103 H Respiratory Rate 30 H 26 H 23 Blood Pressure 180/74 H 140/70 Pulse Oximetry 99 99 100 04/22/18 21:00 04/22/18 21:30 04/22/18 22:00 Temperature Pulse Rate 95 H 96 H 95 H Respiratory Rate 18 21 18 Blood Pressure 131/67 150/72 H 146/70 H Pulse Oximetry 93 L 82 L 94 L 04/22/18 22:30 04/22/18 23:00 04/22/18 23:29 Temperature Pulse Rate 97 H 95 H 98 H Respiratory Rate 20 15 20 Blood Pressure 170/80 H 164/76 H Pulse Oximetry 98 96 04/22/18 23:31 04/23/18 00:00 04/23/18 00:13 Temperature Pulse Rate 99 H 104 H 101 H Respiratory Rate 29 H 16 33 H Blood Pressure 184/81 H 181/86 H 139/72 Pulse Oximetry 99 99 98 04/23/18 00:34 04/23/18 01:00 04/23/18 01:31 Temperature Pulse Rate 109 H 101 H 104 H Respiratory Rate 24 19 13 Blood Pressure 154/74 H 152/72 H 171/72 H Pulse Oximetry 100 100 100 04/23/18 02:00 04/23/18 02:30 04/23/18 03:00 Temperature Pulse Rate 100 H 101 H 96 H Respiratory Rate 13 14 18 Blood Pressure 178/79 H 169/89 H 177/75 H Pulse Oximetry 98 98 99 04/23/18 03:30 04/23/18 03:38 04/23/18 04:00 Temperature Pulse Rate 94 H 102 H 104 H Respiratory Rate 14 18 23 Blood Pressure 163/83 H 168/112 H Pulse Oximetry 99 99 04/23/18 04:30 04/23/18 04:40 04/23/18 05:00 Temperature Pulse Rate 101 H 108 H 102 H Respiratory Rate 21 27 H 24 Blood Pressure 183/93 H 160/96 H Pulse Oximetry 97 97 98 04/23/18 05:31 04/23/18 06:00 04/23/18 06:03 Temperature Pulse Rate 122 H 108 H 108 H Respiratory Rate 28 H 35 H 20 Blood Pressure 170/79 H 167/80 H Pulse Oximetry 97 98 04/23/18 06:30 04/23/18 07:00 04/23/18 08:00 Temperature Pulse Rate 109 H 104 H Respiratory Rate 21 18 Blood Pressure 157/87 H Pulse Oximetry 99 100 Intake & Output 04/22/18 04/23/18 04/23/18 18:59 06:59 18:59 Intake Total 2850 / 2850 1862.5 / 1862.5 Balance 2850 / 2850 1862.5 / 1862.5 Weight 77 kg 77.2 kg Intake: IV 2850 / 2850 1662.5 / 1662.5 LR 1000 mL Inj 1,000 ML @ 120 1000 / 1000 mls/hr IV.CONT .Q8H20M [facility] Rx#: [id number] Maxipime Inj 2,000 MG In NS Inj 100 / 100 200 / 200 100 ML @ 200 mls/hr IV.SIG Q8H [facility] Rx#:[id number] NS Inj 1,000 ML @ Wide Open IV. 2500 / 2500 SIG BOLUS [facility] Rx#:[id number] Vancomycin Inj 1,000 MG In NS 250 / 250 Inj 250 ML @ 250 mls/hr IV.SIG STAT STA Rx#:[id number] Vancomycin Inj 1,250 MG In NS 262.5 / 262.5 Inj 250 ML @ 250 mls/hr IV.SIG Q18H [facility] Rx#:[id number] Flagyl 500 MG Inj 100 ML @ 100 200 / 200 mls/hr IV.SIG Q6H [facility] Rx#: [id number] Oral 200 / 200 Other: # Voids 0 # Incontinent Voids 5 Date of Last Bowel Movement 04/23/18 # Bowel Movements 1 # Incontinent Bowel Movements 1 - Constitutional mild distress, thin, cachectic, disheveled, cooperative, agitated - Routine HEENT Exam Head: Present: normocephalic (Easily) ENT: Present: mucous membranes dry ( pale) - Routine Respiratory Exam Present: accessory muscle use (O2 per nasal cannula in the intensive care setting), diminished air movement (No obvious wheezing or rhonchi) - Routine Cardiovascular Exam Present: S1, S2 - Routine Abdominal Exam Present: soft, normoactive bowel sounds (Flat,) - Routine Skin Exam Present: pallor Results - Labs CBC & Chem 7: 04/23/18 05:10 04/23/18 05:10 Labs: Laboratory Results - last 24 hr 04/22/18 04/22/18 04/23/18 19:15 20:00 05:10 WBC 13.8 H D RBC 4.02 L Hgb 11.5 L Hct 35.7 L MCV 88.9 MCH 28.8 MCHC 32.4 RDW 14.0 Plt Count 112 L MPV 7.3 Neut % (Auto) 92.9 H Lymph % (Auto) 4.1 L [place] % (Auto) 2.7 Eos % (Auto) 0.2 Baso % (Auto) 0.1 Neut # (Auto) 12.8 H Lymph # (Auto) 0.6 L [place] # (Auto) 0.4 Eos # (Auto) 0.0 Baso # (Auto) 0.0 WBC Differential . Differential Comment Auto diff final Sodium Potassium Chloride Carbon Dioxide Anion Gap BUN Creatinine Estimated GFR Random Glucose Calcium Phosphorus Magnesium Total Bilirubin AST ALT Alkaline Phosphatase Total Protein Albumin Urine Color Yellow Urine Clarity Clear Urine pH 5.0 Ur Specific [place] 1.051 H Urine Protein 30 H Urine Glucose (UA) Negative Urine Ketones Trace H Urine Occult Blood Small H Urine Nitrate Negative Urine Bilirubin Negative Urine Urobilinogen Less than 2 Ur Leukocyte Esterase Negative Urine RBC 1 Hyaline Casts 12 Urine Mucus Few H Micro UA Comment Culture not ind Ur Microscopic Review Not Reportable Urine Culture Comments Culture not ind Nasal Screen MRSA (PCR) Not detected 04/23/18 05:10 WBC RBC Hgb Hct MCV MCH MCHC RDW Plt Count MPV Neut % (Auto) Lymph % (Auto) [place] % (Auto) Eos % (Auto) Baso % (Auto) Neut # (Auto) Lymph # (Auto) [place] # (Auto) Eos # (Auto) Baso # (Auto) WBC Differential Differential Comment Sodium 140 Potassium 4.7 Chloride 106 Carbon Dioxide 22.5 Anion Gap 12 BUN 30 H Creatinine 1.26 Estimated GFR 55 L Random Glucose 163 H Calcium 8.4 L Phosphorus 2.8 Magnesium 2.0 Total Bilirubin 0.4 AST 31 ALT 25 Alkaline Phosphatase 73 Total Protein 6.3 L Albumin 2.8 L Urine Color Urine Clarity Urine pH Ur Specific [place] Urine Protein Urine Glucose (UA) Urine Ketones Urine Occult Blood Urine Nitrate Urine Bilirubin Urine Urobilinogen Ur Leukocyte Esterase Urine RBC Hyaline Casts Urine Mucus Micro UA Comment Ur Microscopic Review Urine Culture Comments Nasal Screen MRSA (PCR) - Imaging Impressions Sinuses CT 04/22/18 00:00 CONCLUSION: 1. There is minimal left frontal sinus mucosal thickening. 2. Otherwise normal aeration of the paranasal sinuses. Abdomen/Pelvis CT 04/22/18 13:29 CONCLUSION: 1. Fat-containing inguinal hernias left greater than right. 2. Diverticulosis without diverticulitis. 3. Trace amount of free fluid in the pelvis. 4. Atherosclerosis. 5. Right renal cortical thinning and left renal cyst. 6. There is abnormal eccentric soft tissue density seen along the rectal wall from 1:00 to 6:00 position concerning for malignancy until proven otherwise. Chest CT 04/22/18 13:29 CONCLUSION: 1. Development of adenopathy in the anterosuperior mediastinum with lymph nodes measuring up to 2.3 cm in diameter. 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 2. Severe emphysema. No new consolidation or effusion. 3. Multiple remote lower right rib fractures. Assessment and Plan - Plan Rectal mass soft tissue density in the rectal wall between 1:00 and 6 o'clock position. Discussed with patient and the need to evaluate further for primary tumor versus metastasis. Discussed with patient colonoscopy when he is stable and evaluated and cleared per ID and pulmonary medicine. No abdominal pain no diarrhea no constipation, formed brown stools, no melena. Flu B currently being treated per pulmonary and ID meds Severe emphysema, COPD home O2 at 3 L, currently shows low volumes but no acute shortness of breath with talking. Diverticulosis seen on CT scan, patient denies any abdominal pain Anemia currently hemoglobin 11.5 the patient denies any obvious bleeding, could be acute on chronic Weight loss 30 pounds within the past year History of prostate cancer around year 1999, treatment and monitoring sense without any issues up until the past year patient notes elevated SURFACE BOSS level. Leukocytosis, possible gram-negative sepsis, bacteria, cultures pending, appreciate ID input Plan Diet per attending Monitor for any obvious rectal bleeding or any change in bowel movements as far as color or size Monitor labs, transfuse as needed Heparin subcu continue for now, but will need to hold pending any GI procedures Colonoscopy once patient is cleared from ID standpoint as well as pulmonary, flu B, sepsis, COPD Antibiotics per attending Bowel regimen as needed Pepcid Supportive care Further recommendations to follow Patient was seen per myself Kojo, note was written on his back
[2018-04-24] MEDS: MethylPREDNISolone Sod Succinate Inj 40 MG/ML Vial IV.PUSH SCH ×3 (00:20→16:30)
[2018-04-24] MEDS: hydrALAZINE HCl Inj 20 MG/ML Vial IV.PUSH PRN ×2 (01:21→16:47)
--- NOTE | 2018-04-24 05:08 | XR ---
EXAM DATE: 04/24/2018 4:47 AM EDT AGE/SEX: 82 years / Male INDICATIONS: Shortness of breath, possible pulmonary disease. CLINICAL DATA: This is the patient's subsequent encounter. Patient reports that signs and symptoms h ave been present for 4 - 6 days and indicates a pain score of 0/10. MEDICAL/SURGICAL HISTORY: Carcinoma, bone. Carcinoma, prostatic. Chronic obstructive pulmonar y disease. None. COMPARISON: [facility], CHEST 1V SINGLE AP, 04/21/2018. . FINDINGS: A single AP view of the chest demonstrates the lungs to be symmetrically hyperaerated without evidenc e of mass, infiltrate or effusion. Stable upper lobe bulla. The cardiomediastinal contours are unrem arkable. Osseous structures are intact. CONCLUSION: Hyperaerated lungs; no infiltrates seen. Electronically signed by: Parish Neal MD 04/24/2018 5:07 AM EDT
[2018-04-24 05:41] LABS: Baso % (Auto) 0.1 % (0.0-2.0); Eos % (Auto) 0.1 % (0.0-4.0); Hematocrit 34.2 % (39.0-51.0); Hemoglobin 11.1 gm/dL (13.0-17.0); Lymph # (Auto) 0.4 th/mm3 (1.0-4.8); Lymph % (Auto) 3.1 % (9.0-44.0); Mean Corpuscular HGB Conc 32.6 % (32.0-36.0); Mean Corpuscular Hemoglobin 28.7 pg (27.0-34.0); Mean Platelet Volume 7.3 fL (7.0-11.0); Mono # (Auto) 0.4 th/mm3 (0.0-0.9); Mono % (Auto) 3.1 % (0.0-8.0); Neut # (Auto) 11.7 th/mm3 (1.8-7.7); Neut % (Auto) 93.6 % (16.0-70.0); Platelet Count 134 th/mm3 (150-450); Red Blood Count 3.88 mil/mm3 (4.50-5.90); Red Cell Distribution Width 14.2 % (11.6-17.2); White Blood Count 12.5 th/mm3 (4.0-11.0)
[2018-04-24] MEDS: Heparin - SQ 10,000 UNITS/ML Vial SQ SCH ×3 (05:53→21:37)
[2018-04-24 06:06] LABS: Alanine Aminotransferase 29 U/L (12-78); Albumin 2.6 g/dL (3.4-5.0); Anion Gap 10 meq/L (5-15); Aspartate Aminotransferase 27 U/L (15-37); Blood Urea Nitrogen 38 mg/dL (7-18); Calcium 8.3 mg/dL (8.5-10.1); Carbon Dioxide 25.3 meq/L (21.0-32.0); Chloride 106 meq/L (98-107); Glomerular Filtration Rate 57 mL/min (>89); Glucose,Random 188 mg/dL (74-106); Magnesium 2.2 mg/dL (1.5-2.5); Phosphorus 2.3 mg/dL (2.5-4.9); Potassium 4.1 meq/L (3.5-5.1); Sodium 141 meq/L (136-145)
[2018-04-24] MEDS: Chlorhexidine Gluconate 2% 1 Pack (2 Cloths) TOPICAL SCH (06:10)
[2018-04-24 06:16] LABS: Alkaline Phosphatase 69 U/L (45-117); Thyroid Stimulating Hormone 0.997 uIU/mL (0.358-3.740)
[2018-04-24] MEDS: Famotidine 20 MG Tablet PO SCH ×2 (08:34→21:37)
--- NOTE | 2018-04-24 10:22 | P.PN ---
Subjective Interval history: Follow-up sepsis/influenza B April 24, 2018-patient seen and examined, breathing better and denies any significant shortness of breath. No acute event overnight. Afebrile Physical Exam Vital signs: Vital Signs 04/23/18 11:00 04/23/18 12:00 04/23/18 14:00 Temperature 98.5 F Pulse Rate 86 74 88 Respiratory Rate 18 18 Blood Pressure 144/80 H Pulse Oximetry 99 04/23/18 15:00 04/23/18 16:00 04/23/18 18:00 Temperature 98.3 F Pulse Rate 84 89 89 Respiratory Rate 18 18 Blood Pressure 189/88 H Pulse Oximetry 99 04/23/18 18:40 04/23/18 19:17 04/23/18 19:55 Temperature Pulse Rate 91 H 98 H 86 Respiratory Rate 20 22 Blood Pressure Pulse Oximetry 98 04/23/18 20:00 04/23/18 21:59 04/23/18 23:50 Temperature 97.4 F L Pulse Rate 93 H 89 97 H Respiratory Rate 20 20 Blood Pressure 157/75 H Pulse Oximetry 99 04/24/18 00:00 04/24/18 02:00 04/24/18 02:08 Temperature 98.2 F Pulse Rate 93 H 97 H Respiratory Rate 24 Blood Pressure 163/73 H 141/68 H Pulse Oximetry 100 04/24/18 03:51 04/24/18 04:00 04/24/18 06:00 Temperature 98.3 F Pulse Rate 94 H 96 H 92 H Respiratory Rate 18 24 Blood Pressure 158/80 H Pulse Oximetry 100 04/24/18 07:00 Temperature Pulse Rate 98 H Respiratory Rate 18 Blood Pressure Pulse Oximetry Intake & Output 04/23/18 04/24/18 04/24/18 18:59 06:59 18:59 Intake Total 200 / 200 Balance 200 / 200 Weight 78.6 kg Intake: IV 200 / 200 Maxipime Inj 2,000 MG In NS Inj 200 / 200 100 ML @ 200 mls/hr IV.SIG Q12H [facility] Rx#:[id number] Other: # Urine Diapers 1 Date of Last Bowel Movement 04/23/18 04/23/18 # Bowel Movements 0 Narrative: GENERAL: NAD SKIN: Warm and dry. HEAD: Atraumatic. Normocephalic. EYES: Pupils equal and round. No scleral icterus. No injection or drainage. ENT: No nasal bleeding or discharge. Mucous membranes pink and moist. NECK: Trachea midline. No JVD. CARDIOVASCULAR: Regular rate and rhythm. No murmurs rubs or gallops. RESPIRATORY: Tachypneic, diminished bilaterally with bilateral expiratory wheeze. No rales or rhonchi. GASTROINTESTINAL: Abdomen soft, non-tender, nondistended. Bowel sounds present. MUSCULOSKELETAL: Extremities without clubbing, cyanosis, or edema. No obvious deformities. NEUROLOGICAL: Awake and alert. No obvious cranial nerve deficits except hard of hearing. Moves all extremities spontaneously and equally without focal deficit. Results - Labs CBC & Chem 7: 04/24/18 04:59 04/24/18 04:59 Laboratory Results - last 24 hr 04/23/18 04/23/18 04/24/18 13:43 13:43 04:59 WBC RBC Hgb Hct MCV MCH MCHC RDW Plt Count MPV Neut % (Auto) Lymph % (Auto) [place] % (Auto) Eos % (Auto) Baso % (Auto) Neut # (Auto) Lymph # (Auto) [place] # (Auto) Eos # (Auto) Baso # (Auto) WBC Differential Differential Comment Sodium 141 Potassium 4.1 Chloride 106 Carbon Dioxide 25.3 Anion Gap 10 BUN 38 H Creatinine 1.22 Estimated GFR 57 L Random Glucose 188 H Calcium 8.3 L Phosphorus 2.3 L Magnesium 2.2 Total Bilirubin 0.3 AST 27 ALT 29 Alkaline Phosphatase 69 Total Protein 6.0 L Albumin 2.6 L Carcinoembryonic Ag 1.4 CA 19-9 Antigen 10.2 TSH 0.997 04/24/18 04:59 WBC 12.5 H RBC 3.88 L Hgb 11.1 L Hct 34.2 L MCV 88.0 MCH 28.7 MCHC 32.6 RDW 14.2 Plt Count 134 L MPV 7.3 Neut % (Auto) 93.6 H Lymph % (Auto) 3.1 L [place] % (Auto) 3.1 Eos % (Auto) 0.1 Baso % (Auto) 0.1 Neut # (Auto) 11.7 H Lymph # (Auto) 0.4 L [place] # (Auto) 0.4 Eos # (Auto) 0.0 Baso # (Auto) 0.0 WBC Differential . Differential Comment Auto diff final Sodium Potassium Chloride Carbon Dioxide Anion Gap BUN Creatinine Estimated GFR Random Glucose Calcium Phosphorus Magnesium Total Bilirubin AST ALT Alkaline Phosphatase Total Protein Albumin Carcinoembryonic Ag CA 19-9 Antigen TSH Microbiology 04/22/18 11:45 Blood - Peripheral Aerobic Blood Culture - Preliminary No growth in 1 day 04/22/18 11:45 Blood - Peripheral Anaerobic Blood Culture - Preliminary No growth in 1 day 04/22/18 11:30 Blood - Peripheral Aerobic Blood Culture - Preliminary No growth in 1 day 04/22/18 11:30 Blood - Peripheral Anaerobic Blood Culture - Preliminary No growth in 1 day - Imaging Impressions Chest X-Ray 04/24/18 06:00 CONCLUSION: Hyperaerated lungs; no infiltrates seen. Assessment and Plan - Plan 82-year-old man with: History of prior CVA -negative MRI brain 2015/CT brain 2017 Chronic back pain Mild L4 chronic wedge compression deformity noted on Ct abd/pelvis Acetaminophen 650 mg p.o. every 6 hours as needed fever Tramadol 50 mg daily scheduled Tizanidine 2 mg daily/schedule Holding naproxen for pain management COPD with chronic hypoxemic respiratory failure (3 L home O2) Acute COPD exacerbation Prior tobacco abuse NC titrate for sat >92%. Albuterol/ipratropium aerosols every 4 hours with albuterol aerosols every 2 hours as needed dyspnea Budesonide 0.5/2 1 inhalation twice daily Methylprednisolone succinate 40 mg IV every [address] thorax revealed central lobular and portal lobular emphysematous changes. Anterior superior mediastinal lymphadenopathy 2.3 cm. Multiple right rib fractures Essential hypertension History of sinus tachycardia with PACs Atherosclerotic vascular disease Hyperlipidemia Continue metoprolol succinate 25 mg p.o. and resume HCTZ 12.5 mg p.o. daily daily for hypertension Hold irbesartan 150mg daily and labetalol 200 mg daily for hypertension. Continue atorvastatin 20 mg p.o. daily for hyperlipidemia Possible Rectal mass on CT/abdomen/pelvis Sigmoid diverticulosis Bilateral fat-containing left greater than right inguinal hernia CT abd/men - soft tissue density 2.7 x 2 cm wall of rectum on the left, concerning for malignancy. He also has interval development of mediastinal lymphadenopathy concerning for metastasis disease. GI consult appreciated Dehydration-resolved Left upper pole renal cyst Right renal cortical thickening Monitor intake and output. Continue cholecalciferol 1000 units po daily Influenza B Gram-negative marisa bacteremia Sepsis Source of gram-negative marisa bacteremia and sepsis is not entirely clear. Continue cefepime 2 g IV every 8 hours. Continue oseltamivir 75 mg po bid. Infectious disease consultation appreciated and continue to monitor culture report Leukocytosis/acute Normocytic anemia/acute Acute thrombocytopenia H/o prostate cancer with remote history of radiation Holding bicalutamide Noted interval development of mediastinal lymphadenopathy on CT chest. Medical Oncologist is Dr. Madden. Urologist is Dr. Davis. Multiple right-sided rib fractures Pain control noted. PROPH: SCDs/heparin 5000 units subcu every 8 hours for DVT prophylaxis. Famotidine po for stress ulcer prophylaxis.
--- NOTE | 2018-04-24 11:08 | P.PNID ---
Subjective Remarks: 82-year-old white male who presented to the emergency department on 04/21/2018 with profound weakness on 04/21/2018. The patient also reportedly had fevers. His symptoms began 3 days ago. His notes that he stopped eating and was very weak, to the point where it was difficult to get him into a car because he could not support his weight. Nasal wash is positive for influenza B antigen. Patient says he feels better. No fever. Reports dry cough. No sputum production. Denies shortness of breath, nausea, vomiting, headache. Denies abdominal pain. Past Medical History: PAST MEDICAL HISTORY: COPD, emphysema of the lungs, prostate cancer. PAST SURGICAL HISTORY: History of tonsillectomy. Allergies/Adverse Reactions: Allergies No Known Allergies Allergy (Verified 04/22/18 11:13) Objective Vital Signs 04/23/18 12:00 04/23/18 14:00 04/23/18 15:00 Temperature 98.5 F Pulse Rate 74 88 84 Respiratory Rate 18 18 Blood Pressure 144/80 H Pulse Oximetry 99 04/23/18 16:00 04/23/18 18:00 04/23/18 18:40 Temperature 98.3 F Pulse Rate 89 89 91 H Respiratory Rate 18 20 Blood Pressure 189/88 H Pulse Oximetry 99 04/23/18 19:17 04/23/18 19:55 04/23/18 20:00 Temperature 97.4 F L Pulse Rate 98 H 86 93 H Respiratory Rate 22 20 Blood Pressure 157/75 H Pulse Oximetry 98 99 04/23/18 21:59 04/23/18 23:50 04/24/18 00:00 Temperature 98.2 F Pulse Rate 89 97 H 93 H Respiratory Rate 20 24 Blood Pressure 163/73 H Pulse Oximetry 100 04/24/18 02:00 04/24/18 02:08 04/24/18 03:51 Temperature Pulse Rate 97 H 94 H Respiratory Rate 18 Blood Pressure 141/68 H Pulse Oximetry 04/24/18 04:00 04/24/18 06:00 04/24/18 07:00 Temperature 98.3 F Pulse Rate 96 H 92 H 98 H Respiratory Rate 24 18 Blood Pressure 158/80 H Pulse Oximetry 100 Intake & Output 04/23/18 04/24/18 04/24/18 18:59 06:59 18:59 Intake Total 200 / 200 1100 / 1100 Balance 200 / 200 1100 / 1100 Weight 78.6 kg Intake: IV 200 / 200 1100 / 1100 LR 1000 mL Inj 1,000 ML @ 120 1000 / 1000 mls/hr IV.CONT .Q8H20M [facility] Rx#: [id number] Maxipime Inj 2,000 MG In NS Inj 200 / 200 100 ML @ 200 mls/hr IV.SIG Q12H [facility] Rx#:[id number] Other: # Urine Diapers 1 Date of Last Bowel Movement 04/23/18 04/23/18 # Bowel Movements 0 04/22/18 11:45 Blood - Peripheral Aerobic Blood Culture - Preliminary No growth in 2 days 04/22/18 11:45 Blood - Peripheral Anaerobic Blood Culture - Preliminary No growth in 2 days 04/22/18 11:30 Blood - Peripheral Aerobic Blood Culture - Preliminary No growth in 2 days 04/22/18 11:30 Blood - Peripheral Anaerobic Blood Culture - Preliminary No growth in 2 days 04/22/18 12:05 Nasal Wash Influenza Types A,B Antigen - Final Positive for Flu B Antigen Lab - Hematology Results 04/22/18 04/23/18 04/24/18 11:30 05:10 04:59 CBC w Diff Slide review pending WBC 8.7 13.8 H D 12.5 H RBC 4.13 L 4.02 L 3.88 L Hgb 11.7 L 11.5 L 11.1 L Hct 35.9 L 35.7 L 34.2 L MCV 86.9 88.9 88.0 MCH 28.4 28.8 28.7 MCHC 32.6 32.4 32.6 RDW 13.0 14.0 14.2 Plt Count 146 L 112 L 134 L MPV 6.5 L 7.3 7.3 Neut % (Auto) 95.2 H 92.9 H 93.6 H Lymph % (Auto) 2.7 L 4.1 L 3.1 L [place] % (Auto) 0.7 2.7 3.1 Eos % (Auto) 0.0 0.2 0.1 Baso % (Auto) 1.4 0.1 0.1 Neut # (Auto) 8.3 H 12.8 H 11.7 H Lymph # (Auto) 0.2 L 0.6 L 0.4 L [place] # (Auto) 0.1 0.4 0.4 Eos # (Auto) 0.0 0.0 0.0 Baso # (Auto) 0.1 0.0 0.0 WBC Differential Manual diff final . . Seg Neuts % (Manual) 91 H Band Neuts % (Manual) 1 Lymphocytes % (Manual) 6 L Monocytes % (Manual) 2 Abs Neuts (Manual) 8.0 H Differential Comment . Auto diff final Auto diff final Platelet Estimate Normal Platelet Morphology Normal RBC Morphology Normal Lab - Chemistry Results 04/22/18 04/22/18 04/22/18 11:30 11:30 11:53 Sodium 140 Potassium 4.3 Chloride 104 Carbon Dioxide 28.0 Anion Gap 8 BUN 29 H Creatinine 1.30 Estimated GFR 53 L POC Glucose 116 H Random Glucose 121 H Lactic Acid 2.0 Calcium 8.4 L Phosphorus Magnesium 1.9 Total Bilirubin 0.5 AST 25 ALT 19 Alkaline Phosphatase 116 Total Protein 6.3 L Albumin 3.0 L Carcinoembryonic Ag CA 19-9 Antigen TSH 04/23/18 04/23/18 04/23/18 05:10 13:43 13:43 Sodium 140 Potassium 4.7 Chloride 106 Carbon Dioxide 22.5 Anion Gap 12 BUN 30 H Creatinine 1.26 Estimated GFR 55 L POC Glucose Random Glucose 163 H Lactic Acid Calcium 8.4 L Phosphorus 2.8 Magnesium 2.0 Total Bilirubin 0.4 AST 31 ALT 25 Alkaline Phosphatase 73 Total Protein 6.3 L Albumin 2.8 L Carcinoembryonic Ag 1.4 CA 19-9 Antigen 10.2 TSH 04/24/18 04:59 Sodium 141 Potassium 4.1 Chloride 106 Carbon Dioxide 25.3 Anion Gap 10 BUN 38 H Creatinine 1.22 Estimated GFR 57 L POC Glucose Random Glucose 188 H Lactic Acid Calcium 8.3 L Phosphorus 2.3 L Magnesium 2.2 Total Bilirubin 0.3 AST 27 ALT 29 Alkaline Phosphatase 69 Total Protein 6.0 L Albumin 2.6 L Carcinoembryonic Ag CA 19-9 Antigen TSH 0.997 Imaging: ITS Impressions Sinuses CT 04/22/18 00:00 CONCLUSION: 1. There is minimal left frontal sinus mucosal thickening. 2. Otherwise normal aeration of the paranasal sinuses. Abdomen/Pelvis CT 04/22/18 13:29 CONCLUSION: 1. Fat-containing inguinal hernias left greater than right. 2. Diverticulosis without diverticulitis. 3. Trace amount of free fluid in the pelvis. 4. Atherosclerosis. 5. Right renal cortical thinning and left renal cyst. 6. There is abnormal eccentric soft tissue density seen along the rectal wall from 1:00 to 6:00 position concerning for malignancy until proven otherwise. Chest CT 04/22/18 13:29 CONCLUSION: 1. Development of adenopathy in the anterosuperior mediastinum with lymph nodes measuring up to 2.3 cm in diameter. 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 2. Severe emphysema. No new consolidation or effusion. 3. Multiple remote lower right rib fractures. Chest X-Ray 04/24/18 06:00 CONCLUSION: Hyperaerated lungs; no infiltrates seen. Physical Exam: PHYSICAL EXAMINATION: GENERAL: No acute distress. Awake and alert and oriented. HEENT: The head is atraumatic. Extraocular movements are grossly intact. Pupils reactive to light. No icterus. No conjunctival erythema. Oropharynx moist mucosa without lesions. NECK: Supple without adenopathy. LUNGS: Decreased breath sounds throughout with slight rhonchi at the bases. HEART: Regular rate and rhythm with a 1/6 systolic murmur at the left sternal border. ABDOMEN: Bowel sounds present. Soft, no tenderness appreciated. EXTREMITIES: No clubbing, cyanosis, or edema. SKIN: No diffuse rash. NEUROLOGIC: No gross focal finding. PSYCHIATRIC: Calm. Cooperative. Assessment and Plan - Plan IMPRESSION: 1. Gram-negative sepsis. E. coli. Repeat blood culture has no growth in 24 hours. Source not entirely clear. Possibly from rectal mass noted on CT scan. 2. Severe chronic obstructive pulmonary disease. 3. Influenza B. RECOMMENDATIONS: 1. Change cefepime to ceftriaxone. 2. Continue Tamiflu times 5 days. 3. Discontinue vancomycin. 4. Discontinue Flagyl. 5. Monitor temperature and monitor clinical status. Discussed with patient and his at bedside.
[2018-04-24] MEDS: Oseltamivir Liq 30 MG/5 ML Oral Syringe PO SCH ×2 (14:10→21:37)
--- NOTE | 2018-04-24 16:00 | P.PNGI ---
Subjective Interval history: Patient is resting in the bed oxygen at 2 L less shortness of breath today continues in the intensive care setting No abdominal pain Physical Exam Vital signs: Vital Signs 04/23/18 16:00 04/23/18 18:00 04/23/18 18:40 Temperature 98.3 F Pulse Rate 89 89 91 H Respiratory Rate 18 20 Blood Pressure 189/88 H Pulse Oximetry 99 04/23/18 19:17 04/23/18 19:55 04/23/18 20:00 Temperature 97.4 F L Pulse Rate 98 H 86 93 H Respiratory Rate 22 20 Blood Pressure 157/75 H Pulse Oximetry 98 99 04/23/18 21:59 04/23/18 23:50 04/24/18 00:00 Temperature 98.2 F Pulse Rate 89 97 H 93 H Respiratory Rate 20 24 Blood Pressure 163/73 H Pulse Oximetry 100 04/24/18 02:00 04/24/18 02:08 04/24/18 03:51 Temperature Pulse Rate 97 H 94 H Respiratory Rate 18 Blood Pressure 141/68 H Pulse Oximetry 04/24/18 04:00 04/24/18 06:00 04/24/18 07:00 Temperature 98.3 F Pulse Rate 96 H 92 H 98 H Respiratory Rate 24 18 Blood Pressure 158/80 H Pulse Oximetry 100 04/24/18 08:00 04/24/18 10:00 04/24/18 11:00 Temperature 98.7 F Pulse Rate 96 H 91 H 85 Respiratory Rate 17 18 Blood Pressure 178/91 H Pulse Oximetry 100 04/24/18 12:00 04/24/18 14:00 Temperature 98.7 F Pulse Rate 88 92 H Respiratory Rate 20 Blood Pressure 174/79 H Pulse Oximetry 100 Intake & Output 04/23/18 04/24/18 04/24/18 18:59 06:59 18:59 Intake Total 200 / 200 1200 / 1200 Balance 200 / 200 1200 / 1200 Weight 78.6 kg Intake: IV 200 / 200 1200 / 1200 LR 1000 mL Inj 1,000 ML @ 120 1000 / 1000 mls/hr IV.CONT .Q8H20M [facility] Rx#: [id number] Maxipime Inj 2,000 MG In NS Inj 200 / 200 100 ML @ 200 mls/hr IV.SIG Q12H [facility] Rx#:[id number] Rocephin Inj 2,000 MG In NS Inj 100 / 100 100 ML @ 200 mls/hr IV.SIG Q24H [facility] Rx#:[id number] Other: # Urine Diapers 1 Date of Last Bowel Movement 04/23/18 04/23/18 04/24/18 # Bowel Movements 0 - Constitutional no acute distress, cachectic, disheveled - Routine HEENT Exam Head: Present: normocephalic ENT: Present: mucous membranes dry - Routine Respiratory Exam Present: diminished air movement (O2 per nasal cannula no obvious exertional shortness of breath) - Routine Abdominal Exam Present: soft, normoactive bowel sounds (Round, no obvious abdominal pain) Results - Labs CBC & Chem 7: 04/24/18 04:59 04/24/18 04:59 Laboratory Results - last 24 hr 04/23/18 04/24/18 04/24/18 13:43 04:59 04:59 WBC 12.5 H RBC 3.88 L Hgb 11.1 L Hct 34.2 L MCV 88.0 MCH 28.7 MCHC 32.6 RDW 14.2 Plt Count 134 L MPV 7.3 Neut % (Auto) 93.6 H Lymph % (Auto) 3.1 L [place] % (Auto) 3.1 Eos % (Auto) 0.1 Baso % (Auto) 0.1 Neut # (Auto) 11.7 H Lymph # (Auto) 0.4 L [place] # (Auto) 0.4 Eos # (Auto) 0.0 Baso # (Auto) 0.0 WBC Differential . Differential Comment Auto diff final Sodium 141 Potassium 4.1 Chloride 106 Carbon Dioxide 25.3 Anion Gap 10 BUN 38 H Creatinine 1.22 Estimated GFR 57 L Random Glucose 188 H Calcium 8.3 L Phosphorus 2.3 L Magnesium 2.2 Total Bilirubin 0.3 AST 27 ALT 29 Alkaline Phosphatase 69 Total Protein 6.0 L Albumin 2.6 L CA 19-9 Antigen 10.2 TSH 0.997 Microbiology 04/22/18 11:45 Blood - Peripheral Aerobic Blood Culture - Preliminary No growth in 2 days 04/22/18 11:45 Blood - Peripheral Anaerobic Blood Culture - Preliminary No growth in 2 days 04/22/18 11:30 Blood - Peripheral Aerobic Blood Culture - Preliminary No growth in 2 days 04/22/18 11:30 Blood - Peripheral Anaerobic Blood Culture - Preliminary No growth in 2 days - Imaging Impressions Chest X-Ray 04/24/18 06:00 CONCLUSION: Hyperaerated lungs; no infiltrates seen. Assessment and Plan - Plan Rectal mass soft tissue density in the rectal wall between 1:00 and 6 o'clock position. Discussed with patient and the need to evaluate further for primary tumor versus metastasis. Discussed with patient colonoscopy when he is stable and evaluated and cleared per ID and pulmonary medicine. No abdominal pain no diarrhea no constipation, formed brown stools, no melena. Flu B currently being treated per pulmonary and ID meds Severe emphysema, COPD home O2 at 3 L, currently shows low volumes but no acute shortness of breath with talking. Diverticulosis seen on CT scan, patient denies any abdominal pain Anemia currently hemoglobin 11.5 the patient denies any obvious bleeding, could be acute on chronic Weight loss 30 pounds within the past year History of prostate cancer around year 1999, treatment and monitoring sense without any issues up until the past year patient notes elevated ASSESSMENT NURSE level. Leukocytosis, possible gram-negative sepsis, bacteria, cultures pending, appreciate ID input 04/24/2018, patient appears to be showing gradual improvement with less work of effort with breathing O2 is at nasal cannula And no abdominal pain no nausea no vomiting, GI continues to evaluate rectal mass when patient is safe, currently being treated with Tamiflu for flu B, day 2. After day 5 patient should be safe for colonoscopy and rectal biopsies. Plan colonoscopy around unless patient is discharged and colonoscopy would need to be done in the [facility] Patient also being monitored for gram-negative sepsis. Current labs show hemoglobin stable 11.1 and WBC count 12.5 Plan Diet per attending Plan colonoscopy , pending any further recommendations Monitor for any obvious rectal bleeding or any change in bowel movements as far as color or size Monitor labs, transfuse as needed Heparin subcu continue for now, but will need to hold pending any GI procedures Colonoscopy once patient is cleared from ID standpoint as well as pulmonary, flu B, sepsis, COPD Antibiotics per attending Bowel regimen daily Pepcid Supportive care Further recommendations to follow Patient was seen per myself Kojo, note was written on his back
[2018-04-24] MEDS: Polyethylene Glycol 3350 17 GM Packet PO SCH (16:31)
[2018-04-25] MEDS: MethylPREDNISolone Sod Succinate Inj 40 MG/ML Vial IV.PUSH SCH ×4 (00:11→23:41)
[2018-04-25] MEDS: Chlorhexidine Gluconate 2% 1 Pack (2 Cloths) TOPICAL SCH (03:10)
[2018-04-25] MEDS: Heparin - SQ 10,000 UNITS/ML Vial SQ SCH ×3 (05:08→21:10)
[2018-04-25] MEDS: Pharmacy Ordered Lab Info OTHER ONE ×2 (07:48→09:41)
[2018-04-25] MEDS: Oseltamivir Liq 30 MG/5 ML Oral Syringe PO SCH ×2 (08:43→21:12)
[2018-04-25] MEDS: Polyethylene Glycol 3350 17 GM Packet PO SCH (08:45)
[2018-04-25] MEDS: Famotidine 20 MG Tablet PO SCH ×2 (08:46→21:09)
[2018-04-25 09:41] LABS: Baso % (Auto) 0.1 % (0.0-2.0); Hematocrit 34.3 % (39.0-51.0); Hemoglobin 11.4 gm/dL (13.0-17.0); Lymph # (Auto) 0.3 th/mm3 (1.0-4.8); Lymph % (Auto) 2.1 % (9.0-44.0); Mean Corpuscular HGB Conc 33.2 % (32.0-36.0); Mean Corpuscular Hemoglobin 28.7 pg (27.0-34.0); Mean Corpuscular Volume 86.6 fL (80.0-100.0); Mean Platelet Volume 7.4 fL (7.0-11.0); Mono # (Auto) 0.6 th/mm3 (0.0-0.9); Mono % (Auto) 4.5 % (0.0-8.0); Neut # (Auto) 12.5 th/mm3 (1.8-7.7); Neut % (Auto) 93.3 % (16.0-70.0); Platelet Count 144 th/mm3 (150-450); Red Blood Count 3.96 mil/mm3 (4.50-5.90); Red Cell Distribution Width 13.9 % (11.6-17.2); White Blood Count 13.4 th/mm3 (4.0-11.0)
[2018-04-25 10:16] LABS: Albumin 2.8 g/dL (3.4-5.0); Anion Gap 8 meq/L (5-15); Aspartate Aminotransferase 18 U/L (15-37); Blood Urea Nitrogen 36 mg/dL (7-18); Calcium 8.8 mg/dL (8.5-10.1); Carbon Dioxide 26.8 meq/L (21.0-32.0); Chloride 104 meq/L (98-107); Glomerular Filtration Rate 59 mL/min (>89); Magnesium 2.2 mg/dL (1.5-2.5); Sodium 139 meq/L (136-145)
[2018-04-25 10:33] LABS: Alanine Aminotransferase 35 U/L (12-78); Alkaline Phosphatase 74 U/L (45-117); Glucose,Random 189 mg/dL (74-106); Phosphorus 1.9 mg/dL (2.5-4.9); Total Protein 6.1 g/dL (6.4-8.2)
--- NOTE | 2018-04-25 11:37 | P.PNIM ---
Subjective Interval history: The patient was resting comfortably in bed. His was at the bedside. He said he was feeling better. They wanted to know how his sepsis was. He said that his pain was controlled with medication. He felt like his breathing was improving. No acute concerns at this time. Physical Exam Vital signs: Vital Signs 04/24/18 12:00 04/24/18 14:00 04/24/18 15:00 Temperature 98.7 F Pulse Rate 88 92 H 114 H Respiratory Rate 20 18 Blood Pressure 174/79 H Pulse Oximetry 100 04/24/18 16:00 04/24/18 18:00 04/24/18 18:56 Temperature 98.5 F 98.3 F Pulse Rate 89 97 H 97 H Respiratory Rate 24 17 Blood Pressure 176/82 H 139/66 Pulse Oximetry 100 97 04/24/18 20:00 04/24/18 20:16 04/25/18 00:00 Temperature 97.2 F L 97.8 F Pulse Rate 93 H 110 H 92 H Respiratory Rate 20 18 20 Blood Pressure 160/74 H 147/71 H Pulse Oximetry 98 97 97 04/25/18 00:07 04/25/18 03:36 04/25/18 08:00 Temperature 97.7 F Pulse Rate 99 H 97 H 90 Respiratory Rate 18 18 20 Blood Pressure 178/100 H Pulse Oximetry 96 04/25/18 08:54 Temperature Pulse Rate 92 H Respiratory Rate 16 Blood Pressure Pulse Oximetry 100 Intake & Output 04/24/18 04/25/18 04/25/18 18:59 06:59 18:59 Intake Total 1350 / 1350 Balance 1350 / 1350 Weight 76.2 kg Intake: IV 1200 / 1200 LR 1000 mL Inj 1,000 ML @ 120 1000 / 1000 mls/hr IV.CONT .Q8H20M [facility] Rx#: [id number] Rocephin Inj 2,000 MG In NS Inj 100 / 100 100 ML @ 200 mls/hr IV.SIG Q24H [facility] Rx#:[id number] Oral 150 / 150 Other: # Voids 1 # Urine Diapers 2 Date of Last Bowel Movement 04/24/18 04/24/18 # Bowel Movements 1 Narrative: GENERAL: NAD SKIN: Warm and dry. HEAD: Atraumatic. Normocephalic. EYES: Pupils equal and round. No scleral icterus. No injection or drainage. ENT: No nasal bleeding or discharge. Mucous membranes pink and moist. NECK: Trachea midline. No JVD. CARDIOVASCULAR: Regular rate and rhythm. No murmurs rubs or gallops. RESPIRATORY: Diminished bilaterally with bilateral expiratory wheeze. No rales or rhonchi. GASTROINTESTINAL: Abdomen soft, non-tender, nondistended. Bowel sounds present. MUSCULOSKELETAL: Extremities without clubbing, cyanosis, or edema. No obvious deformities. NEUROLOGICAL: Awake and alert. No obvious cranial nerve deficits except hard of hearing. Moves all extremities spontaneously and equally without focal deficit. PSYCH: Mood and affect appropriate. Results - Labs CBC & Chem 7: 04/25/18 07:37 04/25/18 07:37 Laboratory Results - last 24 hr 04/25/18 04/25/18 07:37 07:37 WBC 13.4 H RBC 3.96 L Hgb 11.4 L Hct 34.3 L MCV 86.6 MCH 28.7 MCHC 33.2 RDW 13.9 Plt Count 144 L MPV 7.4 Neut % (Auto) 93.3 H Lymph % (Auto) 2.1 L [place] % (Auto) 4.5 Eos % (Auto) 0.0 Baso % (Auto) 0.1 Neut # (Auto) 12.5 H Lymph # (Auto) 0.3 L [place] # (Auto) 0.6 Eos # (Auto) 0.0 Baso # (Auto) 0.0 WBC Differential . Differential Comment Auto diff final Sodium 139 Potassium 4.0 Chloride 104 Carbon Dioxide 26.8 Anion Gap 8 BUN 36 H Creatinine 1.17 Estimated GFR 59 L Random Glucose 189 H Calcium 8.8 Phosphorus 1.9 L Magnesium 2.2 Total Bilirubin 0.4 AST 18 ALT 35 Alkaline Phosphatase 74 Total Protein 6.1 L Albumin 2.8 L Microbiology 04/22/18 11:45 Blood - Peripheral Aerobic Blood Culture - Preliminary No growth in 3 days 04/22/18 11:45 Blood - Peripheral Anaerobic Blood Culture - Preliminary No growth in 3 days 04/22/18 11:30 Blood - Peripheral Aerobic Blood Culture - Preliminary No growth in 3 days 04/22/18 11:30 Blood - Peripheral Anaerobic Blood Culture - Preliminary No growth in 3 days Assessment and Plan - Plan Possible Rectal mass on CT/abdomen/pelvis Sigmoid diverticulosis Bilateral fat-containing left greater than right inguinal hernia CT abd/men - soft tissue density 2.7 x 2 cm wall of rectum on the left, concerning for malignancy. He also has interval development of mediastinal lymphadenopathy concerning for metastasis disease. GI consult appreciated. Possible colonoscopy . Influenza B/ Gram-negative marisa bacteremia/ Sepsis Source of gram-negative marisa bacteremia and sepsis is not entirely clear. Infectious disease consultation appreciated. -antibiotics/antivirals per ID. -follow culture data. Leukocytosis/acute Normocytic anemia/acute Acute thrombocytopenia H/o prostate cancer with remote history of radiation Holding bicalutamide Noted interval development of mediastinal lymphadenopathy on CT chest. Medical Oncologist is Dr. Madden. Urologist is Dr. Davis. History of prior CVA -negative MRI brain 2015/CT brain 2018 Chronic back pain Mild L4 chronic wedge compression deformity noted on Ct abd/pelvis Acetaminophen 650 mg p.o. every 6 hours as needed fever -Tramadol 50 mg daily scheduled -Tizanidine 2 mg daily/schedule COPD with chronic hypoxemic respiratory failure (3 L home O2)/ Acute COPD exacerbation/ Prior tobacco abuse CT thorax revealed central lobular and portal lobular emphysematous changes. Anterior superior mediastinal lymphadenopathy 2.3 cm. Multiple right rib fractures. -NC titrate for sat >92%. -Albuterol/ipratropium aerosols every 4 hours with albuterol aerosols every 2 hours as needed dyspnea -Budesonide 0.5/2 1 inhalation twice daily. -Methylprednisolone succinate 40 mg IV every 8 hours. -inspector rag sorting is Dr. Pollard if needed. Essential hypertension History of sinus tachycardia with PACs Atherosclerotic vascular disease Hyperlipidemia -Continue atorvastatin 20 mg p.o. daily for hyperlipidemia. -resume home regimen. Multiple right-sided rib fractures Pain control noted. PROPH: SCDs/heparin 5000 units subcu every 8 hours for DVT prophylaxis. Famotidine po for stress ulcer prophylaxis.
--- NOTE | 2018-04-25 13:08 | P.PNGI ---
Subjective Interval history: Patient sitting up in bed eating lunch meal. Denies abdominal pain nausea or vomiting <Merle Tobin - Last Filed: 04/25/18 13:02> Physical Exam Vital signs: Vital Signs 04/24/18 14:00 04/24/18 15:00 04/24/18 16:00 Temperature 98.5 F Pulse Rate 92 H 114 H 89 Respiratory Rate 18 24 Blood Pressure 176/82 H Pulse Oximetry 100 04/24/18 18:00 04/24/18 18:56 04/24/18 20:00 Temperature 98.3 F 97.2 F L Pulse Rate 97 H 97 H 93 H Respiratory Rate 17 20 Blood Pressure 139/66 160/74 H Pulse Oximetry 97 98 04/24/18 20:16 04/25/18 00:00 04/25/18 00:07 Temperature 97.8 F Pulse Rate 110 H 92 H 99 H Respiratory Rate 18 20 18 Blood Pressure 147/71 H Pulse Oximetry 97 97 04/25/18 03:36 04/25/18 08:00 04/25/18 08:54 Temperature 97.7 F Pulse Rate 97 H 90 92 H Respiratory Rate 18 20 16 Blood Pressure 178/100 H Pulse Oximetry 96 100 04/25/18 12:00 Temperature 97.8 F Pulse Rate 76 Respiratory Rate 16 Blood Pressure 148/70 H Pulse Oximetry 99 Intake & Output 04/24/18 04/25/18 04/25/18 18:59 06:59 18:59 Intake Total 1350 / 1350 100 / 100 Balance 1350 / 1350 100 / 100 Weight 76.2 kg Intake: IV 1200 / 1200 100 / 100 LR 1000 mL Inj 1,000 ML @ 120 1000 / 1000 mls/hr IV.CONT .Q8H20M [facility] Rx#: [id number] Rocephin Inj 2,000 MG In NS Inj 100 / 100 100 / 100 100 ML @ 200 mls/hr IV.SIG Q24H [facility] Rx#:[id number] Oral 150 / 150 Other: # Voids 1 # Urine Diapers 2 Date of Last Bowel Movement 04/24/18 04/24/18 # Bowel Movements 1 - Constitutional no acute distress - Routine HEENT Exam Head: Present: normocephalic - Routine Respiratory Exam Present: wheezes. Absent: decreased breath sounds - Routine Abdominal Exam Present: soft, normoactive bowel sounds. Absent: tenderness, guarding, firm - Routine Skin Exam Present: dry, warm - Routine Neurological Exam Present: alert - Routine Psychiatric Exam Present: normal affect, cooperative <Eboni Tobiny - Last Filed: 04/25/18 13:02> Vital signs: Vital Signs 04/24/18 18:56 04/24/18 20:00 04/24/18 20:16 Temperature 98.3 F 97.2 F L Pulse Rate 97 H 93 H 110 H Respiratory Rate 17 20 18 Blood Pressure 139/66 160/74 H Pulse Oximetry 97 98 97 04/25/18 00:00 04/25/18 00:07 04/25/18 03:36 Temperature 97.8 F Pulse Rate 92 H 99 H 97 H Respiratory Rate 20 18 18 Blood Pressure 147/71 H Pulse Oximetry 97 04/25/18 08:00 04/25/18 08:54 04/25/18 12:00 Temperature 97.7 F 97.8 F Pulse Rate 90 92 H 76 Respiratory Rate 20 16 16 Blood Pressure 178/100 H 148/70 H Pulse Oximetry 96 100 99 04/25/18 16:00 Temperature 97.8 F Pulse Rate 90 Respiratory Rate 16 Blood Pressure 191/87 H Pulse Oximetry 97 Intake & Output 04/24/18 04/25/18 04/25/18 18:59 06:59 18:59 Intake Total 1350 / 1350 100 / 100 Balance 1350 / 1350 100 / 100 Weight 76.2 kg Intake: IV 1200 / 1200 100 / 100 LR 1000 mL Inj 1,000 ML @ 120 1000 / 1000 mls/hr IV.CONT .Q8H20M [facility] Rx#: [id number] Rocephin Inj 2,000 MG In NS Inj 100 / 100 100 / 100 100 ML @ 200 mls/hr IV.SIG Q24H [facility] Rx#:[id number] Oral 150 / 150 Other: # Voids 1 # Urine Diapers 2 Date of Last Bowel Movement 04/24/18 04/24/18 # Bowel Movements 1 <NeetaAmmar - Last Filed: 04/25/18 18:02> Results - Labs CBC & Chem 7: 04/25/18 07:37 04/25/18 07:37 Laboratory Results - last 24 hr 04/25/18 04/25/18 07:37 07:37 WBC 13.4 H RBC 3.96 L Hgb 11.4 L Hct 34.3 L MCV 86.6 MCH 28.7 MCHC 33.2 RDW 13.9 Plt Count 144 L MPV 7.4 Neut % (Auto) 93.3 H Lymph % (Auto) 2.1 L [place] % (Auto) 4.5 Eos % (Auto) 0.0 Baso % (Auto) 0.1 Neut # (Auto) 12.5 H Lymph # (Auto) 0.3 L [place] # (Auto) 0.6 Eos # (Auto) 0.0 Baso # (Auto) 0.0 WBC Differential . Differential Comment Auto diff final Sodium 139 Potassium 4.0 Chloride 104 Carbon Dioxide 26.8 Anion Gap 8 BUN 36 H Creatinine 1.17 Estimated GFR 59 L Random Glucose 189 H Calcium 8.8 Phosphorus 1.9 L Magnesium 2.2 Total Bilirubin 0.4 AST 18 ALT 35 Alkaline Phosphatase 74 Total Protein 6.1 L Albumin 2.8 L Microbiology 04/22/18 11:45 Blood - Peripheral Aerobic Blood Culture - Preliminary No growth in 3 days 04/22/18 11:45 Blood - Peripheral Anaerobic Blood Culture - Preliminary No growth in 3 days 04/22/18 11:30 Blood - Peripheral Aerobic Blood Culture - Preliminary No growth in 3 days 04/22/18 11:30 Blood - Peripheral Anaerobic Blood Culture - Preliminary No growth in 3 days <Merle Tobin - Last Filed: 04/25/18 13:02> - Labs CBC & Chem 7: 04/25/18 07:37 04/25/18 07:37 Laboratory Results - last 24 hr 04/25/18 04/25/18 07:37 07:37 WBC 13.4 H RBC 3.96 L Hgb 11.4 L Hct 34.3 L MCV 86.6 MCH 28.7 MCHC 33.2 RDW 13.9 Plt Count 144 L MPV 7.4 Neut % (Auto) 93.3 H Lymph % (Auto) 2.1 L [place] % (Auto) 4.5 Eos % (Auto) 0.0 Baso % (Auto) 0.1 Neut # (Auto) 12.5 H Lymph # (Auto) 0.3 L [place] # (Auto) 0.6 Eos # (Auto) 0.0 Baso # (Auto) 0.0 WBC Differential . Differential Comment Auto diff final Sodium 139 Potassium 4.0 Chloride 104 Carbon Dioxide 26.8 Anion Gap 8 BUN 36 H Creatinine 1.17 Estimated GFR 59 L Random Glucose 189 H Calcium 8.8 Phosphorus 1.9 L Magnesium 2.2 Total Bilirubin 0.4 AST 18 ALT 35 Alkaline Phosphatase 74 Total Protein 6.1 L Albumin 2.8 L Microbiology 04/22/18 11:45 Blood - Peripheral Aerobic Blood Culture - Preliminary No growth in 3 days 04/22/18 11:45 Blood - Peripheral Anaerobic Blood Culture - Preliminary No growth in 3 days 04/22/18 11:30 Blood - Peripheral Aerobic Blood Culture - Preliminary No growth in 3 days 04/22/18 11:30 Blood - Peripheral Anaerobic Blood Culture - Preliminary No growth in 3 days <Shanice Santacruz - Last Filed: 04/25/18 18:02> Assessment and Plan - Plan Rectal mass soft tissue density in the rectal wall between 1:00 and 6 o'clock position. Discussed with patient and the need to evaluate further for primary tumor versus metastasis. Discussed with patient colonoscopy when he is stable and evaluated and cleared per ID and pulmonary medicine. No abdominal pain no diarrhea no constipation, formed brown stools, no melena. Flu B currently being treated per pulmonary and ID meds Severe emphysema, COPD home O2 at 3 L, currently shows low volumes but no acute shortness of breath with talking. Diverticulosis seen on CT scan, patient denies any abdominal pain Anemia currently hemoglobin 11.5 the patient denies any obvious bleeding, could be acute on chronic Weight loss 30 pounds within the past year History of prostate cancer around year 1999, treatment and monitoring sense without any issues up until the past year patient notes elevated [employer] level. Leukocytosis, possible gram-negative sepsis, bacteria, cultures pending, appreciate ID input 04/24/2018, patient appears to be showing gradual improvement with less work of effort with breathing O2 is at nasal cannula And no abdominal pain no nausea no vomiting, GI continues to evaluate rectal mass when patient is safe, currently being treated with Tamiflu for flu B, day 2. After day 5 patient should be safe for colonoscopy and rectal biopsies. Plan colonoscopy around unless patient is discharged and colonoscopy would need to be done in the [facility] Patient also being monitored for gram-negative sepsis. Current labs show hemoglobin stable 11.1 and WBC count 12.5 04/25/2018-patient awake and alert sitting up in bed watching television. O2 nasal cannula in place, scattered wheezes present but no acute distress noted. Denies abdominal pain nausea or vomiting. Possible colonoscopy planned for . Patient on day 3 of treatment for flu B (Tamiflu). Plan -Cardiac diet as tolerated -Possible colonoscopy on -for further evaluation of density in the rectal wall -Bowel regimen -Patient on day 3 of Tamiflu treatment for flu B -Supportive care -Further recommendations to follow This patient has been seen by myself and Dr. Santacruz and this note is written on his behalf - Attending Attestation Dr. Santacruz <Merle Tobin - Last Filed: 04/25/18 13:02> - Attending Attestation Patient was seen and examined, agree with above we will need a colonoscopy in 3 days after finishing course of treatment for Tamiflu, patient aware of that apparently he did not have colonoscopy for 20 years according to him <Shanice Santacruz - Last Filed: 04/25/18 18:02>
--- NOTE | 2018-04-25 13:54 | P.PNID ---
Subjective Remarks: Patient says he feels okay. at bedside. She notes that he was having some shaking that appeared like chills. The room is cold No fever. Denies shortness of breath, nausea, vomiting, headache. notes that he is passing a lot of gas. Denies abdominal pain. Rectal mass noted. GI following. 82-year-old white male who presented to the emergency department on 04/21/2018 with profound weakness on 04/21/2018. The patient also reportedly had fevers. His symptoms began 3 days ago. His notes that he stopped eating and was very weak, to the point where it was difficult to get him into a car because he could not support his weight. Nasal wash is positive for influenza B antigen. Past Medical History: PAST MEDICAL HISTORY: COPD, emphysema of the lungs, prostate cancer. PAST SURGICAL HISTORY: History of tonsillectomy. Allergies/Adverse Reactions: Allergies No Known Allergies Allergy (Verified 04/22/18 11:13) Objective Vital Signs 04/24/18 14:00 04/24/18 15:00 04/24/18 16:00 Temperature 98.5 F Pulse Rate 92 H 114 H 89 Respiratory Rate 18 24 Blood Pressure 176/82 H Pulse Oximetry 100 04/24/18 18:00 04/24/18 18:56 04/24/18 20:00 Temperature 98.3 F 97.2 F L Pulse Rate 97 H 97 H 93 H Respiratory Rate 17 20 Blood Pressure 139/66 160/74 H Pulse Oximetry 97 98 04/24/18 20:16 04/25/18 00:00 04/25/18 00:07 Temperature 97.8 F Pulse Rate 110 H 92 H 99 H Respiratory Rate 18 20 18 Blood Pressure 147/71 H Pulse Oximetry 97 97 04/25/18 03:36 04/25/18 08:00 04/25/18 08:54 Temperature 97.7 F Pulse Rate 97 H 90 92 H Respiratory Rate 18 20 16 Blood Pressure 178/100 H Pulse Oximetry 96 100 04/25/18 12:00 Temperature 97.8 F Pulse Rate 76 Respiratory Rate 16 Blood Pressure 148/70 H Pulse Oximetry 99 Intake & Output 04/24/18 04/25/18 04/25/18 18:59 06:59 18:59 Intake Total 1350 / 1350 100 / 100 Balance 1350 / 1350 100 / 100 Weight 76.2 kg Intake: IV 1200 / 1200 100 / 100 LR 1000 mL Inj 1,000 ML @ 120 1000 / 1000 mls/hr IV.CONT .Q8H20M [facility] Rx#: [id number] Rocephin Inj 2,000 MG In NS Inj 100 / 100 100 / 100 100 ML @ 200 mls/hr IV.SIG Q24H [facility] Rx#:[id number] Oral 150 / 150 Other: # Voids 1 # Urine Diapers 2 Date of Last Bowel Movement 04/24/18 04/24/18 # Bowel Movements 1 04/22/18 11:45 Blood - Peripheral Aerobic Blood Culture - Preliminary No growth in 3 days 04/22/18 11:45 Blood - Peripheral Anaerobic Blood Culture - Preliminary No growth in 3 days 04/22/18 11:30 Blood - Peripheral Aerobic Blood Culture - Preliminary No growth in 3 days 04/22/18 11:30 Blood - Peripheral Anaerobic Blood Culture - Preliminary No growth in 3 days 04/22/18 12:05 Nasal Wash Influenza Types A,B Antigen - Final Positive for Flu B Antigen Lab - Hematology Results 04/24/18 04/25/18 04:59 07:37 WBC 12.5 H 13.4 H RBC 3.88 L 3.96 L Hgb 11.1 L 11.4 L Hct 34.2 L 34.3 L MCV 88.0 86.6 MCH 28.7 28.7 MCHC 32.6 33.2 RDW 14.2 13.9 Plt Count 134 L 144 L MPV 7.3 7.4 Neut % (Auto) 93.6 H 93.3 H Lymph % (Auto) 3.1 L 2.1 L [place] % (Auto) 3.1 4.5 Eos % (Auto) 0.1 0.0 Baso % (Auto) 0.1 0.1 Neut # (Auto) 11.7 H 12.5 H Lymph # (Auto) 0.4 L 0.3 L [place] # (Auto) 0.4 0.6 Eos # (Auto) 0.0 0.0 Baso # (Auto) 0.0 0.0 WBC Differential . . Differential Comment Auto diff final Auto diff final Lab - Chemistry Results 04/23/18 04/23/18 04/24/18 13:43 13:43 04:59 Sodium 141 Potassium 4.1 Chloride 106 Carbon Dioxide 25.3 Anion Gap 10 BUN 38 H Creatinine 1.22 Estimated GFR 57 L Random Glucose 188 H Calcium 8.3 L Phosphorus 2.3 L Magnesium 2.2 Total Bilirubin 0.3 AST 27 ALT 29 Alkaline Phosphatase 69 Total Protein 6.0 L Albumin 2.6 L Carcinoembryonic Ag 1.4 CA 19-9 Antigen 10.2 TSH 0.997 04/25/18 07:37 Sodium 139 Potassium 4.0 Chloride 104 Carbon Dioxide 26.8 Anion Gap 8 BUN 36 H Creatinine 1.17 Estimated GFR 59 L Random Glucose 189 H Calcium 8.8 Phosphorus 1.9 L Magnesium 2.2 Total Bilirubin 0.4 AST 18 ALT 35 Alkaline Phosphatase 74 Total Protein 6.1 L Albumin 2.8 L Carcinoembryonic Ag CA 19-9 Antigen TSH Imaging: ITS Impressions Sinuses CT 04/22/18 00:00 CONCLUSION: 1. There is minimal left frontal sinus mucosal thickening. 2. Otherwise normal aeration of the paranasal sinuses. Abdomen/Pelvis CT 04/22/18 13:29 CONCLUSION: 1. Fat-containing inguinal hernias left greater than right. 2. Diverticulosis without diverticulitis. 3. Trace amount of free fluid in the pelvis. 4. Atherosclerosis. 5. Right renal cortical thinning and left renal cyst. 6. There is abnormal eccentric soft tissue density seen along the rectal wall from 1:00 to 6:00 position concerning for malignancy until proven otherwise. Chest CT 04/22/18 13:29 CONCLUSION: 1. Development of adenopathy in the anterosuperior mediastinum with lymph nodes measuring up to 2.3 cm in diameter. 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 2. Severe emphysema. No new consolidation or effusion. 3. Multiple remote lower right rib fractures. Chest X-Ray 04/24/18 06:00 CONCLUSION: Hyperaerated lungs; no infiltrates seen. Physical Exam: PHYSICAL EXAMINATION: GENERAL: No acute distress. Awake and alert and oriented. HEENT: No icterus. No conjunctival erythema. Oropharynx moist mucosa without lesions. NECK: Supple without adenopathy. LUNGS: Decreased breath sounds throughout with slight rhonchi at the bases. HEART: Regular rate and rhythm with a 1/6 systolic murmur at the left sternal border. ABDOMEN: Bowel sounds present. Soft, no tenderness appreciated. EXTREMITIES: No clubbing, cyanosis, or edema. SKIN: No diffuse rash. NEUROLOGIC: No gross focal finding. PSYCHIATRIC: Calm. Cooperative. Assessment and Plan - Plan IMPRESSION: 1. E. coli sepsis. Repeat blood culture has no growth in 24 hours. Source not entirely clear. Possibly from rectal mass noted on CT scan. 2. Severe chronic obstructive pulmonary disease. 3. Influenza B. RECOMMENDATIONS: 1. Continue cefepime- plan on treatment until 05/01/18. 2. Continue Tamiflu until 04/26/18. 3. Monitor temperature and monitor clinical status. Discussed with patient and his at bedside.
--- NOTE | 2018-04-25 15:26 | P.DIET ---
Nutritional Evaluation Type of nutrition evaluation: initial Nutrition consult regarding: Diet Evaluation Nutrition screening: Weight Loss > 10 lbs Subjective Subjective Comments: Pt has been tolerating cardiac diet well, eating approx 50-75% most meals. Objective - Diagnosis severe sepsis, bacteremia, influenza - Objective Body Mass Index: 22.8 % IBW: 94 (IBW = 178lb) Energy Needs - Lower Range (kCal/kg): 28 Energy Needs - Upper Range (kCal/kg): 32 Lower Limit kCal/kg (kCals): 2,134 Upper Limit kCal/kg (kCals): 2,438 Lower Limit Protein Factor (Grams per Kg): 1.2 Upper Limit Protein Factor (Grams per Kg): 1.5 Lower Protein Needs (Protein): 91 Upper Protein Needs (Protein): 114 Fluid Factor (ml/kg): 30 Estimated Fluid Needs (ml): 2,286 Dietitian Reviewed in Medical Record: Current diet, Curent medications, Intake & Output, Labs, Medical history Diet Order: cardiac Oral Diet Intake Amount: Fair 50-75% Speech Therapy Recommendations: No Objective Comments: PMH: COPD, emphysema, HLD, HTN, prostate cancer, stroke Meds: lipitor heparin, mag ox, zofran, vit D3 Labs: BUN 36, GFR 59, random glucose 189, phos 1.9 Assessment Assessment: Pt currently at nutritional risk r/t reported unplanned wt loss. Pt currently tolerating diet well. Will assess pts nutritional needs for PO supplement as necessary. Monitor PO intake and wt changes. Labs reviewed. Dietitian following. Recommendations: 1. Will assess pts nutritional needs for PO supplement as necessary 2. Monitor PO intake 3. Dietitian following Dietitian to Monitor: Lab values, Intake & Output, Diet tolerance, Weight change , PO Intake
[2018-04-26] MEDS: Heparin - SQ 10,000 UNITS/ML Vial SQ SCH ×3 (06:19→21:49)
[2018-04-26 07:30] LABS: Baso % (Auto) 0.1 % (0.0-2.0); Hematocrit 31.8 % (39.0-51.0); Hemoglobin 10.9 gm/dL (13.0-17.0); Lymph # (Auto) 0.4 th/mm3 (1.0-4.8); Lymph % (Auto) 4.8 % (9.0-44.0); Mean Corpuscular HGB Conc 34.4 % (32.0-36.0); Mean Corpuscular Hemoglobin 29.3 pg (27.0-34.0); Mean Corpuscular Volume 85.2 fL (80.0-100.0); Mean Platelet Volume 7.8 fL (7.0-11.0); Mono # (Auto) 0.5 th/mm3 (0.0-0.9); Mono % (Auto) 5.3 % (0.0-8.0); Neut # (Auto) 7.7 th/mm3 (1.8-7.7); Neut % (Auto) 89.8 % (16.0-70.0); Platelet Count 123 th/mm3 (150-450); Red Blood Count 3.74 mil/mm3 (4.50-5.90); Red Cell Distribution Width 13.6 % (11.6-17.2); White Blood Count 8.5 th/mm3 (4.0-11.0)
[2018-04-26 07:47] LABS: Albumin 2.5 g/dL (3.4-5.0); Anion Gap 6 meq/L (5-15); Aspartate Aminotransferase 19 U/L (15-37); Blood Urea Nitrogen 29 mg/dL (7-18); Carbon Dioxide 29.7 meq/L (21.0-32.0); Chloride 103 meq/L (98-107); Glomerular Filtration Rate 77 mL/min (>89); Glucose,Random 252 mg/dL (74-106); Magnesium 2.1 mg/dL (1.5-2.5); Phosphorus 2.3 mg/dL (2.5-4.9); Potassium 4.1 meq/L (3.5-5.1); Sodium 139 meq/L (136-145)
[2018-04-26 07:50] LABS: Alanine Aminotransferase 33 U/L (12-78); Alkaline Phosphatase 66 U/L (45-117); Total Protein 5.5 g/dL (6.4-8.2)
[2018-04-26] MEDS: Polyethylene Glycol 3350 17 GM Packet PO SCH (08:55)
[2018-04-26] MEDS: Famotidine 20 MG Tablet PO SCH ×2 (08:57→21:40)
[2018-04-26] MEDS: Oseltamivir Liq 30 MG/5 ML Oral Syringe PO SCH ×2 (08:58→21:40)
[2018-04-26] MEDS: MethylPREDNISolone Sod Succinate Inj 40 MG/ML Vial IV.PUSH SCH ×2 (09:00→15:25)
--- NOTE | 2018-04-26 12:30 | P.PNGI ---
Subjective Interval history: Patient sitting up in bed. O2 at 2 L nasal cannula, patient reports shortness of breath on exertion. States tolerating meals well, reporting intermittent abdominal cramping <Merle Tobin - Last Filed: 04/26/18 12:30> Physical Exam Vital signs: Vital Signs 04/25/18 16:00 04/25/18 19:51 04/25/18 20:00 Temperature 97.8 F 97.5 F L Pulse Rate 90 90 110 H Respiratory Rate 16 27 H 19 Blood Pressure 191/87 H 126/89 Pulse Oximetry 97 99 94 L 04/26/18 00:00 04/26/18 04:49 04/26/18 08:00 Temperature 97.0 F L 98.1 F Pulse Rate 98 H 50 L 60 Respiratory Rate 18 20 18 Blood Pressure 125/76 178/87 H Pulse Oximetry 95 99 98 04/26/18 08:54 04/26/18 12:21 Temperature Pulse Rate 80 66 Respiratory Rate 20 20 Blood Pressure Pulse Oximetry Intake & Output 04/25/18 04/26/18 04/26/18 18:59 06:59 18:59 Intake Total 1300 / 1300 480 / 480 Balance 1300 / 1300 480 / 480 Weight 76.2 kg Intake: IV 100 / 100 Rocephin Inj 2,000 MG In NS Inj 100 / 100 100 ML @ 200 mls/hr IV.SIG Q24H [facility] Rx#:[id number] Oral 1200 / 1200 480 / 480 Other: # Voids 1 # Incontinent Voids 1 3 Date of Last Bowel Movement 04/24/18 04/24/18 04/26/18 - Constitutional no acute distress - Routine HEENT Exam Head: Present: normocephalic - Routine Respiratory Exam Present: CTA bilaterally - Routine Abdominal Exam Present: soft, normoactive bowel sounds. Absent: distended, guarding, firm - Routine Skin Exam Present: dry, warm - Routine Neurological Exam Present: alert - Routine Psychiatric Exam Present: normal affect, cooperative <Merle Tobin - Last Filed: 04/26/18 12:30> Vital signs: Vital Signs 04/25/18 19:51 04/25/18 20:00 04/26/18 00:00 Temperature 97.5 F L 97.0 F L Pulse Rate 90 110 H 98 H Respiratory Rate 27 H 19 18 Blood Pressure 126/89 125/76 Pulse Oximetry 99 94 L 95 04/26/18 04:49 04/26/18 08:00 04/26/18 08:54 Temperature 98.1 F Pulse Rate 50 L 60 80 Respiratory Rate 20 18 20 Blood Pressure 178/87 H Pulse Oximetry 99 98 04/26/18 12:00 04/26/18 12:21 04/26/18 16:15 Temperature 97.1 F L Pulse Rate 72 66 65 Respiratory Rate 18 20 16 Blood Pressure 174/79 H Pulse Oximetry 98 Intake & Output 04/25/18 04/26/18 04/26/18 18:59 06:59 18:59 Intake Total 1300 / 1300 480 / 480 100 / 100 Balance 1300 / 1300 480 / 480 100 / 100 Weight 76.2 kg Intake: IV 100 / 100 100 / 100 Rocephin Inj 2,000 MG In NS Inj 100 / 100 100 / 100 100 ML @ 200 mls/hr IV.SIG Q24H [facility] Rx#:[id number] Oral 1200 / 1200 480 / 480 Other: # Voids 1 # Incontinent Voids 1 3 Date of Last Bowel Movement 04/24/18 04/24/18 04/26/18 <Shanice Santacruz - Last Filed: 04/26/18 16:55> Results - Labs CBC & Chem 7: 04/26/18 06:22 04/26/18 06:22 Laboratory Results - last 24 hr 04/26/18 04/26/18 06:22 06:22 WBC 8.5 RBC 3.74 L Hgb 10.9 L Hct 31.8 L MCV 85.2 MCH 29.3 MCHC 34.4 RDW 13.6 Plt Count 123 L MPV 7.8 Neut % (Auto) 89.8 H Lymph % (Auto) 4.8 L [place] % (Auto) 5.3 Eos % (Auto) 0.0 Baso % (Auto) 0.1 Neut # (Auto) 7.7 Lymph # (Auto) 0.4 L [place] # (Auto) 0.5 Eos # (Auto) 0.0 Baso # (Auto) 0.0 WBC Differential . Differential Comment Auto diff final Sodium 139 Potassium 4.1 Chloride 103 Carbon Dioxide 29.7 Anion Gap 6 BUN 29 H Creatinine 0.93 Estimated GFR 77 L Random Glucose 252 H Calcium 8.0 L D Phosphorus 2.3 L Magnesium 2.1 Total Bilirubin 0.3 AST 19 ALT 33 Alkaline Phosphatase 66 Total Protein 5.5 L D Albumin 2.5 L Microbiology 04/22/18 11:45 Blood - Peripheral Aerobic Blood Culture - Preliminary No growth in 4 days 04/22/18 11:45 Blood - Peripheral Anaerobic Blood Culture - Preliminary No growth in 4 days 04/22/18 11:30 Blood - Peripheral Aerobic Blood Culture - Preliminary No growth in 4 days 04/22/18 11:30 Blood - Peripheral Anaerobic Blood Culture - Preliminary No growth in 4 days <Merle Tobin - Last Filed: 04/26/18 12:30> - Labs CBC & Chem 7: 04/26/18 06:22 04/26/18 06:22 Laboratory Results - last 24 hr 04/26/18 04/26/18 04/26/18 06:22 06:22 16:27 WBC 8.5 RBC 3.74 L Hgb 10.9 L Hct 31.8 L MCV 85.2 MCH 29.3 MCHC 34.4 RDW 13.6 Plt Count 123 L MPV 7.8 Neut % (Auto) 89.8 H Lymph % (Auto) 4.8 L [place] % (Auto) 5.3 Eos % (Auto) 0.0 Baso % (Auto) 0.1 Neut # (Auto) 7.7 Lymph # (Auto) 0.4 L [place] # (Auto) 0.5 Eos # (Auto) 0.0 Baso # (Auto) 0.0 WBC Differential . Differential Comment Auto diff final Sodium 139 Potassium 4.1 Chloride 103 Carbon Dioxide 29.7 Anion Gap 6 BUN 29 H Creatinine 0.93 Estimated GFR 77 L POC Glucose 316 H Random Glucose 252 H Calcium 8.0 L D Phosphorus 2.3 L Magnesium 2.1 Total Bilirubin 0.3 AST 19 ALT 33 Alkaline Phosphatase 66 Total Protein 5.5 L D Albumin 2.5 L Microbiology 04/22/18 11:45 Blood - Peripheral Aerobic Blood Culture - Preliminary No growth in 4 days 04/22/18 11:45 Blood - Peripheral Anaerobic Blood Culture - Preliminary No growth in 4 days 04/22/18 11:30 Blood - Peripheral Aerobic Blood Culture - Preliminary No growth in 4 days 04/22/18 11:30 Blood - Peripheral Anaerobic Blood Culture - Preliminary No growth in 4 days <Shanice Santacruz - Last Filed: 04/26/18 16:55> Assessment and Plan - Plan Rectal mass soft tissue density in the rectal wall between 1:00 and 6 o'clock position. Discussed with patient and the need to evaluate further for primary tumor versus metastasis. Discussed with patient colonoscopy when he is stable and evaluated and cleared per ID and pulmonary medicine. No abdominal pain no diarrhea no constipation, formed brown stools, no melena. Flu B currently being treated per pulmonary and ID meds Severe emphysema, COPD home O2 at 3 L, currently shows low volumes but no acute shortness of breath with talking. Diverticulosis seen on CT scan, patient denies any abdominal pain Anemia currently hemoglobin 11.5 the patient denies any obvious bleeding, could be acute on chronic Weight loss 30 pounds within the past year History of prostate cancer around year 1999, treatment and monitoring sense without any issues up until the past year patient notes elevated [employer] level. Leukocytosis, possible gram-negative sepsis, bacteria, cultures pending, appreciate ID input 04/24/2018, patient appears to be showing gradual improvement with less work of effort with breathing O2 is at nasal cannula And no abdominal pain no nausea no vomiting, GI continues to evaluate rectal mass when patient is safe, currently being treated with Tamiflu for flu B, day 2. After day 5 patient should be safe for colonoscopy and rectal biopsies. Plan colonoscopy around unless patient is discharged and colonoscopy would need to be done in the [facility] Patient also being monitored for gram-negative sepsis. Current labs show hemoglobin stable 11.1 and WBC count 12.5 04/25/2018-patient awake and alert sitting up in bed watching television. O2 nasal cannula in place, scattered wheezes present but no acute distress noted. Denies abdominal pain nausea or vomiting. Possible colonoscopy planned for . Patient on day 3 of treatment for flu B (Tamiflu). 04/26/2018-patient sitting up in bed awake and alert. O2 at 2 L nasal cannula in place, patient denies cough but endorses mild shortness of breath on exertion. Plan for possible colonoscopy on patient on day 3 of Tamiflu. Hemoglobin 10.9 hematocrit 31.8 Plan -Cardiac diet as tolerated -Planning for colonoscopy on -for further evaluation of density in the rectal wall - Continue bowel regimen -Patient on day 4 of Tamiflu treatment for flu B -Supportive care -Further recommendations to follow This patient has been seen by myself and Dr. Santacruz and this note is written on his behalf - Attending Attestation Dr. Santacruz <Merle Tobin - Last Filed: 04/26/18 12:30> - Plan Patient was seen and examined, agree with above note, still short of breath, we will do colonoscopy on after 5 days of Tamiflu treatment <Shanice Santacruz - Last Filed: 04/26/18 16:55>
[2018-04-26] MEDS ORDERED: Sodium Chloride 0.9% 2 ML Flush PRN IV.FLUSH (12:45)
[2018-04-26] MEDS ORDERED: Dextrose 50% in Water 50 ML Vial IV.PUSH PRN (14:19)
[2018-04-26] MEDS ORDERED: Potassium Phosphate 500 MG Soluble Tablet PO ONE (14:46)
--- NOTE | 2018-04-26 17:00 | P.PNIM ---
Subjective Interval history: The patient was resting in bed comfortably. He said his breathing was okay. He says he does get out of breath with minimal exertion. He says his sciatica bothers him from time to time. Discussed with nursing. Physical Exam Vital signs: Vital Signs 04/25/18 19:51 04/25/18 20:00 04/26/18 00:00 Temperature 97.5 F L 97.0 F L Pulse Rate 90 110 H 98 H Respiratory Rate 27 H 19 18 Blood Pressure 126/89 125/76 Pulse Oximetry 99 94 L 95 04/26/18 04:49 04/26/18 08:00 04/26/18 08:54 Temperature 98.1 F Pulse Rate 50 L 60 80 Respiratory Rate 20 18 20 Blood Pressure 178/87 H Pulse Oximetry 99 98 04/26/18 12:00 04/26/18 12:21 04/26/18 16:15 Temperature 97.1 F L Pulse Rate 72 66 65 Respiratory Rate 18 20 16 Blood Pressure 174/79 H Pulse Oximetry 98 Intake & Output 04/25/18 04/26/18 04/26/18 18:59 06:59 18:59 Intake Total 1300 / 1300 480 / 480 100 / 100 Balance 1300 / 1300 480 / 480 100 / 100 Weight 76.2 kg Intake: IV 100 / 100 100 / 100 Rocephin Inj 2,000 MG In NS Inj 100 / 100 100 / 100 100 ML @ 200 mls/hr IV.SIG Q24H [facility] Rx#:[id number] Oral 1200 / 1200 480 / 480 Other: # Voids 1 # Incontinent Voids 1 3 Date of Last Bowel Movement 04/24/18 04/24/18 04/26/18 Narrative: GENERAL: NAD. SKIN: Warm and dry. HEAD: Atraumatic. Normocephalic. EYES: Pupils equal and round. No scleral icterus. No injection or drainage. ENT: No nasal bleeding or discharge. Mucous membranes pink and moist. NECK: Trachea midline. No JVD. CARDIOVASCULAR: Regular rate and rhythm. No murmurs rubs or gallops. RESPIRATORY: Diminished bilaterally with bilateral expiratory wheeze. No rales or rhonchi. GASTROINTESTINAL: Abdomen soft, non-tender, nondistended. Bowel sounds present. MUSCULOSKELETAL: Extremities without clubbing, cyanosis, or edema. No obvious deformities. NEUROLOGICAL: Awake and alert. No obvious cranial nerve deficits except hard of hearing. Moves all extremities spontaneously and equally without focal deficit. PSYCH: Mood and affect appropriate. Results - Labs CBC & Chem 7: 04/26/18 06:22 04/26/18 06:22 Laboratory Results - last 24 hr 04/26/18 04/26/18 04/26/18 06:22 06:22 16:27 WBC 8.5 RBC 3.74 L Hgb 10.9 L Hct 31.8 L MCV 85.2 MCH 29.3 MCHC 34.4 RDW 13.6 Plt Count 123 L MPV 7.8 Neut % (Auto) 89.8 H Lymph % (Auto) 4.[address] [place] % (Auto) 5.3 Eos % (Auto) 0.0 Baso % (Auto) 0.1 Neut # (Auto) 7.7 Lymph # (Auto) 0.[address] [place] # (Auto) 0.5 Eos # (Auto) 0.0 Baso # (Auto) 0.0 WBC Differential . Differential Comment Auto diff final Sodium 139 Potassium 4.1 Chloride 103 Carbon Dioxide 29.7 Anion Gap 6 BUN 29 H Creatinine 0.93 Estimated GFR 77 L POC Glucose 316 H Random Glucose 252 H Calcium 8.0 L D Phosphorus 2.3 L Magnesium 2.1 Total Bilirubin 0.3 AST 19 ALT 33 Alkaline Phosphatase 66 Total Protein 5.5 L D Albumin 2.5 L Microbiology 04/22/18 11:45 Blood - Peripheral Aerobic Blood Culture - Preliminary No growth in 4 days 04/22/18 11:45 Blood - Peripheral Anaerobic Blood Culture - Preliminary No growth in 4 days 04/22/18 11:30 Blood - Peripheral Aerobic Blood Culture - Preliminary No growth in 4 days 04/22/18 11:30 Blood - Peripheral Anaerobic Blood Culture - Preliminary No growth in 4 days Assessment and Plan - Plan Possible Rectal mass on CT/abdomen/pelvis Sigmoid diverticulosis Bilateral fat-containing left greater than right inguinal hernia CT abd/men - soft tissue density 2.7 x 2 cm wall of rectum on the left, concerning for malignancy. He also has interval development of mediastinal lymphadenopathy concerning for metastatic disease. GI consult appreciated. Will likely proceed with colonoscopy on . Influenza B/ Gram-negative marisa bacteremia/ Sepsis Source of gram-negative marisa bacteremia and sepsis is not entirely clear. Infectious disease consultation appreciated. -antibiotics/antivirals per ID. -follow culture data. Leukocytosis/acute Normocytic anemia/acute Acute thrombocytopenia H/o prostate cancer with remote history of radiation Holding bicalutamide Noted interval development of mediastinal lymphadenopathy on CT chest. Medical Oncologist is Dr. Madden. Urologist is Dr. Davis. History of prior CVA -negative MRI brain 2015/CT brain 2018 Chronic back pain Mild L4 chronic wedge compression deformity noted on Ct abd/pelvis Acetaminophen 650 mg p.o. every 6 hours as needed fever -Tramadol 50 mg daily scheduled -Tizanidine 2 mg daily/schedule COPD with chronic hypoxemic respiratory failure (3 L home O2)/ Acute COPD exacerbation/ Prior tobacco abuse CT thorax revealed central lobular and portal lobular emphysematous changes. Anterior superior mediastinal lymphadenopathy 2.3 cm. Multiple right rib fractures. -NC titrate for sat >92%. -Albuterol/ipratropium aerosols every 4 hours with albuterol aerosols every 2 hours as needed dyspnea -Budesonide 0.5/2 1 inhalation twice daily. -Methylprednisolone changed to prednisone 20 mg BID. -full stack php developer is Dr. Pollard if needed. Essential hypertension History of sinus tachycardia with PACs Atherosclerotic vascular disease Hyperlipidemia Blood pressure elevation exacerbated by steroids. -Continue atorvastatin 20 mg p.o. daily for hyperlipidemia. -resume home regimen. -clonidine as needed. Hyperglycemia Exacerbated by steroids. -insulin sliding scale, Levemir 10 units HS. -A1c pending. Multiple right-sided rib fractures -Pain control as needed. PROPH: SCDs/heparin 5000 units subcu every 8 hours for DVT prophylaxis. Famotidine po for stress ulcer prophylaxis.
[2018-04-26] MEDS: Insulin NovoLOG Aspart Correctional Sugar Inj SQ SCH ×2 (17:14→21:43)
[2018-04-26 19:28] LABS: Hemoglobin A1c 6.4 % (4.3-6.0)
[2018-04-26] MEDS ORDERED: Insulin Detemir Inj 1,000 UNIT/10 ML Vial SQ SCH (21:00)
[2018-04-26] MEDS: predniSONE 20 MG Tablet PO SCH (21:40)
[2018-04-26] MEDS: Sodium Chloride 0.9% 2 ML Flush BID IV.FLUSH SCH (21:44)
[2018-04-27] MEDS: Heparin - SQ 10,000 UNITS/ML Vial SQ SCH ×3 (06:33→23:01)
[2018-04-27] MEDS: predniSONE 20 MG Tablet PO SCH ×2 (07:59→22:51)
[2018-04-27] MEDS: Famotidine 20 MG Tablet PO SCH ×2 (07:59→22:51)
[2018-04-27] MEDS: Sodium Chloride 0.9% 2 ML Flush BID IV.FLUSH SCH ×2 (08:00→22:58)
[2018-04-27] MEDS: Polyethylene Glycol 3350 17 GM Packet PO SCH (08:01)
[2018-04-27 08:03] LABS: Baso % (Auto) 0.1 % (0.0-2.0); Hemoglobin 11.5 gm/dL (13.0-17.0); Lymph # (Auto) 0.8 th/mm3 (1.0-4.8); Lymph % (Auto) 6.3 % (9.0-44.0); Mean Corpuscular HGB Conc 33.7 % (32.0-36.0); Mean Corpuscular Hemoglobin 28.9 pg (27.0-34.0); Mean Corpuscular Volume 85.7 fL (80.0-100.0); Mean Platelet Volume 7.8 fL (7.0-11.0); Mono % (Auto) 8.6 % (0.0-8.0); Neut # (Auto) 10.1 th/mm3 (1.8-7.7); Platelet Count 127 th/mm3 (150-450); Red Blood Count 3.97 mil/mm3 (4.50-5.90); Red Cell Distribution Width 13.6 % (11.6-17.2); White Blood Count 11.9 th/mm3 (4.0-11.0)
[2018-04-27] MEDS: Oseltamivir Liq 30 MG/5 ML Oral Syringe PO SCH ×2 (08:07→22:59)
[2018-04-27] MEDS: Insulin NovoLOG Aspart Correctional Sugar Inj SQ SCH ×4 (08:09→22:59)
[2018-04-27 08:27] LABS: Alanine Aminotransferase 41 U/L (12-78); Albumin 2.5 g/dL (3.4-5.0); Anion Gap 7 meq/L (5-15); Aspartate Aminotransferase 16 U/L (15-37); Blood Urea Nitrogen 26 mg/dL (7-18); Calcium 8.8 mg/dL (8.5-10.1); Carbon Dioxide 32.7 meq/L (21.0-32.0); Chloride 98 meq/L (98-107); Glomerular Filtration Rate 70 mL/min (>89); Glucose,Random 190 mg/dL (74-106); Magnesium 2.1 mg/dL (1.5-2.5); Phosphorus 2.3 mg/dL (2.5-4.9); Potassium 3.8 meq/L (3.5-5.1); Sodium 138 meq/L (136-145)
[2018-04-27 08:29] LABS: Alkaline Phosphatase 70 U/L (45-117); Total Protein 5.4 g/dL (6.4-8.2)
[2018-04-27 09:25] LABS: Lymphocytes 7 % (9-44); Monocytes 5 % (0-8); Myelocytes 1 % (0-0); Platelet Morphology Normal (Normal); Tallied Nucleated RBC 1 (0-0)
[2018-04-27] MEDS ORDERED: amLODIPine 5 MG Tablet PO SCH (11:15)
--- NOTE | 2018-04-27 11:36 | P.PNGI ---
Subjective Interval history: Patient is sitting up in the bed does have some mild exertional dyspnea with talking but O2 per nasal cannula at 2 L and sats being monitored. Patient states bowel movement on 04/26/2018 with no obvious bleeding soft Eating small amounts of regular food today, no nausea no vomiting Generalized weakness and fatigue, appears to be more chronic <Jada Ochoa - Last Filed: 04/27/18 11:29> Physical Exam Vital signs: Vital Signs 04/26/18 12:00 04/26/18 12:21 04/26/18 16:00 Temperature 97.1 F L 97.9 F Pulse Rate 72 66 95 H Respiratory Rate 18 20 18 Blood Pressure 174/79 H 172/94 H Pulse Oximetry 98 96 04/26/18 16:15 04/26/18 20:00 04/26/18 21:20 Temperature 98.2 F Pulse Rate 65 94 H 73 Respiratory Rate 16 20 16 Blood Pressure 185/94 H Pulse Oximetry 98 98 04/27/18 00:00 04/27/18 04:00 04/27/18 08:00 Temperature 97.9 F 97.5 F L 98.1 F Pulse Rate 51 L 82 89 Respiratory Rate 16 17 19 Blood Pressure 190/86 H 182/99 H 185/90 H Pulse Oximetry 95 100 98 04/27/18 08:05 04/27/18 11:23 04/27/18 11:25 Temperature Pulse Rate 109 H 101 H 87 Respiratory Rate 24 18 Blood Pressure 118/74 Pulse Oximetry 99 Intake & Output 04/26/18 04/27/18 04/27/18 18:59 06:59 18:59 Intake Total 100 / 100 600 / 600 Balance 100 / 100 600 / 600 Weight 76.2 kg Intake: IV 100 / 100 Rocephin Inj 2,000 MG In NS Inj 100 / 100 100 ML @ 200 mls/hr IV.SIG Q24H [facility] Rx#:[id number] Oral 600 / 600 Other: # Voids 1 Date of Last Bowel Movement 04/26/18 04/27/18 - Constitutional mild distress, cachectic, disheveled - Routine HEENT Exam Head: Present: normocephalic ENT: Present: mucous membranes moist - Routine Respiratory Exam Present: decreased breath sounds (O2 at 2 L per nasal cannula) - Routine Cardiovascular Exam Present: S1, S2 - Routine Abdominal Exam Present: soft, normoactive bowel sounds <Jada Ochoa - Last Filed: 04/27/18 11:29> Vital signs: Vital Signs 04/26/18 16:00 04/26/18 16:15 04/26/18 20:00 Temperature 97.9 F 98.2 F Pulse Rate 95 H 65 94 H Respiratory Rate 18 16 20 Blood Pressure 172/94 H 185/94 H Pulse Oximetry 96 98 04/26/18 21:20 04/27/18 00:00 04/27/18 04:00 Temperature 97.9 F 97.5 F L Pulse Rate 73 51 L 82 Respiratory Rate 16 16 17 Blood Pressure 190/86 H 182/99 H Pulse Oximetry 98 95 100 04/27/18 08:00 04/27/18 08:05 04/27/18 11:23 Temperature 98.1 F Pulse Rate 89 109 H 101 H Respiratory Rate 19 24 Blood Pressure 185/90 H 118/74 Pulse Oximetry 98 99 04/27/18 11:25 04/27/18 11:33 Temperature 98.6 F Pulse Rate 87 101 H Respiratory Rate 18 20 Blood Pressure 118/74 Pulse Oximetry 95 Intake & Output 04/26/18 04/27/18 04/27/18 18:59 06:59 18:59 Intake Total 100 / 100 600 / 600 100 / 100 Balance 100 / 100 600 / 600 100 / 100 Weight 76.2 kg Intake: IV 100 / 100 100 / 100 Rocephin Inj 2,000 MG In NS Inj 100 / 100 100 / 100 100 ML @ 200 mls/hr IV.SIG Q24H [facility] Rx#:[id number] Oral 600 / 600 Other: # Voids 1 Date of Last Bowel Movement 04/26/18 04/27/18 <DonykerlineShanice - Last Filed: 04/27/18 15:42> Results - Labs CBC & Chem 7: 04/27/18 06:31 04/27/18 06:31 Laboratory Results - last 24 hr 04/26/18 04/26/18 04/26/18 06:22 16:27 21:39 WBC RBC Hgb Hct MCV MCH MCHC RDW Plt Count MPV Prelim Diff (Auto) Neut % (Auto) Lymph % (Auto) [place] % (Auto) Eos % (Auto) Baso % (Auto) Neut # (Auto) Lymph # (Auto) [place] # (Auto) Eos # (Auto) Baso # (Auto) WBC Differential Seg Neuts % (Manual) Band Neuts % (Manual) Lymphocytes % (Manual) Monocytes % (Manual) Myelocytes % (Man) Abs Neuts (Manual) Nucleated RBCs/100 WBC Differential Comment Platelet Estimate Platelet Morphology Sodium Potassium Chloride Carbon Dioxide Anion Gap BUN Creatinine Estimated GFR POC Glucose 316 H 155 H Random Glucose Hemoglobin A1c 6.4 H Calcium Phosphorus Magnesium Total Bilirubin AST ALT Alkaline Phosphatase Total Protein Albumin 04/27/18 04/27/18 04/27/18 06:31 06:31 08:03 WBC 11.9 H RBC 3.97 L Hgb 11.5 L Hct 34.0 L MCV 85.7 MCH 28.9 MCHC 33.7 RDW 13.6 Plt Count 127 L MPV 7.8 Prelim Diff (Auto) Slide review pending Neut % (Auto) 85.0 H Lymph % (Auto) 6.3 L [place] % (Auto) 8.6 H Eos % (Auto) 0.0 Baso % (Auto) 0.1 Neut # (Auto) 10.1 H Lymph # (Auto) 0.8 L [place] # (Auto) 1.0 H Eos # (Auto) 0.0 Baso # (Auto) 0.0 WBC Differential Manual diff final Seg Neuts % (Manual) 86 H Band Neuts % (Manual) 1 Lymphocytes % (Manual) 7 L Monocytes % (Manual) 5 Myelocytes % (Man) 1 H Abs Neuts (Manual) 10.5 H Nucleated RBCs/100 WBC 1 H Differential Comment . Platelet Estimate Low L Platelet Morphology Normal Sodium 138 Potassium 3.8 Chloride 98 Carbon Dioxide 32.7 H Anion Gap 7 BUN 26 H Creatinine 1.01 Estimated GFR 70 L POC Glucose 179 H Random Glucose 190 H Hemoglobin A1c Calcium 8.8 D Phosphorus 2.3 L Magnesium 2.1 Total Bilirubin 0.3 AST 16 ALT 41 Alkaline Phosphatase 70 Total Protein 5.4 L Albumin 2.5 L 04/27/18 11:05 WBC RBC Hgb Hct MCV MCH MCHC RDW Plt Count MPV Prelim Diff (Auto) Neut % (Auto) Lymph % (Auto) [place] % (Auto) Eos % (Auto) Baso % (Auto) Neut # (Auto) Lymph # (Auto) [place] # (Auto) Eos # (Auto) Baso # (Auto) WBC Differential Seg Neuts % (Manual) Band Neuts % (Manual) Lymphocytes % (Manual) Monocytes % (Manual) Myelocytes % (Man) Abs Neuts (Manual) Nucleated RBCs/100 WBC Differential Comment Platelet Estimate Platelet Morphology Sodium Potassium Chloride Carbon Dioxide Anion Gap BUN Creatinine Estimated GFR POC Glucose 322 H Random Glucose Hemoglobin A1c Calcium Phosphorus Magnesium Total Bilirubin AST ALT Alkaline Phosphatase Total Protein Albumin Microbiology 04/22/18 11:45 Blood - Peripheral Aerobic Blood Culture - Final No growth in 5 days 04/22/18 11:45 Blood - Peripheral Anaerobic Blood Culture - Final No growth in 5 days 04/22/18 11:30 Blood - Peripheral Aerobic Blood Culture - Final No growth in 5 days 04/22/18 11:30 Blood - Peripheral Anaerobic Blood Culture - Final No growth in 5 days <Jada Ochoa - Last Filed: 04/27/18 11:29> - Labs CBC & Chem 7: 04/27/18 06:31 04/27/18 06:31 Laboratory Results - last 24 hr 04/26/18 04/26/18 04/26/18 06:22 16:27 21:39 WBC RBC Hgb Hct MCV MCH MCHC RDW Plt Count MPV Prelim Diff (Auto) Neut % (Auto) Lymph % (Auto) [place] % (Auto) Eos % (Auto) Baso % (Auto) Neut # (Auto) Lymph # (Auto) [place] # (Auto) Eos # (Auto) Baso # (Auto) WBC Differential Seg Neuts % (Manual) Band Neuts % (Manual) Lymphocytes % (Manual) Monocytes % (Manual) Myelocytes % (Man) Abs Neuts (Manual) Nucleated RBCs/100 WBC Differential Comment Platelet Estimate Platelet Morphology Sodium Potassium Chloride Carbon Dioxide Anion Gap BUN Creatinine Estimated GFR POC Glucose 316 H 155 H Random Glucose Hemoglobin A1c 6.4 H Calcium Phosphorus Magnesium Total Bilirubin AST ALT Alkaline Phosphatase Total Protein Albumin 04/27/18 04/27/18 04/27/18 06:31 06:31 08:03 WBC 11.9 H RBC 3.97 L Hgb 11.5 L Hct 34.0 L MCV 85.7 MCH 28.9 MCHC 33.7 RDW 13.6 Plt Count 127 L MPV 7.8 Prelim Diff (Auto) Slide review pending Neut % (Auto) 85.0 H Lymph % (Auto) 6.3 L [place] % (Auto) 8.6 H Eos % (Auto) 0.0 Baso % (Auto) 0.1 Neut # (Auto) 10.1 H Lymph # (Auto) 0.8 L [place] # (Auto) 1.0 H Eos # (Auto) 0.0 Baso # (Auto) 0.0 WBC Differential Manual diff final Seg Neuts % (Manual) 86 H Band Neuts % (Manual) 1 Lymphocytes % (Manual) 7 L Monocytes % (Manual) 5 Myelocytes % (Man) 1 H Abs Neuts (Manual) 10.5 H Nucleated RBCs/100 WBC 1 H Differential Comment . Platelet Estimate Low L Platelet Morphology Normal Sodium 138 Potassium 3.8 Chloride 98 Carbon Dioxide 32.7 H Anion Gap 7 BUN 26 H Creatinine 1.01 Estimated GFR 70 L POC Glucose 179 H Random Glucose 190 H Hemoglobin A1c Calcium 8.8 D Phosphorus 2.3 L Magnesium 2.1 Total Bilirubin 0.3 AST 16 ALT 41 Alkaline Phosphatase 70 Total Protein 5.4 L Albumin 2.5 L 04/27/18 11:05 WBC RBC Hgb Hct MCV MCH MCHC RDW Plt Count MPV Prelim Diff (Auto) Neut % (Auto) Lymph % (Auto) [place] % (Auto) Eos % (Auto) Baso % (Auto) Neut # (Auto) Lymph # (Auto) [place] # (Auto) Eos # (Auto) Baso # (Auto) WBC Differential Seg Neuts % (Manual) Band Neuts % (Manual) Lymphocytes % (Manual) Monocytes % (Manual) Myelocytes % (Man) Abs Neuts (Manual) Nucleated RBCs/100 WBC Differential Comment Platelet Estimate Platelet Morphology Sodium Potassium Chloride Carbon Dioxide Anion Gap BUN Creatinine Estimated GFR POC Glucose 322 H Random Glucose Hemoglobin A1c Calcium Phosphorus Magnesium Total Bilirubin AST ALT Alkaline Phosphatase Total Protein Albumin Microbiology 04/22/18 11:45 Blood - Peripheral Aerobic Blood Culture - Final No growth in 5 days 04/22/18 11:45 Blood - Peripheral Anaerobic Blood Culture - Final No growth in 5 days 04/22/18 11:30 Blood - Peripheral Aerobic Blood Culture - Final No growth in 5 days 04/22/18 11:30 Blood - Peripheral Anaerobic Blood Culture - Final No growth in 5 days <Shanice Santacruz - Last Filed: 04/27/18 15:42> Assessment and Plan - Plan Rectal mass soft tissue density in the rectal wall between 1:00 and 6 o'clock position. Discussed with patient and the need to evaluate further for primary tumor versus metastasis. Discussed with patient colonoscopy when he is stable and evaluated and cleared per ID and pulmonary medicine. No abdominal pain no diarrhea no constipation, formed brown stools, no melena. Flu B currently being treated per pulmonary and ID meds Severe emphysema, COPD home O2 at 3 L, currently shows low volumes but no acute shortness of breath with talking. Diverticulosis seen on CT scan, patient denies any abdominal pain Anemia currently hemoglobin 11.5 the patient denies any obvious bleeding, could be acute on chronic Weight loss 30 pounds within the past year History of prostate cancer around year 1999, treatment and monitoring sense without any issues up until the past year patient notes elevated [employer] level. Leukocytosis, possible gram-negative sepsis, bacteria, cultures pending, appreciate ID input 04/24/2018, patient appears to be showing gradual improvement with less work of effort with breathing O2 is at nasal cannula And no abdominal pain no nausea no vomiting, GI continues to evaluate rectal mass when patient is safe, currently being treated with Tamiflu for flu B, day 2. After day 5 patient should be safe for colonoscopy and rectal biopsies. Plan colonoscopy around unless patient is discharged and colonoscopy would need to be done in the [facility] Patient also being monitored for gram-negative sepsis. Current labs show hemoglobin stable 11.1 and WBC count 12.5 04/25/2018-patient awake and alert sitting up in bed watching television. O2 nasal cannula in place, scattered wheezes present but no acute distress noted. Denies abdominal pain nausea or vomiting. Possible colonoscopy planned for . Patient on day 3 of treatment for flu B (Tamiflu). 04/26/2018-patient sitting up in bed awake and alert. O2 at 2 L nasal cannula in place, patient denies cough but endorses mild shortness of breath on exertion. Plan for possible colonoscopy on patient on day 3 of Tamiflu. Hemoglobin 10.9 hematocrit 31.8 04/27/2018 patient is resting in the bed mild exertional dyspnea with talking but oxygen remains at 2 L per nasal cannula. Discussed again the need for colonoscopy in the a.m. and explained procedure to patient and his . He has some general mild anxiety but states in front of his that he does want to move forward with evaluation and any treatment evaluation for his rectal mass. Patient will have finished day 5 of Tamiflu for his flu B. Plan Diet clear liquids today N.p.o. at midnight Consent for colonoscopy in a.m. Mag citrate prep start, mid afternoon slow with Dulcolax, Monitor for any obvious shortness of breath Continue oxygen on 2-3 L as tolerated but please notify GI if any respiratory symptoms worsen Supportive care Further recommendations to follow after biopsies and colonoscopy. Patient was seen per myself and Dr. Santacruz, note was written on his behalf - <Jada Ochoa - Last Filed: 04/27/18 11:29> - Plan Patient was seen and examined, agree with above note, colonoscopy tomorrow for evaluation of possible rectal cancer and biopsy <Shanice Santacruz - Last Filed: 04/27/18 15:42>
--- NOTE | 2018-04-27 11:44 | P.PNIM ---
Subjective Interval history: The patient was resting comfortably in bed. His family was at the bedside. They wanted to know if the colonoscopy was still scheduled for tomorrow. The patient was concerned about his blood pressure. He said his sciatica was bothering him. Physical Exam Vital signs: Vital Signs 04/26/18 12:00 04/26/18 12:21 04/26/18 16:00 Temperature 97.1 F L 97.9 F Pulse Rate 72 66 95 H Respiratory Rate 18 20 18 Blood Pressure 174/79 H 172/94 H Pulse Oximetry 98 96 04/26/18 16:15 04/26/18 20:00 04/26/18 21:20 Temperature 98.2 F Pulse Rate 65 94 H 73 Respiratory Rate 16 20 16 Blood Pressure 185/94 H Pulse Oximetry 98 98 04/27/18 00:00 04/27/18 04:00 04/27/18 08:00 Temperature 97.9 F 97.5 F L 98.1 F Pulse Rate 51 L 82 89 Respiratory Rate 16 17 19 Blood Pressure 190/86 H 182/99 H 185/90 H Pulse Oximetry 95 100 98 04/27/18 08:05 04/27/18 11:23 04/27/18 11:25 Temperature Pulse Rate 109 H 101 H 87 Respiratory Rate 24 18 Blood Pressure 118/74 Pulse Oximetry 99 04/27/18 11:33 Temperature 98.6 F Pulse Rate 101 H Respiratory Rate 20 Blood Pressure 118/74 Pulse Oximetry 95 Intake & Output 04/26/18 04/27/18 04/27/18 18:59 06:59 18:59 Intake Total 100 / 100 600 / 600 Balance 100 / 100 600 / 600 Weight 76.2 kg Intake: IV 100 / 100 Rocephin Inj 2,000 MG In NS Inj 100 / 100 100 ML @ 200 mls/hr IV.SIG Q24H [facility] Rx#:[id number] Oral 600 / 600 Other: # Voids 1 Date of Last Bowel Movement 04/26/18 04/27/18 Narrative: GENERAL: NAD. SKIN: Warm and dry. HEAD: Atraumatic. Normocephalic. EYES: Pupils equal and round. No scleral icterus. No injection or drainage. ENT: No nasal bleeding or discharge. Mucous membranes pink and moist. NECK: Trachea midline. No JVD. CARDIOVASCULAR: Regular rate and rhythm. No murmurs rubs or gallops. RESPIRATORY: Diminished bilaterally. No rales or rhonchi. GASTROINTESTINAL: Abdomen soft, non-tender, nondistended. Bowel sounds present. MUSCULOSKELETAL: Extremities without clubbing, cyanosis, or edema. No obvious deformities. NEUROLOGICAL: Awake and alert. No obvious cranial nerve deficits except hard of hearing. Moves all extremities spontaneously and equally without focal deficit. PSYCH: Mood and affect appropriate. Results - Labs CBC & Chem 7: 04/27/18 06:31 04/27/18 06:31 Laboratory Results - last 24 hr 04/26/18 04/26/18 04/26/18 06:22 16:27 21:39 WBC RBC Hgb Hct MCV MCH MCHC RDW Plt Count MPV Prelim Diff (Auto) Neut % (Auto) Lymph % (Auto) Burt % (Auto) Eos % (Auto) Baso % (Auto) Neut # (Auto) Lymph # (Auto) Burt # (Auto) Eos # (Auto) Baso # (Auto) WBC Differential Seg Neuts % (Manual) Band Neuts % (Manual) Lymphocytes % (Manual) Monocytes % (Manual) Myelocytes % (Man) Abs Neuts (Manual) Nucleated RBCs/100 WBC Differential Comment Platelet Estimate Platelet Morphology Sodium Potassium Chloride Carbon Dioxide Anion Gap BUN Creatinine Estimated GFR POC Glucose 316 H 155 H Random Glucose Hemoglobin A1c 6.4 H Calcium Phosphorus Magnesium Total Bilirubin AST ALT Alkaline Phosphatase Total Protein Albumin 04/27/18 04/27/18 04/27/18 06:31 06:31 08:03 WBC 11.9 H RBC 3.97 L Hgb 11.5 L Hct 34.0 L MCV 85.7 MCH 28.9 MCHC 33.7 RDW 13.6 Plt Count 127 L MPV 7.8 Prelim Diff (Auto) Slide review pending Neut % (Auto) 85.0 H Lymph % (Auto) 6.3 L Burt % (Auto) 8.6 H Eos % (Auto) 0.0 Baso % (Auto) 0.1 Neut # (Auto) 10.1 H Lymph # (Auto) 0.8 L Burt # (Auto) 1.0 H Eos # (Auto) 0.0 Baso # (Auto) 0.0 WBC Differential Manual diff final Seg Neuts % (Manual) 86 H Band Neuts % (Manual) 1 Lymphocytes % (Manual) 7 L Monocytes % (Manual) 5 Myelocytes % (Man) 1 H Abs Neuts (Manual) 10.5 H Nucleated RBCs/100 WBC 1 H Differential Comment . Platelet Estimate Low L Platelet Morphology Normal Sodium 138 Potassium 3.8 Chloride 98 Carbon Dioxide 32.7 H Anion Gap 7 BUN 26 H Creatinine 1.01 Estimated GFR 70 L POC Glucose 179 H Random Glucose 190 H Hemoglobin A1c Calcium 8.8 D Phosphorus 2.3 L Magnesium 2.1 Total Bilirubin 0.3 AST 16 ALT 41 Alkaline Phosphatase 70 Total Protein 5.4 L Albumin 2.5 L 04/27/18 11:05 WBC RBC Hgb Hct MCV MCH MCHC RDW Plt Count MPV Prelim Diff (Auto) Neut % (Auto) Lymph % (Auto) Burt % (Auto) Eos % (Auto) Baso % (Auto) Neut # (Auto) Lymph # (Auto) Burt # (Auto) Eos # (Auto) Baso # (Auto) WBC Differential Seg Neuts % (Manual) Band Neuts % (Manual) Lymphocytes % (Manual) Monocytes % (Manual) Myelocytes % (Man) Abs Neuts (Manual) Nucleated RBCs/100 WBC Differential Comment Platelet Estimate Platelet Morphology Sodium Potassium Chloride Carbon Dioxide Anion Gap BUN Creatinine Estimated GFR POC Glucose 322 H Random Glucose Hemoglobin A1c Calcium Phosphorus Magnesium Total Bilirubin AST ALT Alkaline Phosphatase Total Protein Albumin Microbiology 04/22/18 11:45 Blood - Peripheral Aerobic Blood Culture - Final No growth in 5 days 04/22/18 11:45 Blood - Peripheral Anaerobic Blood Culture - Final No growth in 5 days 04/22/18 11:30 Blood - Peripheral Aerobic Blood Culture - Final No growth in 5 days 04/22/18 11:30 Blood - Peripheral Anaerobic Blood Culture - Final No growth in 5 days Assessment and Plan - Plan Possible Rectal mass on CT/abdomen/pelvis Sigmoid diverticulosis Bilateral fat-containing left greater than right inguinal hernia CT abd/men - soft tissue density 2.7 x 2 cm wall of rectum on the left, concerning for malignancy. He also has interval development of mediastinal lymphadenopathy concerning for metastatic disease. GI consult appreciated. Will likely proceed with colonoscopy tomorrow. Influenza B/ Gram-negative marisa bacteremia/ Sepsis Source of gram-negative marisa bacteremia and sepsis is not entirely clear. Infectious disease consultation appreciated. -antibiotics/antivirals per ID. -follow culture data. Leukocytosis/acute Normocytic anemia/acute Acute thrombocytopenia H/o prostate cancer with remote history of radiation Holding bicalutamide Noted interval development of mediastinal lymphadenopathy on CT chest. Medical Oncologist is Dr. Madden. Urologist is Dr. Davis. History of prior CVA -negative MRI brain 2015/CT brain 2018 Chronic back pain Mild L4 chronic wedge compression deformity noted on Ct abd/pelvis Acetaminophen 650 mg p.o. every 6 hours as needed fever -Tramadol 50 mg daily scheduled -Trial of Flexeril. -PT. 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 Anterior superior mediastinal lymphadenopathy 2.3 cm. Multiple right rib fractures. -NC titrate for sat >92%. -Albuterol/ipratropium aerosols every 4 hours with albuterol aerosols every 2 hours as needed dyspnea -Budesonide 0.5/2 1 inhalation twice daily. -Methylprednisolone changed to prednisone 20 mg BID. -studio model is Dr. Pollard if needed. Essential hypertension History of sinus tachycardia with PACs Atherosclerotic vascular disease Hyperlipidemia Blood pressure elevation exacerbated by steroids. -Continue atorvastatin 20 mg p.o. daily for hyperlipidemia. -resume home regimen. -clonidine as needed. -add amlodipine 5 mg daily. Hyperglycemia Exacerbated by steroids. A1c 6.4%. -insulin sliding scale, Levemir 10 units HS. -wean steroids as tolerated. -lifestyle modifications. Multiple right-sided rib fractures -Pain control as needed. PROPH: SCDs/heparin 5000 units subcu every 8 hours for DVT prophylaxis. Famotidine po for stress ulcer prophylaxis.
--- NOTE | 2018-04-27 12:58 | P.PNID ---
Subjective Remarks: Patient says he feels okay. at bedside. No complaints. No fever. Denies shortness of breath, nausea, vomiting, headache, abdominal pain. Rectal mass noted. GI following. Plans for colonoscopy tomorrow. 82-year-old white male who presented to the emergency department on 04/21/2018 with profound weakness on 04/21/2018. The patient also reportedly had fevers. His symptoms began 3 days ago. His notes that he stopped eating and was very weak, to the point where it was difficult to get him into a car because he could not support his weight. Nasal wash is positive for influenza B antigen. Antibiotics: ceftriaxone. Past Medical History: PAST MEDICAL HISTORY: COPD, emphysema of the lungs, prostate cancer. PAST SURGICAL HISTORY: History of tonsillectomy. Allergies/Adverse Reactions: Allergies No Known Allergies Allergy (Verified 04/22/18 11:13) Objective Vital Signs 04/26/18 16:00 04/26/18 16:15 04/26/18 20:00 Temperature 97.9 F 98.2 F Pulse Rate 95 H 65 94 H Respiratory Rate 18 16 20 Blood Pressure 172/94 H 185/94 H Pulse Oximetry 96 98 04/26/18 21:20 04/27/18 00:00 04/27/18 04:00 Temperature 97.9 F 97.5 F L Pulse Rate 73 51 L 82 Respiratory Rate 16 16 17 Blood Pressure 190/86 H 182/99 H Pulse Oximetry 98 95 100 04/27/18 08:00 04/27/18 08:05 04/27/18 11:23 Temperature 98.1 F Pulse Rate 89 109 H 101 H Respiratory Rate 19 24 Blood Pressure 185/90 H 118/74 Pulse Oximetry 98 99 04/27/18 11:25 04/27/18 11:33 Temperature 98.6 F Pulse Rate 87 101 H Respiratory Rate 18 20 Blood Pressure 118/74 Pulse Oximetry 95 Intake & Output 04/26/18 04/27/18 04/27/18 18:59 06:59 18:59 Intake Total 100 / 100 600 / 600 Balance 100 / 100 600 / 600 Weight 76.2 kg Intake: IV 100 / 100 Rocephin Inj 2,000 MG In NS Inj 100 / 100 100 ML @ 200 mls/hr IV.SIG Q24H [facility] Rx#:[id number] Oral 600 / 600 Other: # Voids 1 Date of Last Bowel Movement 04/26/18 04/27/18 04/22/18 11:45 Blood - Peripheral Aerobic Blood Culture - Final No growth in 5 days 04/22/18 11:45 Blood - Peripheral Anaerobic Blood Culture - Final No growth in 5 days 04/22/18 11:30 Blood - Peripheral Aerobic Blood Culture - Final No growth in 5 days 04/22/18 11:30 Blood - Peripheral Anaerobic Blood Culture - Final No growth in 5 days Lab - Hematology Results 04/26/18 04/27/18 06:22 06:31 WBC 8.5 11.9 H RBC 3.74 L 3.97 L Hgb 10.9 L 11.5 L Hct 31.8 L 34.0 L MCV 85.2 85.7 MCH 29.3 28.9 MCHC 34.4 33.7 RDW 13.6 13.6 Plt Count 123 L 127 L MPV 7.8 7.8 Prelim Diff (Auto) Slide review pending Neut % (Auto) 89.8 H 85.0 H Lymph % (Auto) 4.8 L 6.3 L Dyer % (Auto) 5.3 8.6 H Eos % (Auto) 0.0 0.0 Baso % (Auto) 0.1 0.1 Neut # (Auto) 7.7 10.1 H Lymph # (Auto) 0.4 L 0.8 L Dyer # (Auto) 0.5 1.0 H Eos # (Auto) 0.0 0.0 Baso # (Auto) 0.0 0.0 WBC Differential . Manual diff final Seg Neuts % (Manual) 86 H Band Neuts % (Manual) 1 Lymphocytes % (Manual) 7 L Monocytes % (Manual) 5 Myelocytes % (Man) 1 H Abs Neuts (Manual) 10.5 H Nucleated RBCs/100 WBC 1 H Differential Comment Auto diff final . Platelet Estimate Low L Platelet Morphology Normal Lab - Chemistry Results 04/26/18 04/26/18 04/26/18 06:22 06:22 16:27 Sodium 139 Potassium 4.1 Chloride 103 Carbon Dioxide 29.7 Anion Gap 6 BUN 29 H Creatinine 0.93 Estimated GFR 77 L POC Glucose 316 H Random Glucose 252 H Hemoglobin A1c 6.4 H Calcium 8.0 L D Phosphorus 2.3 L Magnesium 2.1 Total Bilirubin 0.3 AST 19 ALT 33 Alkaline Phosphatase 66 Total Protein 5.5 L D Albumin 2.5 L 04/26/18 04/27/18 04/27/18 21:39 06:31 08:03 Sodium 138 Potassium 3.8 Chloride 98 Carbon Dioxide 32.7 H Anion Gap 7 BUN 26 H Creatinine 1.01 Estimated GFR 70 L POC Glucose 155 H 179 H Random Glucose 190 H Hemoglobin A1c Calcium 8.8 D Phosphorus 2.3 L Magnesium 2.1 Total Bilirubin 0.3 AST 16 ALT 41 Alkaline Phosphatase 70 Total Protein 5.4 L Albumin 2.5 L 04/27/18 11:05 Sodium Potassium Chloride Carbon Dioxide Anion Gap BUN Creatinine Estimated GFR POC Glucose 322 H Random Glucose Hemoglobin A1c Calcium Phosphorus Magnesium Total Bilirubin AST ALT Alkaline Phosphatase Total Protein Albumin Imaging: ITS Impressions Sinuses CT 04/22/18 00:00 CONCLUSION: 1. There is minimal left frontal sinus mucosal thickening. 2. Otherwise normal aeration of the paranasal sinuses. Abdomen/Pelvis CT 04/22/18 13:29 CONCLUSION: 1. Fat-containing inguinal hernias left greater than right. 2. Diverticulosis without diverticulitis. 3. Trace amount of free fluid in the pelvis. 4. Atherosclerosis. 5. Right renal cortical thinning and left renal cyst. 6. There is abnormal eccentric soft tissue density seen along the rectal wall from 1:00 to 6:00 position concerning for malignancy until proven otherwise. Chest CT 04/22/18 13:29 CONCLUSION: 1. Development of adenopathy in the anterosuperior mediastinum with lymph nodes measuring up to 2.3 cm in diameter. 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 2. Severe emphysema. No new consolidation or effusion. 3. Multiple remote lower right rib fractures. Chest X-Ray 04/24/18 06:00 CONCLUSION: Hyperaerated lungs; no infiltrates seen. Physical Exam: PHYSICAL EXAMINATION: GENERAL: No acute distress. Awake and alert and oriented. HEENT: No icterus. No conjunctival erythema. Oropharynx: moist mucosa without lesions. NECK: Supple without adenopathy. LUNGS: wheezing at r base. HEART: Regular rate and rhythm with a 1/6 systolic murmur at the left sternal border. ABDOMEN: Bowel sounds present. Soft, no tenderness appreciated. EXTREMITIES: No clubbing, cyanosis, or edema. SKIN: No diffuse rash. NEUROLOGIC: No gross focal finding. PSYCHIATRIC: Calm. Cooperative. Assessment and Plan - Plan IMPRESSION: 1. E. coli sepsis. Source not entirely clear. Possibly from rectal mass noted on CT scan. 2. Severe chronic obstructive pulmonary disease. 3. Influenza B. RECOMMENDATIONS: 1. Continue Ceftriaxone until 05/01/18. 2. Monitor temperature and monitor clinical status. I will see PRN.
[2018-04-27] MEDS ORDERED: Magnesium Citrate Liq 300 ML Bottle PO ONE ×2 (14:00→17:00)
[2018-04-27] MEDS: Insulin Detemir Inj 1,000 UNIT/10 ML Vial SQ SCH (22:58)
[2018-04-28] MEDS: Heparin - SQ 10,000 UNITS/ML Vial SQ SCH ×3 (07:54→21:55)
[2018-04-28] MEDS: Polyethylene Glycol 3350 17 GM Packet PO SCH (09:57)
[2018-04-28] MEDS: Sodium Chloride 0.9% 2 ML Flush BID IV.FLUSH SCH ×2 (09:58→21:55)
[2018-04-28] MEDS: Oseltamivir Liq 30 MG/5 ML Oral Syringe PO SCH ×2 (09:59→21:55)
--- NOTE | 2018-04-28 10:53 | P.PNGI ---
Subjective Interval history: Patient laying in bed, seems to be comfortable, less shortness of breath, took part of the prep only Physical Exam Vital signs: Vital Signs 04/27/18 11:23 04/27/18 11:25 04/27/18 11:33 Temperature 98.6 F Pulse Rate 101 H 87 101 H Respiratory Rate 18 20 Blood Pressure 118/74 118/74 Pulse Oximetry 95 04/27/18 16:00 04/27/18 16:15 04/27/18 19:33 Temperature 97.9 F Pulse Rate 95 H 101 H 98 H Respiratory Rate 18 20 20 Blood Pressure 140/94 H Pulse Oximetry 95 95 04/27/18 19:42 04/27/18 20:31 04/27/18 21:31 Temperature 99.0 F 97.8 F 97.7 F Pulse Rate 81 87 111 H Respiratory Rate 16 18 18 Blood Pressure 133/81 133/81 160/82 H Pulse Oximetry 100 100 98 04/28/18 00:00 04/28/18 01:14 04/28/18 04:00 Temperature 98.3 F 97.7 F Pulse Rate 78 93 H 101 H Respiratory Rate 18 18 20 Blood Pressure 149/89 H 161/85 H Pulse Oximetry 94 L 92 L 04/28/18 08:00 04/28/18 08:16 Temperature 98 F Pulse Rate 108 H 100 H Respiratory Rate 20 16 Blood Pressure 177/102 H Pulse Oximetry 100 94 L Intake & Output 04/27/18 04/28/18 04/28/18 18:59 06:59 18:59 Intake Total 820 / 820 Balance 820 / 820 Weight 73.1 kg Intake: IV 100 / 100 Rocephin Inj 2,000 MG In NS Inj 100 / 100 100 ML @ 200 mls/hr IV.SIG Q24H [facility] Rx#:[id number] Oral 720 / 720 Other: # Voids 4 2 Date of Last Bowel Movement 04/27/18 04/27/18 # Bowel Movements 2 - Constitutional no acute distress - Routine HEENT Exam Head: Present: normocephalic, atraumatic Eye: Present: EOMI, PERRL ENT: Present: mucous membranes moist - Routine Neck Exam Present: supple, full ROM - Routine Respiratory Exam Present: decreased breath sounds - Routine Cardiovascular Exam Present: RRR, S1, S2 - Routine Abdominal Exam Present: soft, normoactive bowel sounds - Routine Extremities Exam Present: full ROM - Routine Skin Exam Present: intact, dry - Routine Neurological Exam Present: alert, oriented X3 - Routine Psychiatric Exam Present: normal affect Results - Labs CBC & Chem 7: 04/27/18 06:31 04/27/18 06:31 Laboratory Results - last 24 hr 04/27/18 04/27/18 04/27/18 11:05 16:03 22:55 POC Glucose 322 H 196 H 161 H 04/28/18 09:36 POC Glucose 174 H Microbiology 04/22/18 11:45 Blood - Peripheral Aerobic Blood Culture - Final No growth in 5 days 04/22/18 11:45 Blood - Peripheral Anaerobic Blood Culture - Final No growth in 5 days 04/22/18 11:30 Blood - Peripheral Aerobic Blood Culture - Final No growth in 5 days 04/22/18 11:30 Blood - Peripheral Anaerobic Blood Culture - Final No growth in 5 days Assessment and Plan - Plan Patient was seen and examined, patient had colonoscopy today No sign of GI bleed THANK YOU FOR THE REFERRAL Indication; rectal mass Procedure Performed; Colonoscopy with After informing the patient about procedure and possible complications consent was signed. history and physical were updated. Patient was taken to the procedure room and placed in position. Time out was completed. Adequate sedation was performed by anesthesia provider. Colonoscopy, rectal exam was performed the scope was placed in the rectum advanced under video guide to bed transfer colon The procedure was stopped because of the amount of stool in the colon, then the scope withdrawal slowly with examination of the mucosa to the rectum and retro-flexion was performed, the scope was withdrawal without any immediate complication Findings; Colon poor prep, diverticular disease, the examination was only to the mid transfer: Rectum 3-4 cm mass in the rectum consistent with cancer biopsy was done Recommendations; 1- Supportive care 2- ok to transfer to recovery area then discharge per protocol 3- colonoscopy with longer prep in few weeks 0-[id number] diet 5-Hemoccult on a yearly basis by primary care physician 6-oncology consult 7-colorectal surgery consult 8-follow-up biopsy
[2018-04-28] MEDS: Famotidine 20 MG Tablet PO SCH ×2 (12:05→21:55)
[2018-04-28 12:40] LABS: Baso % (Auto) 0.2 % (0.0-2.0); Eos % (Auto) 0.2 % (0.0-4.0); Hematocrit 40.3 % (39.0-51.0); Hemoglobin 13.2 gm/dL (13.0-17.0); Lymph # (Auto) 0.9 th/mm3 (1.0-4.8); Lymph % (Auto) 8.7 % (9.0-44.0); Mean Corpuscular HGB Conc 32.7 % (32.0-36.0); Mean Corpuscular Hemoglobin 28.8 pg (27.0-34.0); Mean Corpuscular Volume 88.1 fL (80.0-100.0); Mean Platelet Volume 7.6 fL (7.0-11.0); Mono # (Auto) 1.1 th/mm3 (0.0-0.9); Mono % (Auto) 10.8 % (0.0-8.0); Neut # (Auto) 8.1 th/mm3 (1.8-7.7); Neut % (Auto) 80.1 % (16.0-70.0); Platelet Count 135 th/mm3 (150-450); Red Blood Count 4.58 mil/mm3 (4.50-5.90); Red Cell Distribution Width 13.7 % (11.6-17.2); White Blood Count 10.2 th/mm3 (4.0-11.0)
[2018-04-28] MEDS: Insulin NovoLOG Aspart Correctional Sugar Inj SQ SCH ×4 (12:57→22:03)
[2018-04-28 13:00] LABS: Albumin 2.8 g/dL (3.4-5.0); Anion Gap 8 meq/L (5-15); Aspartate Aminotransferase 15 U/L (15-37); Blood Urea Nitrogen 24 mg/dL (7-18); Calcium 8.6 mg/dL (8.5-10.1); Carbon Dioxide 35.4 meq/L (21.0-32.0); Chloride 97 meq/L (98-107); Glomerular Filtration Rate 64 mL/min (>89); Glucose,Random 156 mg/dL (74-106); Magnesium 2.3 mg/dL (1.5-2.5); Potassium 3.5 meq/L (3.5-5.1); Sodium 140 meq/L (136-145)
[2018-04-28 13:01] LABS: Alanine Aminotransferase 45 U/L (12-78)
[2018-04-28 13:03] LABS: Alkaline Phosphatase 82 U/L (45-117); Phosphorus 2.3 mg/dL (2.5-4.9)
--- NOTE | 2018-04-28 13:18 | P.PNIM ---
Subjective Interval history: The patient was resting in bed. He had his procedure done. He said that he was hungry and wanted a hamburger. Discussed with nursing at the bedside. Physical Exam Vital signs: Vital Signs 04/27/18 16:00 04/27/18 16:15 04/27/18 19:33 Temperature 97.9 F Pulse Rate 95 H 101 H 98 H Respiratory Rate 18 20 20 Blood Pressure 140/94 H Pulse Oximetry 95 95 04/27/18 19:42 04/27/18 20:31 04/27/18 21:31 Temperature 99.0 F 97.8 F 97.7 F Pulse Rate 81 87 111 H Respiratory Rate 16 18 18 Blood Pressure 133/81 133/81 160/82 H Pulse Oximetry 100 100 98 04/28/18 00:00 04/28/18 01:14 04/28/18 04:00 Temperature 98.3 F 97.7 F Pulse Rate 78 93 H 101 H Respiratory Rate 18 18 20 Blood Pressure 149/89 H 161/85 H Pulse Oximetry 94 L 92 L 04/28/18 08:00 04/28/18 08:16 Temperature 98 F Pulse Rate 108 H 100 H Respiratory Rate 20 16 Blood Pressure 177/102 H Pulse Oximetry 100 94 L Intake & Output 04/27/18 04/28/18 04/28/18 18:59 06:59 18:59 Intake Total 820 / 820 100 / 100 Balance 820 / 820 100 / 100 Weight 73.1 kg Intake: IV 100 / 100 Rocephin Inj 2,000 MG In NS Inj 100 / 100 100 ML @ 200 mls/hr IV.SIG Q24H [facility] Rx#:[id number] Oral 720 / 720 Anesthesia Amount 100 / 100 Other: # Voids 4 2 Date of Last Bowel Movement 04/27/18 04/27/18 # Bowel Movements 2 Narrative: GENERAL: NAD. SKIN: Warm and dry. HEAD: Atraumatic. Normocephalic. EYES: Pupils equal and round. No scleral icterus. No injection or drainage. ENT: No nasal bleeding or discharge. Mucous membranes pink and moist. NECK: Trachea midline. No JVD. CARDIOVASCULAR: Regular rate and rhythm. No murmurs rubs or gallops. RESPIRATORY: Diminished bilaterally, wheezing noted. No rales or rhonchi. GASTROINTESTINAL: Abdomen soft, non-tender, nondistended. Bowel sounds present. MUSCULOSKELETAL: Extremities without clubbing, cyanosis, or edema. No obvious deformities. NEUROLOGICAL: Awake and alert. No obvious cranial nerve deficits except hard of hearing. Moves all extremities spontaneously and equally without focal deficit. PSYCH: Flat affect. Results - Labs CBC & Chem 7: 04/28/18 11:47 04/28/18 11:47 Laboratory Results - last 24 hr 04/27/18 04/27/18 04/28/18 16:03 22:55 09:36 WBC RBC Hgb Hct MCV MCH MCHC RDW Plt Count MPV Prelim Diff (Auto) Neut % (Auto) Lymph % (Auto) Wallace % (Auto) Eos % (Auto) Baso % (Auto) Neut # (Auto) Lymph # (Auto) Wallace # (Auto) Eos # (Auto) Baso # (Auto) Differential Comment Sodium Potassium Chloride Carbon Dioxide Anion Gap BUN Creatinine Estimated GFR POC Glucose 196 H 161 H 174 H Random Glucose Calcium Phosphorus Magnesium Total Bilirubin AST ALT Alkaline Phosphatase Total Protein Albumin 04/28/18 04/28/18 11:47 11:47 WBC 10.2 RBC 4.58 Hgb 13.2 Hct 40.3 MCV 88.1 MCH 28.8 MCHC 32.7 RDW 13.7 Plt Count 135 L MPV 7.6 Prelim Diff (Auto) Slide review pending Neut % (Auto) 80.1 H Lymph % (Auto) 8.7 L Wallace % (Auto) 10.8 H Eos % (Auto) 0.2 Baso % (Auto) 0.2 Neut # (Auto) 8.1 H Lymph # (Auto) 0.9 L Wallace # (Auto) 1.1 H Eos # (Auto) 0.0 Baso # (Auto) 0.0 Differential Comment . Sodium 140 Potassium 3.5 Chloride 97 L Carbon Dioxide 35.4 H Anion Gap 8 BUN 24 H Creatinine 1.09 Estimated GFR 64 L POC Glucose Random Glucose 156 H Calcium 8.6 Phosphorus 2.3 L Magnesium 2.3 Total Bilirubin 0.4 AST 15 ALT 45 Alkaline Phosphatase 82 Total Protein 6.0 L D Albumin 2.8 L Microbiology 04/22/18 11:45 Blood - Peripheral Aerobic Blood Culture - Final No growth in 5 days 04/22/18 11:45 Blood - Peripheral Anaerobic Blood Culture - Final No growth in 5 days 04/22/18 11:30 Blood - Peripheral Aerobic Blood Culture - Final No growth in 5 days 04/22/18 11:30 Blood - Peripheral Anaerobic Blood Culture - Final No growth in 5 days Assessment and Plan - Plan Rectal mass Sigmoid diverticulosis Bilateral fat-containing left greater than right inguinal hernia CT abd/men - soft tissue density 2.7 x 2 cm wall of rectum on the left, concerning for malignancy. He also has interval development of mediastinal lymphadenopathy concerning for metastatic disease. GI consult appreciated. S/p colonoscopy 04/28. -biopsy pending. -oncology and colorectal surgery consults requested by GI. Influenza B/ Gram-negative marisa bacteremia/ Sepsis Source of gram-negative marisa bacteremia and sepsis is not entirely clear. Infectious disease consultation appreciated. -antibiotics/antivirals per ID. -follow culture data. Leukocytosis/acute Normocytic anemia/acute Acute thrombocytopenia H/o prostate cancer with remote history of radiation -Holding bicalutamide. Noted interval development of mediastinal lymphadenopathy on CT chest. Medical Oncologist is Dr. Madden. Urologist is Dr. Davis. History of prior CVA -negative MRI brain 2015/CT brain 2017 Chronic back pain Mild L4 chronic wedge compression deformity noted on Ct abd/pelvis Acetaminophen 650 mg p.o. every 6 hours as needed fever -Tramadol 50 mg daily scheduled. -Trial of Flexeril. -PT. 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 Anterior superior mediastinal lymphadenopathy 2.3 cm. Multiple right rib fractures. -NC titrate for sat >92%. -Albuterol/ipratropium aerosols every 4 hours with albuterol aerosols every 2 hours as needed dyspnea -Budesonide 0.5/2 1 inhalation twice daily. -Methylprednisolone 40 mg IV q8h. -dietetics professor is Dr. Pollard if needed. Essential hypertension History of sinus tachycardia with PACs Atherosclerotic vascular disease Hyperlipidemia Blood pressure elevation exacerbated by steroids. -Continue atorvastatin 20 mg p.o. daily for hyperlipidemia. -resume home regimen. -clonidine as needed. -increase amlodipine to 10 mg daily. Hyperglycemia Exacerbated by steroids. A1c 6.4%. -insulin sliding scale, Levemir 10 units HS. -wean steroids as tolerated. -lifestyle modifications. Multiple right-sided rib fractures -Pain control as needed. PROPH: SCDs/heparin 5000 units subcu every 8 hours for DVT prophylaxis. Famotidine po for stress ulcer prophylaxis.
[2018-04-28 13:23] LABS: Lymphocytes 9 % (9-44); Metamyelocytes 5 % (0-1); Monocytes 7 % (0-8); Myelocytes 5 % (0-0)
[2018-04-28 13:24] LABS: Platelet Morphology Normal (Normal); RBC Morphology Normal (Normal)
[2018-04-28] MEDS ORDERED: amLODIPine 5 MG Tablet PO ONE (13:30)
[2018-04-28] MEDS ORDERED: Potassium Chloride 25 MEQ Effervescent Tablet PO ONE (13:30)
[2018-04-28] MEDS: MethylPREDNISolone Sod Succinate Inj 40 MG/ML Vial IV.PUSH SCH ×2 (15:19→21:55)
--- NOTE | 2018-04-28 16:27 | MB ---
cc: Joel Sharma MD, Harsh V MD Dontfraid,Volodymyr Flores MD DATE: 04/28/2018 REASON FOR CONSULTATION: Newly diagnosed rectal cancer. HISTORY OF PRESENT ILLNESS: An 82-year-old pleasant gentleman with multiple medical problems including COPD, on home oxygen, emphysema, hypertension, hyperlipidemia and prostate cancer with recurrence, on hormone therapy, who was admitted with a 2-day history of weakness, fatigue, malaise, chills and fevers. His temperature in the ED was 101. He was admitted to the hospital on antibiotics, and influenza screen was positive for influenza B. Subsequently, he was noted to have mediastinal lymphadenopathy on a CT of the chest, which led to a CT of the abdomen and pelvis, which showed a soft tissue density along the rectal wall concerning for malignancy. He was then seen by GI in consultation and had a colonoscopy, which was incomplete, but a rectal mass biopsy was performed and pathology is pending. I was asked to see Mr. Ross in a medical oncology consultation. Mr. Ross is doing well except for chronic fatigue and low rectal pain at this time. He does not know of any active bleeding. He had no constipation or blood in stool or black stools prior to coming to the hospital. REVIEW OF SYSTEMS: Negative for headaches, back pain or bone pain. He has chronic cough and shortness of breath, which is unchanged, and he is requiring oxygen. He has no more fevers at this time. No chills. No abdominal pain, distention, nausea or vomiting. Lower abdominal symptoms as mentioned. No frequency, urgency or hematuria. He does have burning micturition, according to him, but no fevers or chills at this time. PAST MEDICAL HISTORY: As above. In addition, he had a history of prostate cancer, initially diagnosed in 1998, treated with local radiation therapy with no evidence of recurrence of disease until a year ago when the PSA hemant from undetectable to a detectable level, although we do not have the actual numbers at this time. Subsequently, he was started on hormone therapy consisting of Casodex and Lupron in February 2017 by his urologist, Dr. Davis, and he has been followed by him with no medical oncology consultation until this time. Other than that, his medical records mention a history of stroke without residual weakness. PAST SURGICAL HISTORY: He only had a tonsillectomy, foot surgeries and no other major surgeries. SOCIAL HISTORY: Ex-smoker, smoked about 2 packs a day for 40 years and quit 25 years ago. He did not abuse alcohol. 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 FAMILY HISTORY: Noncontributory. PHYSICAL EXAMINATION: GENERAL: This is an elderly gentleman, chronically ill-appearing, in no acute distress. Pallor present. No icterus. LYMPHATIC: No palpable adenopathy in the neck or axilla. HEENT: Significant for dry mucous membranes. No thrush or tonsillar enlargement. NEUROLOGIC: Alert and oriented x 4. No spinal tenderness. Nonfocal. NECK: No JVD. CARDIOVASCULAR: S1, S2, regular rate and rhythm. LUNGS: With decreased air entry bilaterally with hyperresonance to percussion. No crackles or wheeze. ABDOMEN: Soft and nontender without palpable hepatomegaly. No free fluid. No guarding, rigidity or tenderness. No masses. RECTAL: Deferred. EXTREMITIES: No edema or evidence of DVT. SKIN: Dry with bruises at the venipuncture sites only. No spontaneous petechiae. LABORATORY DATA: Significant for a white count of 10.2, hemoglobin 13.2, hematocrit 40.3, platelets 135. Chemistry significant for a glucose of 119, BUN 24, creatinine 1.09, GFR 64. Last liver enzymes were normal with an alkaline phosphatase of 70, albumin 2.5, total bilirubin 0.3, AST 16, ALT 41. GI consultation and colonoscopy findings noted. It was an incomplete colonoscopy, but a rectal mass biopsy could be accomplished and the pathology is pending. A CT of the chest on 04/22/2018 showed mediastinal lymphadenopathy without other masses, and a CT of the abdomen and pelvis on the same date showed an abnormal eccentric soft tissue density around the rectal wall from the 1 o'clock to 6 o'clock positions concerning for malignancy until proven otherwise and no other evidence of metastatic disease, specifically no liver metastasis. ASSESSMENT AND PLAN: An 82-year-old gentleman with a new diagnosis of rectal cancer. Biopsy pathology is pending. He most likely has localized rectal cancer. The lymphadenopathy in the mediastinum does not appear to be related to the rectal cancer at this time as he does not have any intervening metastatic disease and in addition, these lymph nodes in the mediastinum are seen in the setting of a recent infection with influenza as well as possible pneumonia in a patient with chronic obstructive pulmonary disease and emphysema. As such, we will await the pathology of the rectal mass, and if there is no evidence of metastatic disease on PET scan, which can be performed as an outpatient, he can be treated with radiosensitizing chemotherapy with Xeloda. Other options including 5-FU infusion could be considered if he is not felt a candidate for definitive surgery, followed by adjuvant chemoradiation, which ____. Further decisions can be made after the PET CT scan. We will await the pathology results from the biopsy, and we will see him in followup in the hospital if he is discharged prior to obtaining the biopsy results. This was discussed in detail with the patient and his and they agreed to that. I will see him in followup as needed. MD AGUSTÍN Rodriguez/axel/dontae , 02:19 PM , 02:34 PM
[2018-04-28] MEDS: Insulin Detemir Inj 1,000 UNIT/10 ML Vial SQ SCH (21:55)
[2018-04-29] MEDS: MethylPREDNISolone Sod Succinate Inj 40 MG/ML Vial IV.PUSH SCH ×2 (05:45→15:02)
[2018-04-29] MEDS: Heparin - SQ 10,000 UNITS/ML Vial SQ SCH ×3 (05:46→21:46)
[2018-04-29] MEDS: Insulin NovoLOG Aspart Correctional Sugar Inj SQ SCH ×4 (08:14→21:52)
[2018-04-29 08:33] LABS: Baso % (Auto) 0.1 % (0.0-2.0); Eos % (Auto) 0.1 % (0.0-4.0); Hematocrit 38.7 % (39.0-51.0); Hemoglobin 12.8 gm/dL (13.0-17.0); Lymph # (Auto) 0.5 th/mm3 (1.0-4.8); Lymph % (Auto) 5.2 % (9.0-44.0); Mean Corpuscular HGB Conc 33.2 % (32.0-36.0); Mean Corpuscular Hemoglobin 29.5 pg (27.0-34.0); Mean Corpuscular Volume 88.8 fL (80.0-100.0); Mean Platelet Volume 7.6 fL (7.0-11.0); Mono # (Auto) 0.4 th/mm3 (0.0-0.9); Mono % (Auto) 4.3 % (0.0-8.0); Neut # (Auto) 7.9 th/mm3 (1.8-7.7); Neut % (Auto) 90.3 % (16.0-70.0); Platelet Count 126 th/mm3 (150-450); Red Blood Count 4.36 mil/mm3 (4.50-5.90); Red Cell Distribution Width 14.3 % (11.6-17.2); White Blood Count 8.7 th/mm3 (4.0-11.0)
[2018-04-29 08:52] LABS: Alanine Aminotransferase 38 U/L (12-78); Albumin 2.6 g/dL (3.4-5.0); Anion Gap 6 meq/L (5-15); Aspartate Aminotransferase 12 U/L (15-37); Blood Urea Nitrogen 24 mg/dL (7-18); Calcium 8.4 mg/dL (8.5-10.1); Carbon Dioxide 36.1 meq/L (21.0-32.0); Chloride 97 meq/L (98-107); Glomerular Filtration Rate 66 mL/min (>89); Glucose,Random 163 mg/dL (74-106); Magnesium 2.3 mg/dL (1.5-2.5); Phosphorus 3.3 mg/dL (2.5-4.9); Sodium 139 meq/L (136-145)
[2018-04-29 08:54] LABS: Alkaline Phosphatase 78 U/L (45-117); Total Protein 5.7 g/dL (6.4-8.2)
[2018-04-29] MEDS: Polyethylene Glycol 3350 17 GM Packet PO SCH (09:17)
[2018-04-29] MEDS: Famotidine 20 MG Tablet PO SCH ×2 (09:22→21:45)
[2018-04-29] MEDS: Sodium Chloride 0.9% 2 ML Flush BID IV.FLUSH SCH ×2 (09:22→21:46)
[2018-04-29] MEDS: amLODIPine 10 MG Tablet PO SCH (09:22)
[2018-04-29] MEDS: Oseltamivir Liq 30 MG/5 ML Oral Syringe PO SCH ×2 (09:50→21:45)
[2018-04-29 10:00] LABS: Lymphocytes 4 % (9-44); Metamyelocytes 2 % (0-1); Monocytes 1 % (0-8); Myelocytes 1 % (0-0)
[2018-04-29 10:01] LABS: Platelet Estimate Normal (Normal); Platelet Morphology Normal (Normal)
--- NOTE | 2018-04-29 11:44 | P.PNCS ---
Subjective Interval history: afebrile, VSS UO good Work-up reviewed Mult med problems - found to have rectal cancer, not obstructing, Bx pending ?nodes in mediastinum Hx prostate cancer many years ago Objective Result Diagrams: 04/29/18 07:35 04/29/18 07:35 Objective Remarks: PE alert, SOB Abd - soft, doughy, non-tender, no mass Rectal - mass mid rectum, non-obstructing Assessment and Plan - Plan Imp: rectal cancer - bx pending, make sure its not prostate chest lymph nodes? bx necessary consult Oncology/Radiation
--- NOTE | 2018-04-29 16:09 | P.PNIM ---
Subjective Interval history: The patient said he talked with a few different doctors today. He said he wants to be back to normal but does not think that is going to happen. Discussed with nursing. Physical Exam Vital signs: Vital Signs 04/28/18 16:00 04/28/18 20:00 04/29/18 00:00 Temperature 98.5 F 97.6 F 97.3 F L Pulse Rate 99 H 88 77 Respiratory Rate 20 17 17 Blood Pressure 113/66 136/67 166/81 H Pulse Oximetry 100 100 94 L 04/29/18 01:47 04/29/18 08:00 04/29/18 08:44 Temperature 97.4 F L Pulse Rate 91 H 84 82 Respiratory Rate 20 17 18 Blood Pressure 164/77 H Pulse Oximetry 91 L 93 L 04/29/18 12:00 Temperature 97.6 F Pulse Rate 75 Respiratory Rate 17 Blood Pressure 140/62 Pulse Oximetry 98 Intake & Output 04/28/18 04/29/18 04/29/18 18:59 06:59 18:59 Intake Total 200 / 200 500 / 500 Balance 200 / 200 500 / 500 Weight 73.1 kg Intake: IV 100 / 100 Rocephin Inj 2,000 MG In NS Inj 100 / 100 100 ML @ 200 mls/hr IV.SIG Q24H [facility] Rx#:[id number] Oral 500 / 500 Anesthesia Amount 100 / 100 Other: # Voids 4 # Incontinent Voids 6 Date of Last Bowel Movement 04/27/18 04/29/18 # Bowel Movements 1 Narrative: GENERAL: NAD. SKIN: Warm and dry. HEAD: Atraumatic. Normocephalic. EYES: Pupils equal and round. No scleral icterus. No injection or drainage. ENT: No nasal bleeding or discharge. Mucous membranes pink and moist. NECK: Trachea midline. No JVD. CARDIOVASCULAR: Regular rate and rhythm. No murmurs rubs or gallops. RESPIRATORY: Diminished bilaterally, wheezing noted. No rales or rhonchi. GASTROINTESTINAL: Abdomen soft, non-tender, nondistended. Bowel sounds present. MUSCULOSKELETAL: Extremities without clubbing, cyanosis, or edema. No obvious deformities. NEUROLOGICAL: Awake and alert. No obvious cranial nerve deficits except hard of hearing. Moves all extremities spontaneously and equally without focal deficit. PSYCH: Flat affect. Results - Labs CBC & Chem 7: 04/29/18 07:35 04/29/18 07:35 Laboratory Results - last 24 hr 04/28/18 04/28/18 04/29/18 18:29 22:03 07:35 WBC 8.7 RBC 4.36 L Hgb 12.8 L Hct 38.7 L MCV 88.8 MCH 29.5 MCHC 33.2 RDW 14.3 Plt Count 126 L MPV 7.6 Prelim Diff (Auto) Slide review pending Neut % (Auto) 90.3 H Lymph % (Auto) 5.2 L Hendry % (Auto) 4.3 Eos % (Auto) 0.1 Baso % (Auto) 0.1 Neut # (Auto) 7.9 H Lymph # (Auto) 0.5 L Hendry # (Auto) 0.4 Eos # (Auto) 0.0 Baso # (Auto) 0.0 WBC Differential Manual diff final Seg Neuts % (Manual) 92 H Lymphocytes % (Manual) 4 L Monocytes % (Manual) 1 Metamyelocytes % (Man) 2 H Myelocytes % (Man) 1 H Abs Neuts (Manual) 8.3 H Differential Comment . Platelet Estimate Normal Platelet Morphology Normal Sodium Potassium Chloride Carbon Dioxide Anion Gap BUN Creatinine Estimated GFR POC Glucose 130 H 152 H Random Glucose Calcium Phosphorus Magnesium Total Bilirubin AST ALT Alkaline Phosphatase Total Protein Albumin 04/29/18 04/29/18 04/29/18 07:35 08:06 12:11 WBC RBC Hgb Hct MCV MCH MCHC RDW Plt Count MPV Prelim Diff (Auto) Neut % (Auto) Lymph % (Auto) Hendry % (Auto) Eos % (Auto) Baso % (Auto) Neut # (Auto) Lymph # (Auto) Hendry # (Auto) Eos # (Auto) Baso # (Auto) WBC Differential Seg Neuts % (Manual) Lymphocytes % (Manual) Monocytes % (Manual) Metamyelocytes % (Man) Myelocytes % (Man) Abs Neuts (Manual) Differential Comment Platelet Estimate Platelet Morphology Sodium 139 Potassium 4.0 Chloride 97 L Carbon Dioxide 36.1 H Anion Gap 6 BUN 24 H Creatinine 1.07 Estimated GFR 66 L POC Glucose 146 H 267 H Random Glucose 163 H Calcium 8.4 L Phosphorus 3.3 D Magnesium 2.3 Total Bilirubin 0.3 AST 12 L ALT 38 Alkaline Phosphatase 78 Total Protein 5.7 L Albumin 2.6 L Assessment and Plan - Plan Rectal mass Sigmoid diverticulosis Bilateral fat-containing left greater than right inguinal hernia CT abd/men - soft tissue density 2.7 x 2 cm wall of rectum on the left, concerning for malignancy. He also has interval development of mediastinal lymphadenopathy concerning for metastatic disease. GI consult appreciated. S/p colonoscopy 04/28. Oncology and colorectal surgery consults appreciated. -biopsy pending. -radiation oncology consult pending. Influenza B/ Gram-negative marisa bacteremia/ Sepsis Source of gram-negative marisa bacteremia and sepsis is not entirely clear. Infectious disease consultation appreciated. -antibiotics/antivirals per ID. -follow culture data. Leukocytosis/Normocytic anemia/Acute thrombocytopenia/H/o prostate cancer with remote history of radiation Noted interval development of mediastinal lymphadenopathy on CT chest. Medical Oncologist is Dr. Madden. Urologist is Dr. Davis. -Holding bicalutamide. -oncology following. History of prior CVA -negative MRI brain 2015/CT brain 2017 Chronic back pain Mild L4 chronic wedge compression deformity noted on Ct abd/pelvis Acetaminophen 650 mg p.o. every 6 hours as needed fever -Tramadol 50 mg daily scheduled. -Trial of Flexeril. -PT. 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 Anterior superior mediastinal lymphadenopathy 2.3 cm. Multiple right rib fractures. -NC titrate for sat >92%. -Albuterol/ipratropium aerosols every 4 hours with albuterol aerosols every 2 hours as needed dyspnea -Budesonide 0.5/2 1 inhalation twice daily. -Methylprednisolone changed to prednisone 20 mg BID 04/29. -gang drill operator is Dr. Pollard if needed. Essential hypertension History of sinus tachycardia with PACs Atherosclerotic vascular disease Hyperlipidemia Blood pressure elevation exacerbated by steroids. -Continue atorvastatin 20 mg p.o. daily for hyperlipidemia. -resume home regimen. -clonidine as needed. -increased amlodipine to 10 mg daily. Hyperglycemia Exacerbated by steroids. A1c 6.4%. -insulin sliding scale, Levemir 10 units HS. -wean steroids as tolerated. -lifestyle modifications. Multiple right-sided rib fractures -Pain control as needed. PROPH: SCDs/heparin 5000 units subcu every 8 hours for DVT prophylaxis. Famotidine po for stress ulcer prophylaxis. Discharge Planning: Await oncology/colorectal surgery work-up. Cosme evaluating pt.
--- NOTE | 2018-04-29 17:52 | P.CON ---
History of Present Illness Service: radiation oncology Primary Care Provider: Lorraine Saba MD Chief Complaint: Fever, shortness of breath History of Present Illness: Rectal mass. Seems like malignancy. Pathology is pending. He notes prior radiotherapy for prostate cancer. [facility] - History History Provided By: Patient - Medical History Medical History: Medical History (Last Reviewed 04/26/18 @ 07:53 by Alina Hanks) HLD (hyperlipidemia) HTN (hypertension) Prostate cancer Stroke COPD (chronic obstructive pulmonary disease) Emphysema of lung - Surgical History Surgical History: Surgical History (Last Reviewed 04/26/18 @ 07:53 by Alina Hanks) Hx of tonsillectomy - Family History Family History: Family History (Last Reviewed 04/23/18 @ 12:50 by Reji Beard MD) Father No significant medical problems Mother Lung cancer - Tobacco History Second Hand Smoke Exposure: No Tobacco Use In Past 30 Days: No Smoking Status: Former smoker Tobacco Type: Cigarettes Years Smoked: 40 Smoking End Date: 25 years ago - Alcohol History How Often Do You Have a Drink Containing Alcohol: 2 to 3 times a week - Substance Use History Substance History: No History of Abuse - Travel History Recent Travel in the [place] Within the Last 8 Weeks: No Recent Travel Out of the Country Within the Last 8 Weeks: No - Immunization History Tetanus Immunization: <5 Years Hx Influenza Vaccine This Season: Yes Medications and Allergies Active Medications: Active Medications Acetaminophen (Tylenol) 650 mg PO Q6H PRN PRN Reason: TEMPERATURE > 101 F Last Admin: 04/23/18 21:03 Dose: 650 mg Albuterol (Duoneb Neb (Arnulfo)) 1 ampul NEB Q4HR NEB [facility] Last Admin: 04/29/18 16:17 Dose: 1 ampul Albuterol (Albuterol Neb (Prn)) 2.5 mg NEB Q2HR NEB PRN PRN Reason: wheezing Amlodipine Besylate (Norvasc) 10 mg PO DAILY [facility] Last Admin: 04/29/18 09:22 Dose: 10 mg Atorvastatin Calcium (Lipitor) 20 mg PO DAILY [facility] Last Admin: 04/29/18 09:21 Dose: 20 mg Budesonide (Pulmocort Respule Neb) 0.5 mg NEB Q12HR NEB [facility] Last Admin: 04/29/18 08:41 Dose: 0.5 mg Clonidine HCl (Catapres) 0.1 mg PO Q6H PRN PRN Reason: SBP> OR = 180, DBP> OR = 100 Last Admin: 04/28/18 12:57 Dose: 0.1 mg Cyclobenzaprine HCl (Flexeril) 5 mg PO Q8H PRN PRN Reason: MUSCLE SPASM Dextrose (D50w Vial) 50 ml IV.PUSH UNSCH PRN PRN Reason: PER HYPOGLYCEMIA PROTOCOL Famotidine (Pepcid) 20 mg PO BID [facility] Last Admin: 04/29/18 09:22 Dose: 20 mg Glucagon (Glucagon Inj) 1 mg OTHER PRN PRN PRN Reason: for Hypoglycemia Protocol Heparin Sodium (Porcine) (Heparin Inj) 5,000 units SQ Q8HR [facility] Last Admin: 04/29/18 13:10 Dose: 5,000 units Hydrochlorothiazide (Microzide) 12.5 mg PO DAILY [facility] Last Admin: 04/29/18 09:22 Dose: 12.5 mg Magnesium Sulfate 4 gm/ Sodium (Chloride) 100 mls @ 50 mls/hr IV.SIG UNSCH PRN PRN Reason: For Magnesium 0.9 - 1.1 mg/dL Magnesium Sulfate 2 gm/ Sodium (Chloride) 100 mls @ 50 mls/hr IV.SIG UNSCH PRN PRN Reason: For Magnesium 1.2 - 1.6 mg/dL Sodium Phosphate 30 mmol/ (Sodium Chloride) 260 mls @ 42 mls/hr IV.SIG UNSCH PRN PRN Reason: For Phosphorus < 2.5 mg/dL Ceftriaxone Sodium 2,000 mg/ (Sodium Chloride) 100 mls @ 200 mls/hr IV.SIG Q24H [facility] Last Admin: 04/29/18 12:09 Dose: 200 mls/hr Insulin Aspart (Novolog Insulin Correctional Sugar Inj) 0 unit SQ ACHS [facility]; Protocol Last Admin: 04/29/18 17:47 Dose: 1 unit Insulin Detemir (Levemir Inj) 15 unit SQ HS [facility] Last Admin: 04/28/18 21:55 Dose: 15 unit Losartan Potassium (Cozaar) 100 mg PO DAILY [facility] Last Admin: 04/29/18 09:22 Dose: 100 mg Magnesium Oxide (Mag-Ox) 800 mg PO UNSCH PRN PRN Reason: For Magnesium 1.2 - 1.6 mg/dL Metoprolol Succinate (Toprol Xl) 25 mg PO DAILY [facility] Last Admin: 04/29/18 09:21 Dose: 25 mg Nitroglycerin (Nitro-Bid 2% Oint) 2 inch TOPICAL Q6HR PRN PRN Reason: Sbp>165, Dbp>90 Ondansetron HCl (Zofran Inj) 4 mg IV.PUSH Q6H PRN PRN Reason: NAUSEA OR VOMITING Oseltamivir Phosphate (Tamiflu Liq) 30 mg PO BID [facility] Last Admin: 04/29/18 09:50 Dose: 30 mg Oxycodone HCl (Roxicodone) 5 mg PO Q6H PRN PRN Reason: BREAKTHROUGH PAIN Last Admin: 04/28/18 18:00 Dose: 5 mg Polyethylene Glycol (Miralax) 17 gm PO DAILY [facility] Last Admin: 04/29/18 09:17 Dose: Not Given Prednisone (Deltasone) 20 mg PO BID [facility] Sodium Chloride (Ns Flush) 2 ml IV.FLUSH BID [facility] Last Admin: 04/29/18 09:22 Dose: 2 ml Sodium Chloride (Ns Flush) 2 ml IV.FLUSH PRN PRN PRN Reason: FLUSH AFTER USING IV ACCESS Tramadol HCl (Ultram) 50 mg PO DAILY [facility] Last Admin: 04/29/18 09:21 Dose: 50 mg Vitamin D (Vitamin D3) 1,000 unit PO DAILY [facility] Last Admin: 04/29/18 09:21 Dose: 1,000 unit Allergies Allergy/AdvReac Type Severity Reaction Status Date / Time No Known Allergies Allergy Verified 04/22/18 11:13 Home Medications Medication Instructions Recorded Confirmed Type atorvastatin [Lipitor] 20 mg PO DAILY 04/21/18 04/22/18 History bicalutamide 50 mg PO DAILY 04/21/18 04/22/18 History bicalutamide 50 mg PO DAILY 04/21/18 04/22/18 History cholecalciferol (vitamin D3) 1,000 unit PO DAILY 04/21/18 04/22/18 History [Vitamin D3] irbesartan [Avapro] 150 mg PO DAILY 04/21/18 04/22/18 History labetalol 200 mg PO DAILY 04/21/18 04/22/18 History metoprolol watson-hydrochlorothiaz 1 tab PO DAILY 04/21/18 04/22/18 History naproxen sodium [Aleve] 220 mg PO BID PRN 04/21/18 04/22/18 History tizanidine 2 mg PO DAILY 04/21/18 04/22/18 History tramadol 50 mg PO DAILY 04/21/18 04/22/18 History Physical Exam Vital signs: Vital Signs 04/28/18 20:00 04/29/18 00:00 04/29/18 01:47 Temperature 97.6 F 97.3 F L Pulse Rate 88 77 91 H Respiratory Rate 17 17 20 Blood Pressure 136/67 166/81 H Pulse Oximetry 100 94 L 04/29/18 08:00 04/29/18 08:44 04/29/18 12:00 Temperature 97.4 F L 97.6 F Pulse Rate 84 82 75 Respiratory Rate 17 18 17 Blood Pressure 164/77 H 140/62 Pulse Oximetry 91 L 93 L 98 04/29/18 16:00 04/29/18 16:19 Temperature 97.9 F Pulse Rate 112 H 88 Respiratory Rate 17 18 Blood Pressure 122/58 L Pulse Oximetry 97 Intake & Output 04/28/18 04/29/18 04/29/18 18:59 06:59 18:59 Intake Total 200 / 200 500 / 500 Balance 200 / 200 500 / 500 Weight 73.1 kg Intake: IV 100 / 100 Rocephin Inj 2,000 MG In NS Inj 100 / 100 100 ML @ 200 mls/hr IV.SIG Q24H [facility] Rx#:[id number] Oral 500 / 500 Anesthesia Amount 100 / 100 Other: # Voids 4 # Incontinent Voids 6 Date of Last Bowel Movement 04/27/18 04/29/18 # Bowel Movements 1 Assessment and Plan - Plan Await pathology. Likely no role pelvic xrt. Discussed with dr vega. perhaps role will exist systemic therapy. We will follow up pending final pathology
[2018-04-29] MEDS: predniSONE 20 MG Tablet PO SCH (21:46)
[2018-04-29] MEDS: Insulin Detemir Inj 1,000 UNIT/10 ML Vial SQ SCH (21:46)
[2018-04-30] MEDS: Heparin - SQ 10,000 UNITS/ML Vial SQ SCH ×3 (05:32→22:42)
[2018-04-30] MEDS: amLODIPine 10 MG Tablet PO SCH (08:41)
[2018-04-30] MEDS: Insulin NovoLOG Aspart Correctional Sugar Inj SQ SCH ×4 (08:41→20:53)
[2018-04-30] MEDS: Famotidine 20 MG Tablet PO SCH ×2 (08:41→20:52)
[2018-04-30] MEDS: predniSONE 20 MG Tablet PO SCH ×2 (08:41→20:52)
[2018-04-30] MEDS: Oseltamivir Liq 30 MG/5 ML Oral Syringe PO SCH ×2 (08:41→20:52)
[2018-04-30] MEDS: Polyethylene Glycol 3350 17 GM Packet PO SCH (08:45)
[2018-04-30] MEDS: Sodium Chloride 0.9% 2 ML Flush BID IV.FLUSH SCH ×2 (08:46→20:51)
--- NOTE | 2018-04-30 09:56 | P.PNIM ---
Subjective Interval history: f/u; rectal cancer in no acute distress. complaining of mild back pain. no abdominal pain. Physical Exam Vital signs: Vital Signs 04/29/18 12:00 04/29/18 16:00 04/29/18 16:19 Temperature 97.6 F 97.9 F Pulse Rate 75 112 H 88 Respiratory Rate 17 17 18 Blood Pressure 140/62 122/58 L Pulse Oximetry 98 97 04/29/18 20:00 04/29/18 20:17 04/30/18 00:11 Temperature 97.8 F 98.0 F Pulse Rate 83 61 79 Respiratory Rate 18 15 22 Blood Pressure 134/66 144/81 H Pulse Oximetry 99 98 96 04/30/18 07:59 04/30/18 08:00 Temperature 97.9 F Pulse Rate 68 79 Respiratory Rate 23 18 Blood Pressure 164/86 H Pulse Oximetry 97 98 Intake & Output 04/29/18 04/30/18 04/30/18 18:59 06:59 18:59 Intake Total 480 / 480 580 / 580 Balance 480 / 480 580 / 580 Weight 73 kg Intake: IV 100 / 100 Rocephin Inj 2,000 MG In NS Inj 100 / 100 100 ML @ 200 mls/hr IV.SIG Q24H [facility] Rx#:[id number] Oral 480 / 480 480 / 480 Other: # Voids 4 2 Date of Last Bowel Movement 04/29/18 04/29/18 # Bowel Movements 1 - Constitutional no acute distress - Routine Respiratory Exam Present: CTA bilaterally - Routine Cardiovascular Exam Present: RRR - Routine Abdominal Exam Present: soft - Routine Extremities Exam Comments: no pedal edema. - Routine Neurological Exam Present: alert, oriented X3 Results - Labs CBC & Chem 7: 04/29/18 07:35 04/30/18 06:18 Laboratory Results - last 24 hr 04/29/18 04/29/18 04/29/18 07:35 12:11 16:58 WBC Differential Manual diff final Seg Neuts % (Manual) 92 H Lymphocytes % (Manual) 4 L Monocytes % (Manual) 1 Metamyelocytes % (Man) 2 H Myelocytes % (Man) 1 H Abs Neuts (Manual) 8.3 H Platelet Estimate Normal Platelet Morphology Normal Creatinine Estimated GFR POC Glucose 267 H Carcinoembryonic Ag 1.6 04/29/18 04/29/18 04/30/18 17:29 21:49 06:18 WBC Differential Seg Neuts % (Manual) Lymphocytes % (Manual) Monocytes % (Manual) Metamyelocytes % (Man) Myelocytes % (Man) Abs Neuts (Manual) Platelet Estimate Platelet Morphology Creatinine 1.01 Estimated GFR 70 L POC Glucose 191 H 218 H Carcinoembryonic Ag 04/30/18 08:03 WBC Differential Seg Neuts % (Manual) Lymphocytes % (Manual) Monocytes % (Manual) Metamyelocytes % (Man) Myelocytes % (Man) Abs Neuts (Manual) Platelet Estimate Platelet Morphology Creatinine Estimated GFR POC Glucose 182 H Carcinoembryonic Ag Assessment and Plan - Plan Rectal mass Sigmoid diverticulosis Bilateral fat-containing left greater than right inguinal hernia CT abd/men - soft tissue density 2.7 x 2 cm wall of rectum on the left, concerning for malignancy. He also has interval development of mediastinal lymphadenopathy concerning for metastatic disease. GI consult appreciated. S/p colonoscopy 04/28. -biopsy pending. -radiation oncology/oncology consults appreciated; f/u as outpatient. -colorectal surgery following. Influenza B/ Gram-negative marisa bacteremia/ Sepsis Source of gram-negative marisa bacteremia and sepsis is not entirely clear. Infectious disease consultation appreciated. -antibiotics/antivirals per ID. Leukocytosis/Normocytic anemia/Acute thrombocytopenia/H/o prostate cancer with remote history of radiation Noted interval development of mediastinal lymphadenopathy on CT chest. Medical Oncologist is Dr. Madden. Urologist is Dr. Davis. -Holding bicalutamide. -oncology following. History of prior CVA -negative MRI brain 2015/CT brain 2017 Chronic back pain Mild L4 chronic wedge compression deformity noted on Ct abd/pelvis Acetaminophen 650 mg p.o. every 6 hours as needed fever -Tramadol 50 mg daily scheduled. -Trial of Flexeril. -PT. 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 Anterior superior mediastinal lymphadenopathy 2.3 cm. Multiple right rib fractures. -NC titrate for sat >92%. -Albuterol/ipratropium aerosols every 4 hours with albuterol aerosols every 2 hours as needed dyspnea -Budesonide 0.5/2 1 inhalation twice daily. -Methylprednisolone changed to prednisone 20 mg BID 04/29. -tire setter is Dr. Pollard if needed. Essential hypertension History of sinus tachycardia with PACs Atherosclerotic vascular disease Hyperlipidemia Blood pressure elevation exacerbated by steroids. -Continue atorvastatin 20 mg p.o. daily for hyperlipidemia. -resumed home regimen. -clonidine as needed. -continue amlodipine 10 mg daily. Hyperglycemia Exacerbated by steroids. A1c 6.4%. -insulin sliding scale, Levemir 10 units HS. -wean steroids as tolerated. -lifestyle modifications. Multiple right-sided rib fractures -Pain control as needed. PROPH: SCDs/heparin 5000 units subcu every 8 hours for DVT prophylaxis. Famotidine po for stress ulcer prophylaxis. Discharge Planning: SNF vs [facility]- within the next 48 hrs- if stable.
[2018-04-30] MEDS: Insulin Detemir Inj 1,000 UNIT/10 ML Vial SQ SCH (20:52)
[2018-05-01] MEDS: Heparin - SQ 10,000 UNITS/ML Vial SQ SCH ×3 (05:40→21:14)
[2018-05-01] MEDS: Insulin NovoLOG Aspart Correctional Sugar Inj SQ SCH ×4 (08:00→20:12)
[2018-05-01] MEDS: Oseltamivir Liq 30 MG/5 ML Oral Syringe PO SCH ×2 (08:06→21:14)
[2018-05-01] MEDS: amLODIPine 10 MG Tablet PO SCH (08:07)
[2018-05-01] MEDS: Famotidine 20 MG Tablet PO SCH ×2 (08:07→20:12)
[2018-05-01] MEDS: predniSONE 20 MG Tablet PO SCH ×2 (08:07→20:12)
[2018-05-01] MEDS: Polyethylene Glycol 3350 17 GM Packet PO SCH (08:10)
[2018-05-01] MEDS: Sodium Chloride 0.9% 2 ML Flush BID IV.FLUSH SCH ×2 (08:10→20:11)
--- NOTE | 2018-05-01 10:55 | P.PNIM ---
Subjective Interval history: f/u; rectal cancer in no acute distress. complaining of some back pain. otherwise no other complaints. afebrile. Physical Exam Vital signs: Vital Signs 04/30/18 12:00 04/30/18 12:08 04/30/18 16:00 Temperature 98.3 F 97.3 F L Pulse Rate 76 84 82 Respiratory Rate 16 18 16 Blood Pressure 143/65 H 114/64 Pulse Oximetry 98 92 L 04/30/18 20:00 04/30/18 20:19 05/01/18 00:00 Temperature 98.1 F 98.6 F Pulse Rate 74 78 74 Respiratory Rate 18 18 18 Blood Pressure 131/60 125/60 Pulse Oximetry 95 99 95 05/01/18 07:59 05/01/18 08:00 Temperature 98.3 F Pulse Rate 74 74 Respiratory Rate 24 15 Blood Pressure 158/72 H Pulse Oximetry 98 Intake & Output 04/30/18 05/01/18 05/01/18 19:59 06:59 18:59 Intake Total Balance Weight Intake: IV Rocephin Inj 2,000 MG In NS Inj 100 ML @ 200 mls/hr IV.SIG Q24H [facility] Rx#:[id number] Oral Other: # Voids # Incontinent Voids Date of Last Bowel Movement 04/30/18 - Constitutional no acute distress - Routine Respiratory Exam Present: CTA bilaterally - Routine Cardiovascular Exam Present: RRR - Routine Abdominal Exam Present: soft - Routine Extremities Exam Comments: no pedal edema. - Routine Neurological Exam Present: alert, oriented X3 Results - Labs CBC & Chem 7: 04/29/18 07:35 04/30/18 06:18 Laboratory Results - last 24 hr 04/30/18 04/30/18 04/30/18 11:42 16:37 19:12 POC Glucose 260 H 242 H 199 H 05/01/18 07:56 POC Glucose 67 L Assessment and Plan - Plan Rectal mass Sigmoid diverticulosis Bilateral fat-containing left greater than right inguinal hernia CT abd/men - soft tissue density 2.7 x 2 cm wall of rectum on the left, concerning for malignancy. He also has interval development of mediastinal lymphadenopathy concerning for metastatic disease. GI consult appreciated. S/p colonoscopy 04/28. -biopsy pending. -radiation oncology/oncology consults appreciated; f/u as outpatient. -colorectal surgery following. Influenza B/ Gram-negative marisa bacteremia/ Sepsis Source of gram-negative marisa bacteremia and sepsis is not entirely clear. Infectious disease consultation appreciated. -antibiotics/antivirals per ID; will finish the course of IV antibiotics today. Leukocytosis/Normocytic anemia/Acute thrombocytopenia/H/o prostate cancer with remote history of radiation Noted interval development of mediastinal lymphadenopathy on CT chest. Medical Oncologist is Dr. Madden. Urologist is Dr. Davis. -Holding bicalutamide. -oncology following. History of prior CVA -negative MRI brain 2015/CT brain 2017 Chronic back pain Mild L4 chronic wedge compression deformity noted on Ct abd/pelvis Acetaminophen 650 mg p.o. every 6 hours as needed fever -Tramadol 50 mg daily scheduled. -Trial of Flexeril. -PT. 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 Anterior superior mediastinal lymphadenopathy 2.3 cm. Multiple right rib fractures. -NC titrate for sat >92%. -Albuterol/ipratropium aerosols every 4 hours with albuterol aerosols every 2 hours as needed dyspnea -Budesonide 0.5/2 1 inhalation twice daily. -Methylprednisolone changed to prednisone 20 mg BID 04/29; will continue to taper down. -retail loan originator assistant is Dr. Pollard if needed. Essential hypertension History of sinus tachycardia with PACs Atherosclerotic vascular disease Hyperlipidemia Blood pressure elevation exacerbated by steroids. -Continue atorvastatin 20 mg p.o. daily for hyperlipidemia. -resumed home regimen. -clonidine as needed. -continue amlodipine 10 mg daily. Hyperglycemia Exacerbated by steroids. A1c 6.4%. -insulin sliding scale, Levemir 10 units HS. -wean steroids as tolerated. -lifestyle modifications. Multiple right-sided rib fractures -Pain control as needed. PROPH: SCDs/heparin 5000 units subcu every 8 hours for DVT prophylaxis. Famotidine po for stress ulcer prophylaxis. Discharge Planning: SNF vs [facility]- within the next 24 hrs- if stable.
[2018-05-01] MEDS: Insulin Detemir Inj 1,000 UNIT/10 ML Vial SQ SCH (20:12)
[2018-05-02] MEDS: Heparin - SQ 10,000 UNITS/ML Vial SQ SCH ×4 (05:52→21:32)
[2018-05-02] MEDS: Insulin NovoLOG Aspart Correctional Sugar Inj SQ SCH ×4 (08:12→20:35)
[2018-05-02] MEDS: amLODIPine 10 MG Tablet PO SCH (09:41)
[2018-05-02] MEDS: predniSONE 20 MG Tablet PO SCH ×2 (09:41→20:30)
[2018-05-02] MEDS: Famotidine 20 MG Tablet PO SCH ×2 (09:41→20:28)
[2018-05-02] MEDS: Oseltamivir Liq 30 MG/5 ML Oral Syringe PO SCH (09:42)
[2018-05-02] MEDS: Sodium Chloride 0.9% 2 ML Flush BID IV.FLUSH SCH ×2 (09:44→20:36)
[2018-05-02] MEDS: Polyethylene Glycol 3350 17 GM Packet PO SCH (09:47)
--- NOTE | 2018-05-02 09:52 | P.PNIM ---
Subjective Interval history: f/u ; rectal mass in no acute distress. pain is fairly controlled. no fever. d/w the RN and no acute issues over night. Physical Exam Vital signs: Vital Signs 05/01/18 12:00 05/01/18 16:00 05/01/18 19:50 Temperature 97.2 F L 98.1 F Pulse Rate 75 68 70 Respiratory Rate 16 14 18 Blood Pressure 167/79 H 139/67 Pulse Oximetry 100 99 96 05/01/18 20:00 05/02/18 00:00 05/02/18 08:00 Temperature 98.1 F 97.2 F L 97.2 F L Pulse Rate 75 69 76 Respiratory Rate 18 18 18 Blood Pressure 147/70 H 152/73 H 135/72 Pulse Oximetry 99 100 100 05/02/18 08:49 Temperature Pulse Rate 70 Respiratory Rate 14 Blood Pressure Pulse Oximetry Intake & Output 05/01/18 05/02/18 05/02/18 18:59 06:59 18:59 Intake Total 800 / 800 480 / 480 Balance 800 / 800 480 / 480 Weight 73 kg Intake: IV 100 / 100 Rocephin Inj 2,000 MG In NS Inj 100 / 100 100 ML @ 200 mls/hr IV.SIG Q24H [facility] Rx#:[id number] Oral 700 / 700 480 / 480 Other: # Voids 3 # Incontinent Voids 4 Date of Last Bowel Movement 04/30/18 - Constitutional no acute distress - Routine Respiratory Exam Present: CTA bilaterally - Routine Cardiovascular Exam Present: RRR - Routine Abdominal Exam Present: soft - Routine Extremities Exam Comments: no pedal edema. - Routine Neurological Exam Present: alert, oriented X3 Results - Labs CBC & Chem 7: 04/29/18 07:35 05/02/18 05:37 Laboratory Results - last 24 hr 05/01/18 05/01/18 05/01/18 11:22 16:36 19:33 Creatinine Estimated GFR POC Glucose 188 H 240 H 191 H 05/02/18 05/02/18 05:37 08:08 Creatinine 0.96 Estimated GFR 75 L POC Glucose 113 H Assessment and Plan - Plan Rectal mass Sigmoid diverticulosis Bilateral fat-containing left greater than right inguinal hernia CT abd/men - soft tissue density 2.7 x 2 cm wall of rectum on the left, concerning for malignancy. He also has interval development of mediastinal lymphadenopathy concerning for metastatic disease. GI consult appreciated. S/p colonoscopy 04/28. -biopsy pending. -radiation oncology/oncology consults appreciated; f/u as outpatient. -colorectal surgery following. Influenza B/ Gram-negative marisa bacteremia/ Sepsis Source of gram-negative marisa bacteremia and sepsis is not entirely clear. Infectious disease consultation appreciated. -antibiotics/antivirals per ID; finished the course of IV antibiotics . Leukocytosis/Normocytic anemia/Acute thrombocytopenia/H/o prostate cancer with remote history of radiation Noted interval development of mediastinal lymphadenopathy on CT chest. Medical Oncologist is Dr. Madden. Urologist is Dr. Davis. -Holding bicalutamide. -oncology following. History of prior CVA -negative MRI brain 2015/CT brain 2017 Chronic back pain Mild L4 chronic wedge compression deformity noted on Ct abd/pelvis Acetaminophen 650 mg p.o. every 6 hours as needed fever -Tramadol 50 mg daily scheduled. -Trial of Flexeril. -PT. 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 Anterior superior mediastinal lymphadenopathy 2.3 cm. Multiple right rib fractures. -NC titrate for sat >92%. -Albuterol/ipratropium aerosols every 4 hours with albuterol aerosols every 2 hours as needed dyspnea -Budesonide 0.5/2 1 inhalation twice daily. -Methylprednisolone changed to prednisone 20 mg BID 04/29; will continue to taper down. -security systems manager is Dr. Pollard if needed. Essential hypertension History of sinus tachycardia with PACs Atherosclerotic vascular disease Hyperlipidemia Blood pressure elevation exacerbated by steroids. -Continue atorvastatin 20 mg p.o. daily for hyperlipidemia. -resumed home regimen. -clonidine as needed. -continue amlodipine 10 mg daily. Hyperglycemia Exacerbated by steroids. A1c 6.4%. -insulin sliding scale, Levemir 10 units HS. -wean steroids as tolerated. -lifestyle modifications. Multiple right-sided rib fractures -Pain control as needed. PROPH: SCDs/heparin 5000 units subcu every 8 hours for DVT prophylaxis. Famotidine po for stress ulcer prophylaxis. Discharge Planning: SNF vs [facility]- today if ok with colorectal surgery. see med list. f/u; pcp, oncology and radiation oncology/ colorectal surgery. d/w the patient and . d/w the RN. time spent 35 min.
--- NOTE | 2018-05-02 09:56 | P.DS ---
Date of admission: 04/22/18 13:30 Primary care physician: Lorraine Saba MD Brief History from admission: 82-year-old male with past medical history of COPD on 3 L home oxygen , emphysema, hypertension, hyperlipidemia, prostate cancer diagnosed in 1999 with remote history of radiation, prior tobacco abuse who presented to [facility] emergency department via [facility] on 04/21 with 2-day history of generalized weakness, poor appetite, chills, and subjective fevers. His temperature in the ED was 101. He was given nebs and Rocephin 1 g IV. Chest x-ray was negative for pneumonia. Blood cultures were obtained. He was discharged home with a prescription for azithromycin. He was called to return to the emergency department today when blood cultures were 4/4 positive for gram -negative rods. He is afebrile today but with tachycardia with heart rate 90s- 108. Blood pressure philip was 85/52. He has a normal white blood cell count with left shift. He denies cough or significant sputum production but he is short of breath. He has had some rhinorrhea. Denies nausea, vomiting, abdominal pain, urinary symptoms. He states he has chronic intermittent diarrhea for about a year, without acute change. He has low back pain which she says has been chronic for over a year. Workup in the ED included a repeat set of blood cultures which are pending. Influenza screen is positive for influenza B. CT sinuses is relatively unremarkable except for mild mucosal thickening of the left frontal sinus. CT chest demonstrates interval development of anterior superior mediastinal lymphadenopathy characteristic of metastatic disease (prior CT for comparison in August 2017). CT abdomen and pelvis demonstrates soft tissue density along the rectal wall concerning for malignancy. He has received cefepime, vancomycin, Tamiflu. He is being admitted to the central office operator service. His urologist is Dr. Davis. His oncologist is Dr. Madden. He reportedly underwent radiation therapy in 1999. He is on anti androgen therapy with bicalutamide. DS: Summary Hospital Course: Rectal mass Sigmoid diverticulosis Bilateral fat-containing left greater than right inguinal hernia CT abd/men - soft tissue density 2.7 x 2 cm wall of rectum on the left, concerning for malignancy. He also has interval development of mediastinal lymphadenopathy concerning for metastatic disease. GI consult appreciated. S/p colonoscopy 04/28. -biopsy pending. -radiation oncology/oncology consults appreciated; f/u as outpatient. -colorectal surgery following. Influenza B/ Gram-negative marisa bacteremia/ Sepsis Source of gram-negative marisa bacteremia and sepsis is not entirely clear. Infectious disease consultation appreciated. -antibiotics/antivirals per ID; finished the course of IV antibiotics . Leukocytosis/Normocytic anemia/Acute thrombocytopenia/H/o prostate cancer with remote history of radiation Noted interval development of mediastinal lymphadenopathy on CT chest. Medical Oncologist is Dr. Madden. Urologist is Dr. Davis. -Holding bicalutamide. -oncology following. History of prior CVA -negative MRI brain 2015/CT brain 2017 Chronic back pain Mild L4 chronic wedge compression deformity noted on Ct abd/pelvis Acetaminophen 650 mg p.o. every 6 hours as needed fever -Tramadol 50 mg daily scheduled. -Trial of Flexeril. -PT. 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 Anterior superior mediastinal lymphadenopathy 2.3 cm. Multiple right rib fractures. -NC titrate for sat >92%. -Albuterol/ipratropium aerosols every 4 hours with albuterol aerosols every 2 hours as needed dyspnea -Budesonide 0.5/2 1 inhalation twice daily. -Methylprednisolone changed to prednisone 20 mg BID 04/29; will continue to taper down. -director of research center is Dr. Pollard if needed. Essential hypertension History of sinus tachycardia with PACs Atherosclerotic vascular disease Hyperlipidemia Blood pressure elevation exacerbated by steroids. -Continue atorvastatin 20 mg p.o. daily for hyperlipidemia. -resumed home regimen. -clonidine as needed. -continue amlodipine 10 mg daily. Hyperglycemia Exacerbated by steroids. A1c 6.4%. -insulin sliding scale, Levemir 10 units HS. -wean steroids as tolerated. -lifestyle modifications. Multiple right-sided rib fractures -Pain control as needed. - Time Spent with Patient Total time spent providing and/or coordinating discharge services: Greater than 30 minutes (35 min.) - Quality: VTE Deep Vein Thrombosis/Pulmonary Embolism Present on Admission: No Exam Vital signs: Vital Signs 05/01/18 12:00 05/01/18 16:00 05/01/18 19:50 Temperature 97.2 F L 98.1 F Pulse Rate 75 68 70 Respiratory Rate 16 14 18 Blood Pressure 167/79 H 139/67 Pulse Oximetry 100 99 96 05/01/18 20:00 05/02/18 00:00 05/02/18 08:00 Temperature 98.1 F 97.2 F L 97.2 F L Pulse Rate 75 69 76 Respiratory Rate 18 18 18 Blood Pressure 147/70 H 152/73 H 135/72 Pulse Oximetry 99 100 100 05/02/18 08:49 Temperature Pulse Rate 70 Respiratory Rate 14 Blood Pressure Pulse Oximetry Intake & Output 05/01/18 05/02/18 05/02/18 18:59 06:59 18:59 Intake Total 800 / 800 480 / 480 Balance 800 / 800 480 / 480 Weight 73 kg Intake: IV 100 / 100 Rocephin Inj 2,000 MG In NS Inj 100 / 100 100 ML @ 200 mls/hr IV.SIG Q24H [facility] Rx#:[id number] Oral 700 / 700 480 / 480 Other: # Voids 3 # Incontinent Voids 4 Date of Last Bowel Movement 04/30/18 - Constitutional no acute distress - Routine Respiratory Exam Present: CTA bilaterally - Routine Cardiovascular Exam Present: RRR - Routine Abdominal Exam Present: soft - Routine Extremities Exam Comments: no pedal edema. - Routine Neurological Exam Present: alert, oriented X3 Results Procedures completed during hospitalization: colonoscopy. Pending studies at discharge: Pending at discharge 04/28/18 16:38 Surgical [PTH] Routine Labs on day of discharge: Labs from last 24 hours 05/02/18 05/02/18 05/01/18 08:08 05:37 19:33 Creatinine 0.96 Estimated GFR 75 L POC Glucose 113 H 191 H 05/01/18 05/01/18 16:36 11:22 Creatinine Estimated GFR POC Glucose 240 H 188 H - Impressions ITS Impressions Sinuses CT 04/22/18 00:00 CONCLUSION: 1. There is minimal left frontal sinus mucosal thickening. 2. Otherwise normal aeration of the paranasal sinuses. Abdomen/Pelvis CT 04/22/18 13:29 CONCLUSION: 1. Fat-containing inguinal hernias left greater than right. 2. Diverticulosis without diverticulitis. 3. Trace amount of free fluid in the pelvis. 4. Atherosclerosis. 5. Right renal cortical thinning and left renal cyst. 6. There is abnormal eccentric soft tissue density seen along the rectal wall from 1:00 to 6:00 position concerning for malignancy until proven otherwise. Chest CT 04/22/18 13:29 CONCLUSION: 1. Development of adenopathy in the anterosuperior mediastinum with lymph nodes measuring up to 2.3 cm in diameter. 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 2. Severe emphysema. No new consolidation or effusion. 3. Multiple remote lower right rib fractures. Chest X-Ray 04/24/18 06:00 CONCLUSION: Hyperaerated lungs; no infiltrates seen. Discharge Plan - Discharge Condition Condition: Fair - Physicians Team Primary Care Provider: Lorraine Saba Attending Provider: Cecilia Perez Other Providers: Volodymyr Sheldon MD ; Donn Varma MD ; Christian Akers MD ; Devin Galvez MD ; Joel Sharma MD ; Baldomero Conteh MD ; cSot Steele MD
--- NOTE | 2018-05-02 17:56 | P.DIET ---
Nutritional Evaluation Type of nutrition evaluation: follow-up Nutrition consult regarding: Diet Evaluation Nutrition screening: Weight Loss > 10 lbs Subjective Subjective Comments: Pt receiving nursing care when visit attempted. 100% po for breakfast today. Objective - Diagnosis severe sepsis, bacteremia, influenza - Objective % IBW: 94 (IBW = 178lb) Energy Needs - Lower Range (kCal/kg): 28 Energy Needs - Upper Range (kCal/kg): 32 Lower Limit kCal/kg (kCals): 2,134 Upper Limit kCal/kg (kCals): 2,438 Lower Limit Protein Factor (Grams per Kg): 1.2 Upper Limit Protein Factor (Grams per Kg): 1.5 Lower Protein Needs (Protein): 91 Upper Protein Needs (Protein): 114 Fluid Factor (ml/kg): 30 Estimated Fluid Needs (ml): 2,286 Dietitian Reviewed in Medical Record: Current diet, Curent medications, Intake & Output, Labs, Medical history Diet Order: cardiac Oral Diet Intake Amount: Fair 50-75% Objective Comments: PMH: COPD, emphysema, HLD, HTN, prostate cancer, stroke Meds include: lipitor, catapres, pepcid Labs include: A1C 6.4; POC Glucose 239 LBM 05/01 Assessment Assessment: Pt continues at nutritional risk r/t reported unplanned wt loss. Adequate po intake 50% or greater for most meals here. Send Glucerna Shake BID for additional nutrition(= 220 kcal and 10g protein per serving). Labs reviewed. Wt changes noted. Dietitian following. Recommendations: 1. Send Glucerna Shake BID for additional nutrition 2. Dietitian following Dietitian to Monitor: Lab values, Glucose level, Supplement acceptance, Intake & Output, Weight change, PO Intake, Medical course
[2018-05-02] MEDS: Insulin Detemir Inj 1,000 UNIT/10 ML Vial SQ SCH (20:35)
--- NOTE | 2018-05-02 23:13 | P.PNCS ---
Subjective Interval history: afebrile, VSS UO good luz maria PO no pain/BRB Objective Result Diagrams: 04/29/18 07:35 05/02/18 05:37 Objective Remarks: PE alert, SOB Abd - soft, doughy, non-tender, no mass Assessment and Plan - Plan Imp: rectal cancer - bx pending, - Bx rectal cancer chest lymph nodes? bx necessary consult Oncology/Radiation if RT not poss, may be able to do trans-anal resection if moved to rehab will w/u as outpt
[2018-05-03] MEDS: Heparin - SQ 10,000 UNITS/ML Vial SQ SCH ×2 (05:13→13:00)
--- NOTE | 2018-05-03 09:14 | P.PNIM ---
Subjective Interval history: f/u; rectal cancer in no acute distress. pain is fairly controlled. no new complaints. Physical Exam Vital signs: Vital Signs 05/02/18 09:39 05/02/18 11:20 05/02/18 12:00 Temperature 97.2 F L Pulse Rate 69 Respiratory Rate 18 Blood Pressure 107/65 Pulse Oximetry 100 100 100 05/02/18 16:00 05/02/18 20:00 05/02/18 20:51 Temperature 97.3 F L 97.7 F Pulse Rate 75 78 78 Respiratory Rate 18 18 17 Blood Pressure 111/70 159/82 H Pulse Oximetry 100 98 99 05/03/18 00:00 05/03/18 08:39 Temperature 97.1 F L Pulse Rate 64 64 Respiratory Rate 18 18 Blood Pressure 168/81 H Pulse Oximetry 98 93 L Intake & Output 05/02/18 05/03/18 05/03/18 18:59 06:59 18:59 Intake Total 472 / 472 500 / 500 Balance 472 / 472 500 / 500 Weight 73.4 kg Intake: Oral 472 / 472 500 / 500 Other: # Voids 5 2 # Incontinent Voids 5 Date of Last Bowel Movement 05/01/18 05/01/18 - Constitutional no acute distress - Routine Respiratory Exam Present: diminished air movement - Routine Cardiovascular Exam Present: RRR - Routine Abdominal Exam Present: soft - Routine Extremities Exam Comments: no pedal edema. - Routine Neurological Exam Present: alert, oriented X3 Results - Labs CBC & Chem 7: 04/29/18 07:35 05/02/18 05:37 Laboratory Results - last 24 hr 04/29/18 05/02/18 05/02/18 16:58 11:37 16:40 POC Glucose 239 H 185 H Free PSA 12.1 Total PSA 97.5 H PSA Free/Total Ratio 0 05/02/18 05/03/18 19:56 07:29 POC Glucose 197 H 112 H Free PSA Total PSA PSA Free/Total Ratio - Procedures colonoscopy. Assessment and Plan - Plan Rectal cancer Sigmoid diverticulosis Bilateral fat-containing left greater than right inguinal hernia CT abd/men - soft tissue density 2.7 x 2 cm wall of rectum on the left, concerning for malignancy. He also has interval development of mediastinal lymphadenopathy concerning for metastatic disease. GI consult appreciated. S/p colonoscopy 11/1. -biopsy with adenocarcinoma -radiation oncology/oncology consults appreciated; f/u as outpatient. -colorectal surgery follow-up as outpatient. Influenza B/ Gram-negative marisa bacteremia/ Sepsis Source of gram-negative marisa bacteremia and sepsis is not entirely clear. Infectious disease consultation appreciated. -antibiotics/antivirals per ID; finished the course of IV antibiotics . Leukocytosis/Normocytic anemia/Acute thrombocytopenia/H/o prostate cancer with remote history of radiation Noted interval development of mediastinal lymphadenopathy on CT chest. Medical Oncologist is Dr. Madden. Urologist is Dr. Davis. -Holding bicalutamide. -oncology following. History of prior CVA -negative MRI brain 2015/CT brain 2017 Chronic back pain Mild L4 chronic wedge compression deformity noted on Ct abd/pelvis Acetaminophen 650 mg p.o. every 6 hours as needed fever -Tramadol 50 mg daily scheduled. -Trial of Flexeril. -PT. 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 Anterior superior mediastinal lymphadenopathy 2.3 cm. Multiple right rib fractures. -NC titrate for sat >92%. -Albuterol/ipratropium aerosols every 4 hours with albuterol aerosols every 2 hours as needed dyspnea -Budesonide 0.5/2 1 inhalation twice daily. -Methylprednisolone changed to prednisone 20 mg BID 04/29; will continue to taper off. -inbound customer service representative is Dr. Pollard if needed. Essential hypertension History of sinus tachycardia with PACs Atherosclerotic vascular disease Hyperlipidemia Blood pressure elevation exacerbated by steroids. -Continue atorvastatin 20 mg p.o. daily for hyperlipidemia. -resumed home regimen. -clonidine as needed. -continue amlodipine 10 mg daily. Hyperglycemia Exacerbated by steroids. A1c 6.4%. -insulin sliding scale, Levemir 10 units HS. -wean steroids as tolerated. -lifestyle modifications. Multiple right-sided rib fractures -Pain control as needed. PROPH: SCDs/heparin 5000 units subcu every 8 hours for DVT prophylaxis. Famotidine po for stress ulcer prophylaxis. Discharge Planning: dc to [facility] today. see med list. f/u; pcp, oncology and radiation oncology/ colorectal surgery. previously d/w the patient and and oncology. time spent 35 min.
[2018-05-03] MEDS: predniSONE 20 MG Tablet PO SCH (09:18)
[2018-05-03] MEDS: amLODIPine 10 MG Tablet PO SCH (09:18)
[2018-05-03] MEDS: Famotidine 20 MG Tablet PO SCH (09:18)
[2018-05-03] MEDS: Polyethylene Glycol 3350 17 GM Packet PO SCH (09:19)
[2018-05-03] MEDS: Insulin NovoLOG Aspart Correctional Sugar Inj SQ SCH ×2 (09:19→12:56)
[2018-05-03] MEDS: Sodium Chloride 0.9% 2 ML Flush BID IV.FLUSH SCH (09:21)
== END 2018-05-03 15:46 ==
LOC: PHED 10:46 → PHEDA 13:30 → HIMC 17:15 → N07 04-24 18:15
PROVIDERS: ADMIT Internal Medicine; ATTEND Internal Medicine
DX: J43.9 Emphysema, unspecified; H91.90 Unspecified hearing loss, unspecified ear; C61 Malignant neoplasm of prostate; Z80.1 Family history of malignant neoplasm of trachea, bronchus and lung; J10.1 Influenza due to other identified influenza virus with other respiratory manifestations; B96.20 Unspecified Escherichia coli [E. coli] as the cause of diseases classified elsewhere; I10 Essential (primary) hypertension; C20 Malignant neoplasm of rectum; J96.11 Chronic respiratory failure with hypoxia; K62.9 Disease of anus and rectum, unspecified; D69.6 Thrombocytopenia, unspecified; J40 Bronchitis, not specified as acute or chronic; R73.9 Hyperglycemia, unspecified; M48.56XA Collapsed vertebra, not elsewhere classified, lumbar region, initial encounter for fracture; Z92.3 Personal history of irradiation; N28.1 Cyst of kidney, acquired; Z79.899 Other long term (current) drug therapy; Z86.73 Personal history of transient ischemic attack (TIA), and cerebral infarction without residual deficits; K57.30 Diverticulosis of large intestine without perforation or abscess without bleeding; A41.51 Sepsis due to Escherichia coli [E. coli]; K40.90 Unilateral inguinal hernia, without obstruction or gangrene, not specified as recurrent; S22.41XA Multiple fractures of ribs, right side, initial encounter for closed fracture; E86.0 Dehydration; R59.0 Localized enlarged lymph nodes; T38.0X5A Adverse effect of glucocorticoids and synthetic analogues, initial encounter; E78.5 Hyperlipidemia, unspecified; Z99.81 Dependence on supplemental oxygen; D63.0 Anemia in neoplastic disease; Z87.891 Personal history of nicotine dependence; R65.20 Severe sepsis without septic shock; Z68.21 Body mass index [BMI] 21.0-21.9, adult; R63.4 Abnormal weight loss; R50.9 Fever, unspecified; F41.9 Anxiety disorder, unspecified